=== PATIENT | male | born 1970 | race Caucasian/White ===

== ENCOUNTER 2016-02-12 16:29 | Emergency (ER) | payer OTHER ==
[~2016-02-12] VITALS: Ht 203.2 cm; Wt 116.1 kg
[~2016-02-12 16:29] MED LIST: ACET325T38 PO; ALBU17AE23 IH; ASP81TEC PO; ASPI-74 PO; ATOR40TA70 PO; ATOR80TA PO; ATOR80TA76 PO; BPR150TCR PO; CEFD300C3 PO; CLOP75TA PO; CLOP75TA28 PO; CYCL10TA9 PO; DOCU-143 PO; DOXY150T9 PO; FLUT1DIS26 IH; HYDR-2858 PO; HYDR-3812 PO; IBP600T1 PO; IBP800T PO; IBUP-30 PO; ISOS30TA3 PO; L.AC1CAP6 PO; METO-352 PO; METO50TA7 PO; MTP25TSR PO; NTR.4SL SL; OMEP20CA12 PO; OMEP20TA7 PO; OMG1KC PO; PANT40TA2 PO; PNT40TEC PO; PRD10T PO
--- OUTSIDE RECORDS SUMMARY | 2016-02-12 16:36 | XMS REPORT | Continuity of Care Document ---
Author Author [facility] Organization [facility] Address Unknown Phone Unavailable Care Team Providers Care Systems Accountant Name Role Phone [facility] PCP Insurance Providers Payer Name Policy Number Subscriber Name Relationship Self Pay Pending Radha Apprv [id number] Robert De La Torre 18 Self / Same As Patient Advance Directives Directive Response Recorded Date/Time Advance Directives No 09/25/15 8:30pm Health Care Power of Cafeteria Helper No 09/25/15 8:30pm Organ Donor Yes 09/25/15 8:30pm Problems Active Problems Medical Problem Onset Date Status Acute coronary syndrome Unknown Acute Acute inferolateral myocardial infarction Unknown Acute CAD (coronary artery disease) Unknown Acute Non-ST elevated myocardial infarction Unknown Acute Medications Current Home Medications Medication Dose Units Route Directions Days/Qty Instructions Start Date Aspirin 81 Mg 81 Mg Oral Daily 03/24/12 Metoprolol Succinate 50 Mg 50 Mg Oral Daily 07/24/15 Atorvastatin Calcium 80 Mg 80 Mg Oral Bedtime 07/24/15 [place] 3 Polyunsat Fatty Acids 1,000 Mg 1,000 Mg Oral Twice A Day Clopidogrel Bisulfate 75 Mg 75 Mg Oral Daily LAST FILLED 09/08/15 #30 07/24/15 Omeprazole 20 Mg 20 Mg Oral Daily LAST FILLED 08/30/15 #30 07/24/15 Isosorbide Mononitrate (Imdur) 30 Mg 30 Mg Oral Daily 09/26/15 Acetaminophen 325 Mg 650 Mg Oral Every 8HRS 60 09/26/15 Past Home Medications Medication Directions Ordered Status Aspirin 325 Mg Tablet, 325 Mg Oral As Needed 02/01/11 Discontinued Cefdinir (Omnicef) 300 Mg Capsule, 1 Each Oral Twice A Day 02/08/11 Discontinued Albuterol 17 Gm Aerosol, 2 Puff Inhalation Every 4HRS as needed 02/08/11 Discontinued Ibuprofen 600 Mg Tab, 600 Mg Oral Every 6 Hours as needed 02/08/11 Discontinued Ibuprofen 800 Mg Tab, 800 Mg Oral Three Times A Day 03/07/12 Discontinued Ibuprofen 800 Mg Tablet, 800 Mg Oral Qid Prn 03/21/12 Discontinued Atorvastatin Calcium 80 Mg Tablet, 80 Mg Oral Bedtime 03/24/12 Discontinued Metoprolol Succinate 25 Mg Tab.sr.24h, 50 Mg Oral Daily 03/24/12 Discontinued Clopidogrel Bisulfate 75 Mg Tablet, 75 Mg Oral Daily 03/24/12 Discontinued Pantoprazole Sodium 40 Mg Tablet.dr, 40 Mg Oral Daily as needed for Heartburn 03/24/12 Discontinued Atorvastatin Calcium 40 Mg Tablet, 80 Mg Oral Bedtime 06/29/12 Discontinued Metoprolol Succinate 50 Mg Tab.sr.24h, 50 Mg Oral Daily 06/29/12 Discontinued Salmeterol Xinafoate/Fluticasone 1 Disk Inhp, 1 Puff Inhalation Twice A Day 06/29/12 Discontinued Ibuprofen 200 Mg Tablet, 400 Mg Oral Daily 06/29/12 Discontinued Nitroglycerin 0.4 Mg Subl, 0.4 Mg Sublingual Every 5 Minutes 06/29/12 Discontinued Nitroglycerin 0.4 Mg Tab, 0 Sublingual As Needed 06/29/12 Discontinued Bupropion Hcl 150 Mg Tablet, 150 Tab Oral Daily 06/25/13 Discontinued Fish Oil 1,000 Mg Cap, 1000 Mg Oral Twice A Day 06/25/13 Discontinued L.acidoph & Paracasei,B.lactis 1 Each Capsule, 1 Each Oral Twice A Day Discontinued Omeprazole 20 Mg Tablet.dr, 20 Mg Oral Daily 01/18/15 Discontinued Hydrocodone/Acetaminophen 1 Each Tablet, 1 Tab Oral Every 4HRS as needed for 01/20/15 Discontinued Docusate Sodium 100 Mg Capsule, 100 Mg Oral Twice A Day 01/20/15 Discontinued Fluticasone/Salmeterol 1 Each Blst.w.dev, 1 Each Inhalation Twice A Day as needed for Wheezing 05/26/15 Discontinued Docusate Sodium 100 Mg Capsule, 100 Mg Oral Daily 06/13/16 Discontinued Isosorbide Mononitrate (Imdur) 30 Mg Tab.er.24h, 30 Mg Oral Daily 07/27/15 Discontinued Social History Social History Problem Response Recorded Date/Time Alcohol Use Denies Use 07/24/2015 1:08pm Recreational Drug Use N HX OF METH ABUSE, CLEAN SINCE 201007/24/2015 1:08pm Recent Foreign Travel No 06/24/2013 8:05pm Recent Infectious Disease Exposure No 06/24/2013 8:05pm Hospitalization with Isolation Denies 06/26/2013 12:40am Sexually Transmitted Disease No 09/25/2015 8:30pm HIV/AIDS No 09/25/2015 8:30pm Do you dip or chew tobacco? No 07/24/2015 10:19am Type Used Cigarettes 09/26/2015 1:14pm Recent Hopitalizations Yes 09/25/2015 8:30pm Sexually Transmitted Disease No 09/25/2015 8:30pm Hospitalization with Isolation Denies 06/26/2013 12:40am Hospital Discharge Instructions No hospital discharge instructions. Plan of Care Discharge Date 10/25/15 3:45pm Prescriptions See Medication Section Functional Status No functional status results. Allergies, Adverse Reactions, Alerts Allergen Type Severity Reaction Status Last Updated NKANo Known Allergies Allergy Mild Active 05/30/15 Immunizations No immunization records. Vital Signs Acute Vital Signs Vital Response Date/Time Temperature (Fahrenheit) 97.7 degrees F (97.6 - 99.5) 09/26/2015 1:00pm Temperature (Calculated Celsius) 35.47063 degrees C (36.4 - 37.5) 09/26/2015 8:01am Temperature Source Tympanic 09/26/2015 1:00pm Pulse Rate (adult) 56 bpm (60 - 90) 09/26/2015 1:00pm Respiratory Rate 13 bpm (12 - 24) 09/26/2015 1:00pm O2 Sat by Pulse Oximetry 100 % (88 - 100) 09/26/2015 1:00pm Blood Pressure 114/81 mm Hg 09/26/2015 1:00pm Blood Pressure Mean 101 mm Hg 09/26/2015 8:01am Pain Numeric Pain Scale 0-No Pain 09/26/2015 1:00pm Height (Feet) 6 feet 09/25/2015 8:30pm Height (Inches) 3.00 inches 09/25/2015 8:30pm Height (Calculated Centimeters) 190.592271 cm 09/25/2015 8:30pm Weight (Pounds) 246 pounds 09/26/2015 6:00am Weight (Ounces) 0.0 oz 09/26/2015 6:00am Weight (Calculated Grams) 647476.724 gm 09/26/2015 6:00am Weight (Calculated Kilograms) 111.431630 kilograms 09/26/2015 6:00am Calculated BMI 30.8 09/25/2015 8:30pm Capillary Refill Capillary Refill Less Than 3 Seconds 09/25/2015 11:00pm Results Laboratory Results Test Name Result Units Flags Reference Collection Date/Time Result Date/ Time Comments Sodium Level 139 MMOL/L 135-145 09/25/2015 9:41am 09/25/2015 10:13am Potassium Level 4.7 MMOL/L 3.6-5.0 09/25/2015 9:41am 09/25/2015 10: 13am Chloride Level 106 MMOL/L 98-107 09/25/2015 9:41am 09/25/2015 10:13am Carbon Dioxide Level 25 MMOL/L 21-32 09/25/2015 9:41am 09/25/2015 10: 13am Anion Gap 8 MMOL/L 5-14 09/25/2015 9:41am 09/25/2015 10:13am Blood Urea Nitrogen 15 MG/DL 7-18 09/25/2015 9:41am 09/25/2015 10:13am Creatinine 1.00 MG/DL 0.60-1.30 09/25/2015 9:41am 09/25/2015 10:13am BUN/Creatinine Ratio 15 09/25/2015 9:41am 09/25/2015 10:13am Estimat Glomerular Filtration Rate > 60 09/25/2015 9:41am 2015 10:13am GFR INTERPRETIVE DATA UNITS FOR ESTIMATED GFR (eGFR): mL/min/1.73 M2 REFERENCE RANGE FOR ESTIMATED GFR (eGFR) eGFR NORMAL eGFR >60 MODERATELY DECREASED eGFR 30-59 SEVERLY DECREASED eGFR 15-29 KIDNEY FAILURE <15 (OR DIALYSIS) Glucose Level 99 MG/DL 70-105 09/25/2015 9:41am 09/25/2015 10:13am Calcium Level 9.5 MG/DL 8.5-10.1 09/25/2015 9:41am 09/25/2015 10:13am Magnesium Level 2.3 MG/DL 1.8-2.4 09/25/2015 9:41am 09/25/2015 10:13am Total Bilirubin 0.8 MG/DL 0.1-1.0 09/25/2015 9:41am 09/25/2015 10:13am Alkaline Phosphatase 88 U/L 40-136 09/25/2015 9:41am 09/25/2015 10: 13am Aspartate Amino Transf (AST/SGOT) 22 U/L 5-34 09/25/2015 9:41am 2015 10:13am Alanine Aminotransferase (ALT/SGPT) 40 U/L 0-55 09/25/2015 9:41am 09/24 10:13am Total Protein 7.0 G/DL 6.4-8.2 09/25/2015 9:41am 09/25/2015 10:13am Albumin 4.5 G/DL 3.2-4.5 09/25/2015 9:41am 09/25/2015 10:13am Triglycerides Level 217 MG/DL H <150 09/25/2015 9:41am 09/25/2015 10: 13am Cholesterol Level 170 MG/DL < 200 09/25/2015 9:41am 09/25/2015 10:13am HDL Cholesterol 33 MG/DL L 40-60 09/25/2015 9:41am 09/25/2015 10:13am LDL Cholesterol Direct 93 MG/DL 1-129 09/25/2015 9:41am 09/25/2015 10: 13am VLDL Cholesterol 43 MG/DL H 5-40 09/25/2015 9:41am 09/25/2015 10:13am Pending Laboratory Results Test Name Collection Date/Time Procedures Procedure Status Date Provider(s) Tracing only of electrocardiogram Completed 09/25/15 DEWEY CANCHOLA MD Tracing only of electrocardiogram Completed 09/25/15 DARÍO JIMÉNEZ MD FACP FAC CCDS Encounters Encounter Location Arrival/Admit Date Discharge/Depart Date Attending Provider Departed Clinic [facility] 10/25/15 3:15pm 10/25/15 3: 45pm ИВАН RAYMUNDO DO Departed Surgical Day Care [facility] 09/25/15 5:26pm 1:00pm DARÍO JIMÉNEZ FACP, MD FACC Registered Clinic [facility] 09/25/15 9:38am DARÍO JIMÉNEZ FACP, MD FACC
[2016-02-12 16:43] VITALS: BP 149/87
[2016-02-12] MEDS ORDERED: ASPIRIN 81 MG CHEW (CHILDREN'S ASA) PO ONE (16:45)
[2016-02-12 16:48] LABS: BASOPHILS % (AUTO) 1 % (0-10); EOSINOPHILS # (AUTO) 0.2 10^3/uL (0.0-0.3); EOSINOPHILS % (AUTO) 3 % (0-10); LYMPHOCYTES # (AUTO) 1.7 X 10^3 (1.0-4.0); LYMPHOCYTES % (AUTO) 32 % (12-44); MEAN CORPUSCULAR HEMOGLOBIN 31 PG (25-34); MEAN CORPUSCULAR HGB CONC 34 G/DL (32-36); MEAN CORPUSCULAR VOLUME 91 FL (80-99); MEAN PLATELET VOLUME 9.3 FL (7.4-10.4); MONOCYTES # (AUTO) 0.5 X 10^3 (0.0-1.0); MONOCYTES % (AUTO) 10 % (0-12); NEUTROPHILS # (AUTO) 2.8 X 10^3 (1.8-7.8); NEUTROPHILS % (AUTO) 54 % (42-75); PLATELET COUNT 223 10^3/uL (130-400); RED CELL DISTRIBUTION WIDTH 13.2 % (10.0-14.5); WHITE BLOOD COUNT 5.2 10^3/uL (4.3-11.0)
[2016-02-12] MEDS ORDERED: FAMOTIDINE 20MG/2ML IV (PEPCID) IV STA (16:55)
[2016-02-12 16:59] LABS: PROTHROMBIN TIME PATIENT 12.4 SEC (12.2-14.7)
[2016-02-12] MEDS ORDERED: LIDOCAINE 2% VISCOUS 15 ML UDC PO ONE (17:00)
[2016-02-12] MEDS ORDERED: ANTACID SUSP 30 ML UDC (MYLANTA) PO ONE (17:00)
--- NOTE | 2016-02-12 17:00 | ED Chest Pain ---
General Chief Complaint: Chest Pain Stated Complaint: CP Nursing Triage Note: TO ED AMB FROM [facility] C/O CHEST PAIN Nursing Sepsis Screen: No Definite Risk Source: patient Exam Limitations: no limitations History of Present Illness Time seen by provider: 16:35 Initial Comments here with report of abdominal pain and chest discomfort. Abd pain for 5 days with diarrhea and occassional mildly bloody stool. Seen at clinic toay and told to come to hospital to check in. Came here and was complaining of chest pain. States pain radiates from upper abd to left side of chest and is intermittent and moderated in intensity. Timing/Duration: changing over time, 4-5 days Severity/Quality: mild, moderate, ingestion, pressure Location: central Radiation: epigastric Activities at Onset: none Prior CP/Workup: cardiac cath, heart attack Modifying Factors: improves with eating ASA po ENTERER: Yes NTG SL ENTERER: No Associated Symptoms: abdominal painNo back pain, No diaphoresis, No fever/ chills, No nausea/vomiting, No shortness of breath, No weakness Allergies and Home Medications Allergies Coded Allergies: NKANo Known Allergies (Verified Allergy, Mild, 05/30/15) Home Medications Acetaminophen 325 Mg Tablet #60 650 MG PO Q8H Prescribed by: LAMAR MARC on 09/26/15 1138 Aspirin 81 Mg Tabec 81 MG PO DAILY (Reported) Atorvastatin Calcium 80 Mg Tablet 80 MG PO HS (Reported) Clopidogrel Bisulfate 75 Mg Tablet 75 MG PO DAILY (Reported) LAST FILLED 09/08/15 #30 Isosorbide Mononitrate 30 Mg Tab.er.24h 30 MG PO DAILY (Reported) Metoprolol Succinate 50 Mg Tab.er.24h 50 MG PO DAILY (Reported) [place] 3 Polyunsat Fatty Acids 1,000 Mg Cap 1,000 MG PO BID (Reported) Omeprazole 20 Mg Capsule.dr 20 MG PO DAILY (Reported) LAST FILLED 08/30/15 #30 Pantoprazole Sodium 40 Mg Tablet.dr #30 40 MG PO DAILY Prescribed by: FILOMENA ACOSTA on 11/04/15 1314 Review of Systems Constitutional: see HPINo chills, No fever EENTM: No Symptoms Reported Respiratory: No Symptoms Reported Cardiovascular: See HPI Chest PainDenies Lightheadedness Gastrointestinal: DiarrheaDenies Nausea, Rectal BleedingDenies Vomiting Genitourinary: No Symptoms Reported Musculoskeletal: no symptoms reported Skin: no symptoms reported Psychiatric/Neurological: No Symptoms Reported Endocrine: No Symptoms Reported All Other Systems Reviewed Negative Unless Noted: Yes Past Iqwwytj-Pakylj-Egfkos Hx Patient Social History Alcohol Use: Denies Use Recreational Drug Use: No Smoking Status: Current Everyday Smoker Type Used: Cigarettes Recent Foreign Travel: No Contact w/Someone Who Travel: No Recent Infectious Disease Expo: No Recent Hopitalizations: Yes Immunizations Up To Date Tetanus Booster (TDap): Unknown Date of Pneumonia Vaccine: Nov 22, 2014 Date of Influenza Vaccine: Nov 22, 2014 Seasonal Allergies Seasonal Allergies: No Surgeries HX Surgeries: Yes (LEFT KNEE SX) Surgeries: Abdominal (upper endoscopy with gastritis noted), Coronary Stent, Gallbladder Respiratory Hx Respiratory Disorders: No Cardiovascular Hx Cardiac Disorders: Yes Cardiac Disorders: Coronary Artery Disease, High Cholesterol, Hypertension Neurological Hx Neurological Disorders: No Reproductive System Hx Reproductive Disorders: No Sexually Transmitted Disease: No HIV/AIDS: No Genitourinary Hx Genitourinary Disorders: No Gastrointestinal Hx Gastrointestinal Disorders: Yes Gastrointestinal Disorders: Gall Bladder Disease Musculoskeletal Hx Musculoskeletal Disorders: Yes Musculoskeletal Disorders: Degenerate Disk Disease, Arthritis, Back Injury Endocrine Hx Endocrine Disorders: No HEENT HX ENT Disorders: No Cancer Hx Cancer: No Psychosocial Hx Psychiatric Problems: No Integumentary HX Skin/Integumentary Disorder: No Blood Transfusions Hx Blood Disorders: No Reviewed Nursing Assessment Reviewed/Agree w Nursing PMH: Yes Family Medical History Significant Family History: Heart Disease, Hypertension Family Medial History: Congestive heart failure 19 FATHER Family history: Hypertension 19 FATHER 19 MOTHER No Family History of: Cancer Dementia Family history: Alzheimer's disease Family history: Diabetes mellitus Stroke Physical Exam Vital Signs Vital Sign - Last 12Hours 02/12/16 16:34 Temp 97.4 Pulse 79 Resp 18 B/P 142/92 Pulse Ox 98 O2 Delivery Room Air Capillary Refill : Less Than 3 Seconds General Appearance: No Apparent Distress WD/WN HEENT: PERRL/EOMI Pharynx Normal Neck: Non Tender Supple Respiratory: Lungs Clear Normal Breath Sounds Cardiovascular: Regular Rate, Rhythm No Murmur Gastrointestinal: Non Tender Soft Rectal: Deferred Extremity: Non Tender No Calf Tenderness Neurologic/Psychiatric: Alert Oriented x3 No Motor/Sensory Deficits Skin: Normal Color Warm/Dry Progress/Results/Core Measures Results/Orders Lab Results Laboratory Tests Test 02/12/16 16:39 Range/Units Activated Partial Thromboplast Time 26 24-35 SEC Alanine Aminotransferase (ALT/SGPT) 350 H 0-55 U/L Albumin 4.4 3.2-4.5 G/DL Alkaline Phosphatase 142 H 40-136 U/L Anion Gap 8 5-14 MMOL/L Aspartate Amino Transf (AST/SGOT) 297 H 5-34 U/L BUN/Creatinine Ratio 15 Basophils # (Auto) 0.0 0.0-0.1 10^3/uL Basophils (%) (Auto) 1 0-10 % Blood Urea Nitrogen 16 7-18 MG/DL Calcium Level 9.2 8.5-10.1 MG/DL Carbon Dioxide Level 27 21-32 MMOL/L Chloride Level 105 98-107 MMOL/L Creatinine 1.10 0.60-1.30 MG/DL Eosinophils # (Auto) 0.2 0.0-0.3 10^3/uL Eosinophils (%) (Auto) 3 0-10 % Estimat Glomerular Filtration Rate > 60 Glucose Level 103 70-105 MG/DL Hematocrit 47 40-54 % Hemoglobin 15.9 13.3-17.7 G/DL INR Comment 1.0 0.8-1.4 Lymphocytes # (Auto) 1.7 1.0-4.0 X 10^3 Lymphocytes (%) (Auto) 32 12-44 % Magnesium Level 2.2 1.8-2.4 MG/DL Mean Corpuscular Hemoglobin 31 25-34 PG Mean Corpuscular Hemoglobin Concent 34 32-36 G/DL Mean Corpuscular Volume 91 80-99 FL Mean Platelet Volume 9.3 7.4-10.4 FL Monocytes # (Auto) 0.5 0.0-1.0 X 10^3 Monocytes (%) (Auto) 10 0-12 % Myoglobin 89.7 10.0-92.0 NG/ML Neutrophils # (Auto) 2.8 1.8-7.8 X 10^3 Neutrophils (%) (Auto) 54 42-75 % Platelet Count 223 130-400 10^3/uL Potassium Level 4.2 3.6-5.0 MMOL/L Prothrombin Time 12.4 12.2-14.7 SEC Red Blood Count 5.20 4.35-5.85 10^6/uL Red Cell Distribution Width 13.2 10.0-14.5 % Sodium Level 140 135-145 MMOL/L Total Bilirubin 0.5 0.1-1.0 MG/DL Total Protein 7.2 6.4-8.2 G/DL Troponin I < 0.30 <0.30 NG/ML White Blood Count 5.2 4.3-11.0 10^3/uL My Orders Orders-MIHAI SANCHEZ MD Lidocaine 2% Viscous 15 Ml (Xylocaine Vi (02/12/16 17:00) Antacid Suspension (Mylanta Suspension (02/12/16 17:00) Famotidine Injection (Pepcid Injection) (02/12/16 16:55) Ns Iv 1000 Ml (Sodium Chloride 0.9%) (02/12/16 17:43) Medications Given in ED Current Medications Medications Dose Ordered Sig/Stan Route Start Time Stop Time Status Last Admin Dose Admin Al Hydrox/Mg Hydrox/ Simethicone 30 ml 30 ml ONCE ONCE PO 02/12/16 17:00 02/12/16 17:01 DC 02/12/16 17:18 30 ML Aspirin 324 mg ONCE ONCE PO 02/12/16 16:45 02/12/16 16:46 DC 02/12/16 16:47 324 MG Lidocaine HCl 15 ml ONCE ONCE PO 02/12/16 17:00 02/12/16 17:01 DC 02/12/16 17:18 15 ML Sodium Chloride 1,000 ml @ 0 mls/hr Q0M ONCE IV 02/12/16 17:43 02/12/16 17:44 DC 02/12/16 18:00 1,000 MLS/HR Vital Signs/I&O Vital Sign - Last 12Hours 02/12/16 16:34 Temp 97.4 Pulse 79 Resp 18 B/P 142/92 Pulse Ox 98 O2 Delivery Room Air Blood Pressure Mean: 109 Progress Note : Progress Note Seen and evaluated. IV, labs, EKG and CXR ordered. ASA 324 MG PO given. EKG normal. LABS reviewed and discussed with DR Lipscomb. Patient was appearantly supposed to come to hospital lab for stool sample for clinic. Patient was instructed on how to do this. He will have follow up appointment at clinic this week to recheck rectal bleeding and patient verbalized understanding of need for follow up. DC home with return precautions. Verbalized understanding of instructions and agreement with plan. ECG Initial ECG Impression Date: Feb 12, 2016 Initial ECG Impression Time: 16:34 Initial ECG Rate: 79 Initial ECG Rhythm: Normal Sinus Initial ECG Intervals: Normal Comment Sinus with normal axis. No evidence of STEMI. unchanged from previous. Interpreted by me. Diagnostic Imaging Diagonstic Imaging: Xray Plain Films/CT/US/NM/MRI: chest [facility] [place], [place] NAME: ANGIE SÁNCHEZ [facility] REC#: [id number] PT STATUS: REG ER : 1970 PHYSICIAN: HECTOR HUNTER ADMIT DATE: 02/12/16/ER Draft Date of Exam:02/12/16 CHEST 1 VIEW, AP/PA ONLY INDICATION: Chest pain, upper abdominal pain. TECHNIQUE: Single view chest 4:35 p.m. CORRELATION STUDY: 11/04/2015. FINDINGS: Heart size is mildly enlarged. Vasculature is slightly prominent without evidence of overt failure. Senescent-type changes about the lung parenchyma. No infiltrate. Increased density in the right lung apex likely owing to overgrowth of the anterior first ribs. Degenerative changes of bridging osteophytes in the thoracic spine. IMPRESSION: 1. Borderline heart size and vasculature but without evidence of overt failure at this time. Dictated on workstation # [id number] Dict: 02/12/16 1706 Trans: 02/12/16 1712 [id number] Interpreted by: SARAH MACHADO DO Electronically signed by: Departure Impression Impression: Primary Impression: Chest pain Qualified Code: R07.2 - Precordial pain Additional Impressions: Epigastric abdominal pain Blood per rectum Diarrhea Qualified Code: R19.7 - Diarrhea, unspecified Elevated liver enzymes Disposition: 01 HOME, SELF-CARE Condition: Improved Departure-Patient Inst. Decision time for Depature: 18:27 Referrals: [facility] (PCP/Family) Primary Care Physician Patient Instructions: Acute Abdomen (Belly Pain), Adult (DC), Chest Pain (DC), Diarrhea in Adolescents and Adults, Gastrointestinal Bleeding (DC) Add. Discharge Instructions: All discharge instructions reviewed with patient and/or family. Voiced understanding. Clear liquid diet for 24 hours then advance as tolerated. Follow up in the clinic this week for recheck of blood in stool. Take stool sample to lab after collection. You will have to register at out patient registration of the ED depending on the time of day. Return for worse pain, fever vomiting or other concerns as needed. Copy Copies To 1: MERARY COBOS MD, TIMOTHY D MD Feb 12, 2016 17:00
[2016-02-12 17:07] LABS: ALANINE AMINOTRANSFERASE 350 U/L (0-55); ALBUMIN 4.4 G/DL (3.2-4.5); ANION GAP 8 MMOL/L (5-14); ASPARTATE AMINO TRANSFERASE 297 U/L (5-34); BILIRUBIN,TOTAL 0.5 MG/DL (0.1-1.0); BLOOD UREA NITROGEN 16 MG/DL (7-18); BUN/CREATININE RATIO 15; CALCIUM 9.2 MG/DL (8.5-10.1); CARBON DIOXIDE 27 MMOL/L (21-32); CHLORIDE 105 MMOL/L (98-107); GFR ESTIMATED > 60; GLUCOSE 103 MG/DL (70-105); MAGNESIUM 2.2 MG/DL (1.8-2.4); POTASSIUM 4.2 MMOL/L (3.6-5.0); SODIUM 140 MMOL/L (135-145); TOTAL PROTEIN 7.2 G/DL (6.4-8.2)
--- NOTE | 2016-02-12 17:12 | Diagnostic Imaging Report ---
INDICATION: Chest pain, upper abdominal pain. TECHNIQUE: Single view chest 4:35 p.m. CORRELATION STUDY: 11/04/2015. FINDINGS: Heart size is mildly enlarged. Vasculature is slightly prominent without evidence of overt failure. Senescent-type changes about the lung parenchyma. No infiltrate. Increased density in the right lung apex likely owing to overgrowth of the anterior first ribs. Degenerative changes of bridging osteophytes in the thoracic spine. IMPRESSION: 1. Borderline heart size and vasculature but without evidence of overt failure at this time. Dictated by: Dictated on workstation # [id number]
[2016-02-12 17:15] LABS: MYOGLOBIN SERUM 89.7 NG/ML (10.0-92.0)
[2016-02-12] MEDS ORDERED: NS IV 1000 ML 1,000 ML IV ONE (17:43)
[2016-02-12 19:19] VITALS: BP 141/89
== END 2016-02-12 19:19 | disposition home or self-care (01) ==
LOC: EDUNIT# 16:29 → ER 16:30
DX: R07.9 Chest pain, unspecified (principal); R10.13 Epigastric pain; K62.5 Hemorrhage of anus and rectum; R19.7 Diarrhea, unspecified; R74.8 Abnormal levels of other serum enzymes; I10 Essential (primary) hypertension; I25.10 Atherosclerotic heart disease of native coronary artery without angina pectoris; Z79.82 Long term (current) use of aspirin; Z79.899 Other long term (current) drug therapy; Z95.5 Presence of coronary angioplasty implant and graft
CPT/HCPCS: 36415; 71010; 80053; 83735; 83874; 84484; 85025; 85610; 85730; 93005; 93041; 96361; 96374

== ENCOUNTER → 2016-03-11 | Outpatient (CLI) | payer OTHER ==
[~2016-03-11] MED LIST changes: +APIX5TAB PO; +DILT300C51 PO; +NAPR220T66 PO; +PANT40TA3 PO; +PRD20T PO
--- OUTSIDE RECORDS SUMMARY | 2016-03-11 13:38 | XMS REPORT | Continuity of Care Document ---
Author Author [facility] Organization [facility] Address Unknown Phone Unavailable Care Team Providers Care Teamcenter Solution Architect Name Role Phone [facility] PCP Insurance Providers Payer Name Policy Number Subscriber Name Relationship Self Pay Pending Radha Apprv [id number] Robert De La Torre 17 Self / Same As Patient Advance Directives Directive Response Recorded Date/Time Advance Directives No 09/25/15 8:30pm Health Care Power of Talent Acquisition Consultant No 09/25/15 8:30pm Organ Donor Yes 09/25/15 [...] 80 Mg 80 Mg Oral Bedtime 07/24/15 [place] 3 Polyunsat Fatty Acids 1,000 Mg 1,000 [...] - 99.5) 09/26/2015 1:00pm Temperature (Calculated Celsius) 35.43699 degrees C (36.4 - 37.5) 09/26/2015 8:01am [...] 3.00 inches 09/25/2015 8:30pm Height (Calculated Centimeters) 190.662366 cm 09/25/2015 8:30pm Weight (Pounds) 246 pounds 09/26/2015 6:00am Weight (Ounces) 0.0 oz 09/26/2015 6:00am Weight (Calculated Grams) 051147.724 gm 09/26/2015 6:00am Weight (Calculated Kilograms) 111.150941 kilograms 09/26/2015 6:00am Calculated BMI 30.8 09/25/2015 [...] Discharge/Depart Date Attending Provider Departed Clinic [facility] 10/25/15 3:15pm 10/25/15 3: 45pm ИВАН RAYMUNDO DO Departed Surgical Day Care [facility] 09/25/15 5:26pm 1:00pm DARÍO JIMNÉEZ FACP, MD FACC Registered Clinic [facility] 09/25/15 9:38am DARÍO JIMÉNEZ FACP, MD FACC
--- NOTE | 2016-03-11 14:02 | Diagnostic Imaging Report ---
PROCEDURE: CT chest without contrast. TECHNIQUE: Multiple contiguous axial images were obtained through the chest without the use of intravenous contrast. INDICATION: Asthma. COPD. FINDINGS: There is a left lower lobe pulmonary nodule measuring 6 mm, similar to 07/14/2012 exam, compatible with benign scar. There is no significant consolidation, mass, or suspicious nodule. Calcified granulomas are seen in the right hilum and right paratracheal area. No significantly enlarged mediastinal lymph nodes seen. The thoracic aorta is normal in caliber. There is no evidence of significant interstitial lung disease, emphysema, or bronchiectasis. The heart size is normal. No pericardial effusion. No pleural effusion. Sections in the upper abdomen demonstrate cholecystectomy clips with no significant abnormality. Bridging syndesmophytes in the mid thoracic spine noted. IMPRESSION: No acute process. No significant abnormality. Dictated by: Dictated on workstation # [id number]
== END ==
LOC: RAD 13:35
PROVIDERS: ATTEND Nurse Practitioner Family
DX: J45.909 Unspecified asthma, uncomplicated (principal); J44.9 Chronic obstructive pulmonary disease, unspecified; R06.00 Dyspnea, unspecified; J98.4 Other disorders of lung; Z72.0 Tobacco use
CPT/HCPCS: 71250

== ENCOUNTER 2016-04-08 08:57 | Observation (INO) | payer OTHER ==
[~2016-04-08] VITALS: Ht 188 cm; Wt 118.1 kg
[~2016-04-08 08:57] MED LIST changes: -APIX5TAB PO; -DILT300C51 PO; -NAPR220T66 PO; -PANT40TA3 PO; -PRD20T PO
--- OUTSIDE RECORDS SUMMARY | 2016-04-08 09:07 | XMS REPORT | Continuity of Care Document ---
Author Author [facility] Organization [facility] Address Unknown Phone Unavailable Care Team Providers Care Industrial Ecology Technician Name Role Phone [facility] PCP Insurance Providers Payer Name Policy Number Subscriber Name Relationship Self Pay Pending Radha Apprv [id number] Robert De La Torre 17 Self / Same As Patient Advance Directives Directive Response Recorded Date/Time Advance Directives No 09/25/15 8:30pm Health Care Power of Knitter Wire Mesh No 09/25/15 8:30pm Organ Donor Yes 09/25/15 [...] 80 Mg 80 Mg Oral Bedtime 07/24/15 [place] 3 Polyunsat Fatty Acids 1,000 Mg 1,000 [...] - 99.5) 09/26/2015 1:00pm Temperature (Calculated Celsius) 35.42490 degrees C (36.4 - 37.5) 09/26/2015 8:01am [...] 3.00 inches 09/25/2015 8:30pm Height (Calculated Centimeters) 190.667406 cm 09/25/2015 8:30pm Weight (Pounds) 246 pounds 09/26/2015 6:00am Weight (Ounces) 0.0 oz 09/26/2015 6:00am Weight (Calculated Grams) 722666.724 gm 09/26/2015 6:00am Weight (Calculated Kilograms) 111.656016 kilograms 09/26/2015 6:00am Calculated BMI 30.8 09/25/2015 [...] Discharge/Depart Date Attending Provider Departed Clinic [facility] 10/25/15 3:15pm 10/25/15 3: 45pm ИВАН RAYMUNDO DO Departed Surgical Day Care [facility] 09/25/15 5:26pm 1:00pm DARÍO JIMÉNEZ FACP, MD FACC Registered Clinic [facility] 09/25/15 9:38am DARÍO JIMÉNEZ FACP, MD FACC
--- NOTE | 2016-04-08 09:15 | ED Cardiac General ---
History of Present Illness General Stated Complaint: CHEST PAIN Source: patient Exam Limitations: no limitations History of Present Illness Time seen by provider: 09:00 Initial Comments Here by EMS from [facility] with report of tachycardia that was found on check and for his clinic appointment. He did not know that his heart rate was fast. Has been suffering from upper respiratory infection/illness recently and has been taking Mucinex but did not take it today. Reports taking his meds as directed. He does have cardiac history and is on Plavix and metoprolol. He does have history of 3 cardiac stents. He did report some dizziness today but otherwise does not feel chest pain or palpitations. Timing/Duration: 1 hour, constant Severity: mild Activities at Onset: none Prior CP/Workup: cardiac cath, echocardiography Modifying Factors: improves with rest Associated Systoms: No Chest Pain, CoughNo Fever/Chills, No Headaches, No Nausea/Vomiting, No Shortness of Air, No Weakness Allergies and Home Medications Allergies Coded Allergies: NKANo Known Allergies (Verified Allergy, Mild, 05/30/15) Home Medications Acetaminophen 325 Mg Tablet #60 650 MG PO Q8H Prescribed by: LAMAR MARC on 09/26/15 1138 Aspirin 81 Mg Tabec 81 MG PO DAILY (Reported) Atorvastatin Calcium 80 Mg Tablet 80 MG PO HS (Reported) Clopidogrel Bisulfate 75 Mg Tablet 75 MG PO DAILY (Reported) LAST FILLED 09/08/15 #30 Isosorbide Mononitrate 30 Mg Tab.er.24h 30 MG PO DAILY (Reported) Metoprolol Succinate 50 Mg Tab.er.24h 50 MG PO DAILY (Reported) [place] 3 Polyunsat Fatty Acids 1,000 Mg Cap 1,000 MG PO BID (Reported) Omeprazole 20 Mg Capsule.dr 20 MG PO DAILY (Reported) LAST FILLED 08/30/15 #30 Pantoprazole Sodium 40 Mg Tablet.dr #30 40 MG PO DAILY Prescribed by: FILOMENA ACOSTA on 11/04/15 1314 Review of Systems Constitutional: see HPINo chills, No fever EENTM: See HPI Nose CongestionNo Throat Pain Respiratory: No Symptoms Reported Cardiovascular: See HPIDenies Chest Pain, Denies Edema, Irregular Heart Rate Lightheadedness Gastrointestinal: No Symptoms ReportedDenies Nausea, Denies Vomiting Genitourinary: No Symptoms Reported Musculoskeletal: no symptoms reported Skin: no symptoms reported Psychiatric/Neurological: No Symptoms Reported Endocrine: No Symptoms Reported All Other Systems Reviewed Negative Unless Noted: Yes Past Hzchwwu-Xspmdi-Bumcfr Hx Patient Social History Alcohol Use: Denies Use Recreational Drug Use: No Smoking Status: Light Tobacco Smoker Type Used: Cigarettes Recent Hopitalizations: Yes Immunizations Up To Date Tetanus Booster (TDap): Unknown Date of Pneumonia Vaccine: Nov 22, 2014 Date of Influenza Vaccine: Nov 22, 2014 Seasonal Allergies Seasonal Allergies: No Surgeries HX Surgeries: Yes (LEFT KNEE SX) Surgeries: Abdominal, Coronary Stent, Gallbladder Respiratory Hx Respiratory Disorders: No Cardiovascular Hx Cardiac Disorders: Yes Cardiac Disorders: Coronary Artery Disease, High Cholesterol, Hypertension Neurological Hx Neurological Disorders: No Reproductive System Hx Reproductive Disorders: No Sexually Transmitted Disease: No HIV/AIDS: No Genitourinary Hx Genitourinary Disorders: No Gastrointestinal Hx Gastrointestinal Disorders: Yes Gastrointestinal Disorders: Gall Bladder Disease Musculoskeletal Hx Musculoskeletal Disorders: Yes Musculoskeletal Disorders: Degenerate Disk Disease, Arthritis, Back Injury Endocrine Hx Endocrine Disorders: No HEENT HX ENT Disorders: No Cancer Hx Cancer: No Psychosocial Hx Psychiatric Problems: No Integumentary HX Skin/Integumentary Disorder: No Blood Transfusions Hx Blood Disorders: No Reviewed Nursing Assessment Reviewed/Agree w Nursing PMH: Yes Family Medical History Significant Family History: Heart Disease, Hypertension Family Medial History: Congestive heart failure 19 FATHER Family history: Hypertension 19 FATHER 19 MOTHER No Family History of: Cancer Dementia Family history: Alzheimer's disease Family history: Diabetes mellitus Stroke Physical Exam Vital Signs Vital Sign - Last 12Hours 04/08/16 04/08/16 08:57 09:00 Temp 97.2 Pulse 150 Resp 20 B/P 127/85 Pulse Ox 97 O2 Delivery Room Air O2 Flow Rate 2 Capillary Refill : General Appearance: No Apparent Distress WD/WN HEENT: PERRL/EOMI Pharynx Normal Neck: Non Tender Supple Respiratory: Lungs Clear Normal Breath Sounds Cardiovascular: No Murmur Tachycardia Gastrointestinal: Non Tender Soft Extremity: Normal Range of Motion Non Tender No Calf Tenderness Neurologic/Psychiatric: Alert Oriented x3 No Motor/Sensory Deficits Skin: Normal Color Warm/Dry Progress/Results/Core Measures Results/Orders Lab Results Laboratory Tests Test 04/08/16 09:15 Range/Units Activated Partial Thromboplast Time 29 24-35 SEC Alanine Aminotransferase (ALT/SGPT) 27 0-55 U/L Albumin 4.0 3.2-4.5 G/DL Alkaline Phosphatase 77 40-136 U/L Anion Gap 9 5-14 MMOL/L Aspartate Amino Transf (AST/SGOT) 23 5-34 U/L BUN/Creatinine Ratio 16 Basophils # (Auto) 0.1 0.0-0.1 10^3/uL Basophils (%) (Auto) 1 0-10 % Blood Urea Nitrogen 16 7-18 MG/DL Calcium Level 8.8 8.5-10.1 MG/DL Carbon Dioxide Level 24 21-32 MMOL/L Chloride Level 106 98-107 MMOL/L Creatinine 0.98 0.60-1.30 MG/DL D-Dimer 0.50 H 0.00-0.49 UG/ML Eosinophils # (Auto) 0.2 0.0-0.3 10^3/uL Eosinophils (%) (Auto) 3 0-10 % Estimat Glomerular Filtration Rate > 60 Glucose Level 91 70-105 MG/DL Hematocrit 49 40-54 % Hemoglobin 16.4 13.3-17.7 G/DL INR Comment 1.0 0.8-1.4 Lymphocytes # (Auto) 1.9 1.0-4.0 X 10^3 Lymphocytes (%) (Auto) 29 12-44 % Magnesium Level 2.1 1.8-2.4 MG/DL Mean Corpuscular Hemoglobin 31 25-34 PG Mean Corpuscular Hemoglobin Concent 34 32-36 G/DL Mean Corpuscular Volume 91 80-99 FL Mean Platelet Volume 9.7 7.4-10.4 FL Monocytes # (Auto) 0.6 0.0-1.0 X 10^3 Monocytes (%) (Auto) 9 0-12 % Myoglobin 85.7 10.0-92.0 NG/ML Neutrophils # (Auto) 3.8 1.8-7.8 X 10^3 Neutrophils (%) (Auto) 58 42-75 % Platelet Count 203 130-400 10^3/uL Potassium Level 4.6 3.6-5.0 MMOL/L Prothrombin Time 12.6 12.2-14.7 SEC Red Blood Count 5.34 4.35-5.85 10^6/uL Red Cell Distribution Width 13.9 10.0-14.5 % Sodium Level 139 135-145 MMOL/L Total Bilirubin 0.4 0.1-1.0 MG/DL Total Protein 6.6 6.4-8.2 G/DL Troponin I < 0.30 <0.30 NG/ML White Blood Count 6.6 4.3-11.0 10^3/uL My Orders Orders-MIHAI SANCHEZ MD Sodium Chloride (Ad... W/Diltiazem Drip (04/08/16 09:30) Diltiazem Injection (Cardizem Injection) (04/08/16 09:30) Cbc With Automated Diff (04/08/16 09:21) Magnesium (04/08/16 09:21) Chest 1 View, Ap/Pa Only (04/08/16 09:21) Ekg Tracing (04/08/16 09:21) Cardiac Profile 1 (04/08/16 09:21) Comprehensive Metabolic Panel (04/08/16 09:21) Myoglobin Serum (04/08/16 09:21) Protime With Inr (04/08/16 09:21) Partial Thromboplastin Time (04/08/16 09:21) O2 (04/08/16 09:21) Monitor-Rhythm Ecg Trace Only (04/08/16 09:21) Lipid Panel (04/09/16 06:00) Saline Lock/Iv-Start (04/08/16 09:21) Fibrin Degradation Products (04/08/16 09:21) Thyroid Analyzer (04/08/16 10:32) Apixaban Tablet (Eliquis Tablet) (04/08/16 10:45) Medications Given in ED Current Medications Medications Dose Ordered Sig/Stan Route Start Time Stop Time Status Last Admin Dose Admin Diltiazem HCl 20 mg ONCE ONCE IVP 04/08/16 09:30 04/08/16 09:31 DC 04/08/16 09:26 20 MG Vital Signs/I&O Vital Sign - Last 12Hours 04/08/16 04/08/16 04/08/16 08:57 09:00 09:29 Temp 97.2 98.1 Pulse 150 160 Resp 20 18 B/P 127/85 116/86 Pulse Ox 97 99 O2 Delivery Room Air Nasal Cannula O2 Flow Rate 2 Progress Note : Progress Note Here by EMS from clinic. Reported tachycardia noted at clinic per EMS. Clinic reportedly give 325 mg of aspirin by mouth. Patient is without chest pain; nitroglycerin given. IV by EMS. Labs, EKG and chest x-ray ordered. Monitor patient. 1045: I have discussed the case with Dr. Lipscomb at [address] Morris at 1037. They accept patient for admission, observation status. We will give dose of Eliquis 5 mg by mouth now. We'll continue Cardizem drip. He did have resolution of atrial flutter with rapid ventricular response and did have brief resolution of slow atrial flutter to sinus rhythm. Currently he is back in atrial flutter rhythm at rate of 82. All findings and concerns were discussed with the patient who agree with plan. I did inform him of his CT results from . He still has further questions related to Lipitor and liver concerns which I will defer to primary care team. ECG Initial ECG Impression Date: Apr 08, 2016 Initial ECG Impression Time: 09:06 Initial ECG Rate: 151 Initial ECG Rhythm: A Fib/Flutter Initial ECG Comparisson: Changed Comment Tachycardia that is reported to be sinus on EKG but I believe this may be flutter. No evidence of ST elevation MN. Change from previous with respect to rate. No obvious P waves noted. Question of ST elevation versus wandering baseline in the inferior leads. Interpreted by me. EKG : EKG Time: 09:40 Rate: 79 Rhythm: A Fib/Flutter ECG Comparisson: Changed Comment Atrial flutter with normal rate. Normal axis. No evidence of ST elevation MN. Interpreted by me. Departure Communication Time/Spoke to Admitting Phy: 10:29 Time/Spoke to Consulting Physi: 10:37 Impression Impression: Primary Impression: Paroxysmal atrial fibrillation with rapid ventricular response Additional Impression: Paroxysmal atrial flutter Disposition: ADMITTED INPATIENT Condition: Stable Decision to Admit Reason: Admit from ER (General) Decision to Admit/Date: Apr 08, 2016 Time/Decision to Admit Time: 10:29 Departure-Patient Inst. Referrals: [facility] (PCP/Family) Primary Care Physician MIHAI SANCHEZ MD Apr 08, 2016 09:15
[2016-04-08 09:27] LABS: BASOPHILS # (AUTO) 0.1 10^3/uL (0.0-0.1); BASOPHILS % (AUTO) 1 % (0-10); EOSINOPHILS # (AUTO) 0.2 10^3/uL (0.0-0.3); EOSINOPHILS % (AUTO) 3 % (0-10); LYMPHOCYTES # (AUTO) 1.9 X 10^3 (1.0-4.0); LYMPHOCYTES % (AUTO) 29 % (12-44); MEAN CORPUSCULAR HEMOGLOBIN 31 PG (25-34); MEAN CORPUSCULAR HGB CONC 34 G/DL (32-36); MEAN CORPUSCULAR VOLUME 91 FL (80-99); MEAN PLATELET VOLUME 9.7 FL (7.4-10.4); MONOCYTES # (AUTO) 0.6 X 10^3 (0.0-1.0); MONOCYTES % (AUTO) 9 % (0-12); NEUTROPHILS # (AUTO) 3.8 X 10^3 (1.8-7.8); NEUTROPHILS % (AUTO) 58 % (42-75); PLATELET COUNT 203 10^3/uL (130-400); RED BLOOD COUNT 5.34 10^6/uL (4.35-5.85); RED CELL DISTRIBUTION WIDTH 13.9 % (10.0-14.5); WHITE BLOOD COUNT 6.6 10^3/uL (4.3-11.0)
[2016-04-08] MEDS ORDERED: DILTIAZEM 25 MG/5 ML INJ (CARDIZEM) VIAL IVP ONE (09:30)
[2016-04-08] MEDS ORDERED: DILTIAZEM DRIP 100 MG in SODIUM CHLORIDE (ADD-VANTAGE) 100 ML IV SCH (09:30)
[2016-04-08 09:35] LABS: PROTHROMBIN TIME PATIENT 12.6 SEC (12.2-14.7)
--- NOTE | 2016-04-08 09:37 | Diagnostic Imaging Report ---
Portable upright radiograph of the chest. INDICATION: History of cardiac stents and heart attack. FINDINGS: The lungs are clear. The heart size is normal. There is no effusion or pneumothorax. Mediastinum and gibson appear unremarkable. IMPRESSION: Unremarkable exam. Dictated by: Dictated on workstation # [id number]
[2016-04-08 09:42] LABS: ALANINE AMINOTRANSFERASE 27 U/L (0-55); ANION GAP 9 MMOL/L (5-14); ASPARTATE AMINO TRANSFERASE 23 U/L (5-34); BILIRUBIN,TOTAL 0.4 MG/DL (0.1-1.0); BLOOD UREA NITROGEN 16 MG/DL (7-18); BUN/CREATININE RATIO 16; CALCIUM 8.8 MG/DL (8.5-10.1); CARBON DIOXIDE 24 MMOL/L (21-32); CHLORIDE 106 MMOL/L (98-107); CREATININE SERUM 0.98 MG/DL (0.60-1.30); GFR ESTIMATED > 60; GLUCOSE 91 MG/DL (70-105); MAGNESIUM 2.1 MG/DL (1.8-2.4); POTASSIUM 4.6 MMOL/L (3.6-5.0); SODIUM 139 MMOL/L (135-145); TOTAL PROTEIN 6.6 G/DL (6.4-8.2)
[2016-04-08 09:48] LABS: MYOGLOBIN SERUM 85.7 NG/ML (10.0-92.0)
[2016-04-08] MEDS ORDERED: APIXABAN 5 MG (ELIQUIS) TABLET PO ONE (10:45)
[2016-04-08 12:35] VITALS: BP 100/94
--- NOTE | 2016-04-08 12:58 | Consultation-Cardiology ---
HPI-Cardiology Cardiology Consultation: Date of Consultation 04/08/16 Date of Admission 04/08/16 Attending Physician Sharona Lipscomb MD Admitting Physician Karthik,[facility][1] Of Consulting Physician DARÍO JIMÉNEZ MD, FACP, FACC, [facility] [place], CCDS HPI: Chief Complaint: Reason for consultation: A Flutter with RVR 45 yo man with multiple comorbidities (outlined) below who was found to have a rapid heart beat the time of routine visity to pcp. Was sent to ER. Found to have a flutter with RVR. Denies palp or syncope or cp or shortness of breath. Denies ankle swelling. Hs generally been feeling well Review of Systems-Cardiology Review of Systems Constitutional: No malaise, No tiredness, No weight loss, No weight gain Eyes: No vision change Ears/Nose/Throat: No ear discharge, No nasal drainage, No recent hearing loss Respiratory: As described under HPI Cardiovascular: As described under HPI Gastrointestinal: No constipation, No diarrhea, No nausea, No vomiting Genitourinary: No hematuria, No urine frequency changes Musculoskeletal: No back pain, No joint pain Skin: No rash on exposed areas, No ulcerations on exposed areas Psychiatric/Neurological: No focal weakness, No seizure, No syncope Hematologic: No bleeding abnormalities All Other Systems Reviewed Negative Unless Noted: Yes [id number]-[id number] Hx Patient Social History Alcohol Use: Denies Use Recreational Drug Use: No Smoking Status: Light Tobacco Smoker Type Used: Cigarettes Recent Foreign Travel: No Recent Infectious Disease Expo: No Immunizations Up To Date Tetanus Booster (TDap): Unknown Date of Pneumonia Vaccine: Nov 22, 2014 Date of Influenza Vaccine: Nov 22, 2014 Past Medical History PMH As described under Assessment. Family Medical History Family History: Congestive heart failure 19 FATHER Family history: Hypertension 19 FATHER 19 MOTHER No Family History of: Cancer Dementia Family history: Alzheimer's disease Family history: Diabetes mellitus Stroke Allergies and Home Medications Allergies Coded Allergies: NKANo Known Allergies (Verified Allergy, Mild, 05/30/15) Home Medications Acetaminophen 325 Mg Tablet #60 650 MG PO Q8H Prescribed by: LAMAR MARC on 09/26/15 1138 Aspirin 81 Mg Tabec 81 MG PO DAILY (Reported) Atorvastatin Calcium 80 Mg Tablet 80 MG PO HS (Reported) Clopidogrel Bisulfate 75 Mg Tablet 75 MG PO DAILY (Reported) LAST FILLED 09/08/15 #30 Isosorbide Mononitrate 30 Mg Tab.er.24h 30 MG PO DAILY (Reported) Metoprolol Succinate 50 Mg Tab.er.24h 50 MG PO DAILY (Reported) [place] 3 Polyunsat Fatty Acids 1,000 Mg Cap 1,000 MG PO BID (Reported) Omeprazole 20 Mg Capsule.dr 20 MG PO DAILY (Reported) LAST FILLED 08/30/15 #30 Pantoprazole Sodium 40 Mg Tablet.dr #30 40 MG PO DAILY Prescribed by: FILOMENA ACOSTA on 11/04/15 1314 Physical Exam-Cardiology Physical Exam Vital Signs/I&O Vital Sign - Last 12Hours 04/08/16 04/08/16 04/08/16 08:57 09:00 09:29 Temp 97.2 98.1 Pulse 150 160 Resp 20 18 B/P 127/85 116/86 Pulse Ox 97 99 O2 Delivery Room Air Nasal Cannula O2 Flow Rate 2 Capillary Refill : Less Than 3 Seconds Constitutional: AAO x 3 well-developed well-nourished HEENT: PERRL EOMI hearing is well preserved Neck: No carotid bruit, carotid pulses are 2 + bilaterally with good upstrokes Respiratory: accessory muscle use lungs clear to percussion lungs clear to auscultation Cardiovascular: irregularly irregular S1 and S2 systolic murmur (soft LOVE at cardiac base) Gastrointestinal: No tender, No guarding, No rebound, audible bowel sounds Extremities: No pedal edema, No clubbing, No cyanosis Neurologic/Psychiatric: oriented x 3 grossly intact power is 5/5 both on sides Skin: No rash on exposed areas, No ulcerations on exposed areas Data Review Labs Laboratory Tests 04/08/16 09:15: Activated Partial Thromboplast Time 29, Alanine Aminotransferase (ALT/SGPT) 27, Albumin 4.0, Alkaline Phosphatase 77, Anion Gap 9, Aspartate Amino Transf (AST/ SGOT) 23, BUN/Creatinine Ratio 16, Basophils # (Auto) 0.1, Basophils (%) (Auto) 1, Blood Urea Nitrogen 16, Calcium Level 8.8, Carbon Dioxide Level 24, Chloride Level 106, Creatinine 0.98, D-Dimer 0.50H, Eosinophils # (Auto) 0.2, Eosinophils (%) (Auto) 3, Estimat Glomerular Filtration Rate > 60, Glucose Level 91, Hematocrit 49, Hemoglobin 16.4, INR Comment 1.0, Lymphocytes # (Auto) 1.9, Lymphocytes (%) (Auto) 29, Magnesium Level 2.1, Mean Corpuscular Hemoglobin 31, Mean Corpuscular Hemoglobin Concent 34, Mean Corpuscular Volume 91, Mean Platelet Volume 9.7, Monocytes # (Auto) 0.6, Monocytes (%) (Auto) 9, Myoglobin 85.7, Neutrophils # (Auto) 3.8, Neutrophils (%) (Auto) 58, Platelet Count 203, Potassium Level 4.6, Prothrombin Time 12.6, Red Blood Count 5.34, Red Cell Distribution Width 13.9, Sodium Level 139, TSH [place] Testing 0.90, Total Bilirubin 0.4, Total Protein 6.6, Troponin I < 0.30, White Blood Count 6.6 Laboratory Tests 04/08/16 09:15 A/P-Cardiology Assessment/Admission Diagnosis Paroxysmal atrial flutter with RVR first diagnosed on 04/08/16. Also has previously documented history of PSVT Chronic angina pectoris, stable - no c/o at this time Intolerant to Imdur d/t severe headaches Dyspnea of undetermined etiology - following with Dr. Salcedo (including a 6 mm MARCUS nodule). He has been diagnosed with COPD and restrictive lung disease Ac NSTEMI in July 2015 due to occlusion of an Integrity 4x12 stent of the 2nd OM (originally placed on 03/22/12). Attempts at intervention to this occlusion were unsuccessful on 07/25/15; the 2nd OM has prominent R to L collaterals from the RCA; the 1st OM has sluggish flow and is of a very small caliber and not amenable to intervention; other cors have mild diffuse plaques; there is mild lateral hypokinesis with LVEF 50-55% - no c/o CP. Last cardiac cath 09/25/15 did not show any change in cor anatomy, LVEF 50-55%, mild elev of LVEDP Sleep studies of 10-25-15 was a portable study the reveal no evidence of obstructive sleep apnea Echocardiogram from -2013 showed LVEF 60%, no significant pericardial effusion , trivial MR & TR, no evidence of valvular stenosis, no evidence of any significant intracardiac shunt, PASP WNL Hyperlipidemia being treated with atorvastatin. Hypertension. Chronic tobacco use; we again advised to quit. Carotid u/s of August 2014 showed mild bilat carotid plaque Discussion and Recomendations * Add apixaban for stroke prophylaxis * Add oral dilt for rate control * Stop Plavix to reduce risk of bleeding. He's not had any recent cor stenting * Continue aspirin because of h/o CAD * Monitor labs * I spoke with him in detail and answered questions DARÍO JIMÉNEZ MD FACP FACC CCDS Apr 08, 2016 12:58
[2016-04-08 13:00] VITALS: BP 92/73
[2016-04-08] MEDS ORDERED: DILTIAZEM 240 MG (CARDIZEM CD) CAP PO NR (13:32)
[2016-04-08 14:00] VITALS: BP 125/103
[2016-04-08 15:00] VITALS: BP 109/73
[2016-04-08 17:00] VITALS: BP 110/80
[2016-04-08] MEDS ORDERED: FLU TRIvalent (5 YOA+) 2016-17 (AFLURIA) 0.5 ML IM ONE (19:30)
[2016-04-08 20:00] VITALS: BP 115/96
[2016-04-08] MEDS: APIXABAN 5 MG (ELIQUIS) TABLET PO SCH (21:14)
[2016-04-09] VITALS: BP 113/81
[2016-04-09 04:00] VITALS: BP 118/84
[2016-04-09 04:42] LABS: CHOLESTEROL 216 MG/DL (< 200); DIRECT LDL 152 MG/DL (1-129); TRIGLYCERIDES 236 MG/DL (<150); VLDL CHOLESTEROL 47 MG/DL (5-40)
[2016-04-09] MEDS ORDERED: PANTOPRAZOLE 40 MG (PROTONIX) TAB PO SCH (07:00)
[2016-04-09 08:00] VITALS: BP 121/87
--- NOTE | 2016-04-09 08:43 | Progress Note-Cardiology ---
Cardiology SOAP Progress Note Subjective: Sitting up in bed. States he does not feel well in general. No c/o CP, palpitations, syncope, near syncope or dyspnea. C/O freq, loose, productive cough. Objective: I&O/Vital Signs Vital Sign - Last 12Hours 04/09/16 04/09/16 04/09/16 04/09/16 03:50 04:00 07:00 08:00 Temp 97.3 97.4 Pulse 86 77 73 Resp 20 20 B/P 118/84 121/87 Pulse Ox 98 96 97 O2 Delivery Room Air Room Air Intake and Output 04/09/16 00:00 Intake Total 150 ml Balance 150 ml Weight (Pounds): 260 Weight (Ounces): 6.0 Weight (Calculated Kilograms): 118.491085 Constitutional: AAO x 3 well-developed well-nourished Respiratory: accessory muscle use lungs clear to percussion lungs clear to auscultation Cardiovascular: regular rate-rhythm S1 and S2 systolic murmur (soft LOVE at cardiac base) Gastrointestional: No tender, No guarding, No rebound, audible bowel sounds Extremities: No pedal edema, No clubbing, No cyanosis Neurologic/Psychiatric: oriented x 3 grossly intact power is 5/5 both on sides Skin: No rash on exposed areas, No ulcerations on exposed areas Results/Procedures: Labs Laboratory Tests 04/09/16 03:49: Cholesterol Level 216H, HDL Cholesterol 24L, LDL Cholesterol Direct 152H, Triglycerides Level 236H, VLDL Cholesterol 47H A/P: Assessment: Paroxysmal atrial flutter with RVR first diagnosed on 04/08/16. Also has previously documented history of PSVT - SR with a controlled rate this morning Chronic angina pectoris, stable - no c/o at this time Intolerant to Imdur d/t severe headaches Dyspnea of undetermined etiology - following with Dr. Salcedo (including a 6 mm MARCUS nodule). He has been diagnosed with COPD and restrictive lung disease Ac NSTEMI in July 2015 due to occlusion of an Integrity 4x12 stent of the 2nd OM (originally placed on 03/22/12). Attempts at intervention to this occlusion were unsuccessful on 07/25/15; the 2nd OM has prominent R to L collaterals from the RCA; the 1st OM has sluggish flow and is of a very small caliber and not amenable to intervention; other cors have mild diffuse plaques; there is mild lateral hypokinesis with LVEF 50-55% - no c/o CP. Last cardiac cath 09/25/15 did not show any change in cor anatomy, LVEF 50-55%, mild elev of LVEDP Sleep studies of 10-25-15 was a portable study the reveal no evidence of obstructive sleep apnea Echocardiogram from showed LVEF 60%, no significant pericardial effusion , trivial MR & TR, no evidence of valvular stenosis, no evidence of any significant intracardiac shunt, PASP WNL Hyperlipidemia - intolerant to statin d/t elevated liver enzymes on these agents Hypertension. Chronic tobacco use; we again advised to quit. Carotid u/s of August 2014 showed mild bilat carotid plaque Plan: * Continue apixaban for stroke prophylaxis * Continue oral dilt for rate control * Stop Plavix to reduce risk of bleeding. He's not had any recent cor stenting * Continue aspirin because of h/o CAD * Monitor labs * We spoke with him in detail and answered questions * He is currently in SR * Continue current medication regimen * OK to discharge home with outpt f/u Physician Assessment Physician Assessment Lungs: good bilat air entry Cor: reg A&R * As documented in our note above * I discussed with him in detail all of his CV issues, including newly diagnosed PAFlutter * I discussed the rationale and pros and cons of current meds, including the new meds * I have advised close outpatient f/u for now LAMAR MARC Apr 09, 2016 08:42 DARÍO JIMÉNEZ MD [facility] CCDS Apr 09, 2016 14:18 Hypertension. Chronic tobacco use; we again advised to quit. Carotid u/s of August 2014 showed mild bilat carotid plaque Plan: * Continue apixaban for stroke prophylaxis * Continue oral dilt for rate control * Stop Plavix to reduce risk of bleeding. He's not had any recent cor stenting * Continue aspirin because of h/o CAD * Monitor labs * We spoke with him in detail and answered questions * He is currently in SR * Continue current medication regimen * OK to discharge home with outpt f/u LAMAR MARC Apr 09, 2016 08:42 LAMAR MARC Apr 09, 2016 08:42
[2016-04-09] MEDS ORDERED: APIX5TAB PO (08:46)
[2016-04-09] MEDS ORDERED: DILT300C51 PO (08:46)
[2016-04-09] MEDS ORDERED: DILTIAZEM 300 MG (CARDIZEM CD) CAP PO SCH (09:00)
[2016-04-09] MEDS ORDERED: ASPIRIN 81 MG CHEW (CHILDREN'S ASA) PO SCH (09:00)
[2016-04-09] MEDS ORDERED: meTOproloL SUCCINATE 50 MG (TOPROL XL) TAB PO SCH (09:00)
[2016-04-09] MEDS ORDERED: PANT40TA3 PO (09:52)
[2016-04-09] MEDS ORDERED: NAPR220T66 PO (09:52)
[2016-04-09] MEDS ORDERED: PRD20T PO (10:22)
--- NOTE | 2016-04-09 10:29 | Discharge Instructions ---
Discharge Inst-[facility] Discharge Medications New, Converted or Re-Newed RX: Call to Patients Pharmacy New Medications: Apixaban (Eliquis) 5 Mg Tablet 5 MG PO BID #60 Ref 5 TAB Diltiazem HCl (Diltiazem 24Hr Cd) 300 Mg Cap.er.24h 300 MG PO DAILY #90 Ref 3 CAP Prednisone (Prednisone) 20 Mg Tab 40 MG PO DAILY@0700 Days 7 TAB Continued Medications: Aspirin (Aspirin Ec 81 Mg) 81 Mg Tabec 81 MG PO DAILY Metoprolol Succinate (Toprol Xl) 50 Mg Tab.er.24h 50 MG PO DAILY [place] 3 Polyunsat Fatty Acids (Fish Oil 1,000 mg Capsule) 1,000 Mg Cap 1000 MG PO BID Pantoprazole Sodium (Pantoprazole Sodium) 40 Mg Tablet.dr 40 MG PO DAILY Discontinued Medications: Clopidogrel Bisulfate (Clopidogrel) 75 Mg Tablet 75 MG PO DAILY Naproxen Sodium (Aleve) 220 Mg Tablet 440 MG PO DAILY TAB Patient Instructions Goal/Follow Up Appt: You have an appointment with Stephen Sevilla on April 18 @ 4 pm Patient Instructions: - Make sure you call your heart doctor and get a follow up appointment - If you feel like your heart is in a funny rhythm please call your doctor and be seen Return to The Hospital For: - Chest pain - Palpitations - Shortness of breath Activity & Diet Discharge Diet: Cardiac Diet Activity as Tolerated: Yes Copy Copies To 1: Roel KENDALL HOLLY R MD Apr 09, 2016 10:29
[2016-04-09] MEDS: APIXABAN 5 MG (ELIQUIS) TABLET PO SCH (10:39)
--- NOTE | 2016-04-09 10:46 | Short Stay Summary ---
HPI History of Present Illness: Patient was sent to ER after he presented to [facility] for CT results and was found to have heart rate in the 160s. He denies any symptoms other URI symptoms that he states Stephen was going to give him medications. Patient did not have any symptoms of fast heart rate, chest pain or skipped beats. In ER: He was started on IV Cardizem and converted on his own. Cardiology was notified and started him on Apixaban and PO Cardizem. Plavix was discontinued by cardiology Source: patient Exam Limitations: no limitations Date seen by provider: Apr 09, 2016 Attending Physician Sharona Lipscomb MD PCP lul,[facility] Consult Date of Admission Apr 08, 2016 at 11:41 Home Medications Home Medications Reviewed patient Home Medication Reconciliation Form Allergies Coded Allergies: NKANo Known Allergies (Verified Allergy, Mild, 05/30/15) [id number]-[id number] Hx Patient Social History Alcohol Use: Denies Use Recreational Drug Use: No Smoking Status: Light Tobacco Smoker Type Used: Cigarettes Recent Foreign Travel: No Contact w/other who traveled: No Recent Hopitalizations: Yes Recent Infectious Disease Expo: No Physical Abuse Screen: No Sexual Abuse: No Immunizations Up To Date Tetanus Booster (TDap): Unknown Date of Pneumonia Vaccine: Nov 22, 2014 Date of Influenza Vaccine: Nov 22, 2014 Past Medical History - CAD s/p Stents - COPD - Tobacco Use - h/o Atrial flutter w/ RVR (03/2016) converted with medication Family Medical History Significant Family History: Heart Disease, Hypertension Family History: Congestive heart failure 19 FATHER Family history: Hypertension 19 FATHER 19 MOTHER No Family History of: Cancer Dementia Family history: Alzheimer's disease Family history: Diabetes mellitus Stroke Review of Systems ([facility]) Constitutional: no symptoms reportedNo chills, No fever, malaise EENTM: nose congestion Respiratory: cough dyspnea on exertion phlegmNo short of breath, wheezing Cardiovascular: No chest pain, No edema, No palpitations Gastrointestinal: no symptoms reportedNo abdominal pain, No constipation, No diarrhea, No hematemesis, No nausea, No vomiting Genitourinary: no symptoms reportedNo dysuria, No frequency, No hematuria Musculoskeletal: no symptoms reported Skin: no symptoms reportedNo rash Psychiatric/Neurological: No Symptoms Reported Reviewed Test Results Reviewed Test Results Lab Laboratory Tests Test 04/08/16 09:15 04/09/16 03:49 Range/Units Activated Partial Thromboplast Time 29 24-35 SEC Alanine Aminotransferase (ALT/SGPT) 27 0-55 U/L Albumin 4.0 3.2-4.5 G/DL Alkaline Phosphatase 77 40-136 U/L Anion Gap 9 5-14 MMOL/L Aspartate Amino Transf (AST/SGOT) 23 5-34 U/L BUN/Creatinine Ratio 16 Basophils # (Auto) 0.1 0.0-0.1 10^3/uL Basophils (%) (Auto) 1 0-10 % Blood Urea Nitrogen 16 7-18 MG/DL Calcium Level 8.8 8.5-10.1 MG/DL Carbon Dioxide Level 24 21-32 MMOL/L Chloride Level 106 98-107 MMOL/L Creatinine 0.98 0.60-1.30 MG/DL D-Dimer 0.50 H 0.00-0.49 UG/ML Eosinophils # (Auto) 0.2 0.0-0.3 10^3/uL Eosinophils (%) (Auto) 3 0-10 % Estimat Glomerular Filtration Rate > 60 Glucose Level 91 70-105 MG/DL Hematocrit 49 40-54 % Hemoglobin 16.4 13.3-17.7 G/DL INR Comment 1.0 0.8-1.4 Lymphocytes # (Auto) 1.9 1.0-4.0 X 10^3 Lymphocytes (%) (Auto) 29 12-44 % Magnesium Level 2.1 1.8-2.4 MG/DL Mean Corpuscular Hemoglobin 31 25-34 PG Mean Corpuscular Hemoglobin Concent 34 32-36 G/DL Mean Corpuscular Volume 91 80-99 FL Mean Platelet Volume 9.7 7.4-10.4 FL Monocytes # (Auto) 0.6 0.0-1.0 X 10^3 Monocytes (%) (Auto) 9 0-12 % Myoglobin 85.7 10.0-92.0 NG/ML Neutrophils # (Auto) 3.8 1.8-7.8 X 10^3 Neutrophils (%) (Auto) 58 42-75 % Platelet Count 203 130-400 10^3/uL Potassium Level 4.6 3.6-5.0 MMOL/L Prothrombin Time 12.6 12.2-14.7 SEC Red Blood Count 5.34 4.35-5.85 10^6/uL Red Cell Distribution Width 13.9 10.0-14.5 % Sodium Level 139 135-145 MMOL/L TSH [place] Testing 0.90 0.35-4.94 UIU/ML Total Bilirubin 0.4 0.1-1.0 MG/DL Total Protein 6.6 6.4-8.2 G/DL Troponin I < 0.30 <0.30 NG/ML White Blood Count 6.6 4.3-11.0 10^3/uL Cholesterol Level 216 H < 200 MG/DL HDL Cholesterol 24 L 40-60 MG/DL LDL Cholesterol Direct 152 H 1-129 MG/DL Triglycerides Level 236 H <150 MG/DL VLDL Cholesterol 47 H 5-40 MG/DL Radiology Date of Exam: 04/08/16 CHEST 1 VIEW, AP/PA ONLY Portable upright radiograph of the chest. INDICATION: History of cardiac stents and heart attack. FINDINGS: The lungs are clear. The heart size is normal. There is no effusion or pneumothorax. Mediastinum and gibson appear unremarkable. IMPRESSION: Unremarkable exam. Physical Exam-([facility]) Physical Exam Vital Signs VS - Last 72 Hours, by Label 04/08/16 04/08/16 04/08/16 04/08/16 08:57 09:00 09:29 12:25 Temp 97.2 98.1 97.2 Pulse 150 160 70 Resp 20 18 16 B/P 127/85 116/86 Pulse Ox 97 99 97 O2 Delivery Room Air Nasal Cannula O2 Flow Rate 2 04/08/16 04/08/16 04/08/16 04/08/16 12:35 12:35 13:00 13:00 Temp 97.7 Pulse 77 107 106 Resp 18 37 B/P 100/94 92/73 Pulse Ox 99 99 100 O2 Delivery Room Air Room Air Room Air 04/08/16 04/08/16 04/08/16 04/08/16 14:00 15:00 16:00 16:05 Temp 97.7 Pulse 67 75 70 Resp 7 37 12 B/P 125/103 109/73 Pulse Ox 98 96 97 O2 Delivery Room Air Room Air Room Air 04/08/16 04/08/16 04/08/16 04/08/16 19:00 20:00 20:00 21:00 Temp 97.1 Pulse 76 73 Resp 18 B/P 115/96 Pulse Ox 96 96 96 O2 Delivery Room Air Room Air 04/09/16 04/09/16 04/09/16 04/09/16 00:00 00:00 01:00 03:50 Temp 97.4 Pulse 89 84 Resp 18 B/P 113/81 Pulse Ox 96 96 98 O2 Delivery Room Air 04/09/16 04/09/16 04:00 07:00 Temp 97.3 Pulse 86 77 Resp 20 B/P 118/84 Pulse Ox 96 O2 Delivery Room Air Capillary Refill : Less Than 3 Seconds General Appearance: WD/WN no apparent distress HEENT: PERRL/EOMI normal ENT inspection TMs normal pharynx normal Neck: non-tender full range of motion supple Respiratory: chest non-tender normal breath sounds no accessory muscle useNo crackles, wheezing Cardiovascular: normal peripheral pulses regular rate, rhythm no edema no gallop no JVD no murmur Gastrointestinal: normal bowel sounds non tender soft no organomegaly no pulsatile mass Extremities: normal range of motion non-tender normal inspection no pedal edema no calf tenderness normal capillary refill 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 no motor/sensory deficits alert normal mood/affect oriented x 3 Skin: normal color warm/dry Lymphatic: no adenopathy Short Stay Diagnosis Discharge Diagnosis-Short Stay Admission Diagnosis Atrial Flutter with RVR CAD h/o stents HLD URI Final Discharge Diagnosis Same as above Conclusion Plan 45 yo M with significant CAD that presented to ER with Atrial flutter w/ RVR Atrial Flutter with RVR - Converted with medication, Continue PO Cardizem - Started on PO anticoagulate, Plavix stopped at this hospitalization - F/u with Cardiology as outpatient CAD h/o stents - Stable, no chest pain during this visit HLD - Patient unable to tolerate statins due to elevated LFTs URI - Script given for PO steroids to help with wheezing To do: - Patient medication list has changed - Make sure that he has proper follow up with cardiology following this hospitalization Clinical Quality Measures DVT/VTE Risk/Contraindication: Risk Factor Score Per Nursin RFS Level Per Nursing on Admit: 3=High Copy Copies To 1: Roel KENDALL HOLLY R MD Apr 09, 2016 10:46
[2016-04-09 11:55] VITALS: BP 121/87
[2016-04-09 12:00] VITALS: BP 118/85
[2016-04-10] MEDS ORDERED: predniSONE 20 MG TAB PO SCH (07:00)
== END 2016-04-09 10:20 | disposition home or self-care (01) ==
LOC: EDUNIT# 08:57 → ER 08:59 → UNDOADMOB 11:41 → ICU 11:41 → UNDODISOB 04-09 12:00
PROVIDERS: ADMIT Family Medicine; ATTEND Family Medicine
DX: I48.0 Paroxysmal atrial fibrillation (principal); I48.92 Unspecified atrial flutter; I25.119 Atherosclerotic heart disease of native coronary artery with unspecified angina pectoris; I25.2 Old myocardial infarction; F17.210 Nicotine dependence, cigarettes, uncomplicated; Z79.02 Long term (current) use of antithrombotics/antiplatelets; Z79.82 Long term (current) use of aspirin; Z79.899 Other long term (current) drug therapy; Z95.5 Presence of coronary angioplasty implant and graft
CPT/HCPCS: 36415; 71010; 80053; 80061; 83735; 83874; 84443; 84484; 85025; 85379; 85610; 85730; 93005; 93041; 96374; G0378

== ENCOUNTER 2016-04-17 20:29 | Emergency (ER) | payer OTHER ==
[~2016-04-17] VITALS: Ht 190.5 cm; Wt 113.4 kg
[~2016-04-17 20:29] MED LIST changes: +APIX5TAB PO; +DILT300C51 PO; +NAPR220T66 PO; +PANT40TA3 PO; +PRD20T PO
--- OUTSIDE RECORDS SUMMARY | 2016-04-17 20:34 | XMS REPORT | Continuity of Care Document ---
Author Author [facility] Organization [facility] Address Unknown Phone Unavailable Care Team Providers Care Worsted Winder Name Role Phone [facility] PCP Insurance Providers Payer Name Policy Number Subscriber Name Relationship Self Pay Pending Radha Apprv [id number] Robert De La Torre 17 Self / Same As Patient Advance Directives Directive Response Recorded Date/Time Advance Directives No 09/25/15 8:30pm Health Care Power of Registrar Assistant No 09/25/15 8:30pm Organ Donor Yes 09/25/15 [...] 80 Mg 80 Mg Oral Bedtime 07/24/15 [place] 3 Polyunsat Fatty Acids 1,000 Mg 1,000 [...] - 99.5) 09/26/2015 1:00pm Temperature (Calculated Celsius) 35.03922 degrees C (36.4 - 37.5) 09/26/2015 8:01am [...] 3.00 inches 09/25/2015 8:30pm Height (Calculated Centimeters) 190.448322 cm 09/25/2015 8:30pm Weight (Pounds) 246 pounds 09/26/2015 6:00am Weight (Ounces) 0.0 oz 09/26/2015 6:00am Weight (Calculated Grams) 033134.724 gm 09/26/2015 6:00am Weight (Calculated Kilograms) 111.777993 kilograms 09/26/2015 6:00am Calculated BMI 30.8 09/25/2015 [...] Discharge/Depart Date Attending Provider Departed Clinic [facility] 10/25/15 3:15pm 10/25/15 3: 45pm ИВАН RAYMUNDO DO Departed [facility] Day [facility] 09/25/15 5:26pm 1:00pm DARÍO JIMÉNEZ FACP, MD FACC Registered Clinic [facility] 09/25/15 9:38am DARÍO JIMÉNEZ FACP, MD FACC
[2016-04-17 20:46] LABS: BASOPHILS # (AUTO) 0.1 10^3/uL (0.0-0.1); BASOPHILS % (AUTO) 1 % (0-10); EOSINOPHILS # (AUTO) 0.2 10^3/uL (0.0-0.3); EOSINOPHILS % (AUTO) 2 % (0-10); LYMPHOCYTES # (AUTO) 4.4 X 10^3 (1.0-4.0); LYMPHOCYTES % (AUTO) 40 % (12-44); MEAN CORPUSCULAR HEMOGLOBIN 31 PG (25-34); MEAN CORPUSCULAR HGB CONC 34 G/DL (32-36); MEAN CORPUSCULAR VOLUME 91 FL (80-99); MEAN PLATELET VOLUME 9.5 FL (7.4-10.4); MONOCYTES # (AUTO) 0.7 X 10^3 (0.0-1.0); MONOCYTES % (AUTO) 6 % (0-12); NEUTROPHILS # (AUTO) 5.7 X 10^3 (1.8-7.8); NEUTROPHILS % (AUTO) 52 % (42-75); PLATELET COUNT 292 10^3/uL (130-400); RED BLOOD COUNT 5.36 10^6/uL (4.35-5.85); RED CELL DISTRIBUTION WIDTH 13.8 % (10.0-14.5); WHITE BLOOD COUNT 11.1 10^3/uL (4.3-11.0)
[2016-04-17 20:57] LABS: PROTHROMBIN TIME PATIENT 12.7 SEC (12.2-14.7)
[2016-04-17] MEDS ORDERED: ASPIRIN 81 MG CHEW (CHILDREN'S ASA) PO ONE (21:00)
[2016-04-17] MEDS ORDERED: RX-NITROGLYCERIN 0.4 MG TAB BTL 25'S SL ONE (21:00)
[2016-04-17 21:08] LABS: ALANINE AMINOTRANSFERASE 33 U/L (0-55); ALBUMIN 4.2 G/DL (3.2-4.5); ANION GAP 13 MMOL/L (5-14); ASPARTATE AMINO TRANSFERASE 27 U/L (5-34); BILIRUBIN,TOTAL 0.4 MG/DL (0.1-1.0); BLOOD UREA NITROGEN 18 MG/DL (7-18); BUN/CREATININE RATIO 15; CALCIUM 9.3 MG/DL (8.5-10.1); CARBON DIOXIDE 20 MMOL/L (21-32); CHLORIDE 106 MMOL/L (98-107); CREATININE SERUM 1.22 MG/DL (0.60-1.30); GFR ESTIMATED > 60; GLUCOSE 117 MG/DL (70-105); MAGNESIUM 2.7 MG/DL (1.8-2.4); POTASSIUM 4.5 MMOL/L (3.6-5.0); SODIUM 139 MMOL/L (135-145); TOTAL PROTEIN 7.7 G/DL (6.4-8.2)
[2016-04-17 21:14] LABS: MYOGLOBIN SERUM 70.8 NG/ML (10.0-92.0)
--- NOTE | 2016-04-17 21:14 | Diagnostic Imaging Report ---
EXAM: CHEST 1 VIEW, AP/PA ONLY INDICATION: Chest pain. COMPARISON: Chest radiograph 04/08/2016. FINDINGS: Normal heart size and pulmonary vascularity. No focal pulmonary opacity, pleural effusion or pneumothorax. No acute osseous findings. IMPRESSION: No acute cardiopulmonary findings. Dictated by: Dictated on workstation # [id number]
--- NOTE | 2016-04-17 21:58 | ED Chest Pain ---
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 STATES WAS RECENTLY DX W/ AFIB. Nursing Sepsis Screen: No Definite Risk Source: patient Exam Limitations: no limitations History of Present Illness Time seen by provider: 20:37 Initial Comments This 45-year-old gentleman presents to the emergency room with complaints of left-sided chest pain as well as pain in the neck radiating up to the ear. He had a recent admission for atrial fibrillation. He has been taking metoprolol and diltiazem. He reports good compliance. He reports having tachycardia in the 110's from about 19:00 through 20:00. He was instructed on discharge from the hospital to return to the ER if he had sustained tachycardia at rest over 100 bpm. He is presently anticoagulated on Eliquis. His pain is in the left lower chest and rated as 4/10. It is a little worse with inspiration. He has also experienced some shortness of air and lightheadedness. He denies any nausea, vomiting, diarrhea, cough, or fever. His left posterior neck is tender to palpation. He also notes a lower blood pressure in the 100-105 systolic range at home. He is a smoker but denies any alcohol or drug use. Cardiac catheterization was performed in September 2015. Documentation was reviewed. Allergies and Home Medications Allergies Coded Allergies: BETHANo Known Allergies (Verified Allergy, Mild, 05/30/15) Home Medications Apixaban 5 Mg Tablet #60 5 MG PO BID Prescribed by: LAMAR MARC on 04/09/16 0846 Aspirin 81 Mg Tabec 81 MG PO DAILY (Reported) Diltiazem HCl 300 Mg Cap.er.24h #90 300 MG PO DAILY Prescribed by: LAMAR MARC on 04/09/16 0846 Metoprolol Succinate 50 Mg Tab.er.24h 50 MG PO DAILY (Reported) [place] 3 Polyunsat Fatty Acids 1,000 Mg Cap 1,000 MG PO BID (Reported) Pantoprazole Sodium 40 Mg Tablet.dr 40 MG PO DAILY (Reported) Review of Systems Constitutional: no symptoms reported EENTM: No Symptoms Reported Respiratory: See HPI Cardiovascular: See HPI Gastrointestinal: No Symptoms Reported Genitourinary: No Symptoms Reported Musculoskeletal: no symptoms reported Skin: no symptoms reported Psychiatric/Neurological: No Symptoms Reported Endocrine: No Symptoms Reported Hematologic/Lymphatic: No Symptoms Reported Past Yfjsyrb-Oxesxf-Lrruty Hx Patient Social History Alcohol Use: Denies Use Recreational Drug Use: No Smoking Status: Current Everyday Smoker Type Used: Cigarettes Recent Foreign Travel: No Contact w/Someone Who Travel: No Recent Infectious Disease Expo: No Recent Hopitalizations: Yes (RECENT DX OF AFIB) Immunizations Up To Date Tetanus Booster (TDap): Unknown Date of Pneumonia Vaccine: Nov 22, 2014 Date of Influenza Vaccine: Nov 22, 2014 Seasonal Allergies Seasonal Allergies: No Surgeries HX Surgeries: Yes (LEFT KNEE SX) Surgeries: Abdominal, Coronary Stent, Gallbladder Respiratory Hx Respiratory Disorders: No Respiratory Disorders: COPD, Emphysema Cardiovascular Hx Cardiac Disorders: Yes Cardiac Disorders: Atrial Fibrillation (paroxysmal), Coronary Artery Disease, High Cholesterol, Hypertension Neurological Hx Neurological Disorders: No Reproductive System Hx Reproductive Disorders: No Sexually Transmitted Disease: No HIV/AIDS: No Genitourinary Hx Genitourinary Disorders: No Gastrointestinal Hx Gastrointestinal Disorders: Yes Gastrointestinal Disorders: Gall Bladder Disease Musculoskeletal Hx Musculoskeletal Disorders: Yes Musculoskeletal Disorders: Degenerate Disk Disease, Arthritis, Back Injury Endocrine Hx Endocrine Disorders: No HEENT HX ENT Disorders: No Cancer Hx Cancer: No Psychosocial Hx Psychiatric Problems: No Integumentary HX Skin/Integumentary Disorder: No Blood Transfusions Hx Blood Disorders: No Family Medical History Significant Family History: Heart Disease, Hypertension Family Medial History: Congestive heart failure 19 FATHER Family history: Hypertension 19 FATHER 19 MOTHER No Family History of: Cancer Dementia Family history: Alzheimer's disease Family history: Diabetes mellitus Stroke Physical Exam Vital Signs Vital Sign - Last 12Hours 04/17/16 20:29 Temp 97.0 Pulse 86 Resp 20 B/P 131/92 Pulse Ox 94 O2 Delivery Room Air Capillary Refill : Less Than 3 Seconds General Appearance: No Apparent Distress WD/WN HEENT: PERRL/EOMI Normal ENT Inspection Neck: Normal Inspection Supple Tender Lateral (left posterior musculature) Respiratory: Chest Non Tender Lungs Clear Normal Breath Sounds No Accessory Muscle Use No Respiratory Distress Cardiovascular: Regular Rate, Rhythm No Edema No Murmur Normal Peripheral Pulses Gastrointestinal: Normal Bowel Sounds Non Tender Soft Extremity: Normal Inspection No Pedal Edema Neurologic/Psychiatric: Alert Oriented x3 No Motor/Sensory Deficits Normal 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/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 Norm as Tested Skin: Normal Color Warm/Dry Progress/Results/Core Measures Results/Orders Lab Results Laboratory Tests Test 04/17/16 20:34 04/17/16 22:57 Range/Units Activated Partial Thromboplast Time 28 24-35 SEC Alanine Aminotransferase (ALT/SGPT) 33 0-55 U/L Albumin 4.2 3.2-4.5 G/DL Alkaline Phosphatase 76 40-136 U/L Anion Gap 13 5-14 MMOL/L Aspartate Amino Transf (AST/SGOT) 27 5-34 U/L BUN/Creatinine Ratio 15 Basophils # (Auto) 0.1 0.0-0.1 10^3/uL Basophils (%) (Auto) 1 0-10 % Blood Urea Nitrogen 18 7-18 MG/DL Calcium Level 9.3 8.5-10.1 MG/DL Carbon Dioxide Level 20 L 21-32 MMOL/L Chloride Level 106 98-107 MMOL/L Creatinine 1.22 0.60-1.30 MG/DL Eosinophils # (Auto) 0.2 0.0-0.3 10^3/uL Eosinophils (%) (Auto) 2 0-10 % Estimat Glomerular Filtration Rate > 60 Glucose Level 117 H 70-105 MG/DL Hematocrit 49 40-54 % Hemoglobin 16.7 13.3-17.7 G/DL INR Comment 1.0 0.8-1.4 Lymphocytes # (Auto) 4.4 H 1.0-4.0 X 10^3 Lymphocytes (%) (Auto) 40 12-44 % Magnesium Level 2.7 H 1.8-2.4 MG/DL Mean Corpuscular Hemoglobin 31 25-34 PG Mean Corpuscular Hemoglobin Concent 34 32-36 G/DL Mean Corpuscular Volume 91 80-99 FL Mean Platelet Volume 9.5 7.4-10.4 FL Monocytes # (Auto) 0.7 0.0-1.0 X 10^3 Monocytes (%) (Auto) 6 0-12 % Myoglobin 70.8 10.0-92.0 NG/ML Neutrophils # (Auto) 5.7 1.8-7.8 X 10^3 Neutrophils (%) (Auto) 52 42-75 % Platelet Count 292 130-400 10^3/uL Potassium Level 4.5 3.6-5.0 MMOL/L Prothrombin Time 12.7 12.2-14.7 SEC Red Blood Count 5.36 4.35-5.85 10^6/uL Red Cell Distribution Width 13.8 10.0-14.5 % Sodium Level 139 135-145 MMOL/L Total Bilirubin 0.4 0.1-1.0 MG/DL Total Protein 7.7 6.4-8.2 G/DL Troponin I < 0.30 < 0.30 <0.30 NG/ML White Blood Count 11.1 H 4.3-11.0 10^3/uL My Orders Orders-ROBBIE MUHAMMAD MD Cbc With Automated Diff (04/17/16 20:37) Magnesium (04/17/16 20:37) Chest 1 View, Ap/Pa Only (04/17/16 20:37) Ekg Tracing (04/17/16 20:37) Cardiac Profile 1 (04/17/16 20:37) Comprehensive Metabolic Panel (04/17/16 20:37) Myoglobin Serum (04/17/16 20:37) Protime With Inr (04/17/16 20:37) Partial Thromboplastin Time (04/17/16 20:37) O2 (04/17/16 20:37) Monitor-Rhythm Ecg Trace Only (04/17/16 20:37) Lipid Panel (04/18/16 06:00) Saline Lock/Iv-Start (04/17/16 20:37) Aspirin Chewable Tablet (Baby Aspirin Ch (04/17/16 21:00) Rx-Nitroglycerin Sl Tabs (Rx-Nitrostat S (04/17/16 21:00) Troponin I (04/17/16 21:54) Ketorolac Injection (Toradol Injection) (04/17/16 23:15) Medications Given in ED Current Medications Medications Dose Ordered Sig/Stan Route Start Time Stop Time Status Last Admin Dose Admin Aspirin 324 mg ONCE ONCE PO 04/17/16 21:00 04/17/16 21:01 DC 04/17/16 21:14 324 MG Ketorolac Tromethamine 15 mg ONCE ONCE IVP 04/17/16 23:15 04/17/16 23:16 DC 04/17/16 23:21 15 MG Nitroglycerin 0.4 mg UD ONCE SL 04/17/16 21:00 04/17/16 21:01 DC 04/17/16 21:14 0.4 MG Vital Signs/I&O Vital Sign - Last 12Hours 04/17/16 04/17/16 20:29 20:29 Temp 97.0 Pulse 86 Resp 20 B/P 131/92 Pulse Ox 94 O2 Delivery Room Air Blood Pressure Mean: 105 Progress Note #1: Time: 21:55 Progress Note The patient reports improvement in pain after nitroglycerin. I discussed the case with Dr. Morris including review of his prior heart catheterization and recent admission. Dr. Morris would like a repeat troponin at the 5 hour char from onset which would be 23:00. Troponin is negative and patient is stable, he will see the patient in clinic tomorrow or Friday. Patient remains in normal sinus rhythm at this time. Progress Note #2: Time: 23:47 Progress Note patient was given Toradol 15 mg 1 dose for neck pain. He is feeling well at this time. Troponin was negative at the 5 hour char. He is being dismissed home to follow-up in the clinic within the next 48 hours. ECG Initial ECG Impression Date: Apr 17, 2016 Initial ECG Impression Time: 20:37 Initial ECG Rate: 81 Initial ECG Rhythm: Normal Sinus Initial ECG Intervals: Normal Comment normal sinus rhythm with no ST elevation or depression. One PVC noted. No abnormal intervals or axis deviation. Diagnostic Imaging Diagonstic Imaging: Xray Plain Films/CT/US/NM/MRI: chest Comments NAME: ANGIE SÁNCHEZ [facility] REC#: [id number] PT STATUS: REG ER : 1970 PHYSICIAN: ROBBIE MUHAMMAD MD ADMIT DATE: 04/17/16/ER Draft Date of Exam:04/17/16 CHEST 1 VIEW, AP/PA ONLY EXAM: CHEST 1 VIEW, AP/PA ONLY INDICATION: Chest pain. COMPARISON: Chest radiograph 04/08/2016. FINDINGS: Normal heart size and pulmonary vascularity. No focal pulmonary opacity, pleural effusion or pneumothorax. No acute osseous findings. IMPRESSION: No acute cardiopulmonary findings. Dictated on workstation # [id number] Dict: 04/17/162101 Trans: 04/17/[id number] NANCY [id number] Interpreted by: VICTORIANO PEREYRA MD Departure Impression Impression: Primary Impression: Chest pain Qualified Code: R07.9 - Chest pain, unspecified Additional Impressions: History of coronary artery disease Paroxysmal atrial fibrillation Disposition: 01 HOME, SELF-CARE Condition: Improved Departure-Patient Inst. Decision time for Depature: 23:47 Referrals: [facility] (PCP/Family) Primary Care Physician Patient Instructions: Atrial Fibrillation (DC), Chest Pain (DC) Add. Discharge Instructions: Return to care if symptoms worsen again. Continue with your usual home medications as prescribed. Contact Dr. Morris's office first thing tomorrow morning to schedule follow-up. He would like to see you on or Friday of this week. All discharge instructions reviewed with patient and/or family. Voiced understanding. ROBBIE MUHAMMAD MD Apr 17, 2016 21:58
[2016-04-17] MEDS ORDERED: KETOROLAC 30 MG/ML VIAL IVP ONE (23:15)
[2016-04-17 23:51] VITALS: BP 121/88
== END 2016-04-17 23:51 | disposition home or self-care (01) ==
LOC: EDUNIT# 20:30 → ER 20:31
DX: R07.9 Chest pain, unspecified (principal); I48.0 Paroxysmal atrial fibrillation; I10 Essential (primary) hypertension; I25.10 Atherosclerotic heart disease of native coronary artery without angina pectoris; F17.210 Nicotine dependence, cigarettes, uncomplicated; Z95.5 Presence of coronary angioplasty implant and graft; Z79.01 Long term (current) use of anticoagulants; Z79.899 Other long term (current) drug therapy
CPT/HCPCS: 36415; 71010; 80053; 83735; 83874; 84484; 85025; 85610; 85730; 93005; 96374

== ENCOUNTER 2016-04-24 20:48 | Emergency (ER) | payer OTHER ==
[~2016-04-24] VITALS: Ht 190.5 cm; Wt 117.9 kg
--- OUTSIDE RECORDS SUMMARY | 2016-04-24 20:53 | XMS REPORT | Continuity of Care Document ---
Author Author [facility] Organization [facility] Address Unknown Phone Unavailable Care Team Providers Care Charge Lpn Name Role Phone [facility] PCP Insurance Providers Payer Name Policy Number Subscriber Name Relationship Self Pay Pending Radha Apprv [id number] Robert De La Torre 18 Self / Same As Patient Advance Directives Directive Response Recorded Date/Time Advance Directives No 09/25/15 8:30pm Health Care Power of Orthodontic Lab Technician No 09/25/15 8:30pm Organ Donor Yes 09/25/15 [...] 80 Mg 80 Mg Oral Bedtime 07/24/15 [place] 3 Polyunsat Fatty Acids 1,000 Mg 1,000 [...] - 99.5) 09/26/2015 1:00pm Temperature (Calculated Celsius) 35.78090 degrees C (36.4 - 37.5) 09/26/2015 8:01am [...] 3.00 inches 09/25/2015 8:30pm Height (Calculated Centimeters) 190.291624 cm 09/25/2015 8:30pm Weight (Pounds) 246 pounds 09/26/2015 6:00am Weight (Ounces) 0.0 oz 09/26/2015 6:00am Weight (Calculated Grams) 299325.724 gm 09/26/2015 6:00am Weight (Calculated Kilograms) 111.134393 kilograms 09/26/2015 6:00am Calculated BMI 30.8 09/25/2015 [...] Discharge/Depart Date Attending Provider Departed Clinic [facility] 10/25/15 3:15pm 10/25/15 3: 45pm ИВАН RAYMUNDO DO Departed Surgical Day Care [facility] 09/25/15 5:26pm 1:00pm DARÍO JIMÉNEZ FACP, MD FACC Registered Clinic [facility] 09/25/15 9:38am DARÍO JIMÉNEZ FACP, MD FACC
[2016-04-24] MEDS ORDERED: NS IV 1000 ML 1,000 ML IV ONE (22:10)
[2016-04-24] MEDS ORDERED: fentaNYL INJECTION 100 MCG/2 ML AMP IVP STA (22:10)
[2016-04-24] MEDS ORDERED: ORPHENADRINE 60 MG/2 ML (NORFLEX) AMP IV STA (22:10)
[2016-04-24] MEDS ORDERED: diphenhydrAMINE 50 MG/ML INJ (BENADRYL) IV STA (22:10)
--- NOTE | 2016-04-24 22:12 | ED Headache ---
General Chief Complaint: Head/Cervical Problems Stated Complaint: HEAD PAIN Nursing Triage Note: Pt c/o BACK that started when he was in the hospital after being admitted for chest pain. Pt reports BACK has continued to get worse and is now radiating to neck and jaw. Nursing Sepsis Screen: No Definite Risk Source: patient, spouse Exam Limitations: no limitations History of Present Illness Time seen by provider: 21:54 Initial Comments 45-year-old male patient presents to the emergency department complains of a headache and left posterior neck pain since 04/17/16. Patient states he now has photophobia and sound sensitivities. Did have nausea earlier without vomiting. Reports left neck feels tight. Difficult to turn his head from right to left. Denies a history of migraines. Reports pain is now radiating to the base of the skull and into the left neck/jaw. Does complain of left ear pain. Denies known injury or fever. Timing/Duration: 1 week, waxing and waning Severity/Quality: throbbing Location: parietal Prior Headaches/Recent Trauma: no recent headache/trauma Modifying Factors: worse with exposure to light, worse with medication (no improvement with Motrin, Aspercreme, Biofreeze, blue emu, and icy hot.), worse with movement, worse with other (positive sound sensitivity.) Associated Symptoms: No confusion, No fatigue, No facial pain, No fever/chills , No loss of consciousness, No nasal congestion, No nasal drainage, No numbness in legs/feet, No rash, No seizures, No sinus infection, stiff neckNo vision changes, No weakness Allergies and Home Medications Allergies Coded Allergies: NKANo Known Allergies (Verified Allergy, Mild, 05/30/15) Home Medications Apixaban 5 Mg Tablet #60 5 MG PO BID Prescribed by: LAMAR MARC on 04/09/16 0846 Aspirin 81 Mg Tabec 81 MG PO DAILY (Reported) Cyclobenzaprine HCl 10 Mg Tablet #14 10 MG PO Q8H PRN PRN SPASMS Prescribed by: HECTOR HUNTER on 04/24/162325 Diltiazem HCl 300 Mg Cap.er.24h #90 300 MG PO DAILY Prescribed by: LAMAR MARC on 04/09/16 0846 Hydrocodone/Acetaminophen 1 Each Tablet #14 1 EACH PO Q4H PRN PRN PAIN Prescribed by: HECTOR HUNTER on 3/15/17 2326 Metoprolol Succinate 50 Mg Tab.er.24h 50 MG PO DAILY (Reported) [place] 3 Polyunsat Fatty Acids 1,000 Mg Cap 1,000 MG PO BID (Reported) Pantoprazole Sodium 40 Mg Tablet.dr 40 MG PO DAILY (Reported) Prednisone 20 Mg Tab #8 40 MG PO DAILY Prescribed by: HECTOR HUNTER on 04/24/16 2343 Constitutional: No chills, No diaphoresis, No dizziness, No fever, No malaise, No weakness Eyes: See HPIDenies Blurred Vision, Denies Decreased Acuity, PhotophobiaDenies Shadows, Denies Tunnel Vision, Denies Vision Changes Ears, Nose, Mouth, Throat: ear pain (left ear pain)denies ear discharge, denies nose pain, denies nose discharge, mouth pain (left jaw)denies mouth swelling, denies loose teeth, denies throat pain, denies throat swelling Respiratory: No cough, No short of breath, No stridor, No wheezing Cardiovascular: No chest pain, No palpitations, No syncope Gastrointestinal: No abdominal pain, No constipation, No diarrhea, nauseaNo vomiting Genitourinary: no symptoms reported Musculoskeletal: see HPINo back pain, muscle pain muscle stiffness neck pain Skin: no symptoms reported Psychiatric/Neurological: HeadacheDenies Numbness, Denies Paresthesia, Denies Seizure, Denies Tingling, Denies Tremors, Denies Weakness All Other Systems Reviewed Negative Unless Noted: Yes (Negative excepted noted.) Past Wclvkke-Feupad-Urnqba Hx Patient Social History Alcohol Use: Denies Use Recreational Drug Use: No Smoking Status: Current Everyday Smoker Type Used: Cigarettes Recent Foreign Travel: No Contact w/Someone Who Travel: No Recent Infectious Disease Expo: No Recent Hopitalizations: Yes (RECENT DX OF AFIB) Immunizations Up To Date Tetanus Booster (TDap): Unknown Date of Pneumonia Vaccine: Nov 22, 2014 Date of Influenza Vaccine: Nov 22, 2014 Seasonal Allergies Seasonal Allergies: No Surgeries HX Surgeries: Yes (LEFT KNEE SX) Surgeries: Abdominal, Coronary Stent, Gallbladder Respiratory Hx Respiratory Disorders: No Respiratory Disorders: COPD, Emphysema Cardiovascular Hx Cardiac Disorders: Yes Cardiac Disorders: Atrial Fibrillation, Coronary Artery Disease, High Cholesterol, Hypertension Neurological Hx Neurological Disorders: No Reproductive System Hx Reproductive Disorders: No Sexually Transmitted Disease: No HIV/AIDS: No Genitourinary Hx Genitourinary Disorders: No Gastrointestinal Hx Gastrointestinal Disorders: Yes Gastrointestinal Disorders: Gall Bladder Disease Musculoskeletal Hx Musculoskeletal Disorders: Yes Musculoskeletal Disorders: Degenerate Disk Disease, Arthritis, Back Injury Endocrine Hx Endocrine Disorders: No HEENT HX ENT Disorders: No Cancer Hx Cancer: No Psychosocial Hx Psychiatric Problems: No Integumentary HX Skin/Integumentary Disorder: No Blood Transfusions Hx Blood Disorders: No Reviewed Nursing Assessment Reviewed/Agree w Nursing PMH: Yes Family Medical History Significant Family History: Heart Disease, Hypertension Family Medial History: Congestive heart failure 19 FATHER Family history: Hypertension 19 FATHER 19 MOTHER No Family History of: Cancer Dementia Family history: Alzheimer's disease Family history: Diabetes mellitus Stroke Physical Exam Vital Signs Vital Sign - Last 12Hours 04/24/16 20:59 Temp 99.3 Pulse 70 Resp 18 B/P 130/93 Pulse Ox 95 O2 Delivery Room Air Capillary Refill : Less Than 3 Seconds General Appearance: WD/WN no apparent distress HEENT: PERRL/EOMI normal ENT inspection TMs normal pharynx normal other ( tenderness palpation bilaterally at the base of the skull.) Neck: supple limited range of motion tender lateral (left posterior lateral neck and left lateral neck tender palpation with muscle spasm noted.)No tender midline Cardiovascular: normal peripheral pulses regular rate, rhythm no edema no murmur Respiratory: lungs clear normal breath sounds no respiratory distress Gastrointestinal: normal bowel sounds non tender softNo distended Back: normal inspection no vertebral tendernessNo decreased range of motion, No muscle spasm Extremities: non-tender normal inspection no pedal edema normal capillary refill Psychiatric: alert oriented x 3 Crainal Nerves: normal hearing normal speech PERRL Coordination/Gait: normal finger to nose normal gait negative Romberg's sign Motor/Sensory: no motor deficit no sensory deficit no pronator drift Skin: normal color warm/dry Progress/Results/Core Measures Results/Orders My Orders Orders-HECTOR HUNTER Saline Lock/Iv-Start (04/24/16 22:10) Ct Head/Cervical Spine Wo (04/24/16 22:10) Ns Iv 1000 Ml (Sodium Chloride 0.9%) (04/24/16 22:10) Fentanyl Injection (Sublimaze Injection (04/24/16 22:10) Orphenadrine Injection (Norflex Injectio (04/24/16 22:10) Ondansetron Injection (Zofran Injectio (04/24/16 22:15) Diphenhydramine Injection (Benadryl Inje (04/24/16 22:10) Prednisone Tablet (Deltasone Tablet) (04/24/16 23:45) Morphine Injection (Morphine Injection (04/24/16 23:36) Medications Given in ED Current Medications Medications Dose Ordered Sig/Stan Route Start Time Stop Time Status Last Admin Dose Admin Ondansetron HCl 4 mg ONCE ONCE IVP 04/24/16 22:15 04/24/16 22:16 DC 04/24/16 22:35 4 MG Prednisone 40 mg ONCE ONCE PO 04/24/16 23:45 04/24/16 23:46 DC 04/24/16 23:48 40 MG Sodium Chloride 1,000 ml @ 0 mls/hr Q0M ONCE IV 04/24/16 22:10 04/24/16 22:12 DC 04/24/16 22:35 0 MLS/HR Vital Signs/I&O Vital Sign - Last 12Hours 04/24/16 04/25/16 20:59 00:09 Temp 99.3 Pulse 70 71 Resp 18 18 B/P 130/93 Pulse Ox 95 98 O2 Delivery Room Air Blood Pressure Mean: 105 Diagnostic Imaging Diagonstic Imaging: CT Plain Films/CT/US/NM/MRI: c-spine, head Comments No fracture or traumatic malalignment. 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 Uncovertebral ridging results in mild left neural foraminal stenosis at C5-6. Mild thyromegaly. Reviewed: Other ([employer] report reviewed by me. ) Departure Communication Progress Notes Diagnostic findings discussed with the patient. Patient states pain is now a 6/ 10 after medications given. Patient given 10 mg of morphine IV 1 dose with 1 dose of prednisone 40 mg by mouth. Following medication administration patient reports pain is greatly improved and now states pain is a 1-2/10. Discharge patient to home with prednisone, Flexeril, and hydrocodone. All return precautions were discussed with the patient as described in the discharge instructions of this report. Patient instructed to follow-up with his primary care physician for recheck, possible need of MRI of the neck, finalized CT scan results from this visit, and possible need for further evaluation of mild thyromegaly. Patient voices understanding and agrees with the treatment plan. Impression Impression: Primary Impression: Tension type headache Additional Impression: Torticollis, acute Disposition: 01 HOME, SELF-CARE Condition: Improved Departure-Patient Inst. Decision time for Depature: 23:24 Referrals: [facility] (PCP/Family) Primary Care Physician Patient Instructions: Tension Headache (DC), Torticollis (DC) Add. Discharge Instructions: All discharge instructions reviewed with patient and/or family. Voiced understanding. Medications as instructed. Tylenol 650 mg by mouth every 4-6 hours as needed for pain or headache. Ice packs or heating pads as needed for pain. No lifting, pushing, pulling, twisting, bending, climbing 7 days. Increase activity slowly. Follow-up with your primary care physician for recheck, possible need for MRI of the neck, finalized CT scan report from this visit, and possible need for further evaluation of the mildly enlarged thyroid. Call tomorrow morning for appointment time. Return to the emergency department for worsened pain, dizziness, changes in vision, changes in speech, changes in behavior, numbness, weakness, bowel incontinence, bladder incontinence, shortness of air, or any other concerns. Scripts Prednisone 20 Mg Tab40 Mg PO DAILY #8 TAB Ref 0 Prov:HECTOR HUNTRE 04/24/16 Hydrocodone/Acetaminophen (Hydrocodon -Acetaminophen 5-325)1 Each Tablet1 Each PO Q4H PRN PAIN #14 TAB Ref 0 Prov:HECTOR HUNTER 04/24/16 Cyclobenzaprine HCl 10 Mg Pheaxr35 Mg PO Q8H PRN SPASMS #14 TAB Ref 0 Prov:HECTOR HUNTER 04/24/16 HECTOR HUNTER Apr 24, 2016 22:12
[2016-04-24] MEDS ORDERED: ONDANSETRON 4 MG/2 ML (SDV) Z0FRAN IVP ONE (22:15)
[2016-04-24] MEDS ORDERED: HYDR-3812 PO (23:26)
[2016-04-24] MEDS ORDERED: CYCL10TA9 PO (23:26)
[2016-04-24] MEDS ORDERED: morphine INJ 10 MG/ML 1ML (SYR OR VIAL) IVP STA (23:36)
[2016-04-24] MEDS ORDERED: PRD20T PO ×2 (23:38→23:43)
[2016-04-24] MEDS ORDERED: predniSONE 20 MG TAB PO ONE (23:45)
[2016-04-25 00:09] VITALS: BP 124/84
--- NOTE | 2016-04-25 06:17 | Diagnostic Imaging Report ---
Clinical indication: Patient with complaints of headache. Patient states pain has increased with radiation to neck and jaw. Exam: Head CT without IV contrast. Axial CT scan of the cervical spine with sagittal and coronal reformations. Comparison: CT scan of the head without IV contrast dated 02/01/2011. Findings: Head CT: There is no evidence of acute cerebral infarct, intracranial hemorrhage, or gross mass effect. There is normal franco-white matter distinction. The brain parenchymal volume appears appropriate for patient's age. There is no significant midline shift or herniation. There is no evidence of hydrocephalus. The basal cisterns are unremarkable. The skull, extracranial soft tissue, and orbits are unremarkable. There is mild to moderate peripheral mucosal thickening involving right maxillary sinus. There is mild mucosal thickening involving the left maxillary sinus and frontal sinus. Cervical spine: There is no evidence of acute cervical spine fracture or dislocation. There is ossification of posterior longitudinal ligament seen at the C5 and C6 levels which cause at least mild central canal narrowing at these levels. There is mild to moderately hypertrophic spur seen throughout the cervical spine and mild facet arthropathy. There is no neck soft tissue swelling. Visualized lung apices are unremarkable. The remainder of the neck soft tissue structures are unremarkable. Impression: 1: There is no evidence of acute intracranial process. 2: There is cervical spine degenerative disease with no acute fracture or dislocation. 3: There is ossification of posterior longitudinal ligament at the C5 and C6 levels which cause at least mild central canal narrowing. 4: There is mild to moderate paranasal sinus disease. I agree with [employer] report. Dictated by: Dictated on workstation # [id number]
== END 2016-04-25 00:09 | disposition home or self-care (01) ==
LOC: EDUNIT# 20:48 → ER 20:49
DX: G44.209 Tension-type headache, unspecified, not intractable (principal); M43.6 Torticollis; I10 Essential (primary) hypertension; J44.9 Chronic obstructive pulmonary disease, unspecified; F17.210 Nicotine dependence, cigarettes, uncomplicated; Z79.899 Other long term (current) drug therapy; Z79.82 Long term (current) use of aspirin
CPT/HCPCS: 70450; 72125; 96361; 96374; 96375

== ENCOUNTER → 2016-11-09 | Outpatient (CLI) | payer SELFPAY ==
[2016-11-09 09:56] LABS: ALANINE AMINOTRANSFERASE 30 U/L (0-55); ALBUMIN 4.2 GM/DL (3.2-4.5); ANION GAP 10 MMOL/L (5-14); ASPARTATE AMINO TRANSFERASE 20 U/L (5-34); BILIRUBIN,TOTAL 0.7 MG/DL (0.1-1.0); BLOOD UREA NITROGEN 17 MG/DL (7-18); BUN/CREATININE RATIO 17; CALCIUM 9.2 MG/DL (8.5-10.1); CARBON DIOXIDE 25 MMOL/L (21-32); CHLORIDE 104 MMOL/L (98-107); CHOLESTEROL 257 MG/DL (< 200); CREATININE SERUM 0.98 MG/DL (0.60-1.30); DIRECT LDL 192 MG/DL (1-129); GFR ESTIMATED > 60; GLUCOSE 94 MG/DL (70-105); POTASSIUM 3.8 MMOL/L (3.6-5.0); SODIUM 139 MMOL/L (135-145); TOTAL PROTEIN 7.2 GM/DL (6.4-8.2); TRIGLYCERIDES 212 MG/DL (<150); VLDL CHOLESTEROL 42 MG/DL (5-40)
== END ==
LOC: LAB 09:28
PROVIDERS: ATTEND Nurse Practitioner Family
DX: I25.10 Atherosclerotic heart disease of native coronary artery without angina pectoris (principal); E78.4 Other hyperlipidemia
CPT/HCPCS: 36415; 80053; 80061

== ENCOUNTER 2016-12-30 15:34 | Emergency (ER) | payer SELFPAY ==
[~2016-12-30] VITALS: Ht 190.5 cm; Wt 117.9 kg
--- OUTSIDE RECORDS SUMMARY | 2016-12-30 15:39 | XMS REPORT ---
Author Author MERARY COBOS [facility] Address [address] [place] [address] Care Team Providers Care Nougat Cutter Machine Name Role Phone MERARY COBOS Unavailable PROBLEMS Type Condition ICD9-CM Code [id number] Code Onset Dates Condition Status SNOMED Code Problem Chronic atrial fibrillation I48.2 Active 805664215 Problem Coronary artery disease involving [place] coronary artery of [place] heart without angina pectoris I25.10 Active 6130093025290 Problem Abnormal LFTs R79.89 Active 454998756 Problem Chronic obstructive pulmonary disease, unspecified COPD type J44.9 Active 37114602 Problem Diarrhea of presumed infectious origin A09 Active 83099911 ALLERGIES No Known Allergies SOCIAL HISTORY Never Assessed PLAN OF CARE Activity Details Follow Up prn Reason: VITAL SIGNS Height 73 in 2016-06-27 Weight 255 lbs 2016-06-27 Temperature 98.0 degrees Fahrenheit 2016-06-27 Heart Rate 68 bpm 2016-06-27 Respiratory Rate 18 2016-06-27 BMI 33.64 kg/m2 2016-06-27 Blood pressure systolic 140 mmHg 2016-06-27 Blood pressure diastolic 72 mmHg 2016-06-27 MEDICATIONS Medication Instructions Dosage Frequency Start Date End Date Duration Status Protonix 40 MG Orally Once a day 1 tablet 24h Active Advair Diskus 250-50 MCG/DOSE Inhalation Twice a day 1 puff 12h Active Eliquis 5 mg Orally 2 times a day 1 tablet 12h Mar, Active Doxycycline Hyclate 100 mg Orally Twice a day 1 capsule 12h June, June, 07 days Active Acidophilus 100 MG Orally Once a day 1 capsule 24h Feb, Active Toprol XL 50 MG Orally Once a day 1 tablet 24h Active Aspirin 81 MG Orally Once a day 1 tablet 24h Active Spiriva Respimat 2.5 MCG/ACT Inhalation Once a day 2 puffs 24h Active Fish Oil Concentrate 1000 mg 1 capsule 2 times daily Oct, Active Cardizem CD 360 MG Orally Once a day 1 capsule 24h Active Pseudoephedrine HCl 60 mg Orally every 6 hrs 1 tablet as needed 6h June, 05 days Active RESULTS No Results PROCEDURES No Known procedures IMMUNIZATIONS No Known Immunizations MEDICAL (GENERAL) HISTORY Type Description Date Medical History Hearing loss Medical History amphetmine abuse Medical History hyperlipidemia Surgical History Heart stent 2012 Surgical History Galbladder removal January 20, 2015 Hospitalization History surgeries Hospitalization History Heart attack x 3 Hospitalization History A flutter with [facility] 04/08/16
--- OUTSIDE RECORDS SUMMARY | 2016-12-30 15:40 | XMS REPORT ---
Author Author YASHIRA MENENDEZ Organization [facility] Address [address] [place] [address] Care Team Providers Care Physician Scientist Name Role Phone YASHIRA MENENDEZ Unavailable PROBLEMS Type Condition ICD9-CM Code [id number] Code Onset Dates Condition Status SNOMED Code Problem Chronic atrial fibrillation I48.2 Active 458202139 Problem Coronary artery disease involving [place] coronary artery of [place] heart without angina pectoris I25.10 Active 5604177485041 Problem Abnormal LFTs R79.89 Active 653360449 Problem Chronic obstructive pulmonary disease, unspecified COPD type J44.9 Active 50766553 Problem Diarrhea of presumed infectious origin A09 Active 63344469 ALLERGIES No Information SOCIAL HISTORY Never Assessed PLAN OF CARE VITAL SIGNS MEDICATIONS Medication Instructions Dosage Frequency Start Date End Date Duration Status Eliquis 5 mg Orally 2 times a day 1 tablet 12h 28 Mar, 2016 Active RESULTS No Results PROCEDURES No Known [...]
--- OUTSIDE RECORDS SUMMARY | 2016-12-30 15:40 | XMS REPORT ---
Author Author YASHIRA MENENDEZ Organization [facility] Address [address] [place] [address] Care Team Providers Care Hotel Front Desk Agent Name Role Phone YASHIRA MENENDEZ Unavailable PROBLEMS Type Condition ICD9-CM Code VLS76-[id number] Code Onset Dates Condition Status SNOMED Code Problem Chronic atrial fibrillation I48.2 Active 400812276 Problem Coronary artery disease involving [place] coronary artery of [place] heart without angina pectoris I25.10 Active 8661288549823 Problem Abnormal LFTs R79.89 Active 562917486 Problem Chronic obstructive pulmonary disease, unspecified COPD type J44.9 Active 82759703 Problem Diarrhea of presumed infectious origin A09 Active 99147287 ALLERGIES No Known Allergies SOCIAL HISTORY Never Assessed PLAN OF CARE VITAL SIGNS Height 73 in 2016-04-19 Weight 253.7 lbs 2016-04-19 Temperature 98.4 degrees Fahrenheit 2016-04-19 Heart Rate 68 bpm 2016-04-19 Respiratory Rate 18 2016-04-19 BMI 33.47 kg/m2 2016-04-19 Blood pressure systolic 112 mmHg 2016-04-19 Blood pressure diastolic 71 mmHg 2016-04-19 MEDICATIONS Medication Instructions Dosage Frequency Start Date End Date Duration Status Diltiazem CD 300 MG Orally Once a day 1 capsule 24h Mar, Active Protonix 40 MG Orally Once a day 1 tablet 24h Active Aspirin 81 MG Orally Once a day 1 tablet 24h Active Diltiazem HCl ER 60 mg Orally Once a day, add to 300 mg cap. 1 capsule Apr, Active Acidophilus 100 MG Orally Once a day 1 capsule 24h Feb, Active Toprol XL 50 MG Orally Once a day 1 tablet 24h Active Eliquis 5 mg Orally 2 times a day 1 tablet 12h Mar, Active Advair Diskus 250-50 MCG/DOSE Inhalation Twice a day 1 puff 12h Active Fish Oil Concentrate 1000 mg 1 capsule 2 times daily Oct, Active Doxycycline Hyclate 100 mg Orally every 12 hrs 1 capsule 12h Apr, Apr, 10 days Active Spiriva Respimat 2.5 MCG/ACT Inhalation Once a day 2 puffs 24h Active RESULTS No Results PROCEDURES No Known [...]
--- OUTSIDE RECORDS SUMMARY | 2016-12-30 15:40 | XMS REPORT ---
Author Author YASHIRA MENENDEZ Organization [employer] Address Unknown Phone Unavailable Care Team Providers Care Dress Finisher Name Role Phone YASHIRA MENENDEZ CP Unavailable Allergies No Known Allergies Problems No Known Problems Medications No Known Medications Results No Known Results Summary Purpose [employer] Submission
--- OUTSIDE RECORDS SUMMARY | 2016-12-30 15:40 | XMS REPORT ---
Author Author YASHIRA MENENDEZ Organization [facility] Address [address] [place] [address] Care Team Providers Care Bumper Straightener Name Role Phone YASHIRA MENENDEZ Unavailable PROBLEMS Type Condition ICD9-CM Code [id number] Code Onset Dates Condition Status SNOMED Code Problem Chronic atrial fibrillation I48.2 Active 576637207 Problem Coronary artery disease involving [place] coronary artery of [place] heart without angina pectoris I25.10 Active 6674224125334 Problem Abnormal LFTs R79.89 Active 286045717 Problem Chronic obstructive pulmonary disease, unspecified COPD type J44.9 Active 44594125 Problem Diarrhea of presumed infectious origin A09 Active 60783822 ALLERGIES Substance Reaction Event Type Date Status N.K.D.A. Unknown Non Drug Allergy Feb, Unknown SOCIAL HISTORY No smoking Hx information available PLAN OF CARE Activity Details Follow Up 4 Weeks Reason:diarrhea VITAL SIGNS Height 73 in 2016-03-04 Weight 254.3 lbs 2016-03-04 Temperature 97.8 degrees Fahrenheit 2016-03-04 Heart Rate 76 bpm 2016-03-04 Respiratory Rate 18 2016-03-04 BMI 33.55 kg/m2 2016-03-04 Blood pressure systolic 128 mmHg 2016-03-04 Blood pressure diastolic 76 mmHg 2016-03-04 MEDICATIONS Medication Instructions Dosage Frequency Start Date End Date Duration Status Albuterol Sulfate 90 mcg/actuation 2 puffs by Inhalation route every 4-6 hours as needed PRN cough or wheezing Oct, Active Acidophilus 100 MG Orally Once a day 1 capsule 24h Feb, Active Lipitor 80 mg take 1 tablet by Oral route at bedtime 1 time per day May, Active Acidophilus/[place] Pectin TAKE ONE TABLET BY MOUTH TWICE DAILY 30 Active Plavix 75 mg take 1 tablet (75 mg) by oral route once daily May, Active Fish Oil Concentrate 1000 mg 1 capsule 2 times daily Oct, Active Aspirin 81 MG Orally Once a day 1 tablet 24h Active Toprol XL 50 MG Orally Once a day 1 tablet 24h Active Protonix 40 MG Orally Once a day 1 tablet 24h Active RESULTS No Results PROCEDURES Procedure Date Ordered Related Diagnosis Body Site Office Visit, Est Pt., Level 3 Mar 04, 2016 IMMUNIZATIONS No Known Immunizations
--- OUTSIDE RECORDS SUMMARY | 2016-12-30 15:40 | XMS REPORT ---
Author Author YASHIRA MENENDEZ [facility] Address [address] [place] [address] Care Team Providers Care Carrier Packer Name Role Phone YASHIRA MENENDEZ Unavailable PROBLEMS Type Condition ICD9-CM Code [id number] Code Onset Dates Condition Status SNOMED Code Problem Chronic atrial fibrillation I48.2 Active 113023216 Problem Coronary artery disease involving [place] coronary artery of enterprise heart without angina pectoris I25.10 Active 7296389370784 Problem Abnormal LFTs R79.89 Active 861618078 Problem Chronic obstructive pulmonary disease, unspecified COPD type J44.9 Active 28128294 Problem Diarrhea of presumed infectious origin A09 Active 02002234 ALLERGIES Unknown Allergies SOCIAL HISTORY No smoking Hx information available PLAN OF CARE VITAL SIGNS MEDICATIONS Unknown Medications RESULTS No Results PROCEDURES No Known procedures IMMUNIZATIONS No Known Immunizations
--- OUTSIDE RECORDS SUMMARY | 2016-12-30 15:40 | XMS REPORT ---
Author Author MARIA EUGENIA TOMPKINS Organization [facility] Address [address] [place] [address] Care Team Providers Care Ticket Taker Ferryboat Name Role Phone LEDAANISA LOVEHANY Unavailable PROBLEMS Type Condition ICD9-CM Code [id number] Code Onset Dates Condition Status SNOMED Code Problem Chronic atrial fibrillation I48.2 Active 785261528 Problem Coronary artery disease involving [place] coronary artery of [place] heart without angina pectoris I25.10 Active 4326377307322 Problem Abnormal LFTs R79.89 Active 063883139 Problem Chronic obstructive pulmonary disease, unspecified COPD type J44.9 Active 45289899 Problem Diarrhea of presumed infectious origin A09 Active 31809397 ALLERGIES Substance Reaction Event Type Date Status N.K.D.A. Unknown Non Drug Allergy Jan, Unknown SOCIAL HISTORY No smoking Hx information available PLAN OF CARE Activity Details Follow Up prn Reason: VITAL SIGNS Height 73 in 2016-01-26 Weight 257.2 lbs 2016-01-26 Temperature 97.9 degrees Fahrenheit 2016-01-26 Heart Rate 77 bpm 2016-01-26 Respiratory Rate 18 2016-01-26 BMI 33.93 kg/m2 2016-01-26 Blood pressure systolic 148 mmHg 2016-01-26 Blood pressure diastolic 77 mmHg 2016-01-26 MEDICATIONS Medication Instructions Dosage Frequency Start Date End Date Duration Status Albuterol Sulfate 90 mcg/actuation 2 puffs by Inhalation route every 4-6 hours as needed PRN cough or wheezing Oct, Active Plavix 75 mg take 1 tablet (75 mg) by oral route once daily May, Active Lipitor 80 mg take 1 tablet by Oral route at bedtime 1 time per day May, Active Protonix 40 MG Orally Once a day 1 tablet 24h Active Acidophilus/[place] Pectin TAKE ONE TABLET BY MOUTH TWICE DAILY 30 Active Toprol XL 50 MG Orally Once a day 1 tablet 24h Active Fish Oil Concentrate 1000 mg 1 capsule 2 times daily Oct, Active Centrum Adults Active GuaiFENesin ER 600 MG Orally every 12 hrs 1 tablet as needed 12h 16 Jan, 2016 Jan, 10 days Active DocQLace 100 MG TAKE ONE CAPSULE BY MOUTH TWICE DAILY 30 Active Aspirin 81 MG Orally Once a day 1 tablet 24h Active RESULTS No Results PROCEDURES Procedure Date Ordered Related Diagnosis Body Site Office Visit, Est Pt., Level 3 Jan 26, 2016 IMMUNIZATIONS No Known Immunizations
--- OUTSIDE RECORDS SUMMARY | 2016-12-30 15:41 | XMS REPORT ---
Author Author YASHIRA MENENDEZ Organization [facility] Address [address] [place] [address] Care Team Providers Care Helper Electrical Name Role Phone YASHIRA MENENDEZ Unavailable PROBLEMS Type Condition ICD9-CM Code [id number] Code Onset Dates Condition Status SNOMED Code Problem Chronic atrial fibrillation I48.2 Active 884907068 Problem Coronary artery disease involving [place] coronary artery of [place] heart without angina pectoris I25.10 Active 6562618042655 Problem Abnormal LFTs R79.89 Active 144608025 Problem Chronic obstructive pulmonary disease, unspecified COPD type J44.9 Active 23643889 Problem Diarrhea of presumed infectious origin A09 Active 44963405 ALLERGIES Unknown Allergies SOCIAL HISTORY No smoking Hx information available PLAN OF CARE VITAL SIGNS MEDICATIONS Unknown Medications RESULTS Name Result Date Reference Range LIPID PANEL 2016-03-18 Cholesterol, Total 273 100-199 Triglycerides 306 0-149 HDL Cholesterol 29 >39 VLDL Cholesterol José 61 5-40 LDL Cholesterol Calc 183 0-99 Comment: CMP 2016-03-18 Glucose, Serum 91 65-99 BUN 16 6-24 Creatinine, Serum 1.07 0.76-1.27 eGFR If NonAfricn Am 83 >59 eGFR If Africn Am 96 >59 BUN/Creatinine Ratio 15 9-20 Sodium, Serum 143 134-144 Potassium, Serum 4.8 3.5-5.2 Chloride, Serum 102 96-106 Carbon Dioxide, Total 24 18-29 Calcium, Serum 9.2 8.7-10.2 Protein, Total, Serum 6.7 6.0-8.5 Albumin, Serum 4.3 3.5-5.5 Globulin, Total 2.4 1.5-4.5 A/G Ratio 1.8 1.1-2.5 Bilirubin, Total 0.3 0.0-1.2 Alkaline Phosphatase, S 73 39-117 AST (SGOT) 19 0-40 ALT (SGPT) 27 0-44 PROCEDURES Procedure Date Ordered Related Diagnosis Body Site LIPID PANEL Mar 18, 2016 COMPREHEN METABOLIC PANEL Mar 18, 2016 VENIPUNCT, ROUTINE* Mar 18, 2016 IMMUNIZATIONS No Known Immunizations
--- OUTSIDE RECORDS SUMMARY | 2016-12-30 15:41 | XMS REPORT ---
Author Author YASHIRA MENENDEZ Organization [facility] Address [address] [place] [address] Care Team Providers Care Photoengraving Helper Name Role Phone YASHIRA MENENDEZ Unavailable PROBLEMS Type Condition ICD9-CM Code [id number] Code Onset Dates Condition Status SNOMED Code Problem Chronic atrial fibrillation I48.2 Active 364261044 Problem Coronary artery disease involving [place] coronary artery of [place] heart without angina pectoris I25.10 Active 2379250030563 Problem Abnormal LFTs R79.89 Active 981087184 Problem Chronic obstructive pulmonary disease, unspecified COPD type J44.9 Active 62090946 Problem Diarrhea of presumed infectious origin A09 Active 06700509 ALLERGIES No Information SOCIAL HISTORY Never Assessed PLAN OF CARE VITAL SIGNS MEDICATIONS Medication Instructions Dosage Frequency Start Date End Date Duration Status Eliquis 5 mg Orally 2 times a day 1 tablet 12h Mar, Active RESULTS No Results PROCEDURES No Known [...]
--- OUTSIDE RECORDS SUMMARY | 2016-12-30 15:41 | XMS REPORT ---
Author YASHIRA Bullock Organization [employer] Address Unknown Phone Unavailable Care Team Providers Care C[employer] Name Role Phone YASHIRA MENENDEZ CP Unavailable Allergies No Known Allergies Problems No Known Problems Medications No Known Medications Results No Known Results Summary Purpose [employer] Submission
--- OUTSIDE RECORDS SUMMARY | 2016-12-30 15:42 | XMS REPORT ---
Author Author MERARY COBOS [facility] Address [address] [place] [address] Care Team Providers Care Motor Tester Name Role Phone MERARY COBOS Unavailable PROBLEMS Type Condition ICD9-CM Code JKC72-SY Code Onset Dates Condition Status SNOMED Code Problem Chronic atrial fibrillation I48.2 Active 102130211 Problem Coronary artery disease involving [place] coronary artery of [place] heart without angina pectoris I25.10 Active 2715588801531 Problem Abnormal LFTs R79.89 Active 387910875 Problem Chronic obstructive pulmonary disease, unspecified COPD type J44.9 Active 79392345 Problem Diarrhea of presumed infectious origin A09 Active 36359614 ALLERGIES Unknown Allergies SOCIAL HISTORY No smoking Hx information available PLAN OF CARE VITAL SIGNS MEDICATIONS Unknown Medications RESULTS Name Result Date Reference Range HEPATITIS PROFILE 2016-02-19 Hep A Ab, IgM Negative Negative HBsAg Screen Negative Negative Hep B Core Ab, IgM Negative Negative Hep C Virus Ab <0.1 0.0-0.9 PROCEDURES Procedure Date Ordered Related Diagnosis Body Site ACUTE HEPATITIS PANEL Feb 19, 2016 VENIPUNCT, ROUTINE* Feb 19, 2016 IMMUNIZATIONS No Known Immunizations
--- OUTSIDE RECORDS SUMMARY | 2016-12-30 15:42 | XMS REPORT ---
Author YASHIRA Bullock Organization [employer] Address Unknown Phone Unavailable Care Team Providers Care Filter Washer Name Role Phone YASHIRA MENENDEZ CP Unavailable Allergies No Known Allergies Problems No Known Problems Medications No Known Medications Results No Known Results Summary Purpose [employer] Submission
--- OUTSIDE RECORDS SUMMARY | 2016-12-30 15:43 | XMS REPORT ---
Author Author MERARY COBOS [facility] Address [address] [place] [address] Care Team Providers Care Business Education Instructor Name Role Phone MERARY COBOS Unavailable PROBLEMS Type Condition ICD9-CM Code UNM09-MA Code Onset Dates Condition Status SNOMED Code Problem Chronic atrial fibrillation I48.2 Active 716387293 Problem Coronary artery disease involving [place] coronary artery of [place] heart without angina pectoris I25.10 Active 2854161380820 Problem Abnormal LFTs R79.89 Active 003636535 Problem Chronic obstructive pulmonary disease, unspecified COPD type J44.9 Active 17010160 Problem Diarrhea of presumed infectious origin A09 Active 17399289 ALLERGIES Substance Reaction Event Type Date Status N.K.D.A. Unknown Non Drug Allergy Feb, Unknown SOCIAL HISTORY No smoking Hx information available PLAN OF CARE Activity Details Follow Up prn Reason: Pending Test CULTURE, STOOL Pending Test STOOL (WBC) Pending Test STOOL (C-DIFF) VITAL SIGNS Height 73 in 2016-02-12 Weight 254.6 lbs 2016-02-12 Temperature 98.2 degrees Fahrenheit 2016-02-12 Heart Rate 86 bpm 2016-02-12 Respiratory Rate 16 2016-02-12 Oximetry 97 % 2016-02-12 BMI 33.59 kg/m2 2016-02-12 Blood pressure systolic 118 mmHg 2016-02-12 Blood pressure diastolic 78 mmHg 2016-02-12 MEDICATIONS Medication Instructions Dosage Frequency Start Date End Date Duration Status Toprol XL 50 MG Orally Once a day 1 tablet 24h Active Aspirin 81 MG Orally Once a day 1 tablet 24h Active Plavix 75 mg take 1 tablet (75 mg) by oral route once daily May, Active Acidophilus/[place] Pectin TAKE ONE TABLET BY MOUTH TWICE DAILY 30 Active Fish Oil Concentrate 1000 mg 1 capsule 2 times daily Oct, Active Albuterol Sulfate 90 mcg/actuation 2 puffs by Inhalation route every 4-6 hours as needed PRN cough or wheezing Oct, Active Protonix 40 MG Orally Once a day 1 tablet 24h Active Lipitor 80 mg take 1 tablet by Oral route at bedtime 1 time per day May, Active Questran 4 GM Orally tid 1 packet mixed with water or non-carbonated drink 8h Feb, 5 days Active RESULTS Name Result Date Reference Range CBC 2016-02-12 WBC 4.9 3.4-10.8 RBC 5.12 4.14-5.80 Hemoglobin 15.4 12.6-17.7 Hematocrit 46.5 37.5-51.0 MCV 91 79-97 MCH 30.1 26.6-33.0 MCHC 33.1 31.5-35.7 RDW 13.6 12.3-15.4 Platelets 225 150-379 Neutrophils 57 Lymphs 31 Monocytes 8 Eos 3 Basos 1 Neutrophils (Absolute) 2.8 1.4-7.0 Lymphs (Absolute) 1.5 0.7-3.1 Monocytes(Absolute) 0.4 0.1-0.9 Eos (Absolute) 0.2 0.0-0.4 Baso (Absolute) 0.0 0.0-0.2 Immature Granulocytes 0 Immature Grans (Abs) 0.0 0.0-0.1 CMP 2016-02-12 Glucose, Serum 77 65-99 BUN 15 6-24 Creatinine, Serum 1.00 0.76-1.27 eGFR If NonAfricn Am 90 >59 eGFR If Africn Am 104 >59 BUN/Creatinine Ratio 15 9-20 Sodium, Serum 140 134-144 Potassium, Serum 4.2 3.5-5.2 Chloride, Serum 101 96-106 Carbon Dioxide, Total 24 18-29 Calcium, Serum 9.0 8.7-10.2 Protein, Total, Serum 6.6 6.0-8.5 Albumin, Serum 4.3 3.5-5.5 Globulin, Total 2.3 1.5-4.5 A/G Ratio 1.9 1.1-2.5 Bilirubin, Total 0.3 0.0-1.2 Alkaline Phosphatase, S 135 39-117 AST (SGOT) 288 0-40 ALT (SGPT) 320 0-44 Written Authorization 2016-02-12 Written Authorization LIVER PANEL (LFT) 2016-02-12 Protein, Total, Serum TNP Albumin, Serum TNP Bilirubin, Total TNP Bilirubin, Direct TNP Alkaline Phosphatase, S TNP AST (SGOT) TNP ALT (SGPT) TNP Written Authorization 2016-02-12 Written Authorization Request Problem TNP PROCEDURES Procedure Date Ordered Related Diagnosis Body Site MEASURE BLOOD OXYGEN LEVEL Feb 12, 2016 COMPLETE CBC W/AUTO DIFF WBC Feb 12, 2016 Office Visit, Est Pt., Level 4 Feb 12, 2016 VENIPUNCT, ROUTINE* Feb 12, 2016 LEUKOCYTE COUNT, FECAL Feb 12, 2016 COMPREHEN METABOLIC PANEL Feb 12, 2016 FECES CULTURE, BACTERIA Feb 12, 2016 C DIFF AMPLIFIED PROBE Feb 12, 2016 IMMUNIZATIONS No Known Immunizations
--- OUTSIDE RECORDS SUMMARY | 2016-12-30 15:43 | XMS REPORT ---
Author Author YASHIRA MENENDEZ Organization [facility] Address [address] [place] [address] Care Team Providers Care Nurse Esthetician Name Role Phone YASHIRA MENENDEZ Unavailable PROBLEMS Type Condition ICD9-CM Code [id number] Code Onset Dates Condition Status SNOMED Code Problem Chronic atrial fibrillation I48.2 Active 604039080 Problem Coronary artery disease involving [place] coronary artery of [place] heart without angina pectoris I25.10 Active 0513346721376 Problem Abnormal LFTs R79.89 Active 498060471 Problem Chronic obstructive pulmonary disease, unspecified COPD type J44.9 Active 43739795 Problem Diarrhea of presumed infectious origin A09 Active 00901038 ALLERGIES No Information SOCIAL HISTORY Never Assessed PLAN OF CARE VITAL SIGNS MEDICATIONS No Known Medications RESULTS No Results PROCEDURES No Known [...]
--- OUTSIDE RECORDS SUMMARY | 2016-12-30 15:43 | XMS REPORT ---
Author Author YASHIRA MENENDEZ Organization [facility] Address [address] [place] [address] Care Team Providers Care Lining Folder Name Role Phone YASHIRA MENENDEZ Unavailable PROBLEMS Type Condition ICD9-CM Code XSK51-MP Code Onset Dates Condition Status SNOMED Code Problem Chronic atrial fibrillation I48.2 Active 080457413 Problem Coronary artery disease involving [place] coronary artery of [place] heart without angina pectoris I25.10 Active 8923994429514 Problem Abnormal LFTs R79.89 Active 089570252 Problem Chronic obstructive pulmonary disease, unspecified COPD type J44.9 Active 49264020 Problem Diarrhea of presumed infectious origin A09 Active 68744306 ALLERGIES No Known Allergies SOCIAL HISTORY Never Assessed PLAN OF CARE VITAL SIGNS Height 73 in 2016-04-08 Weight 253.4 lbs 2016-04-08 Heart Rate 154 bpm 2016-04-08 Respiratory Rate 24 2016-04-08 Oximetry 94 % 2016-04-08 BMI 33.43 kg/m2 2016-04-08 Blood pressure systolic 105 mmHg 2016-04-08 Blood pressure diastolic 85 mmHg 2016-04-08 MEDICATIONS Medication Instructions Dosage Frequency Start Date End Date Duration Status Albuterol Sulfate 90 mcg/actuation 2 puffs by Inhalation route every 4-6 hours as needed PRN cough or wheezing Oct, Active Acidophilus/[place] Pectin TAKE ONE TABLET BY MOUTH TWICE DAILY 30 Active Lipitor 80 mg take 1 tablet by Oral route at bedtime 1 time per day May, Active Acidophilus 100 MG Orally Once a day 1 capsule 24h Feb, Active Plavix 75 mg take 1 tablet (75 mg) by oral route once daily May, Active Toprol XL 50 MG Orally Once a day 1 tablet 24h Active Fish Oil Concentrate 1000 mg 1 capsule 2 times daily Oct, Active Protonix 40 MG Orally Once a day 1 tablet 24h Active Aspirin 81 MG Orally Once a day 1 tablet 24h Active RESULTS No Results PROCEDURES Procedure Date Ordered Result Body Site EKG, TRACING (IN-HOUSE) 2016-04-08 N/A MEASURE BLOOD OXYGEN LEVEL Apr 08, 2016 ELECTROCARDIOGRAM, TRACING Apr 08, 2016 IMMUNIZATIONS No Known Immunizations MEDICAL (GENERAL) HISTORY Type Description Date Medical History Hearing loss Medical History amphetmine abuse Medical History hyperlipidemia Surgical History Heart stent 2012 Surgical History Galbladder removal January 20, 2015 Hospitalization History surgeries Hospitalization History Heart attack x 3 Hospitalization History A flutter with [facility] 04/08/16
--- OUTSIDE RECORDS SUMMARY | 2016-12-30 15:43 | XMS REPORT ---
Author YASHIRA Bullock Organization [employer] Address Unknown Phone Unavailable Care Team Providers Care Paper Coating Machine Operator Name Role Phone YASHIRA MENENDEZ CP Unavailable Allergies, Adverse Reactions, Alerts Substance Reaction Event Type N.K.D.A. Info Not Available Non Drug Allergy Problems Problem Type Condition Code Onset Dates Condition Status Assessment Blood in stool K92.1 Active Medications Medication Code System Code Instructions Start Date End Date Status Dosage Plavix [facility] [address]-00 75 mg June 05, 2012 take 1 tablet (75 mg ) by oral route once daily Centrum Adults [facility] [address]-40 Orally not defined Aspirin [facility] [address]-89 81 MG Orally Once a day 1 tablet Lipitor [facility] [address]-91 80 mg May 14, 2013 take 1 tablet by Oral route at bedtime 1 time per day Acidophilus/[place] Pectin [facility] 13840330352 TAKE ONE TABLET BY MOUTH TWICE DAILY Albuterol Sulfate [facility] [address]-95 90 mcg/actuation Nov 09, 2013 2 puffs by Inhalation route every 4-6 hours as needed PRN cough or wheezing Toprol XL [facility] [address]-92 50 MG Orally Once a day 1 tablet Fish Oil Concentrate [facility] [address]5582-04596 1000 mg Oct 20, 2012 1 capsule 2 times daily Prilosec [facility] [address]-10 20 MG Orally Once a day Nov 16, 2014 1 capsule Procedures Procedure Coding System Code Date Office Visit, Est Pt., Level 3 CPT-4 34030 Mar 13, 2015 Vital Signs Date/Time: Mar 13, 2015 Temperature 97.2 F Weight 258 lbs Height 73 in BMI 34.04 Index Blood Pressure Diastolic 76 mmHg Blood Pressure Systolic 110 mmHg Cardiac Monitoring Heart Rate 78 bpm Results No Known Results Summary Purpose [employer] Submission
--- OUTSIDE RECORDS SUMMARY | 2016-12-30 15:43 | XMS REPORT ---
Author Author MERARY COBOS [facility] Address [address] [place] [address] Care Team Providers Care Sheet Metal Erector Name Role Phone MERARY COBOS Unavailable PROBLEMS Type Condition ICD9-CM Code DKX86-CL Code Onset Dates Condition Status SNOMED Code Problem Chronic atrial fibrillation I48.2 Active 657195435 Problem Coronary artery disease involving [place] coronary artery of [place] heart without angina pectoris I25.10 Active 2289754837038 Problem Abnormal LFTs R79.89 Active 765781376 Problem Chronic obstructive pulmonary disease, unspecified COPD type J44.9 Active 67914272 Problem Diarrhea of presumed infectious origin A09 Active 59475756 ALLERGIES Unknown Allergies SOCIAL HISTORY No smoking Hx information available PLAN OF CARE VITAL SIGNS MEDICATIONS Unknown Medications RESULTS No Results PROCEDURES No Known procedures IMMUNIZATIONS No Known Immunizations
--- OUTSIDE RECORDS SUMMARY | 2016-12-30 15:44 | XMS REPORT ---
Author YASHIRA Bullock [facility] [employer] Address Unknown Phone Unavailable Care Team Providers Care Hot Metal Mixer Operator Helper Name Role Phone YASHIRA MENENDEZ CP Unavailable Allergies, Adverse Reactions, Alerts Substance Reaction Event Type N.K.D.A. Info Not Available Non Drug Allergy Problems Problem Type Condition Code Onset Dates Condition Status Assessment H. pylori infection A04.8 Active Assessment Abdominal pain, right upper quadrant R10.11 Active Medications Medication Code System Code Instructions Start Date End Date Status Dosage Aspirin [facility] [address]-82 81 MG Orally Once a day 1 tablet Amoxicillin [facility] [address]-38 500 MG Orally every 12 hrs Nov 16, 2014 Nov 30, 2014 2 tablets Prilosec [facility] [address]-37 20 MG Orally Once a day Nov 16, 2014 1 capsule Acidophilus/[place] Pectin [facility] 13090992034 TAKE ONE TABLET BY MOUTH TWICE DAILY Plavix [facility] [address]-68 75 mg June 05, 2012 take 1 tablet (75 mg ) by oral route once daily Albuterol Sulfate [facility] [address]-43 90 mcg/actuation Nov 09, 2013 2 puffs by Inhalation route every 4-6 hours as needed PRN cough or wheezing Flagyl [facility] [address]-10 500 MG Orally 2 times a day Nov 16, 2014 Nov 30, 2014 1 tablet Toprol XL [facility] [address]-30 50 MG Orally Once a day 1 tablet Lipitor [facility] [address]-35 80 mg May 14, 2013 take 1 tablet by Oral route at bedtime 1 time per day Fish Oil Concentrate [facility] [address]64-[address]64 1000 mg Oct 20, 2012 1 capsule 2 times daily Procedures Procedure Coding System Code Date IMMUNOASSAY,INFECTIOUS AGENT CPT-4 54601 Nov 16, 2014 Office Visit, Est Pt., Level 3 CPT-4 50862 Nov 16, 2014 Vital Signs Date/Time: Nov 16, 2014 Temperature 96.7 F Weight 254.2 lbs Height 73 in BMI 33.53 Index Blood Pressure Diastolic 82 mmHg Blood Pressure Systolic 112 mmHg Cardiac Monitoring Heart Rate 84 bpm Results Name Result Date Reference Range Unit Abnormality Flag H PYLORI (IN HOUSE) Summary Purpose [employer]ClinicalWorks Submission
--- OUTSIDE RECORDS SUMMARY | 2016-12-30 15:44 | XMS REPORT ---
Author Author YASHIRA MENENDEZ Organization [facility] Address [address] [place] [address] Care Team Providers Care Manufacturing Advisor Name Role Phone YASHIRA MENENDEZ Unavailable PROBLEMS Type Condition ICD9-CM Code OPT81-TH Code Onset Dates Condition Status SNOMED Code Problem Chronic atrial fibrillation I48.2 Active 852843430 Problem Coronary artery disease involving [place] coronary artery of [place] heart without angina pectoris I25.10 Active 3634152399261 Problem Abnormal LFTs R79.89 Active 327272800 Problem Chronic obstructive pulmonary disease, unspecified COPD type J44.9 Active 10554196 Problem Diarrhea of presumed infectious origin A09 Active 44366105 ALLERGIES No Information SOCIAL HISTORY Never Assessed [...]
--- OUTSIDE RECORDS SUMMARY | 2016-12-30 15:44 | XMS REPORT ---
Author Author TRESSA OLIVER Organization [facility] Address [address] [place] [address] Care Team Providers Care Stevedore Dock Name Role Phone TRESSA OLIVER Unavailable PROBLEMS Type Condition ICD9-CM Code URW84-QN Code Onset Dates Condition Status SNOMED Code Problem Chronic atrial fibrillation I48.2 Active 854620948 Problem Coronary artery disease involving [place] coronary artery of [place] heart without angina pectoris I25.10 Active 9138782134354 Problem Abnormal LFTs R79.89 Active 274452436 Problem Chronic obstructive pulmonary disease, unspecified COPD type J44.9 Active 04860271 Problem Diarrhea of presumed infectious origin A09 Active 93711841 ALLERGIES No Information SOCIAL HISTORY Never Assessed PLAN OF CARE VITAL SIGNS MEDICATIONS Medication Instructions Dosage Frequency Start Date End Date Duration Status Aspirin 81 MG Orally Once a day 1 tablet 24h Active Fish Oil Concentrate 1000 mg 1 capsule 2 times daily Oct, Active Protonix 40 MG Orally Once a day 1 tablet 24h Active Toprol XL 50 MG Orally Once a day 1 tablet 24h Active PredniSONE 20 mg Orally Once a day 2 tablets 24h Mar, Apr, Active Diltiazem CD 300 MG Orally Once a day 1 capsule 24h Mar, Active Eliquis 5 mg Orally 2 times [...]
--- OUTSIDE RECORDS SUMMARY | 2016-12-30 15:45 | XMS REPORT ---
Author Author MERARY COBOS [facility] Address [address] [place] [address] Care Team Providers Care Patrol Officer Name Role Phone MERARY COBOS Unavailable PROBLEMS Type Condition ICD9-CM Code IWP98-QU Code Onset Dates Condition Status SNOMED Code Problem Chronic atrial fibrillation I48.2 Active 187740164 Problem Coronary artery disease involving [place] coronary artery of [place] heart without angina pectoris I25.10 Active 9978220404849 Problem Abnormal LFTs R79.89 Active 660898418 Problem Chronic obstructive pulmonary disease, unspecified COPD type J44.9 Active 64461605 Problem Diarrhea of presumed infectious origin A09 Active 35526923 ALLERGIES Substance Reaction Event Type Date Status N.K.D.A. Unknown Non Drug Allergy Feb, Unknown SOCIAL HISTORY No smoking Hx information available PLAN OF CARE Activity Details Follow Up prn Reason: VITAL SIGNS Height 73 in 2016-02-20 Weight 252.9 lbs 2016-02-20 Temperature 98.6 degrees Fahrenheit 2016-02-20 Heart Rate 78 bpm 2016-02-20 Respiratory Rate 20 2016-02-20 BMI 33.36 kg/m2 2016-02-20 Blood pressure systolic 118 mmHg 2016-02-20 Blood pressure diastolic 78 mmHg 2016-02-20 MEDICATIONS Medication Instructions Dosage Frequency Start Date End Date Duration Status Aspirin 81 MG Orally Once a day 1 tablet 24h Active Lipitor 80 mg take 1 tablet by Oral route at bedtime 1 time per day May, Active Acidophilus/[place] Pectin TAKE ONE TABLET BY MOUTH TWICE DAILY 30 Active Protonix 40 MG Orally Once a day 1 tablet 24h Active Fish Oil Concentrate 1000 mg 1 capsule 2 times daily Oct, Active Albuterol Sulfate 90 mcg/actuation 2 puffs by Inhalation route every 4-6 hours as needed PRN cough or wheezing Oct, Active Toprol XL 50 MG Orally Once a day 1 tablet 24h Active Plavix 75 mg take 1 tablet (75 mg) by oral route once daily May, Active Cipro 500 MG Orally Twice a day 1 tablet 12h Feb, Feb, 07 days Active Flagyl 500 MG Orally every 8 hrs 1 tablet 8h Feb, Feb, 07 days Active RESULTS Name Result Date Reference Range UA LONG DIP (IN HOUSE) 2016-02-20 Lot # [id number] Exp date 12/2016 Clarity turbid Color yellow Odor strong GLU negative MERVIN negative KET negative SG >=1.030 BLO trace-lysed* pH 5.5 Protein negative URO 0.2 E.U/dL NIT negative DANE negative Lot # Exp date CULTURE, STOOL 2016-02-20 Salmonella/Shigella Screen Final report Campylobacter Culture Final report E coli Shiga Toxin EIA Negative Negative Result 1 Result 1 PROCEDURES Procedure Date Ordered Related Diagnosis Body Site FECES CULTURE, BACTERIA Feb 20, 2016 HEPATIC FUNCTION PANEL Feb 20, 2016 Office Visit, Est Pt., Level 4 Feb 20, 2016 IMMUNIZATIONS No Known Immunizations
[2016-12-30 16:34] LABS: BILIRUBIN,URINE NEGATIVE (NEGATIVE); KETONES,URINE NEGATIVE (NEGATIVE); LEUKOCYTE ESTERASE ,URINE 1+ (NEGATIVE); NITRITE,URINE NEGATIVE (NEGATIVE); PH,URINE 7 (5-9); PROTEIN,URINE NEGATIVE (NEGATIVE); UROBILINOGEN,URINE NORMAL (NORMAL)
--- NOTE | 2016-12-30 16:43 | ED Back Pain ---
General Chief Complaint: Back Problems Stated Complaint: R SIDE ABD/LOWER BACK PAIN Nursing Triage Note: BACK PAIN FOR 1+ WEEKS. PAIN IN RIGHT LOWER BACK. TAKING ALEVE 7X/DAY. Nursing Sepsis Screen: No Definite Risk Source of Information: Patient, Spouse Exam Limitations: No Limitations History of Present Illness Time Seen by Provider: 16:43 Allergies and Home Medications Allergies Coded Allergies: NKANo Known Allergies (Verified Allergy, Mild, 05/30/15) Home Medications Apixaban 5 Mg Tablet, 5 MG PO BID, #60 Ref 5 Prescribed by: LAMAR MARC on 04/09/16 0846 Aspirin 81 Mg Tabec, 81 MG PO DAILY, (Reported) Cyclobenzaprine HCl 10 Mg Tablet, 10 MG PO Q8H PRN for SPASMS, #14 Ref 0 Prescribed by: HECTOR HUNTER on 04/24/16 2326 Diltiazem HCl 300 Mg Cap.er.24h, 300 MG PO DAILY, #90 Ref 3 Prescribed by: LAMAR MARC on 04/09/16 0846 Hydrocodone/Acetaminophen 1 Each Tablet, 1 EACH PO Q4H PRN for PAIN, #14 Ref 0 Prescribed by: HECTOR HUNTER on 04/24/16 2326 Metoprolol Succinate 50 Mg Tab.er.24h, 50 MG PO DAILY, (Reported) Bates 3 Polyunsat Fatty Acids 1,000 Mg Cap, 1,000 MG PO BID, (Reported) Pantoprazole Sodium 40 Mg Tablet.dr, 40 MG PO DAILY, (Reported) Prednisone 20 Mg Tab, 40 MG PO DAILY, #8 Ref 0 Prescribed by: HECTOR HUNTER on 04/24/16 2343 Past Cmdrsme-Hrjkbb-Sgpica Hx Patient Social History Alcohol Use: Denies Use Recreational Drug Use: Yes (SMOKES 1 PPD) Smoking Status: Current Everyday Smoker Type Used: Cigarettes Recent Foreign Travel: No Contact w/Someone Who Travel: No Recent Infectious Disease Expo: No Recent Hopitalizations: Yes (RECENT DX OF AFIB) Physical Abuse: No Sexual Abuse: No Immunizations Up To Date Tetanus Booster (TDap): Unknown Date of Pneumonia Vaccine: Nov 22, 2014 Date of Influenza Vaccine: Nov 24, 2015 Seasonal Allergies Seasonal Allergies: No Surgeries History of Surgeries: Yes (LEFT KNEE SX) Surgeries: Abdominal, Coronary Stent, Gallbladder Respiratory History of Respiratory Disorde: No Respiratory Disorders: COPD, Emphysema Currently Using CPAP: No Currently Using BIPAP: No Cardiovascular History of Cardiac Disorders: Yes Cardiac Disorders: Atrial Fibrillation, Coronary Artery Disease, High Cholesterol, Hypertension Neurological History of Neurological Disord: No Reproductive System Hx Reproductive Disorders: No Sexually Transmitted Disease: No HIV/AIDS: No Genitourinary History of Genitourinary Disor: No Gastrointestinal History of Gastrointestinal Di: Yes Gastrointestinal Disorders: Gall Bladder Disease Musculoskeletal History of Musculoskeletal Dis: Yes Musculoskeletal Disorders: Degenerate Disk Disease, Arthritis, Back Injury Endocrine History of Endocrine Disorders: No Cancer History of Cancer: No Psychosocial History of Psychiatric Problem: No Suicide Risk Score: 0 Integumentary History of Skin or Integumenta: No Blood Transfusions History of Blood Disorders: No Family Medical History Significant Family History: Heart Disease, Hypertension Family Medial History: Congestive heart failure 19 FATHER Family history: Hypertension 19 FATHER 19 MOTHER No Family History of: Cancer Dementia Family history: Alzheimer's disease Family history: Diabetes mellitus Stroke Physical Exam Vital Signs Vital Sign - Last 12Hours 12/30/16 15:45 Temp 98.1 Pulse 80 Resp 20 B/P (MAP) 129/90 Pulse Ox 98 Capillary Refill : Less Than 3 Seconds Progress/Results/Core Measures Results/Orders Lab Results Laboratory Tests Test 12/30/16 16:21 12/30/16 17:07 Range/Units Urine Color YELLOW Urine Clarity CLEAR Urine pH 7 5-9 Urine Specific [place] 1.015 L 1.016-1.022 Urine Protein NEGATIVE NEGATIVE Urine Glucose (UA) NEGATIVE NEGATIVE Urine Ketones NEGATIVE NEGATIVE Urine Nitrite NEGATIVE NEGATIVE Urine Bilirubin NEGATIVE NEGATIVE Urine Urobilinogen NORMAL NORMAL MG/DL Urine Leukocyte Esterase 1+ H NEGATIVE Urine RBC (Auto) NEGATIVE NEGATIVE Urine RBC NONE /HPF Urine WBC 0-2 /HPF Urine Squamous Epithelial Cells 2-5 /HPF Urine Crystals PRESENT H /LPF Urine Amorphous Sediment FEW ANDRÉS URATES H /LPF Urine Bacteria NONE /HPF Urine Casts NONE /LPF Urine Mucus NEGATIVE /LPF Urine Culture Indicated NO White Blood Count 8.2 4.3-11.0 10^3/uL Red Blood Count 4.93 4.35-5.85 10^6/uL Hemoglobin 15.4 13.3-17.7 G/DL Hematocrit 46 40-54 % Mean Corpuscular Volume 93 80-99 FL Mean Corpuscular Hemoglobin 31 25-34 PG Mean Corpuscular Hemoglobin Concent 34 32-36 G/DL Red Cell Distribution Width 13.6 10.0-14.5 % Platelet Count 230 130-400 10^3/uL Mean Platelet Volume 9.5 7.4-10.4 FL Neutrophils (%) (Auto) 52 42-75 % Lymphocytes (%) (Auto) 38 12-44 % Monocytes (%) (Auto) 6 0-12 % Eosinophils (%) (Auto) 3 0-10 % Basophils (%) (Auto) 1 0-10 % Neutrophils # (Auto) 4.3 1.8-7.8 X 10^3 Lymphocytes # (Auto) 3.1 1.0-4.0 X 10^3 Monocytes # (Auto) 0.5 0.0-1.0 X 10^3 Eosinophils # (Auto) 0.2 0.0-0.3 10^3/uL Basophils # (Auto) 0.1 0.0-0.1 10^3/uL Sodium Level 140 135-145 MMOL/L Potassium Level 4.6 3.6-5.0 MMOL/L Chloride Level 106 98-107 MMOL/L Carbon Dioxide Level 26 21-32 MMOL/L Anion Gap 8 5-14 MMOL/L Blood Urea Nitrogen 15 7-18 MG/DL Creatinine 1.18 0.60-1.30 MG/DL Estimat Glomerular Filtration Rate > 60 BUN/Creatinine Ratio 13 Glucose Level 88 70-105 MG/DL Calcium Level 9.3 8.5-10.1 MG/DL Total Bilirubin 0.3 0.1-1.0 MG/DL Aspartate Amino Transf (AST/SGOT) 22 5-34 U/L Alanine Aminotransferase (ALT/SGPT) 28 0-55 U/L Alkaline Phosphatase 61 40-136 U/L Total Protein 7.5 6.4-8.2 GM/DL Albumin 4.3 3.2-4.5 GM/DL My Orders Orders - HECTOR HUNTER Ua Culture If Indicated (12/30/16 16:10) Cbc With Automated Diff (12/30/16 16:54) Comprehensive Metabolic Panel (12/30/16 16:54) Saline Lock/Iv-Start (12/30/16 16:54) Ct Abd/Pelvis Wo(Kidney Stone) (12/30/16 16:54) Ns Iv 1000 Ml (Sodium Chloride 0.9%) (12/30/16 16:54) Ketorolac Injection (Toradol Injection) (12/30/16 16:54) Orphenadrine Injection (Norflex Injectio (12/30/16 16:54) Chest Pa/Lat (2 View) (12/30/16 16:58) Acyclovir Capsule/Tablet (Zovirax Caps (12/30/16 19:00) Oxycodone/Apap 5/325mg Tablet (Percocet (12/30/16 18:51) Medications Given in ED Current Medications Medications Dose Ordered Sig/Stan Route Start Time Stop Time Status Last Admin Dose Admin Sodium Chloride 1,000 ml @ 0 mls/hr Q0M ONCE IV 12/30/16 16:54 12/30/16 16:55 DC 12/30/16 17:10 0 MLS/HR Vital Signs/I&O Vital Sign - Last 12Hours 12/30/16 15:45 Temp 98.1 Pulse 80 Resp 20 B/P (MAP) 129/90 Pulse Ox 98 Blood Pressure Mean: 103 Departure Impression Impression: Primary Impression: Herpes zoster Additional Impression: Bronchitis Disposition: 01 HOME, SELF-CARE Condition: Improved Departure-Patient Inst. Decision time for Depature: 18:58 Referrals: [facility] (PCP/Family) Primary Care Physician Patient Instructions: Acute Bronchitis, Adult (DC), Shingles (DC) Add. Discharge Instructions: All discharge instructions reviewed with patient and/or family. Voiced understanding. Medications as instructed. Continue usual home medications. Ibuprofen 800 mg by mouth every 8 hours as needed for pain. Follow-up with your primary care provider for recheck as an outpatient if needed. Return to the emergency department for worsened symptoms or any other concerns. Scripts Minocycline HCl (Minocycline HCl) 100 Mg Capsule 100 MG PO BID, #14 CAP 0 Refills Prov: HECTOR HUNTER 12/30/16 Hydrocodone/Acetaminophen (Hydrocodon -Acetaminophen 5-325) 1 Each Tablet 1 EACH PO Q4H Y for PAIN, #14 TAB 0 Refills Prov: HECTOR HUNTER 12/30/16 Acyclovir (Acyclovir) 200 Mg Capsule 800 MG PO 5XD, #100 CAP 1 Refill Prov: HECTOR HUNTER 12/30/16 HECTOR HUNTER Dec 30, 2016 16:43
[2016-12-30 16:44] LABS: WBC,URINE 0-2 /HPF
[2016-12-30] MEDS ORDERED: NS IV 1000 ML 1,000 ML IV ONE (16:54)
[2016-12-30] MEDS ORDERED: KETOROLAC 30 MG/ML VIAL IVP STA (16:54)
[2016-12-30] MEDS ORDERED: ORPHENADRINE 60 MG/2 ML (NORFLEX) AMP IV STA (16:54)
[2016-12-30 17:11] LABS: BASOPHILS # (AUTO) 0.1 10^3/uL (0.0-0.1); BASOPHILS % (AUTO) 1 % (0-10); EOSINOPHILS # (AUTO) 0.2 10^3/uL (0.0-0.3); EOSINOPHILS % (AUTO) 3 % (0-10); LYMPHOCYTES # (AUTO) 3.1 X 10^3 (1.0-4.0); LYMPHOCYTES % (AUTO) 38 % (12-44); MEAN CORPUSCULAR HEMOGLOBIN 31 PG (25-34); MEAN CORPUSCULAR HGB CONC 34 G/DL (32-36); MEAN CORPUSCULAR VOLUME 93 FL (80-99); MEAN PLATELET VOLUME 9.5 FL (7.4-10.4); MONOCYTES # (AUTO) 0.5 X 10^3 (0.0-1.0); MONOCYTES % (AUTO) 6 % (0-12); NEUTROPHILS # (AUTO) 4.3 X 10^3 (1.8-7.8); NEUTROPHILS % (AUTO) 52 % (42-75); PLATELET COUNT 230 10^3/uL (130-400); RED BLOOD COUNT 4.93 10^6/uL (4.35-5.85); RED CELL DISTRIBUTION WIDTH 13.6 % (10.0-14.5); WHITE BLOOD COUNT 8.2 10^3/uL (4.3-11.0)
[2016-12-30 17:31] LABS: ALANINE AMINOTRANSFERASE 28 U/L (0-55); ALBUMIN 4.3 GM/DL (3.2-4.5); ANION GAP 8 MMOL/L (5-14); ASPARTATE AMINO TRANSFERASE 22 U/L (5-34); BILIRUBIN,TOTAL 0.3 MG/DL (0.1-1.0); BLOOD UREA NITROGEN 15 MG/DL (7-18); BUN/CREATININE RATIO 13; CALCIUM 9.3 MG/DL (8.5-10.1); CARBON DIOXIDE 26 MMOL/L (21-32); CHLORIDE 106 MMOL/L (98-107); CREATININE SERUM 1.18 MG/DL (0.60-1.30); GFR ESTIMATED > 60; GLUCOSE 88 MG/DL (70-105); POTASSIUM 4.6 MMOL/L (3.6-5.0); SODIUM 140 MMOL/L (135-145); TOTAL PROTEIN 7.5 GM/DL (6.4-8.2)
--- NOTE | 2016-12-30 17:46 | Diagnostic Imaging Report ---
INDICATION: Cough and congestion for 2 months. EXAMINATION: PA and lateral views of the chest. FINDINGS: The heart size and vascularity are normal. Lungs are clear. There is no effusion. There is no acute bony abnormality. IMPRESSION: 1. No acute abnormality is seen. 2. There is no change from 04/17/2016. Dictated by: Dictated on workstation # [id number]
--- NOTE | 2016-12-30 17:52 | Diagnostic Imaging Report ---
PROCEDURE: CT urinary tract, rule out kidney stone. TECHNIQUE: Multiple contiguous axial images were obtained through the abdomen and pelvis without the use of intravenous contrast. INDICATION: Right lower quadrant pain radiating to back. COMPARISON: None. FINDINGS: Mild linear scarring or atelectasis in the left lung base. Cholecystectomy. The liver, pancreas, spleen, adrenals, kidneys, collecting systems and appendix are negative on this noncontrast exam. Prostatic calcifications. No free intraperitoneal air or fluid. No lymphadenopathy. No evidence of bowel obstruction. Mild degenerative changes in the visualized spine and hips. No acute osseous findings. IMPRESSION: No acute CT findings in the abdomen or pelvis. Dictated by: Dictated on workstation # [id number]
[2016-12-30] MEDS ORDERED: oxyCODONE/APAP 5/325MG (PERCOCET 5) TABLET PO STA (18:51)
[2016-12-30] MEDS ORDERED: ACYCLOVIR 200 MG CAP (ZOVIRAX) PO ONE (19:00)
[2016-12-30] MEDS ORDERED: ACYC200C PO (19:01)
[2016-12-30] MEDS ORDERED: HYDR-3812 PO (19:02)
[2016-12-30] MEDS ORDERED: RX-ALBUTEROL INHALER (PROAIR) 8 GM IH STA (19:02)
[2016-12-30] MEDS ORDERED: MINO100C2 PO (19:02)
[2016-12-30 19:30] VITALS: BP 129/90
== END 2016-12-30 19:30 | disposition home or self-care (01) ==
LOC: EDUNIT# 15:34 → ER 15:35
DX: B02.9 Zoster without complications (principal); J40 Bronchitis, not specified as acute or chronic; I25.10 Atherosclerotic heart disease of native coronary artery without angina pectoris; E78.00 Pure hypercholesterolemia, unspecified; I10 Essential (primary) hypertension; I48.91 Unspecified atrial fibrillation; J43.9 Emphysema, unspecified; M47.9 Spondylosis, unspecified; F17.210 Nicotine dependence, cigarettes, uncomplicated; Z79.82 Long term (current) use of aspirin; Z87.828 Personal history of other (healed) physical injury and trauma; Z95.5 Presence of coronary angioplasty implant and graft; Z82.49 Family history of ischemic heart disease and other diseases of the circulatory system
CPT/HCPCS: 36415; 71020; 74176; 80053; 81000; 85025; 96361; 96374; 96375

== ENCOUNTER → 2017-05-20 | Outpatient (CLI) | payer SELFPAY ==
[~2017-05-20] VITALS: Ht 190.5 cm; Wt 116.1 kg
[~2017-05-20] MED LIST changes: +ACHD5005 PO; +ACYC200C PO; +CATHETER FLUSH 10 ML SYR IV PRN; -HYDR-3812 PO; +MINO100C2 PO
[2017-05-20 08:10] LABS: ALANINE AMINOTRANSFERASE 27 U/L (0-55); ALBUMIN 4.2 GM/DL (3.2-4.5); ALKALINE PHOSPHATASE 74 U/L (40-136); BILIRUBIN,TOTAL 0.5 MG/DL (0.1-1.0); BUN/CREATININE RATIO 18; CALCIUM 9.3 MG/DL (8.5-10.1); CARBON DIOXIDE 25 MMOL/L (21-32); CHLORIDE 106 MMOL/L (98-107); CHOLESTEROL 237 MG/DL (< 200); GFR ESTIMATED > 60; GLUCOSE 100 MG/DL (70-105); HDL CHOLESTEROL 31 MG/DL (40-60); POTASSIUM 4.2 MMOL/L (3.6-5.0); SODIUM 139 MMOL/L (135-145); TOTAL PROTEIN 6.9 GM/DL (6.4-8.2); TRIGLYCERIDES 397 MG/DL (<150); VLDL CHOLESTEROL 79 MG/DL (5-40)
[2017-05-20 08:59] VITALS: BP 140/70
[2017-05-20 09:11] VITALS: BP 175/57
[2017-05-20 09:18] VITALS: BP 129/73
--- NOTE | 2017-05-20 20:01 | STRESS TEST ---
DATE OF SERVICE: 05/20/2017 RESTING AND POST-EXERCISE TECHNETIUM-99M TETROFOSMIN SPECT CT IMAGING ORDERING PHYSICIAN: Herminia Lovelace APRN PRIMARY PHYSICIAN: [facility]. OTHER PHYSICIAN: Dr. Jiménez. CLINICAL DIAGNOSES: Coronary artery disease. DESCRIPTION: Baseline images were carried out after injection of 10.72 mCi technetium-99m Tetrofosmin. Subsequently, exercise was carried out on a treadmill. Bernard protocol was employed. Heart rate and blood pressure responses to exercise were normal. After the patient had attained more than 85% of the maximum predicted heart rate, 31.7 mCi of guitar technician technetium-99m Tetrofosmin were injected and the exercise was continued for another minute. The test was stopped on account of fatigue. He had some chest tightness. No significant arrhythmia was seen. He attained 89% of maximum predicted heart rate and 12.1 METS of workload. He exercised for a total of 11 minutes and 9 seconds in the Bernard protocol. No significant ST segment changes with exercise. Review of images at rest and following stress does not indicate distant perfusion defects consistent with significant myocardial ischemia or infarction. Gated images showed normal global left ventricular systolic function and normal regional wall motion. Left ventricular ejection fraction is calculated to be 69%. Left ventricular end diastolic volume is 68 mL. CONCLUSIONS: 1. No evidence of any significant myocardial ischemia or infarction. 2. Normal regional wall motion. 3. Normal global left ventricular systolic function with a calculated ejection fraction of 69%. Job ID: [id number] DocumentID: [id number] Dictated Date: 05/20/2017 15:18:03 Evp Sales Date: 05/20/2017 20:00:36 Dictated By: DARÍO JIMÉNEZ MD, MA, FACP, FACC, MTDD
== END ==
LOC: CARD 07:13
PROVIDERS: ATTEND Nurse Practitioner Family
DX: I25.10 Atherosclerotic heart disease of native coronary artery without angina pectoris (principal); E78.5 Hyperlipidemia, unspecified; R07.89 Other chest pain; I65.29 Occlusion and stenosis of unspecified carotid artery; I48.0 Paroxysmal atrial fibrillation
CPT/HCPCS: 36415; 78452; 80053; 80061; 93017

== ENCOUNTER → 2018-01-12 | Outpatient (CLI) | payer SELFPAY ==
[~2018-01-12] MED LIST changes: -CATHETER FLUSH 10 ML SYR IV PRN
[2018-01-12 10:54] LABS: ALANINE AMINOTRANSFERASE 27 U/L (0-55); ALBUMIN 4.4 GM/DL (3.2-4.5); ALKALINE PHOSPHATASE 78 U/L (40-136); BILIRUBIN,TOTAL 0.5 MG/DL (0.1-1.0); BUN/CREATININE RATIO 17; CALCIUM 9.5 MG/DL (8.5-10.1); CARBON DIOXIDE 25 MMOL/L (21-32); CHLORIDE 107 MMOL/L (98-107); CHOLESTEROL 283 MG/DL (< 200); CREATININE SERUM 0.99 MG/DL (0.60-1.30); GFR ESTIMATED > 60; GLUCOSE 93 MG/DL (70-105); HDL CHOLESTEROL 35 MG/DL (40-60); POTASSIUM 4.9 MMOL/L (3.6-5.0); SODIUM 139 MMOL/L (135-145); TOTAL PROTEIN 7.3 GM/DL (6.4-8.2); TRIGLYCERIDES 360 MG/DL (<150); VLDL CHOLESTEROL 72 MG/DL (5-40)
== END ==
LOC: CARD 10:19
PROVIDERS: ATTEND Nurse Practitioner Family
DX: I25.10 Atherosclerotic heart disease of native coronary artery without angina pectoris (principal); I77.9 Disorder of arteries and arterioles, unspecified; I10 Essential (primary) hypertension; E78.5 Hyperlipidemia, unspecified; I48.0 Paroxysmal atrial fibrillation; I34.0 Nonrheumatic mitral (valve) insufficiency; Z72.0 Tobacco use
CPT/HCPCS: 36415; 80053; 80061; 93306

== ENCOUNTER → 2018-04-20 | Outpatient (CLI) | payer OTHER ==
[~2018-04-20] MED LIST changes: +ASPI-983 PO; +CETI10TA20 PO; +DILT180C54 PO; +DILT180C67 PO; +FENO135C PO; +FLUT1BLS IH; +GBPN600T PO
[2018-04-20 09:26] LABS: BASOPHILS # (AUTO) 0.1 10^3/uL (0.0-0.1); BASOPHILS % (AUTO) 1 % (0-10); EOSINOPHILS # (AUTO) 0.2 10^3/uL (0.0-0.3); EOSINOPHILS % (AUTO) 4 % (0-10); HEMATOCRIT 46 % (40-54); HEMOGLOBIN 15.3 G/DL (13.3-17.7); LYMPHOCYTES # (AUTO) 2.1 X 10^3 (1.0-4.0); LYMPHOCYTES % (AUTO) 40 % (12-44); MEAN CORPUSCULAR HEMOGLOBIN 31 PG (25-34); MEAN CORPUSCULAR HGB CONC 34 G/DL (32-36); MEAN CORPUSCULAR VOLUME 92 FL (80-99); MEAN PLATELET VOLUME 8.9 FL (7.4-10.4); MONOCYTES # (AUTO) 0.3 X 10^3 (0.0-1.0); MONOCYTES % (AUTO) 7 % (0-12); NEUTROPHILS # (AUTO) 2.5 X 10^3 (1.8-7.8); NEUTROPHILS % (AUTO) 48 % (42-75); PLATELET COUNT 274 10^3/uL (130-400); RED CELL DISTRIBUTION WIDTH 13.6 % (10.0-14.5); WHITE BLOOD COUNT 5.3 10^3/uL (4.3-11.0)
[2018-04-20 09:54] LABS: ALANINE AMINOTRANSFERASE 33 U/L (0-55); ALBUMIN 4.4 GM/DL (3.2-4.5); ALKALINE PHOSPHATASE 66 U/L (40-136); BILIRUBIN,TOTAL 0.4 MG/DL (0.1-1.0); BUN/CREATININE RATIO 17; CALCIUM 9.4 MG/DL (8.5-10.1); CARBON DIOXIDE 26 MMOL/L (21-32); CHLORIDE 106 MMOL/L (98-107); CHOLESTEROL 273 MG/DL (< 200); CREATININE SERUM 0.96 MG/DL (0.60-1.30); GFR ESTIMATED > 60; GLUCOSE 96 MG/DL (70-105); HDL CHOLESTEROL 37 MG/DL (40-60); MAGNESIUM 2.2 MG/DL (1.8-2.4); POTASSIUM 4.6 MMOL/L (3.6-5.0); SODIUM 143 MMOL/L (135-145); TOTAL PROTEIN 7.2 GM/DL (6.4-8.2); TRIGLYCERIDES 318 MG/DL (<150); VLDL CHOLESTEROL 64 MG/DL (5-40)
== END ==
LOC: LAB 09:16
PROVIDERS: ATTEND Nurse Practitioner Family
DX: E78.5 Hyperlipidemia, unspecified (principal)
CPT/HCPCS: 36415; 80053; 80061; 83735; 84443; 85025; 93458

== ENCOUNTER 2018-04-21 12:05 | Day surgery (SDC) | payer OTHER ==
[2018-04-21] VITALS (8 sets, daily range): BP systolic 102–129; BP diastolic 68–96
[~2018-04-21] VITALS: Ht 190.5 cm; Wt 117.9 kg
[~2018-04-21 12:05] MED LIST changes: -ASPI-983 PO; -CETI10TA20 PO; -DILT180C54 PO; -DILT180C67 PO; -FENO135C PO; -FLUT1BLS IH; -GBPN600T PO
[2018-04-21] MEDS ORDERED: HEParin 1000 UNIT/ML (10ML VIAL) FOR BOLUS ONE (12:15)
[2018-04-21] MEDS ORDERED: LIDOCAINE 1% INJ 20 ML 20 ML VIAL ONE (12:15)
[2018-04-21] MEDS ORDERED: NS IV 1000 ML 3,000 ML ONE (12:15)
[2018-04-21] MEDS ORDERED: NS IV 1000 ML 1,000 ML IV SCH (12:15)
--- OUTSIDE RECORDS SUMMARY | 2018-04-21 12:50 | XMS REPORT ---
Author Author YASHIRA MENENDEZ Organization [facility] Address [address] [place] [address] Care Team Providers Care Paunch Trimmer Name Role Phone YASHIRA MENENDEZ Unavailable PROBLEMS Type Condition ICD9-CM Code [id number] Code Onset Dates Condition Status SNOMED Code Problem Abnormal LFTs R79.89 Active 968932691 Problem Seasonal allergic rhinitis due to other allergic trigger J30.89 Active 617696685 Problem Mononeuropathy G58.9 Active 922014935 Problem Chronic obstructive pulmonary disease, unspecified COPD type J44.9 Active 01380877 Problem Diarrhea of presumed infectious origin A09 Active 60776794 Problem Chronic atrial fibrillation I48.2 Active 047106420 Problem Coronary artery disease involving [place] coronary artery of [place] heart without angina pectoris I25.10 Active [id number] ALLERGIES No Information ENCOUNTERS Encounter Location Date Diagnosis [place] [id number] [place] [address] 74469- 4445 Jan, Acute non-recurrent maxillary sinusitis J01.00 [place] [id number] [place] [address] 25236- 4822 Jan, [facility] [id number] [place] [address] 25218- 4461 Jan, [facility] [id number] [place] [address] 73548- 1372 Nov, Acute non-recurrent maxillary sinusitis J01.00 and Mononeuropathy G58.9 [facility] [id number] [place] [address] 63121- 2940 Oct, [place] [id number] [place] [address] 54123- 3111 Oct, [facility] [id number] [place] [address] 56055- 6273 Sep, [facility] [id number] [place] [address] 64960- 5267 June, Seasonal allergic rhinitis due to other allergic trigger J30.89 [facility] [id number] [place] [address] 725802- 4186 May, [facility] [id number] [place] [address] 35757- 4871 Apr, Chronic atrial fibrillation I48.2 [facility] [id number] [place] [address] 79926- 2058 Mar, Mononeuropathy G58.9 [facility] [id number] [place] [address] 96105- 3348 Mar, Mononeuropathy G58.9 [facility] [id number] [place] [address] 13233- 0939 Feb, [facility] [id number] [place] [address] 19780- 2480 Feb, [facility] [id number] [place] [address] 62213- 4769 Feb, Herpes zoster without complication B02.9 and Family history of cancer Z80.9 [facility] [address] [address] 7675 Jan, [facility] [id number] [place] [address] 39781- 8761 Dec, [facility] [id number] [place] [address] 41381- 6449 Dec, [facility] [id number] [place] [address] 58216- 9118 Dec, [facility] [address] [address]- 6451 Oct, Bronchitis J40 [facility] [address] [address] 5036 Sep, [facility] [id number] [place] [address] 22915- 8099 Sep, [facility] [id number] [place] [address] 94402- 1753 Jul, [facility] [id number] [place] [address] 71621- 9060 June, Acute pansinusitis, recurrence not specified J01.40 [facility] [id number] [place] [address] 49652- 2201 May, Chronic atrial fibrillation I48.2 and Coronary artery disease involving [place] coronary artery of [place] heart without angina pectoris I25.10 [facility] [id number] [place] [address] 96449- 4322 Apr, [facility] [id number] [place] [address] 79998- 0596 Apr, Tachycardia R00.0 [facility] [id number] [place] [address] 97318- 9127 Apr, [facility] [id number] [place] [address] [id number] Mar, [facility] [id number] [place] [address] 70334- 7574 Mar, [facility] [id number] [place] [address] 74468- 9546 Mar, Chest pain at rest R07.9 and Rapid heart rate R00.0 [facility] [id number] [place] [address] 59048- 7572 Mar, Chronic obstructive pulmonary disease, unspecified COPD type J44.9 [facility] [id number] [place] [address] 97833- 3419 Mar, Chronic obstructive pulmonary disease, unspecified COPD type J44.9 [facility] [address] [address] 2004 Feb, Functional diarrhea K59.1 [facility] [id number] [place] [address] 96940- 0607 Feb, Dysuria R30.0 ; Diarrhea of presumed infectious origin A09 and Abnormal LFTs R79.89 [facility] [id number] [place] [address] 91182- 4727 Feb, Abnormal LFTs R79.89 [facility] [id number] [place] [address] 17305- 7396 Feb, Abnormal LFTs R79.89 [facility] [id number] [place] [address] 52894- 8304 Feb, Diarrhea of presumed infectious origin A09 [facility] [id number] [place] [address] 76347- 0539 Jan, Acute nasopharyngitis J00 [facility] [id number] [place] [address] 31757- 2768 Nov, [facility] [id number] [place] [address] 94813- 5475 Nov, [facility] [address] [address]- 7545 Mar, Blood in stool K92.1 [facility] [id number] [place] [address] 82190- 0028 Dec, [facility] [id number] [place] [address] 91378- 4521 Nov, Abdominal pain, right upper quadrant R10.11 and H. pylori infection A04.8 [facility] [address] [address]- 2591 Jul, [facility] [address] [address]- 3706 May, [facility] [address] [address]- 8650 13 May, 2014 [facility] [place] [facility] [address] [id number] [place] [address]- 4587 Jan, [facility] [place] [facility] [address] [id number] [place] [address]- 3820 Jan, [facility] [place] [facility] [address] [id number] [place] [address]- 5970 Dec, [facility] [place] [facility] [address] [id number] [place] [address]- 1836 Dec, [facility] [place] [facility] [address] [id number] [place] [address]- 3598 Dec, [facility] [place] [facility] [address] [id number] [place] [address]- 8610 Dec, [facility] [place] [facility] [address] [id number] [place] [address]- 7088 Dec, [facility] [place] [facility] [address] [id number] [place] [address]- 3140 14 Dec, 2013 [facility] [place] [facility] [address] [id number] [place] [address]- 8515 15 Nov, 2013 [facility] [place] [facility] [address] [id number] [place] [address]- 3402 15 Nov, 2013 [facility] [place] [facility] [address] [id number] [place] [address]- 9631 07 Nov, 2013 [facility] [place] [facility] [address] [id number] [place] [address]- 7962 07 Nov, 2013 [facility] [place] [facility] [address] [id number] [place] [address]- 2003 30 Oct, 2013 [facility] [place] [facility] [address] [id number] [place] [address]- 0463 30 Oct, 2013 [facility] [place] [facility] [address] [id number] [place] [address]- 0121 24 Oct, 2013 [facility] [place] [facility] [address] [id number] [place] [address]- 6468 24 Oct, 2013 [facility] [place] [facility] [address] [id number] [place] [address]- 5388 17 Oct, 2013 [facility] [place] [facility] [address] [id number] [place] [address]- 0654 17 Oct, 2013 [facility] [place] [facility] [address] [id number] [place] [address]- 4751 10 Oct, 2013 [facility] [place] [facility] [address] [id number] [place] [address]- 4764 10 Oct, 2013 [facility] [place] [facility] [address] [id number] [place] [address]- 0917 08 Oct, 2013 [facility] [place] [facility] [address] [id number] [place] [address]- 5023 08 Oct, 2013 [facility] [place] [facility] [address] [id number] [place] [address]- 0109 05 Oct, 2013 [facility] [place] [facility] [address] [id number] [place] [address]- 0606 05 Oct, 2013 [facility] [place] [facility] [address] [id number] [place] [address]- 8796 Oct, 2013 [facility] [place] [facility] [address] [id number] [place] [address]- 5174 Sep, [facility] [place] [facility] [address] [id number] [address]- 1876 Sep, [facility] [place] [facility] [address] [id number] [place] [address]- 1014 Jul, [facility] [place] [facility] [address] [id number] [place] [address]- 9332 Jul, [facility] [place] [facility] [address] [id number] [place] [address]- 9752 June, [facility] [place] [facility] [address] [id number] [address]- 4562 June, [facility] [address] [id number] [place] [address]- 8610 June, [facility] [address] [id number] [place] [address]- 0033 June, [facility] [address] [id number] [place] [address]- 7030 May, [facility] [address] [id number] [place] [address]- 4931 May, [facility] [address] [id number] [place] [address]- 9328 May, [facility] [address] [id number] [place] [address]- 1884 May, [facility] [address] [id number] [place] [address]- 5675 May, [facility] [address] [id number] [place] [address]- 1320 May, [facility] [address] [id number] [place] [address]- 2554 Oct, [facility] [address] [id number] [place] [address]- 8915 Oct, [facility] [address] [id number] [place] [address]- 0411 Jul, [facility] [place] [facility] [address] [id number] [place] [address]- 9328 June, [facility] [place] [facility] [address] [id number] [place] [address]- 9423 June, [facility] [place] [facility] [address] [id number] [place] [address]- 8848 June, [facility] [place] [facility] [address] [id number] [place] [address]- 6766 June, [facility] [place] [facility] [address] [id number] [place] [address]- 7174 May, [facility] [address] [id number] [place] [address]- 6560 May, [facility] [place] [facility] [address] [id number] [place] [address]- 0431 Mar, [facility] [place] [facility] [address] [id number] [place] [address]- 0684 Mar, [facility] [place] [facility] [address] [id number] [place] [address]- 6366 Feb, [facility] [place] [facility] [address] [id number] [place] [address]- 1532 Feb, [facility] [place] [facility] [address] [id number] [place] [address]- 0059 Feb, [facility] [address] [id number] [place] [address]- 3619 Jan, [facility] [place] [facility] [address] [id number] [place] [address]- 3648 Jan, [facility] [place] [facility] [address] [id number] [place] [address]- 9930 Dec, [facility] [place] [facility] [address] [id number] [place] [address]- 0257 16 Dec, 2011 [facility] [place] [facility] [address] [id number] [place] [address]- 4825 08 Nov, 2011 [facility] [place] [facility] [address] [id number] [place] [address]- 4303 Oct, [facility] [place] [facility] [address] [id number] [place] [address]- 0239 Aug, [facility] [place] [facility] [address] [id number] [place] [address]- 7119 Jul, [facility] [place] [facility] [address] [id number] [place] [address]- 6822 Jul, [facility] [id number] [address]- 8248 Mar, [facility] [address] [address]- 6796 Mar, [facility] [address] [address]- 7025 Mar, [facility] [address] [address]- 5017 Feb, [facility] [address] [address]- 2535 Feb, [facility] [address] [address]- 6868 Feb, [facility] [address] [address]- 1389 Feb, [facility] [address] [address]- 6392 Feb, [facility] [address] [address]- 5678 Feb, [facility] [address] 1249 June, IMMUNIZATIONS No Known Immunizations SOCIAL HISTORY Never Assessed REASON FOR VISIT Controlled Med Refill PLAN OF CARE VITAL SIGNS MEDICATIONS Medication Instructions Dosage Frequency Start Date End Date Duration Status [place] 5-325 MG Orally every 6 hrs 1 tablet as needed Jan, Active RESULTS No Results PROCEDURES No Known procedures INSTRUCTIONS MEDICATIONS ADMINISTERED No Known Medications MEDICAL (GENERAL) HISTORY Type Description Date Medical History Hearing loss Medical History amphetmine abuse Medical History hyperlipidemia Surgical History Heart stent 2012 Surgical History Galbladder removal January 20, 2015 Hospitalization History surgeries Hospitalization History Heart attack x 3 Hospitalization History A flutter with [facility] 04/08/16 Hospitalization History shingles 12/2016
--- OUTSIDE RECORDS SUMMARY | 2018-04-21 12:50 | XMS REPORT ---
Author Author YASHIRA MENENDEZ Organization [facility] Address [address] [place] [address] Care Team Providers Care Back Up Worker Name Role Phone YASHIRA MENENDEZ Unavailable PROBLEMS Type Condition ICD9-CM Code [id number] Code Onset Dates Condition Status SNOMED Code Problem Abnormal LFTs R79.89 Active 944154320 Problem Seasonal allergic rhinitis due to other allergic trigger J30.89 Active 209547500 Problem Mononeuropathy G58.9 Active 030317750 Problem Chronic obstructive pulmonary disease, unspecified COPD type J44.9 Active 36217536 Problem Diarrhea of presumed infectious origin A09 Active 96444912 Problem Chronic atrial fibrillation I48.2 Active 521282580 Problem Coronary artery disease involving [place] coronary artery of [place] heart without angina pectoris I25.10 Active [id number] ALLERGIES No Known Allergies ENCOUNTERS Encounter Location Date Diagnosis [place] [id number] [place] [address] 22877- 2710 Nov, Acute non-recurrent maxillary sinusitis J01.00 and Mononeuropathy G58.9 [facility] [id number] [place] [address] 18951- 2431 Oct, [facility] [id number] [place] [address] 94041- 4599 Oct, [facility] [id number] [place] [address] 24949- 8964 Sep, [place] [address] 7[address]79- 2163 June, Seasonal allergic rhinitis due to other allergic trigger J30.89 [facility] [id number] [place] [address] 98718- 2814 May, [facility] [address] 07542- 4041 Apr, Chronic atrial fibrillation I48.2 [facility] [id number] [place] [address] 20387- 6260 Mar, Mononeuropathy G58.9 [facility] [id number] [place] [address] 88322- 7419 Mar, Mononeuropathy G58.9 [facility] [id number] [place] [address] 45960- 0374 Feb, [facility] [id number] [place] [address] 49796- 7402 Feb, [facility] [id number] [place] [address] 72047- 7199 Feb, Herpes zoster without complication B02.9 and Family history of cancer Z80.9 [facility] [id number] [place] [address] 29700- 3440 Jan, [facility] [id number] [place] [address] 85065- 5465 Dec, [facility] [id number] [place] [address] 89527- 7877 Dec, [facility] [id number] [place] [address] 55273- 7609 Dec, [facility] [id number] [place] [address] 30369- 1365 Oct, Bronchitis J40 [facility] [id number] [place] [address] 24221- 0246 Sep, [facility] [id number] [place] [address] 06199- 0993 Sep, [facility] [id number] [place] [address] 63804- 0740 Jul, [facility] [id number] [place] [address] 24292- 9789 June, Acute pansinusitis, recurrence not specified J01.40 [facility] [id number] [place] [address] 33434- 3886 May, Chronic atrial fibrillation I48.2 and Coronary artery disease involving [place] coronary artery of [place] heart without angina pectoris I25.10 [facility] [id number] [place] [address] 46997- 4073 Apr, [facility] [address] 32585- 4867 Apr, Tachycardia R00.0 [place] [address] 07838- 7567 Apr, [facility] [address] [id number] Mar, [facility] [address] 44511- 8444 Mar, [facility] [address] 75724- 2101 Mar, Chest pain at rest R07.9 and Rapid heart rate R00.0 [place] [id number] [place] [address] 23362- 5686 Mar, Chronic obstructive pulmonary disease, unspecified COPD type J44.9 [facility] [id number] [place] [address] 55981- 3087 Mar, Chronic obstructive pulmonary disease, unspecified COPD type J44.9 [facility] [id number] [place] [address] 58623- 7899 Feb, Functional diarrhea K59.1 [place] [address] 24629- 7762 Feb, Dysuria R30.0 ; Diarrhea of presumed infectious origin A09 and Abnormal LFTs R79.89 [facility] [address] 27816- 0226 Feb, Abnormal LFTs R79.89 [facility] [id number] [place] [address] 24478- 3838 Feb, Abnormal LFTs R79.89 [facility] [id number] [place] [address] 12683- 8875 Feb, Diarrhea of presumed infectious origin A09 [facility] [id number] [place] [address] 20246- 0646 Jan, Acute nasopharyngitis J00 [facility] [id number] [place] [address] 17307- 5606 Nov, [facility] [id number] [place] [address] 42139- 4991 Nov, [facility] [id number] [place] [address] 73033- 7749 Mar, Blood in stool K92.1 [facility] [id number] [place] [address] 81311- 2359 Dec, [facility] [id number] [place] [address] 83360- 5952 Nov, Abdominal pain, right upper quadrant R10.11 and H. pylori infection A04.8 [facility] [id number] [place] [address] 49165- 8377 Jul, [facility] [id number] [place] [address] 92464- 4035 14 May, 2014 [facility] [id number] [place] [address] 32959- 4215 May, [facility] [id number] [place] [address] 25228- 6951 Jan, [facility] [id number] [place] [address] 75473- 9662 Jan, [facility] [id number] [place] [address] 20285- 8245 Dec, [facility] [place] [facility] [address] [id number] [place] [address]- 1791 Dec, [facility] [place] [facility] [address] [id number] [place] [address]- 6794 18 Dec, 2013 [facility] [place] [facility] [address] [id number] [place] [address]- 4646 18 Dec, 2013 [facility] [place] [facility] [address] [id number] [place] [address]- 9556 Dec, [facility] [place] [facility] [address] [id number] [place] [address]- 2646 14 Dec, 2013 [facility] [place] [facility] [address] [id number] [place] [address]- 5840 15 Nov, 2013 [facility] [place] [facility] [address] [id number] [place] [address]- 0613 15 Nov, 2013 [facility] [place] [facility] [address] [id number] [place] [address]- 8904 07 Nov, 2013 [facility] [place] [facility] [address] [id number] [place] [address]- 3588 07 Nov, 2013 [facility] [place] [facility] [address] [id number] [place] [address]- 0486 30 Oct, 2013 [facility] [place] [facility] [address] [id number] [address]- 9172 30 Sep, 2013 [facility] [place] [facility] [address] [id number] [address]- 6332 24 Sep, 2013 [facility] [place] [facility] [address] [id number] [place] [address]- 2549 24 Sep, 2013 [facility] [place] [facility] [address] [id number] [place] [address]- 4773 17 Sep, 2013 [facility] [place] [facility] [address] [id number] [place] [address]- 0696 17 Sep, 2013 [facility] [place] [facility] [address] [id number] [place] [address]- 5859 10 Oct, 2013 [facility] [place] [facility] [address] [id number] [place] [address]- 8858 10 Oct, 2013 [facility] [place] [facility] [address] [id number] [place] [address]- 4666 08 Oct, 2013 [facility] [place] [facility] [address] [id number] [place] [address]- 8052 08 Oct, 2013 [facility] [place] [facility] [address] [id number] [place] [address]- 6171 Oct, 2013 [facility] [place] [facility] [address] [id number] [place] [address]- 7678 Oct, [facility] [place] [facility] [address] [id number] [place] [address]- 2590 Oct, [facility] [place] [facility] [address] [id number] [place] [address]- 2313 Sep, [facility] [place] [facility] [address] [id number] [place] [address]- 6868 Sep, [facility] [place] [facility] [address] [id number] [place] [address]- 9500 Jul, [facility] [place] [facility] [address] [id number] [place] [address]- 8003 Jul, [facility] [place] [facility] [address] [id number] [place] [address]- 4348 June, [facility] [place] [facility] [address] [id number] [place] [address]- 6560 June, [facility] [place] [facility] [address] [id number] [place] [address]- 1241 June, [facility] [place] [facility] [address] [id number] [place] [address]- 0346 June, [facility] [place] [facility] [address] [id number] [place] [address]- 1197 May, [facility] [address] [id number] [place] [address]- 0873 May, [facility] [place] [facility] [address] [id number] [place] [address]- 7343 May, [facility] [place] [facility] [address] [id number] [place] [address]- 3316 May, [facility] [place] [facility] [address] [id number] [place] [address]- 8324 May, [facility] [place] [facility] [address] [id number] [place] [address]- 4450 May, [facility] [place] [facility] [address] [id number] [place] [address]- 8154 Oct, [facility] [place] [facility] [address] [id number] [place] [address]- 3670 Oct, [facility] [place] [facility] [address] [id number] [place] [address]- 0602 Jul, [facility] [place] [facility] [address] [id number] [place] [address]- 1252 June, [facility] [place] [facility] [address] [id number] [place] [address]- 3122 June, [facility] [place] [facility] [address] [id number] [place] [address]- 2430 June, [facility] [place] [facility] [address] [id number] [address]- 7384 June, [facility] [place] [facility] [address] [id number] [place] [address]- 3157 May, [facility] [place] [facility] [address] [id number] [place] [address]- 5002 May, [facility] [place] [facility] [address] [id number] [place] [address]- 8009 Mar, [facility] [place] [facility] [address] [id number] [place] [address]- 3497 07 Mar, 2012 [facility] [address] [id number] [place] [address]- 0685 Feb, [facility] [place] [facility] [address] [id number] [place] [address]- 7196 Feb, [facility] [place] [facility] [address] [id number] [place] [address]- 9274 Feb, [facility] [place] [facility] [address] [id number] [place] [address]- 7525 Jan, [facility] [place] [facility] [address] [id number] [place] [address]- 4340 Jan, [facility] [place] [facility] [address] [id number] [place] [address]- 2161 Dec, [facility] [place] [facility] [address] [facility] [id number] [place] [address]- 5095 Dec, [facility] [place] [facility] [address] [id number] [place] [address]- 6000 Nov, [facility] [place] [facility] [address] [id number] [place] [address]- 9169 Oct, [facility] [place] [facility] [address] [facility] [id number] [place] [address]- 7345 Aug, [facility] [place] [facility] [address] [id number] [place] [address]- 4074 Jul, [facility] [place] [facility] [address] [id number] [place] [address]- 5076 Jul, [facility] [place] [facility] [address] [id number] [place] [address]- 0346 Mar, [facility] [place] [facility] [address] [facility] [id number] [place] [address]- 2546 Mar, [facility] [place] [facility] [address] [facility] [id number] [place] [address]- 7476 Mar, [facility] [address] [facility] [id number] [place] [address]- 1818 Feb, [facility] [address] [id number] [address]- 1063 Feb, [facility] [address] [id number] [address]- 9315 Feb, [facility] [address] [address]- 5113 Feb, [facility] [address] [address]- 6280 Feb, [facility] [address] [address]- 7500 Feb, [facility] [address] [id number] [address]- 9158 June, IMMUNIZATIONS No Known Immunizations SOCIAL HISTORY Never Assessed REASON FOR VISIT Medication updates Jessica antony, Runny nose, coughing green stuff, eyes are matted shut in the AM Jessica Atnony PLAN OF CARE VITAL SIGNS Height 73 in 2017-12-08 Weight 255.3 lbs 2017-12-08 Temperature 97.6 degrees Fahrenheit 2017-12-08 Heart Rate 86 bpm 2017-12-08 Respiratory Rate 18 2017-12-08 BMI 33.68 kg/m2 2017-12-08 Blood pressure systolic 128 mmHg 2017-12-08 Blood pressure diastolic 80 mmHg 2017-12-08 MEDICATIONS Medication Instructions Dosage Frequency Start Date End Date Duration Status Zithromax Z-Hari 250 MG Orally Once a day as directed 24h Nov, Dec, 5 day(s) Active Toprol XL 50 mg 1 tablet 24h Active Ellerbe 5-325 MG Orally every 6 hrs 1 tablet as needed 6h Nov, Active Cardizem CD 360 MG Orally Once a day 1 capsule 24h Active Eliquis 5 MG Orally 2 times a day 1 tablet 12h Mar, 90 days Active Neurontin 600 mg Orally Three times a day 1 tablet 8h 30 Active Aspirin 81 MG Orally Once a day 1 tablet 24h Active Fish Oil Concentrate 1000 mg 1 capsule 2 times daily Oct, Active Protonix 40 mg Orally Once a day 1 tablet 24h 30 Active Spiriva Respimat 2.5 MCG/ACT Inhalation Once a day 2 puffs 24h Active Advair Diskus 250-50 MCG/DOSE Inhalation Twice a day 1 puff 12h Active RESULTS No Results PROCEDURES No Known [...]
--- OUTSIDE RECORDS SUMMARY | 2018-04-21 12:50 | XMS REPORT ---
Author Author YASHIRA MENENDEZ Organization [facility] Address [address] [place] [address] Care Team Providers Care Garment Form Assembler Name Role Phone YASHIRA MENENDEZ Unavailable PROBLEMS Type Condition ICD9-CM Code BRV76-HT Code Onset Dates Condition Status SNOMED Code Problem Abnormal LFTs R79.89 Active 618725059 Problem Seasonal allergic rhinitis due to other allergic trigger J30.89 Active 549643352 Problem Mononeuropathy G58.9 Active 661900101 Problem Chronic obstructive pulmonary disease, unspecified COPD type J44.9 Active 97585192 Problem Diarrhea of presumed infectious origin A09 Active 46508257 Problem Chronic atrial fibrillation I48.2 Active 148927338 Problem Coronary artery disease involving miccosukee coronary artery of miccosukee heart without angina pectoris I25.10 Active [id number] ALLERGIES No Information ENCOUNTERS Encounter Location Date Diagnosis [place] [id number] [place] [address] 84244- 1748 Jan, [place] [facility] [id number] [place] [address] 66526- 2374 Nov, Acute non-recurrent maxillary sinusitis J01.00 and Mononeuropathy G58.9 [facility] [id number] [place] [address] 83013- 2285 Oct, [facility] [id number] [place] [address] 00382- 4823 Oct, [place] [address] 14818- 4122 Sep, [place] [id number] [place] [address] 03110- 7712 June, Seasonal allergic rhinitis due to other allergic trigger J30.89 [facility] [id number] [place] [address] 07976- 6997 May, [facility] [id number] [place] [address] 63079- 4377 Apr, Chronic atrial fibrillation I48.2 [facility] [id number] [place] [address] 10420- 5278 Mar, Mononeuropathy G58.9 [facility] [id number] [place] [address] 21722- 5972 Mar, Mononeuropathy G58.9 [facility] [id number] [place] [address] 64351- 6177 Feb, [facility] [id number] [place] [address] 09404- 5274 Feb, [facility] [id number] [place] [address] 79647- 7504 Feb, Herpes zoster without complication B02.9 and Family history of cancer Z80.9 [facility] [address] [place] [address] 99551- 9262 Jan, [facility] [id number] [place] [address] 41305- 8973 Dec, [facility] [id number] [place] [address] 39552- 7357 Dec, [facility] [id number] [place] [address] 79923- 4097 Dec, [facility] [address] [place] [address] 54459- 8609 Oct, Bronchitis J40 [facility] [id number] [place] [address] 56119- 1725 Sep, [facility] [id number] [place] [address] 67549- 3608 Sep, [facility] [id number] [place] [address] 82612- 6826 Jul, [facility] [id number] [place] [address] 56913- 9858 June, Acute pansinusitis, recurrence not specified J01.40 [facility] [id number] [place] [address] 58685- 8457 10 May, 2016 Chronic atrial fibrillation I48.2 and Coronary artery disease involving miccosukee coronary artery of miccosukee heart without angina pectoris I25.10 [facility] [id number] [place] [address] 61358- 4516 13 Apr, 2016 [place] [address] 08023- 6449 Apr, Tachycardia R00.0 [facility] [id number] [place] [address] 82645- 8075 Apr, [facility] [address] [id number] Mar, [facility] [id number] [place] [address] 81886- 7736 Mar, [facility] [address] 61879- 3080 Mar, Chest pain at rest R07.9 and Rapid heart rate R00.0 [place] [id number] [place] [address] 11967- 1293 Mar, Chronic obstructive pulmonary disease, unspecified COPD type J44.9 [facility] [id number] [place] [address] 93170- 3495 Mar, Chronic obstructive pulmonary disease, unspecified COPD type J44.9 [facility] [id number] [place] [address] 14818- 0675 Feb, Functional diarrhea K59.1 [place] [id number] [place] [address] 95775- 5440 Feb, Dysuria R30.0 ; Diarrhea of presumed infectious origin A09 and Abnormal LFTs R79.89 [facility] [id number] [place] [address] 46037- 9531 Feb, Abnormal LFTs R79.89 [facility] [id number] [place] [address] 86454- 8336 Feb, Abnormal LFTs R79.89 [facility] [id number] [place] [address] 89971- 3347 Feb, Diarrhea of presumed infectious origin A09 [facility] [id number] [place] [address] 73329- 5841 Jan, Acute nasopharyngitis J00 [facility] [id number] [place] [address] 47547- 8046 Nov, [facility] [id number] [place] [address] 86090- 3046 Nov, [facility] [id number] [place] [address] 08240- 7335 Mar, Blood in stool K92.1 [facility] [id number] [place] [address] 32467- 9451 Dec, [facility] [id number] [place] [address] 96457- 2167 Nov, Abdominal pain, right upper quadrant R10.11 and H. pylori infection A04.8 [facility] [id number] [place] [address] 68951- 8551 Jul, [facility] [id number] [place] [address] 21968- 8990 May, [facility] [id number] [place] [address] 93677- 4607 May, [facility] [id number] [place] [address] 28184- 4832 Jan, [facility] [id number] [place] [address] 05003- 4243 Jan, [facility] [place] [facility] [address] [id number] [place] [address]- 1122 Dec, [facility] [place] [facility] [address] [id number] [place] [address]- 7108 Dec, [facility] [place] [facility] [address] [id number] [place] [address]- 7621 Dec, [facility] [place] [facility] [address] [id number] [place] [address]- 2332 Dec, [facility] [place] [facility] [address] [id number] [place] [address]- 6349 Dec, [facility] [place] [facility] [address] [id number] [place] [address]- 5341 Dec, [facility] [place] [facility] [address] [id number] [place] [address]- 2896 15 Nov, 2013 [facility] [place] [facility] [address] [id number] [place] [address]- 1987 15 Nov, 2013 [facility] [place] [facility] [address] [id number] [place] [address]- 8777 07 Nov, 2013 [facility] [place] [facility] [address] [id number] [place] [address]- 8469 07 Nov, 2013 [facility] [place] [facility] [address] [id number], [place] [address]- 9251 30 Oct, 2013 [facility] [place] [facility] [address] [id number], [place] [address]- 4674 30 Sep, 2013 [facility] [place] [facility] [address] [id number] [place] [address]- 2398 24 Sep, 2013 [facility] [place] [facility] [address] [id number] [place] [address]- 4560 24 Sep, 2013 [facility] [place] [facility] [address] [id number] [place] [address]- 5452 17 Sep, 2013 [facility] [place] [facility] [address] [id number] [place] [address]- 1495 17 Oct, 2013 [facility] [place] [facility] [address] [id number] [place] [address]- 7566 10 Oct, 2013 [facility] [place] [facility] [address] [id number] [place] [address]- 1376 10 Oct, 2013 [facility] [place] [facility] [address] [id number] [place] [address]- 3800 08 Oct, 2013 [facility] [place] [facility] [address] [id number] [place] [address]- 6240 08 Oct, 2013 [facility] [place] [facility] [address] [id number] [place] [address]- 8165 05 Oct, 2013 [facility] [place] [facility] [address] [id number] [place] [address]- 9399 05 Oct, 2013 [facility] [place] [facility] [address] [id number] [place] [address]- 9050 Oct, 2013 [facility] [place] [facility] [address] [id number] [place] [address]- 1245 Sep, [facility] [place] [facility] [address] [id number] [place] [address]- 8474 Sep, [facility] [place] [facility] [address] [id number] [place] [address]- 5296 Jul, [facility] [place] [facility] [address] [id number] [place] [address]- 6848 Jul, [facility] [place] [facility] [address] [id number] [place] [address]- 6007 June, [facility] [place] [facility] [address] [id number] [place] [address]- 4664 June, [facility] [place] [facility] [address] [id number] [place] [address]- 9034 June, [facility] [place] [facility] [address] [id number] [place] [address]- 5301 June, [facility] [address] [id number] [place] [address]- 3177 May, [facility] [place] [facility] [address] [id number] [place] [address]- 2076 May, [facility] [place] [facility] [address] [id number] [place] 4195 May, [facility] [place] [facility] [address] [id number] [place] [address]- 8644 May, [facility] [place] [facility] [address] [id number] [place] [address]- 8215 May, [facility] [place] [facility] [address] [id number] [place] [address]- 5665 May, [facility] [place] [facility] [address] [id number] [place] [address]- 4192 Oct, [facility] [place] [facility] [address] [id number] [place] [address]- 9160 Oct, [facility] [place] [facility] [address] [id number] [place] [address]- 1658 Jul, [facility] [place] [facility] [address] [id number] [place] [address]- 4687 June, [facility] [place] [facility] [address] [id number] [place] [address]- 8835 June, [facility] [place] [facility] [address] [id number] [place] [address]- 8816 June, [facility] [place] [facility] [address] [id number] [place] [address]- 7994 June, [facility] [place] [facility] [address] [id number] [place] [address]- 2679 May, [facility] [place] [facility] [address] [id number] [place] 8890 May, [facility] [place] [facility] [address] [id number] [place] [address]- 7542 09 Mar, 2012 [facility] [address] [id number] [place] [address]- 2951 Mar, [facility] [place] [facility] [address] [id number] [place] [address]- 3294 Feb, [facility] [address] [id number] [place] [address]- 8652 Feb, [facility] [place] [facility] [address] [id number] [place] [address]- 6747 Feb, [facility] [address] [id number] [place] [address]- 7772 Jan, [facility] [place] [facility] [address] [id number] [place] [address]- 9894 Jan, [facility] [address] [id number] [place] [address]- 3217 Dec, [facility] [address] [id number] [place] [address]- 5650 Dec, [facility] [address] [id number] [place] [address]- 5099 Nov, [facility] [address] [id number] [place] [address]- 2837 Oct, [facility] [address] [id number] [place] [address]- 8400 Aug, [facility] [place] [facility] [address] [id number] [place] [address] 2541 Jul, [facility] [place] [facility] [address] [id number] [place] [address]- 0302 Jul, [facility] [place] [facility] [address] [id number] [place] [address]- 8736 Mar, [facility] [place] [facility] [address] [id number], [place] [address]- 9386 Mar, [facility] [id number] [address]- 8826 Mar, [facility] [address] [id number] [address] 2546 Feb, [facility] [address] [id number] [address]- 5086 Feb, [facility] [address], [place] [address]- 2546 Feb, [facility] [address], [place] [address]- 8476 Feb, [facility] [address], [place] [address] 2546 Feb, [facility] [address] [address]- 0646 Feb, [facility] [id number] [address]- 3876 June, IMMUNIZATIONS No Known Immunizations SOCIAL HISTORY Never Assessed REASON FOR VISIT possible shingles PLAN OF CARE VITAL SIGNS MEDICATIONS Medication Instructions Dosage Frequency Start Date End Date Duration Status Acyclovir 400 mg Orally Five times a day 2 tablets Jan, 7 days Active RESULTS No Results PROCEDURES No Known procedures INSTRUCTIONS MEDICATIONS ADMINISTERED No Known Medications MEDICAL (GENERAL) HISTORY Type Description Date Medical History Hearing loss Medical History amphetmine abuse Medical History hyperlipidemia Surgical History Heart stent 2012 Surgical History Galbladder removal January 20, 2015 Hospitalization History surgeries Hospitalization History Heart attack x 3 Hospitalization History A flutter with [facility] 04/08/16 Hospitalization History shingles 12/2016
--- OUTSIDE RECORDS SUMMARY | 2018-04-21 12:50 | XMS REPORT ---
Author Author YASHIRA MENENDEZ Organization [facility] Address [address] [place] [address] Care Team Providers Care Operations Dispatcher Name Role Phone YASHIRA MENENDEZ Unavailable PROBLEMS Type Condition ICD9-CM Code ROM05-NP Code Onset Dates Condition Status SNOMED Code Problem Abnormal LFTs R79.89 Active 154167195 Problem Seasonal allergic rhinitis due to other allergic trigger J30.89 Active 560494272 Problem Mononeuropathy G58.9 Active 206805677 Problem Chronic obstructive pulmonary disease, unspecified COPD type J44.9 Active 43381865 Problem Diarrhea of presumed infectious origin A09 Active 08623988 Problem Chronic atrial fibrillation I48.2 Active 395671598 Problem Coronary artery disease involving [place] coronary artery of [place] heart without angina pectoris I25.10 Active [id number] ALLERGIES No Information ENCOUNTERS Encounter Location Date Diagnosis [place] [id number] [place] [address] 77991- 5742 Jan, [place] [id number] [place] [address] 73608- 1860 Jan, [facility] [id number] [place] [address] 02603- 9336 Nov, Acute non-recurrent maxillary sinusitis J01.00 and Mononeuropathy G58.9 [facility] [id number] [place] [address] 13784- 4660 Oct, [facility] [address] 89370- 3480 Oct, [facility] [id number] [place] [address] 92357- 8396 Sep, [facility] [address] 78443- 3211 June, Seasonal allergic rhinitis due to other allergic trigger J30.89 [facility] [id number] [place] [address] 76645- 5544 May, [facility] [id number] [place] [address] 609048- 3596 Apr, Chronic atrial fibrillation I48.2 [facility] [address] 24256- 5815 Mar, Mononeuropathy G58.9 [facility] [address] 31231- 2113 Mar, Mononeuropathy G58.9 [facility] [id number] [place] [address] 05396- 4541 Feb, [facility] [id number] [place] [address] 26761- 4517 Feb, [facility] [id number] [place] [address] 97831- 0250 Feb, Herpes zoster without complication B02.9 and Family history of cancer Z80.9 [facility] [id number] [place] [address] 40128- 3028 Jan, [facility] [id number] [place] [address] 63922- 9542 Dec, [facility] [id number] [place] [address] 48659- 7535 Dec, [facility] [id number] [place] [address] 22628- 7301 Dec, [facility] [id number] [place] [address] 08707- 4363 Oct, Bronchitis J40 [facility] [id number] [place] [address] 37580- 3501 Sep, [facility] [address] 96940- 5086 Sep, [facility] [id number] [place] [address] 99141- 6119 Jul, [facility] [id number] [place] [address] 93919- 5085 June, Acute pansinusitis, recurrence not specified J01.40 [facility] [id number] [place] [address] 32143- 0217 May, Chronic atrial fibrillation I48.2 and Coronary artery disease involving [place] coronary artery of [place] heart without angina pectoris I25.10 [facility] [id number] [place] [address] 66252- 4605 Apr, [facility] [id number] [place] [address] 17626- 1053 Apr, Tachycardia R00.0 [facility] [id number] [place] [address] 01205- 6464 Apr, [facility] [id number] [place] [address] [id number] Mar, [facility] [id number] [place] [address] 83948- 5039 Mar, [facility] [id number] [place] [address] 95224- 0538 Mar, Chest pain at rest R07.9 and Rapid heart rate R00.0 [facility] [id number] [place] [address] 86923- 8208 Mar, Chronic obstructive pulmonary disease, unspecified COPD type J44.9 [facility] [id number] [place] [address] 38861- 6503 Mar, Chronic obstructive pulmonary disease, unspecified COPD type J44.9 [facility] [id number] [place] [address] 53022- 8467 Feb, Functional diarrhea K59.1 [facility] [address] [place] [address]- 6952 Feb, Dysuria R30.0 ; Diarrhea of presumed infectious origin A09 and Abnormal LFTs R79.89 [facility] [id number] [place] [address] 06602- 1128 Feb, Abnormal LFTs R79.89 [facility] [id number] [place] [address] 73174- 3542 Feb, Abnormal LFTs R79.89 [facility] [id number] [place] [address] 68295- 9123 Feb, Diarrhea of presumed infectious origin A09 [facility] [id number] [place] [address] 90806- 1215 Jan, Acute nasopharyngitis J00 [facility] [id number] [place] [address] 83193- 2964 Nov, [facility] [id number] [place] [address] 71301- 7330 Nov, [facility] [id number] [place] [address] 01617- 2328 Mar, Blood in stool K92.1 [facility] [id number] [place] [address] 59832- 2726 Dec, [facility] [id number] [place] [address] 02641- 9269 Nov, Abdominal pain, right upper quadrant R10.11 and H. pylori infection A04.8 [facility] [id number] [place] [address] 23571- 7576 Jul, [facility] [id number] [place] [address] 16458- 0739 14 May, 2014 [facility] [id number] [place] [address] 78131- 6889 13 May, 2014 [facility] [id number] [place] [address] 80708- 4598 Jan, [facility] [place] [facility] [address] [id number] [place] [address]- 0125 Jan, [facility] [place] [facility] [address] [id number] [place] [address]- 4477 Dec, [facility] [place] [facility] [address] [id number] [place] [address]- 3377 Dec, [facility] [place] [facility] [address] [id number] [place] [address]- 4818 Dec, [facility] [place] [facility] [address] [id number] [place] [address]- 1122 Dec, [facility] [place] [facility] [address] [id number] [place] [address]- 7082 Dec, [facility] [place] [facility] [address] [id number] [place] [address]- 6282 Dec, [facility] [place] [facility] [address] [id number] [place] [address]- 6404 15 Nov, 2013 [facility] [place] [facility] [address] [id number] [place] [address]- 4003 15 Nov, 2013 [facility] [place] [facility] [address] [id number] [place] [address]- 5729 Nov, [facility] [place] [facility] [address] [id number] [place] [address]- 1480 07 Nov, 2013 [facility] [place] [facility] [address] [id number] [place] [address]- 9217 30 Oct, 2013 [facility] [place] [facility] [address] [id number] [place] [address]- 9394 30 Oct, 2013 [facility] [place] [facility] [address] [id number] [place] [address]- 1385 24 Oct, 2013 [facility] [place] [facility] [address] [id number] [place] [address]- 0148 24 Oct, 2013 [facility] [place] [facility] [address] [id number] [place] [address]- 8735 17 Oct, 2013 [facility] [place] [facility] [address] [id number] [place] [address]- 2671 17 Oct, 2013 [facility] [place] [facility] [address] [id number] [place] [address]- 9146 10 Oct, 2013 [facility] [place] [facility] [address] [id number] [place] [address]- 9368 10 Oct, 2013 [facility] [place] [facility] [address] [id number] [place] [address]- 3043 08 Oct, 2013 [facility] [place] [facility] [address] [id number] [place] [address]- 0010 08 Oct, 2013 [facility] [place] [facility] [address] [id number] [place] [address]- 8856 05 Oct, 2013 [facility] [place] [facility] [address] [id number] [place] [address]- 8483 05 Oct, 2013 [facility] [place] [facility] [address] [id number] [place] [address]- 3386 Oct, [facility] [place] [facility] [address] [id number] [place] [address]- 7133 Sep, [facility] [place] [facility] [address] [id number] [place] [address]- 9337 Sep, [facility] [place] [facility] [address] [id number] [place] [address]- 4446 Jul, [facility] [place] [facility] [address] [id number] [place] [address]- 7407 Jul, [facility] [place] [facility] [address] [id number] [place] [address]- 0886 June, [facility] [place] [facility] [address] [id number] [place] [address]- 0731 June, [facility] [place] [facility] [address] [id number] [place] [address]- 2194 June, [facility] [address] [id number] [place] [address]- 8272 June, [facility] [place] [facility] [address] [id number] [place] [address]- 3387 May, [facility] [place] [facility] [address] [id number] [place] 4011 May, [facility] [place] [facility] [address] [id number] [place] [address]- 4851 May, [facility] [place] [facility] [address] [id number] [place] [address]- 0519 May, [facility] [place] [facility] [address] [id number] [place] [address]- 0106 May, [facility] [place] [facility] [address] [id number] [place] [address]- 2146 May, [facility] [place] [facility] [address] [id number] [place] [address]- 5947 Oct, [facility] [place] [facility] [address] [id number] [place] [address]- 6715 Oct, [facility] [place] [facility] [address] [id number] [place] [address]- 5425 Jul, [facility] [place] [facility] [address] [id number] [place] [address]- 2448 June, [facility] [place] [facility] [address] [id number] [place] [address]- 2676 June, [facility] [place] [facility] [address] [id number] [place] [address]- 7330 June, [facility] [place] [facility] [address] [id number] [place] [address]- 5488 June, [facility] [place] [facility] [address] [id number] [place] 2192 May, [facility] [place] [facility] [address] [id number] [place] [address]- 6111 May, [facility] [address] [id number] [place] [address]- 3979 Mar, [facility] [place] [facility] [address] [id number] [place] [address]- 8316 Mar, [facility] [address] [id number] [place] [address]- 9851 Feb, [facility] [place] [facility] [address] [id number] [place] [address]- 3459 Feb, [facility] [address] [id number] [place] [address]- 5762 Feb, [facility] [place] [facility] [address] [id number] [place] [address]- 3585 Jan, [facility] [address] [id number] [place] [address]- 5566 Jan, [facility] [place] [facility] [address] [id number] [place] [address]- 1120 Dec, [facility] [place] [facility] [address] [id number] [place] [address]- 4238 Dec, [facility] [address] [id number] [place] [address]- 9215 Nov, [facility] [place] [facility] [address] [id number] [place] [address]- 7216 Oct, [facility] [place] [facility] [address] [id number] [place] [address]- 2546 Aug, [facility] [place] [facility] [address] [id number] [place] [address]- 8411 Jul, [facility] [place] [facility] [address] [id number] [place] [address]- 6206 Jul, [facility] [place] [facility] [address] [id number] [place] [address]- 6066 Mar, [facility] [address] [id number] [place] [address]- 1719 Mar, [facility] [address] [place] [address]- 6152 Mar, [facility] [address] [address]- 6727 Feb, [facility] [address] [place] [address]- 9033 Feb, [facility] [address] [place] [address]- 4024 Feb, [facility] [address] [place] [address]- 6931 Feb, [facility] [address] [place] [address]- 8368 Feb, [facility] [address] [place] [address]- 4533 Feb, [facility] [address] [id number] [address]- 5454 June, IMMUNIZATIONS No Known Immunizations SOCIAL HISTORY Never Assessed REASON FOR VISIT PALS IN-[place] PLAN OF CARE VITAL SIGNS MEDICATIONS Unknown [...]
--- OUTSIDE RECORDS SUMMARY | 2018-04-21 12:51 | XMS REPORT ---
Author Author YASHIRA MENENDEZ Organization [facility] Address [address] [place] [address] Care Team Providers Care Vice Principal Name Role Phone YASHIRA MENENDEZ Unavailable PROBLEMS Type Condition ICD9-CM Code EUA91-IQ Code Onset Dates Condition Status SNOMED Code Problem Abnormal LFTs R79.89 Active 272194223 Problem Seasonal allergic rhinitis due to other allergic trigger J30.89 Active 654573783 Problem Mononeuropathy G58.9 Active 088298685 Problem Chronic obstructive pulmonary disease, unspecified COPD type J44.9 Active 01699260 Problem Diarrhea of presumed infectious origin A09 Active 59674436 Problem Chronic atrial fibrillation I48.2 Active 325338807 Problem Coronary artery disease involving [place] coronary artery of [place] heart without angina pectoris I25.10 Active [id number] ALLERGIES No Information ENCOUNTERS Encounter Location Date Diagnosis [facility] [id number] [place] [address] 01780- 9302 Nov, [place] [place] [id number] [place] [address] 82007- 7798 Oct, [facility] [id number] [place] [address] 58357- 1043 Oct, [facility] [id number] [place] [address] 94995- 7996 Sep, [facility] [id number] [place] [address] 99594- 0674 June, Seasonal allergic rhinitis due to other allergic trigger J30.89 [facility] [id number] [place] [address] 06713- 9331 May, [facility] [id number] [place] [address] 41496- 0260 Apr, Chronic atrial fibrillation I48.2 [facility] [id number] [place] [address] 09359- 2118 Mar, Mononeuropathy G58.9 [facility] [id number] [place] [address] 81293- 1529 Mar, Mononeuropathy G58.9 [facility] [id number] [place] [address] 78953- 3903 Feb, [facility] [id number] [place] [address] 08393- 4419 Feb, [facility] [id number] [place] [address] 58420- 2457 Feb, Herpes zoster without complication B02.9 and Family history of cancer Z80.9 [facility] [id number] [place] [address] 01925- 2584 Jan, [facility] [id number] [place] [address] 58175- 6854 Dec, [facility] [id number] [place] [address] 29714- 9285 Dec, [facility] [id number] [place] [address] 63321- 4637 Dec, [facility] [id number] [place] [address] 02727- 6243 Oct, Bronchitis J40 [facility] [id number] [place] [address] 44652- 7435 Sep, [facility] [id number] [place] [address] 16585- 3883 Sep, [facility] [id number] [place] [address] 32250- 1174 Jul, [facility] [id number] [place] [address] 49334- 1024 June, Acute pansinusitis, recurrence not specified J01.40 [facility] [address] [place] [address] 56461- 1300 10 May, 2016 Chronic atrial fibrillation I48.2 and Coronary artery disease involving [place] coronary artery of [place] heart without angina pectoris I25.10 [facility] [address] [address]- 2822 13 Apr, 2016 [facility] [id number] [place] [address] 61399- 5248 Apr, Tachycardia R00.0 [facility] [id number] [place] [address] 20286- 7179 Apr, [facility] [address] [id number] Mar, [facility] [id number] [place] [address] 40539- 6504 Mar, [facility] [id number] [place] [address] 33329- 0651 Mar, Chest pain at rest R07.9 and Rapid heart rate R00.0 [facility] [id number] [place] [address] 10354- 8985 Mar, Chronic obstructive pulmonary disease, unspecified COPD type J44.9 [facility] [id number] [place] [address] 88555- 9886 Mar, Chronic obstructive pulmonary disease, unspecified COPD type J44.9 [facility] [id number] [place] [address] 79528- 1383 Feb, Functional diarrhea K59.1 [facility] [id number] [place] [address] 74823- 6778 Feb, Dysuria R30.0 ; Diarrhea of presumed infectious origin A09 and Abnormal LFTs R79.89 [facility] [id number] [place] [address] 06076- 1038 Feb, Abnormal LFTs R79.89 [facility] [address] [address]- 3681 Feb, Abnormal LFTs R79.89 [facility] [id number] [place] [address] 70567- 9998 Feb, Diarrhea of presumed infectious origin A09 [facility] [address] [address]- 9741 Jan, Acute nasopharyngitis J00 [facility] [id number] [address]- 3136 Nov, [facility] [id number] [place] [address] 97605- 4869 Nov, [facility] [id number] [place] [address] 42420- 7581 Mar, Blood in stool K92.1 [facility] [id number] [place] [address] 38991- 4798 Dec, [facility] [address] [address]- 5483 Nov, Abdominal pain, right upper quadrant R10.11 and H. pylori infection A04.8 [facility] [address] [address]- 3971 24 Jul, 2014 [facility] [address] [address]- 6413 14 May, 2014 [facility] [address] [address]- 1620 13 May, 2014 [facility] [address] [address]- 3400 Jan, [facility] [address] [address]- 9072 Jan, [facility] [address] [address]- 4706 Dec, [facility] [address] [place] [address]- 7035 19 Dec, 2013 [facility] [place] [facility] [address] [id number] [place] [address]- 2737 18 Dec, 2013 [facility] [place] [facility] [address] [id number] [place] [address]- 3803 18 Dec, 2013 [facility] [place] [facility] [address] [id number] [place] [address]- 3695 14 Dec, 2013 [facility] [place] [facility] [address] [id number] [place] [address]- 0119 14 Dec, 2013 [facility] [place] [facility] [address] [id number] [place] [address]- 6049 15 Nov, 2013 [facility] [place] [facility] [address] [id number] [place] [address]- 7504 15 Nov, 2013 [facility] [place] [facility] [address] [id number] [place] [address]- 5716 07 Nov, 2013 [facility] [place] [facility] [address] [id number] [place] [address]- 7564 07 Nov, 2013 [facility] [place] [facility] [address] [id number] [place] [address]- 8216 30 Oct, 2013 [facility] [place] [facility] [address] [id number] [place] [address]- 2577 30 Sep, 2013 [facility] [place] [facility] [address] [id number] [place] [address]- 2549 24 Sep, 2013 [facility] [place] [facility] [address] [id number] [place] [address]- 2540 24 Sep, 2013 [facility] [place] [facility] [address] [id number] [place] [address]- 7321 17 Sep, 2013 [facility] [place] [facility] [address] [id number] [place] [address]- 3562 17 Sep, 2013 [facility] [place] [facility] [address] [id number] [place] [address]- 2498 Oct, [facility] [place] [facility] [address] [id number] [place] [address]- 7934 Oct, [facility] [place] [facility] [address] [id number] [place] [address]- 3775 Oct, [facility] [place] [facility] [address] [id number] [place] [address]- 7133 Oct, [facility] [place] [facility] [address] [id number] [place] [address]- 5575 Oct, [facility] [place] [facility] [address] [id number] [place] [address]- 2883 Oct, [facility] [place] [facility] [address] [id number] [place] [address]- 5634 Oct, [facility] [place] [facility] [address] [id number] [place] [address]- 9243 Sep, [facility] [place] [facility] [address] [id number] [place] [address]- 3127 Sep, [facility] [place] [facility] [address] [id number] [place] [address]- 5672 Jul, [facility] [place] [facility] [address] [id number] [place] [address]- 7317 Jul, [facility] [place] [facility] [address] [id number], [place] [address]- 2887 June, [facility] [place] [facility] [address] [id number], [place] [address]- 5660 June, [facility] [place] [facility] [address] [id number] [place] [address]- 0082 June, [facility] [place] [facility] [address] [id number] [place] [address]- 2792 June, [facility] [place] [facility] [address] [id number] [place] [address]- 1540 May, [facility] [place] [facility] [address] [id number], [place] [address]- 9567 May, [facility] [address] [id number] [place] [address]- 2297 May, [facility] [address] [id number] [place] [address]- 7695 May, [facility] [address] [id number] [place] [address]- 6453 May, [facility] [address] [id number] [place] [address]- 5685 May, [facility] [address] [id number] [place] [address]- 4759 Oct, [facility] [address] [id number] [place] [address]- 3676 Oct, [facility] [id number] [place] [address]- 8497 Jul, [facility] [address] [id number] [place] [address]- 2453 June, [facility] [address] [id number] [place] [address]- 3669 June, [facility] [id number] [place] [address]- 6829 June, [facility] [address] [id number] [place] [address]- 8537 June, [facility] [address] [id number], [place] [address]- 8468 May, [facility] [address] [id number] [place] [address]- 7700 May, [facility] [address] [facility] [id number] [place] [address]- 9760 Mar, [facility] [address] [facility] [id number], [place] [address]- 9523 Mar, [facility] [address] [id number] [place] [address]- 4064 Feb, [facility] [place] [facility] [address] [id number] [place] [address]- 7402 Feb, [facility] [place] [facility] [address] [id number] [place] [address]- 9655 Feb, [facility] [place] [facility] [address] [id number] [place] [address]- 7961 Jan, [facility] [place] [facility] [address] [id number] [place] [address]- 3092 Jan, [facility] [place] [facility] [address] [id number] [place] [address]- 9899 Dec, [facility] [place] [facility] [address] [id number] [place] [address]- 5286 Dec, [facility] [place] [facility] [address] [id number] [place] [address]- 3484 Nov, [facility] [place] [facility] [address] [id number] [place] [address]- 4002 Oct, [facility] [place] [facility] [address] [id number] [place] [address]- 0585 Aug, [facility] [place] [facility] [address] [id number] [place] [address]- 1733 Jul, [facility] [place] [facility] [address] [id number] [place] [address]- 9255 Jul, [facility] [place] [facility] [address] [id number] [place] [address]- 2540 Mar, [facility] [place] [facility] [address] [id number] [place] [address]- 2852 Mar, [facility] [place] [facility] [address] [id number] [place] [address]- 9718 Mar, [facility] [place] [facility] [address] [id number] [place] [address]- 2476 Feb, [facility] [address] [facility] [id number], [place] [address]- 8283 Feb, [facility] [id number] [address]- 5096 Feb, [facility] [address] [facility] [id number] [address]- 0970 Feb, [facility] [id number] [address]- 4679 Feb, [facility] [address] [facility] [id number], [place] [address]- 1889 Feb, [facility] [id number] [address] 4703 June, IMMUNIZATIONS No Known Immunizations SOCIAL HISTORY Never Assessed REASON FOR VISIT Refill request PLAN OF CARE VITAL SIGNS MEDICATIONS Unknown [...]
--- OUTSIDE RECORDS SUMMARY | 2018-04-21 12:51 | XMS REPORT ---
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 [employer] Name Role Phone YASHIRA MENENDEZ Unavailable PROBLEMS Type Condition ICD9-CM Code SDK39-YO Code Onset Dates Condition Status SNOMED Code Problem Abnormal LFTs R79.89 Active 586296236 Problem Seasonal allergic rhinitis due to other allergic trigger J30.89 Active 563312816 Problem Mononeuropathy G58.9 Active 540693330 Problem Chronic obstructive pulmonary disease, unspecified COPD type J44.9 Active 47028694 Problem Diarrhea of presumed infectious origin A09 Active 10874616 Problem Chronic atrial fibrillation I48.2 Active 814013369 Problem Coronary artery disease involving [place] coronary artery of [place] heart without angina pectoris I25.10 Active [id number] ALLERGIES No Known Allergies ENCOUNTERS Encounter Location Date Diagnosis [place] [id number] [place] [address] 34948- 6610 June, Seasonal allergic rhinitis due to other allergic trigger J30.89 [place] [id number] [place] [address] 82122- 0020 May, [facility] [id number] [place] [address] 43516- 4813 Apr, Chronic atrial fibrillation I48.2 [facility] [id number] [place] [address] 57793- 4259 Mar, Mononeuropathy G58.9 [facility] [id number] [place] [address] 99457- 2615 Mar, Mononeuropathy G58.9 [facility] [id number] [place] [address] 63628- 6845 Feb, [facility] [id number] [address] 0159 Feb, [facility] [id number] [place] [address] 31727- 2344 Feb, Herpes zoster without complication B02.9 and Family history of cancer Z80.9 [facility] [id number] [place] [address] 03303- 3866 Jan, [facility] [id number] [place] [address] 58645- 8783 Dec, [facility] [id number] [place] [address] 51022- 0518 Dec, [facility] [id number] [place] [address] 10625- 6294 Dec, [facility] [id number] [place] [address] 06694- 5819 Oct, Bronchitis J40 [facility] [id number] [place] [address] 36068- 9150 Sep, [facility] [id number] [place] [address] 96862- 3064 Sep, [facility] [id number] [place] [address] 57257- 6455 Jul, [facility] [id number] [place] [address] 51172- 9878 June, Acute pansinusitis, recurrence not specified J01.40 [facility] [id number] [place] [address] 62694- 4677 May, Chronic atrial fibrillation I48.2 and Coronary artery disease involving [place] coronary artery of [place] heart without angina pectoris I25.10 [facility] [id number] [place] [address] 38132- 9023 Apr, [facility] [id number] [place] [address] 59104- 4290 Apr, Tachycardia R00.0 [facility] [id number] [place] [address] 57796- 6568 Apr, [facility] [address] [id number] Mar, [facility] [id number] [place] [address] 82517- 3625 Mar, [facility] [id number] [place] [address] 65424- 9996 Mar, Chest pain at rest R07.9 and Rapid heart rate R00.0 [facility] [id number] [place] [address] 42093- 0720 Mar, Chronic obstructive pulmonary disease, unspecified COPD type J44.9 [facility] [id number] [place] [address] 92365- 1154 Mar, Chronic obstructive pulmonary disease, unspecified COPD type J44.9 [facility] [id number] [place] [address] 37377- 8589 Feb, Functional diarrhea K59.1 [place] [id number] [place] [address] 47564- 1621 Feb, Dysuria R30.0 ; Diarrhea of presumed infectious origin A09 and Abnormal LFTs R79.89 [place] [id number] [place] [address] 16840- 6958 Feb, Abnormal LFTs R79.89 [facility] [id number] [place] [address] 93306- 5793 Feb, Abnormal LFTs R79.89 [facility] [id number] [place] [address] 56672- 4588 Feb, Diarrhea of presumed infectious origin A09 [facility] [id number] [place] [address] 07910- 0106 Jan, Acute nasopharyngitis J00 [facility] [id number] [address] Nov, [facility] [address] [address] 8230 Nov, [facility] [address] 9[address] Mar, Blood in stool K92.1 [facility] [id number] [place] [address] 51709- 1902 Dec, [facility] [id number] [address]- 4716 Nov, Abdominal pain, right upper quadrant R10.11 and H. pylori infection A04.8 [facility] [address] [address]- 9277 Jul, [facility] [id number] [place] [address] 85529- 1343 14 May, 2014 [facility] [id number] [address]- 8620 May, [facility] [id number] [place] [address] 77029- 1884 Jan, [facility] [address] [address]- 6738 Jan, [facility] [address] [address]- 9553 Dec, [facility] [address] [address]- 7389 Dec, [facility] [address] [address]- 9584 18 Dec, 2013 [facility] [address] [address]- 8190 Dec, [facility] [address] [address]- 0407 14 Dec, 2013 [facility] [place] [facility] [id number] [place] [address]- 2598 14 Dec, 2013 [facility] [place] [facility] [address] [id number] [place] [address]- 2186 15 Nov, 2013 [facility] [place] [facility] [address] [id number] [place] [address]- 1966 15 Nov, 2013 [facility] [place] [facility] [address] [id number] [place] [address]- 2217 07 Nov, 2013 [facility] [place] [facility] [address] [id number] [place] [address]- 6764 07 Nov, 2013 [facility] [place] [facility] [address] [id number] [place] [address]- 6149 30 Sep, 2013 [facility] [place] [facility] [address] [id number] [place] [address]- 7033 30 Sep, 2013 [facility] [place] [facility] [address] [id number] [place] [address]- 2540 24 Sep, 2013 [facility] [place] [facility] [address] [id number] [place] [address]- 2544 24 Sep, 2013 [facility] [place] [facility] [address] [id number] [place] [address]- 2545 17 Sep, 2013 [facility] [place] [facility] [address] [id number] [place] [address]- 2547 17 Sep, 2013 [facility] [place] [facility] [address] [id number] [place] [address]- 2543 10 Sep, 2013 [facility] [place] [facility] [address] [id number] [place] [address]- 2540 10 Sep, 2013 [facility] [place] [facility] [address] [id number] [place] [address]- 2547 08 Sep, 2013 [facility] [place] [facility] [address] [id number] [place] [address]- 2546 08 Sep, 2013 [facility] [place] [facility] [address] [id number] [place] [address]- 2548 Oct, [facility] [place] [facility] [address] [id number] [place] [address]- 3377 Oct, [facility] [place] [facility] [address] [id number] [place] [address]- 3691 Oct, [facility] [place] [facility] [address] [id number] [place] [address]- 7496 Sep, [facility] [place] [facility] [address] [id number] [place] [address]- 2580 Sep, [facility] [place] [facility] [address] [id number] [place] [address]- 3366 Jul, [facility] [place] [facility] [address] [id number] [place] [address]- 6864 Jul, [facility] [place] [facility] [address] [id number] [place] [address]- 0169 June, [facility] [place] [facility] [address] [id number] [place] [address]- 5245 June, [facility] [place] [facility] [address] [id number] [place] [address]- 6246 June, [facility] [place] [facility] [address] [id number] [place] [address]- 3332 June, [facility] [place] [facility] [address] [id number] [place] [address]- 9226 May, [facility] [place] [facility] [address] [id number] [place] [address]- 4320 May, [facility] [place] [facility] [address] [id number] [place] [address]- 9977 May, [facility] [place] [facility] [address] [id number] [place] [address]- 5713 May, [facility] [place] [facility] [address] [id number] [place] 1736 May, [facility] [place] [facility] [address] [id number] [place] [address]- 9793 04 May, 2013 [facility] [address] [id number] [place] [address]- 0928 10 Oct, 2012 [facility] [address] [id number] [place] [address]- 4468 05 Oct, 2012 [facility] [address] [id number] [place] [address]- 7517 Jul, [facility] [address] [id number] [place] [address]- 9690 June, [facility] [address] [id number] [place] [address]- 6962 June, [facility] [address] [id number] [place] [address]- 5988 June, [facility] [address] [id number] [place] [address]- 4613 June, [facility] [address] [id number] [place] [address]- 1937 May, [facility] [address] [id number] [place] [address]- 4236 May, [facility] [address] [id number] [place] [address]- 3457 Mar, [facility] [address] [id number] [place] [address]- 8578 Mar, [facility] [address] [id number] [place] [address]- 8536 Feb, [facility] [address] [id number] [place] [address]- 6103 Feb, [facility] [address] [id number] [place] [address]- 1727 Feb, [facility] [address] [id number] [address]- 1575 Jan, [facility] [address] [id number] [place] [address]- 2167 14 Jan, 2012 [facility] [place] [facility] [address] [id number] [place] [address]- 2190 Dec, [facility] [place] [facility] [address] [id number] [place] [address]- 6122 16 Dec, 2011 [facility] [place] [facility] [address] [id number] [place] [address]- 8368 Nov, [facility] [place] [facility] [address] [id number] [place] [address]- 1896 Oct, [facility] [place] [facility] [address] [id number] [place] [address]- 4748 Aug, [facility] [place] [facility] [address] [id number] [place] [address]- 7606 Jul, [facility] [place] [facility] [address] [id number] [place] [address]- 3317 Jul, [facility] [place] [facility] [address] [id number] [place] [address]- 6798 Mar, [facility] [place] [facility] [address] [id number] [place] [address]- 6598 Mar, [facility] [place] [facility] [address] [id number] [place] [address]- 8338 Mar, [facility] [place] [facility] [address] [id number] [place] [address]- 5147 Feb, [facility] [place] [facility] [address] [id number] [place] [address]- 2295 Feb, [facility] [place] [facility] [address] [id number] [place] [address]- 3846 Feb, [facility] [place] [facility] [address] [id number] [place] [address]- 1509 Feb, [facility] [place] [facility] [address] [id number] [place] [address]- 2546 Feb, [facility] [address] [facility] [id number] [place] [address]- 6066 Feb, [facility] [address] [facility] [id number] [address]- 4646 June, IMMUNIZATIONS No Known Immunizations SOCIAL HISTORY Never Assessed REASON FOR VISIT Cough/Congestion WB-MA, Occasional swollen throat and loss of voice PLAN OF CARE VITAL SIGNS Height 73 in 2017-06-16 Weight 253 lbs 2017-06-16 Temperature 96.8 degrees Fahrenheit 2017-06-16 Heart Rate 72 bpm 2017-06-16 Respiratory Rate 18 2017-06-16 BMI 33.38 kg/m2 2017-06-16 Blood pressure systolic 116 mmHg 2017-06-16 Blood pressure diastolic 82 mmHg 2017-06-16 MEDICATIONS Medication Instructions Dosage Frequency Start Date End Date Duration Status Fish Oil Concentrate 1000 mg 1 capsule 2 times daily Oct, Active Aspirin 81 MG Orally Once a day 1 tablet 24h Active Cardizem CD 360 MG Orally Once a day 1 capsule 24h Active Neurontin 600 MG Orally Three times a day 1 tablet 8h Feb, Active Spiriva Respimat 2.5 MCG/ACT Inhalation Once a day 2 puffs 24h Active [place] 5-325 MG Orally every 6 hrs 1 tablet as needed 6h Dec, Not-Taking Toprol XL 50 MG TAKE ONE TABLET BY MOUTH ONCE DAILY 90 Active Advair Diskus 250-50 MCG/DOSE Inhalation Twice a day 1 puff 12h Active Protonix 40 mg Orally Once a day 1 tablet 24h Active Eliquis 5 MG Orally 2 times a day 1 tablet 12h Mar, 90 days Active RESULTS No Results PROCEDURES No [...]
--- OUTSIDE RECORDS SUMMARY | 2018-04-21 12:51 | XMS REPORT ---
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 Name Role Phone YASHIRA MENENDEZ Unavailable PROBLEMS Type Condition ICD9-CM Code UJS02-SK Code Onset Dates Condition Status SNOMED Code Problem Abnormal LFTs R79.89 Active 360947062 Problem Seasonal allergic rhinitis due to other allergic trigger J30.89 Active 096306293 Problem Mononeuropathy G58.9 Active 994676327 Problem Chronic obstructive pulmonary disease, unspecified COPD type J44.9 Active 36164105 Problem Diarrhea of presumed infectious origin A09 Active 34271235 Problem Chronic atrial fibrillation I48.2 Active 297596318 Problem Coronary artery disease involving [place] coronary artery of [place] heart without angina pectoris I25.10 Active [id number] ALLERGIES No Information ENCOUNTERS Encounter Location Date Diagnosis [facility] [id number] [place] [address] 97258- 1141 Nov, [place] [id number] [place] [address] 11624- 4072 Oct, [facility] [id number] [place] [address] 27282- 5825 Oct, [facility] [id number] [place] [address] 74242- 3890 Sep, [facility] [id number] [place] [address] 03509- 4142 June, Seasonal allergic rhinitis due to other allergic trigger J30.89 [facility] [id number] [place] [address] 52996- 0397 May, [facility] [id number] [place] [address] 95727- 2057 Apr, Chronic atrial fibrillation I48.2 [facility] [id number] [place] [address] 37487- 8423 Mar, Mononeuropathy G58.9 [facility] [id number] [place] [address] 34229- 5630 Mar, Mononeuropathy G58.9 [facility] [id number] [place] [address] 31400- 6430 Feb, [facility] [id number] [place] [address] 29994- 7666 Feb, [facility] [id number] [place] [address] 45154- 6463 Feb, Herpes zoster without complication B02.9 and Family history of cancer Z80.9 [facility] [id number] [place] [address] 30521- 5987 Jan, [facility] [id number] [place] [address] 10119- 7042 Dec, [facility] [id number] [place] [address] 30743- 1161 Dec, [facility] [id number] [place] [address] 55999- 7107 Dec, [facility] [id number] [place] [address] 47546- 9034 Oct, Bronchitis J40 [facility] [id number] [place] [address] 45331- 4306 Sep, [facility] [id number] [place] [address] 37355- 1207 Sep, [facility] [id number] [place] [address] 62657- 8261 Jul, [facility] [id number] [place] [address] 79123- 1381 June, Acute pansinusitis, recurrence not specified J01.40 [facility] [address] [place] [address] 71423- 5592 10 May, 2016 Chronic atrial fibrillation I48.2 and Coronary artery disease involving [place] coronary artery of [place] heart without angina pectoris I25.10 [facility] [address] [address] 8555 13 Apr, 2016 [facility] [id number] [place] [address] 57337- 4819 Apr, Tachycardia R00.0 [facility] [id number] [place] [address] 56750- 0872 Apr, [facility] [address] [id number] Mar, [facility] [id number] [place] [address] 45084- 9229 Mar, [facility] [id number] [place] [address] 96076- 3947 Mar, Chest pain at rest R07.9 and Rapid heart rate R00.0 [facility] [id number] [place] [address] 64484- 1811 Mar, Chronic obstructive pulmonary disease, unspecified COPD type J44.9 [facility] [id number] [place] [address] 31728- 3307 Mar, Chronic obstructive pulmonary disease, unspecified COPD type J44.9 [facility] [id number] [place] [address] 10685- 2980 Feb, Functional diarrhea K59.1 [facility] [id number] [place] [address] 91864- 1214 Feb, Dysuria R30.0 ; Diarrhea of presumed infectious origin A09 and Abnormal LFTs R79.89 [facility] [id number] [place] [address] 45931- 4951 Feb, Abnormal LFTs R79.89 [facility] [address] [address]- 3295 Feb, Abnormal LFTs R79.89 [facility] [id number] [place] [address] 60804- 4175 Feb, Diarrhea of presumed infectious origin A09 [facility] [address] [address]- 2185 Jan, Acute nasopharyngitis J00 [facility] [id number] [address]- 4735 Nov, [facility] [id number] [place] [address] 91790- 2003 Nov, [facility] [id number] [place] [address] 68942- 5820 Mar, Blood in stool K92.1 [facility] [id number] [place] [address] 53655- 6638 Dec, [facility] [address] [address]- 2734 Nov, Abdominal pain, right upper quadrant R10.11 and H. pylori infection A04.8 [facility] [address] [address]- 7358 24 Jul, 2014 [facility] [address] [address]- 3352 14 May, 2014 [facility] [address] [address]- 7330 13 May, 2014 [facility] [address] [address]- 9493 Jan, [facility] [address] [address]- 9690 Jan, [facility] [address] [address]- 2879 Dec, [facility] [address] [place] [address]- 5796 19 Dec, 2013 [facility] [place] [facility] [address] [id number] [place] [address]- 3656 18 Dec, 2013 [facility] [place] [facility] [address] [id number] [place] [address]- 7991 18 Dec, 2013 [facility] [place] [facility] [address] [id number] [place] [address]- 1531 14 Dec, 2013 [facility] [place] [facility] [address] [id number] [place] [address]- 3353 14 Dec, 2013 [facility] [place] [facility] [address] [id number] [place] [address]- 9664 15 Nov, 2013 [facility] [place] [facility] [address] [id number] [place] [address]- 9642 15 Nov, 2013 [facility] [place] [facility] [address] [id number] [place] [address]- 2128 07 Nov, 2013 [facility] [place] [facility] [address] [id number] [place] [address]- 1235 07 Nov, 2013 [facility] [place] [facility] [address] [id number] [place] [address]- 3510 30 Oct, 2013 [facility] [place] [facility] [address] [id number] [place] [address]- 2417 30 Sep, 2013 [facility] [place] [facility] [address] [id number] [place] [address]- 254 24 Sep, 2013 [facility] [place] [facility] [address] [id number] [place] [address]- 2547 24 Sep, 2013 [facility] [place] [facility] [address] [id number] [place] [address]- 9235 17 Sep, 2013 [facility] [place] [facility] [address] [id number] [place] [address]- 2302 17 Sep, 2013 [facility] [place] [facility] [address] [id number] [place] [address]- 7875 Oct, [facility] [place] [facility] [address] [id number] [place] [address]- 6716 Oct, [facility] [place] [facility] [address] [id number] [place] [address]- 5560 Oct, [facility] [place] [facility] [address] [id number] [place] [address]- 6047 Oct, [facility] [place] [facility] [address] [id number] [place] [address]- 3722 Oct, [facility] [place] [facility] [address] [id number] [place] [address]- 4584 Oct, [facility] [place] [facility] [address] [id number] [place] [address]- 4082 Oct, [facility] [place] [facility] [address] [id number] [place] [address]- 4775 Sep, [facility] [place] [facility] [address] [id number] [place] [address]- 8481 Sep, [facility] [place] [facility] [address] [id number] [place] [address]- 2009 Jul, [facility] [place] [facility] [address] [id number] [place] [address]- 3231 Jul, [facility] [place] [facility] [address] [id number] [address]- 3664 June, [facility] [place] [facility] [address] [id number] [place] [address]- 0257 June, [facility] [place] [facility] [address] [id number] [place] [address]- 4472 June, [facility] [place] [facility] [address] [id number] [place] [address]- 7297 June, [facility] [place] [facility] [address] [id number] [place] [address]- 0984 May, [facility] [place] [facility] [address] [id number] [address]- 9405 May, [facility] [address] [id number] [place] [address]- 7177 May, [facility] [address] [id number] [place] [address]- 9424 May, [facility] [address] [id number] [place] [address]- 7841 May, [facility] [address] [id number] [place] [address]- 1914 May, [facility] [address] [id number] [place] [address]- 6883 Oct, [facility] [address] [id number] [place] [address]- 9735 Oct, [facility] [id number] [place] [address]- 3774 Jul, [facility] [address] [id number] [place] [address]- 8951 June, [facility] [address] [id number] [place] [address]- 4995 June, [facility] [id number] [place] [address]- 9839 June, [facility] [address] [id number] [place] [address]- 6147 June, [facility] [address] [id number] [place] [address]- 3909 May, [facility] [address] [id number] [place] [address]- 7126 May, [facility] [address] [facility] [id number] [place] [address]- 7482 Mar, [facility] [address] [facility] [id number] [place] [address]- 0079 Mar, [facility] [address] [id number] [place] [address]- 3451 Feb, [facility] [place] [facility] [address] [id number] [place] [address]- 9518 Feb, [facility] [place] [facility] [address] [id number] [place] [address]- 2047 Feb, [facility] [place] [facility] [address] [id number] [place] [address]- 8494 Jan, [facility] [place] [facility] [address] [id number] [place] [address]- 7034 Jan, [facility] [place] [facility] [address] [id number] [place] [address]- 3833 Dec, [facility] [place] [facility] [address] [id number] [place] [address]- 2985 Dec, [facility] [place] [facility] [address] [id number] [place] [address]- 4774 Nov, [facility] [place] [facility] [address] [id number] [place] [address]- 4468 Oct, [facility] [place] [facility] [address] [id number] [place] [address]- 9712 Aug, [facility] [place] [facility] [address] [id number] [place] [address]- 5507 Jul, [facility] [place] [facility] [address] [id number] [place] [address]- 6437 Jul, [facility] [place] [facility] [address] [id number] [place] [address]- 1184 Mar, [facility] [place] [facility] [address] [id number] [place] [address]- 9457 Mar, [facility] [place] [facility] [address] [id number] [place] [address]- 8432 Mar, [facility] [place] [facility] [address] [id number] [place] [address]- 2476 Feb, [facility] [address] [facility] [id number] [address]- 4654 Feb, [facility] [id number] [address]- 8896 Feb, [facility] [id number] [address]- 6218 Feb, [facility] [id number] [address]- 7506 Feb, [facility] [address] [facility] [id number] [place] [address]- 5149 Feb, [facility] [id number] [address] 2921 June, IMMUNIZATIONS No Known Immunizations SOCIAL HISTORY Never Assessed REASON FOR VISIT PALS IN [place] PLAN OF CARE VITAL SIGNS MEDICATIONS Unknown [...]
--- OUTSIDE RECORDS SUMMARY | 2018-04-21 12:51 | XMS REPORT ---
Author Author YASHIRA MENENDEZ Organization [facility] Address [address] [place] [address] Care Team Providers Care Digital Forensics Examiner Name Role Phone YASHIRA MENEDNEZ Unavailable PROBLEMS Type Condition ICD9-CM Code HQA26-BH Code Onset Dates Condition Status SNOMED Code Problem Abnormal LFTs R79.89 Active 875994426 Problem Seasonal allergic rhinitis due to other allergic trigger J30.89 Active 223216141 Problem Mononeuropathy G58.9 Active 865003648 Problem Chronic obstructive pulmonary disease, unspecified COPD type J44.9 Active 40343198 Problem Diarrhea of presumed infectious origin A09 Active 06897809 Problem Chronic atrial fibrillation I48.2 Active 495852285 Problem Coronary artery disease involving [place] coronary artery of [place] heart without angina pectoris I25.10 Active [id number] ALLERGIES No Information ENCOUNTERS Encounter Location Date Diagnosis [facility] [id number] [place] [address] 87882- 7270 Oct, [place] [id number] [place] [address] 83387- 4028 Oct, [facility] [id number] [place] [address] 63933- 5118 Oct, [facility] [id number] [place] [address] 56113- 6314 Sep, [facility] [id number] [place] [address] 05066- 5010 June, Seasonal allergic rhinitis due to other allergic trigger J30.89 [facility] [id number] [place] [address] 10621- 1438 May, [facility] [id number] [place] [address] 58860- 0146 Apr, Chronic atrial fibrillation I48.2 [facility] [id number] [place] [address] 70528- 0422 Mar, Mononeuropathy G58.9 [facility] [id number] [place] [address] 17689- 4218 Mar, Mononeuropathy G58.9 [facility] [id number] [place] [address] 19937- 5653 Feb, [facility] [id number] [place] [address] 26325- 8948 Feb, [facility] [id number] [place] [address] 81514- 4907 Feb, Herpes zoster without complication B02.9 and Family history of cancer Z80.9 [facility] [id number] [place] [address] 35283- 0482 Jan, [facility] [id number] [place] [address] 01470- 4631 Dec, [facility] [id number] [place] [address] 44760- 3835 Dec, [facility] [id number] [place] [address] 79881- 1209 Dec, [facility] [id number] [place] [address] 78215- 8851 Oct, Bronchitis J40 [facility] [id number] [place] [address] 21138- 9352 Sep, [facility] [id number] [place] [address] 67361- 3595 Sep, [facility] [id number] [place] [address] 51198- 8085 Jul, [facility] [id number] [place] [address] 50321- 5391 June, Acute pansinusitis, recurrence not specified J01.40 [facility] [address] [place] [address] 17221- 9501 10 May, 2016 Chronic atrial fibrillation I48.2 and Coronary artery disease involving [place] coronary artery of [place] heart without angina pectoris I25.10 [facility] [address], [place] [address]- 5984 13 Apr, 2016 [facility] [id number] [place] [address] 28532- 1762 Apr, Tachycardia R00.0 [facility] [id number] [place] [address] 55132- 6575 Apr, [facility] [place] [address] [id number] Mar, [facility] [id number] [place] [address] 09111- 9363 Mar, [facility] [id number] [place] [address] 20121- 6951 Mar, Chest pain at rest R07.9 and Rapid heart rate R00.0 [facility] [id number] [place] [address] 50624- 3095 Mar, Chronic obstructive pulmonary disease, unspecified COPD type J44.9 [facility] [id number] [place] [address] 48501- 1686 Mar, Chronic obstructive pulmonary disease, unspecified COPD type J44.9 [facility] [id number] [place] [address] 75685- 9090 Feb, Functional diarrhea K59.1 [facility] [id number] [place] [address] 15168- 0638 Feb, Dysuria R30.0 ; Diarrhea of presumed infectious origin A09 and Abnormal LFTs R79.89 [facility] [id number] [place] [address] 31372- 7920 Feb, Abnormal LFTs R79.89 [facility] [address], [place] [address]- 9597 Feb, Abnormal LFTs R79.89 [facility] [id number] [place] [address] 02818- 9615 Feb, Diarrhea of presumed infectious origin A09 [facility] [address], [place] [address]- 2215 Jan, Acute nasopharyngitis J00 [facility] [id number] [address]- 8245 Nov, [facility] [id number] [place] [address] 70667- 2573 Nov, [facility] [id number] [place] [address] 74925- 4110 Mar, Blood in stool K92.1 [facility] [id number] [place] [address] 92742- 5051 Dec, [facility] [address], [place] [address]- 4255 Nov, Abdominal pain, right upper quadrant R10.11 and H. pylori infection A04.8 [facility] [address], [place] [address]- 7940 24 Jul, 2014 [facility] [address], [place] [address]- 8217 14 May, 2014 [facility] [address], [place] [address]- 2934 13 May, 2014 [facility] [address], [place] [address]- 7963 Jan, [facility] [address], [place] [address]- 9595 Jan, [facility] [address], [place] [address]- 7679 Dec, [facility] [address] [place] [address]- 0130 19 Dec, 2013 [facility] [place] [facility] [address] [id number] [place] [address]- 6820 18 Dec, 2013 [facility] [place] [facility] [address] [id number] [place] [address]- 2892 18 Dec, 2013 [facility] [place] [facility] [address] [id number] [place] [address]- 7755 14 Dec, 2013 [facility] [place] [facility] [address] [id number] [place] [address]- 7698 14 Dec, 2013 [facility] [place] [facility] [address] [id number] [place] [address]- 4137 15 Nov, 2013 [facility] [place] [facility] [address] [id number] [place] [address]- 2908 15 Nov, 2013 [facility] [place] [facility] [address] [id number] [place] [address]- 6181 07 Nov, 2013 [facility] [place] [facility] [address] [id number] [place] [address]- 7708 07 Nov, 2013 [facility] [place] [facility] [address] [id number] [place] [address]- 8023 30 Oct, 2013 [facility] [place] [facility] [address] [id number] [place] [address]- 5885 30 Sep, 2013 [facility] [place] [facility] [address] [id number] [place] [address]- 2543 24 Sep, 2013 [facility] [place] [facility] [address] [id number] [place] [address]- 2543 24 Sep, 2013 [facility] [place] [facility] [address] [id number] [place] [address]- 6116 17 Sep, 2013 [facility] [place] [facility] [address] [id number] [place] [address]- 2656 17 Sep, 2013 [facility] [place] [facility] [address] [id number] [place] [address]- 4026 Oct, [facility] [place] [facility] [address] [id number] [place] [address]- 2240 Oct, [facility] [place] [facility] [address] [id number] [place] [address]- 9602 Oct, [facility] [place] [facility] [address] [id number] [place] [address]- 7831 Oct, [facility] [place] [facility] [address] [id number] [place] [address]- 0884 Oct, [facility] [place] [facility] [address] [id number] [place] [address]- 8055 Oct, [facility] [place] [facility] [address] [id number] [place] [address]- 6730 Oct, [facility] [place] [facility] [address] [id number] [place] [address]- 0238 Sep, [facility] [place] [facility] [address] [id number] [place] [address]- 5348 Sep, [facility] [place] [facility] [address] [id number] [place] [address]- 4847 Jul, [facility] [place] [facility] [address] [id number] [place] [address]- 9802 Jul, [facility] [place] [facility] [address] [id number], [place] [address]- 9204 June, [facility] [place] [facility] [address] [id number], [place] [address]- 0521 June, [facility] [place] [facility] [address] [id number] [place] [address]- 5039 June, [facility] [place] [facility] [address] [id number] [place] [address]- 6124 June, [facility] [place] [facility] [address] [id number] [place] [address]- 4765 May, [facility] [place] [facility] [address] [id number], [place] [address]- 7055 May, [facility] [address] [id number] [place] [address]- 6067 May, [facility] [address] [id number] [place] [address]- 8785 May, [facility] [address] [id number] [place] [address]- 1728 May, [facility] [address] [id number] [place] [address]- 8655 May, [facility] [address] [id number] [place] [address]- 9254 Oct, [facility] [address] [id number] [place] [address]- 8782 Oct, [facility] [id number] [place] [address]- 1281 Jul, [facility] [address] [id number] [place] [address]- 8609 June, [facility] [address] [id number] [place] [address]- 5462 June, [facility] [id number] [place] [address]- 6023 June, [facility] [address] [id number] [place] [address]- 8260 June, [facility] [address] [id number], [place] [address]- 1230 May, [facility] [address] [id number] [place] [address]- 8224 May, [facility] [address] [facility] [id number] [place] [address]- 4411 Mar, [facility] [address] [facility] [id number], [place] [address]- 6938 Mar, [facility] [address] [id number] [place] [address]- 9458 Feb, [facility] [place] [facility] [address] [id number] [place] [address]- 4227 Feb, [facility] [place] [facility] [address] [id number] [place] [address]- 1098 Feb, [facility] [place] [facility] [address] [id number] [place] [address]- 3955 Jan, [facility] [place] [facility] [address] [id number] [place] [address]- 3672 Jan, [facility] [place] [facility] [address] [id number] [place] [address]- 6158 Dec, [facility] [place] [facility] [address] [id number] [place] [address]- 4878 Dec, [facility] [place] [facility] [address] [id number] [place] [address]- 1372 Nov, [facility] [place] [facility] [address] [id number] [place] [address]- 4142 Oct, [facility] [place] [facility] [address] [id number] [place] [address]- 2501 Aug, [facility] [place] [facility] [address] [id number] [place] [address]- 8190 Jul, [facility] [place] [facility] [address] [id number] [place] [address]- 7737 Jul, [facility] [place] [facility] [address] [id number] [place] [address]- 7011 Mar, [facility] [place] [facility] [address] [id number] [place] [address]- 7398 Mar, [facility] [place] [facility] [address] [id number] [place] [address]- 8308 Mar, [facility] [place] [facility] [address] [id number], [place] [address]- 2166 Feb, [facility] [address] [facility] [id number], [place] [address]- 0776 Feb, [facility] [id number], [place] [address]- 2686 Feb, [facility] [address] [facility] [id number], [place] [address] 2546 Feb, [facility] [address] [facility] [id number], [place] [address] 2546 Feb, [facility] [address] [facility] [id number], [place] [address]- 1456 Feb, [facility] [address] [facility] [id number], [place] [address]- 2523 June, IMMUNIZATIONS No Known Immunizations SOCIAL HISTORY Never Assessed REASON FOR VISIT conjunctivitis PLAN OF CARE VITAL SIGNS MEDICATIONS Medication Instructions Dosage Frequency Start Date End Date Duration Status Tobramycin 0.3 % Ophthalmic every 2 hrs 1 drop into affected eye Sep, 07 days Active RESULTS No Results PROCEDURES No [...]
[2018-04-21 12:52] LABS: PROTHROMBIN TIME PATIENT 13.3 SEC (12.2-14.7)
--- OUTSIDE RECORDS SUMMARY | 2018-04-21 12:52 | XMS REPORT ---
Author Author YASHIRA MENENDEZ Organization [facility] Address [address] [place] [address] Care Team Providers Care Manager Procurement Name Role Phone YASHIRA MENENDEZ Unavailable PROBLEMS Type Condition ICD9-CM Code HQQ33-HF Code Onset Dates Condition Status SNOMED Code Problem Abnormal LFTs R79.89 Active 285458441 Problem Seasonal allergic rhinitis due to other allergic trigger J30.89 Active 925157205 Problem Mononeuropathy G58.9 Active 462447285 Problem Chronic obstructive pulmonary disease, unspecified COPD type J44.9 Active 51699411 Problem Diarrhea of presumed infectious origin A09 Active 78128477 Problem Chronic atrial fibrillation I48.2 Active 871992474 Problem 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 Active [id number] ALLERGIES No Information ENCOUNTERS Encounter Location Date Diagnosis [place] [id number] [place] [address] 20044- 1482 June, Seasonal allergic rhinitis due to other allergic trigger J30.89 [place] [id number] [place] [address] 64802- 7675 May, [place] [id number] [place] [address] 33646- 0087 Apr, Chronic atrial fibrillation I48.2 [facility] [id number] [place] [address] 09826- 2237 Mar, Mononeuropathy G58.9 [facility] [address] [address]261- 2591 Mar, Mononeuropathy G58.9 [facility] [id number] [place] [address] 93463- 6426 Feb, [place] [id number] [place] [address] 4698 Feb, [facility] [id number] [place] [address] 41614- 1542 Feb, Herpes zoster without complication B02.9 and Family history of cancer Z80.9 [facility] [id number] [place] [address] 70962- 6087 Jan, [facility] [address] 81734- 8498 Dec, [facility] [id number] [place] [address] 82799- 4806 Dec, [facility] [address] 9[address]49- 8706 Dec, [facility] [id number] [place] [address] 68250- 8017 Oct, Bronchitis J40 [facility] [id number] [place] [address] 00847- 5925 Sep, [facility] [id number] [place] [address] 47825- 1050 Sep, [facility] [id number] [place] [address] 20314- 3222 Jul, [facility] [id number] [place] [address] 94405- 0093 June, Acute pansinusitis, recurrence not specified J01.40 [facility] [id number] [place] [address] 95763- 1844 May, Chronic atrial fibrillation I48.2 and 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 [facility] [id number] [place] [address] 12144- 0209 Apr, [facility] [id number] [place] [address] 77852- 1124 Apr, Tachycardia R00.0 [facility] [id number] [place] [address] 19010- 9851 Apr, [facility] [address] [id number] Mar, [facility] [id number] [place] [address] 87545- 0457 Mar, [facility] [id number] [place] [address] 78982- 4420 Mar, Chest pain at rest R07.9 and Rapid heart rate R00.0 [facility] [id number] [place] [address] 31145- 8812 Mar, Chronic obstructive pulmonary disease, unspecified COPD type J44.9 [facility] [id number] [place] [address] 10820- 1494 Mar, Chronic obstructive pulmonary disease, unspecified COPD type J44.9 [facility] [id number] [place] [address] 87148- 2788 Feb, Functional diarrhea K59.1 [place] [id number] [place] [address] 44530- 5893 Feb, Dysuria R30.0 ; Diarrhea of presumed infectious origin A09 and Abnormal LFTs R79.89 [place] [id number] [place] [address] 37747- 0402 Feb, Abnormal LFTs R79.89 [facility] [id number] [place] [address] 70758- 5045 Feb, Abnormal LFTs R79.89 [facility] [id number] [place] [address] 70869- 4124 Feb, Diarrhea of presumed infectious origin A09 [facility] [id number] [place] [address] 37219- 3559 Jan, Acute nasopharyngitis J00 [facility] [id number] [place] [address] [place] [address]- 3710 Nov, [facility] [address] [place] [address] Nov, [facility] [address] [address] Mar, Blood in stool K92.1 [facility] [id number] [place] [address] 84977- 8130 Dec, [facility] [id number] [place] [address] 65084- 0632 Nov, Abdominal pain, right upper quadrant R10.11 and H. pylori infection A04.8 [facility] [address], [place] [address]- 2150 Jul, [facility] [address] [place] [address] 41350- 0472 14 May, 2014 [facility] [address], [place] [address]- 8647 May, [facility] [address], [place] [address]- 4411 Jan, [facility] [address], [place] [address]- 1530 Jan, [facility] [address], [place] [address]- 9247 Dec, [facility] [address], [place] [address]- 6735 Dec, [facility] [address], [place] [address]- 3132 Dec, [facility] [address], [place] [address]- 7369 Dec, [facility] [address], [place] [address]- 7013 14 Dec, 2013 [facility] [id number] [address]- 4080 14 Dec, 2013 [facility] [place] [facility] [address] [id number] [place] [address]- 8701 15 Nov, 2013 [facility] [place] [facility] [address] [id number] [place] [address]- 9606 15 Nov, 2013 [facility] [place] [facility] [address] [id number] [place] [address]- 1064 07 Nov, 2013 [facility] [place] [facility] [address] [id number] [place] [address]- 0807 07 Nov, 2013 [facility] [place] [facility] [address] [id number] [place] [address]- 0552 30 Sep, 2013 [facility] [place] [facility] [address] [id number] [place] [address]- 4256 30 Sep, 2013 [facility] [place] [facility] [address] [id number] [place] [address]- 2547 24 Sep, 2013 [facility] [place] [facility] [address] [id number] [place] [address]- 5816 24 Sep, 2013 [facility] [place] [facility] [address] [id number] [place] [address]- 2540 17 Sep, 2013 [facility] [place] [facility] [address] [id number] [place] [address]- 0382 17 Sep, 2013 [facility] [place] [facility] [address] [id number] [place] [address]- 254 10 Sep, 2013 [facility] [place] [facility] [address] [id number] [place] [address]- 2547 10 Sep, 2013 [facility] [place] [facility] [address] [id number] [place] [address]- 2540 08 Sep, 2013 [facility] [place] [facility] [address] [id number] [place] [address]- 254 08 Sep, 2013 [facility] [place] [facility] [address] [id number] [place] [address]- 7285 Oct, [facility] [place] [facility] [address] [id number] [place] [address]- 8082 Oct, [facility] [place] [facility] [address] [id number] [place] [address]- 2451 Oct, [facility] [place] [facility] [address] [id number] [place] [address]- 7273 Sep, [facility] [place] [facility] [address] [id number] [place] [address]- 6967 Sep, [facility] [place] [facility] [address] [id number] [place] [address]- 5858 Jul, [facility] [place] [facility] [address] [id number] [place] [address]- 1307 Jul, [facility] [place] [facility] [address] [id number] [place] [address]- 1073 June, [facility] [place] [facility] [address] [id number] [place] [address]- 1841 June, [facility] [place] [facility] [address] [id number] [place] [address]- 5503 June, [facility] [place] [facility] [address] [id number] [place] [address]- 2691 June, [facility] [place] [facility] [address] [id number] [place] [address]- 7729 May, [facility] [place] [facility] [address] [id number], [place] [address]- 1105 May, [facility] [place] [facility] [address] [id number] [place] [address]- 8117 May, [facility] [place] [facility] [address] [id number] [place] [address]- 7200 May, [facility] [place] [facility] [address] [id number] [place] [address]- 7939 May, [facility] [place] [facility] [address] [id number], [place] [address]- 0361 04 May, 2013 [facility] [address] [id number] [place] [address]- 3726 10 Oct, 2012 [facility] [facility] [address] [id number] [place] [address]- 4429 05 Oct, 2012 [facility] [address] [id number] [place] [address]- 1889 Jul, [facility] [facility] [address] [id number] [place] [address]- 4230 June, [facility] [address] [id number] [place] [address]- 2946 June, [facility] [address] [id number] [place] [address]- 0310 June, [facility] [address] [place] [address]- 9384 June, [facility] [address] [id number] [place] [address]- 9412 May, [facility] [address] [id number] [place] [address]- 3942 May, [facility] [id number] [address]- 4402 Mar, [facility] [address] [id number] [place] [address]- 2357 Mar, [facility] [address] [id number], [place] [address]- 6438 Feb, [facility] [address] [id number] [place] [address]- 8460 Feb, [facility] [address] [id number] [place] [address]- 4361 Feb, [facility] [address] [facility] [id number] [address]- 6447 Jan, [facility] [address] [id number] [place] [address]- 9850 Jan, [facility] [place] [facility] [address] [id number] [place] [address]- 9022 Dec, [facility] [place] [facility] [address] [id number] [place] [address]- 2696 Dec, [facility] [place] [facility] [id number] [place] [address], [place] [address]- 1550 Nov, [facility] [place] [facility] [address] [id number] [place] [address]- 5553 Oct, [facility] [place] [facility] [address] [id number] [place] [address], [place] [address]- 3409 Aug, [facility] [place] [facility] [address] [id number] [place] [address]- 3055 Jul, [facility] [place] [facility] [address] [id number] [place] [address]- 7873 Jul, [facility] [place] [facility] [address] [id number] [place] [address]- 5445 Mar, [facility] [place] [facility] [address] [id number] [place] [address]- 4084 Mar, [facility] [place] [facility] [address] [id number] [place] [address]- 3777 Mar, [facility] [place] [facility] [address] [id number] [place] [address]- 0199 Feb, [facility] [place] [facility] [address] [id number] [place] [address]- 5595 Feb, [facility] [place] [facility] [address] [id number] [place] [address]- 6354 Feb, [facility] [place] [facility] [address] [id number] [place] [address]- 3935 Feb, [facility] [place] [facility] [address] [id number] [place] [address]- 3126 Feb, [facility] [address] [facility] [id number] [place] [address]- 5716 Feb, [facility] [address] [facility] [id number] [place] [address]- 4546 June, IMMUNIZATIONS No Known Immunizations SOCIAL HISTORY Never Assessed REASON FOR VISIT PALS IN- Eliquis PLAN OF CARE VITAL SIGNS MEDICATIONS No [...]
--- OUTSIDE RECORDS SUMMARY | 2018-04-21 12:52 | XMS REPORT ---
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 Name Role Phone YASHIRA MENENDEZ Unavailable PROBLEMS Type Condition ICD9-CM Code TCY77-YS Code Onset Dates Condition Status SNOMED Code Problem Abnormal LFTs R79.89 Active 062707225 Problem Seasonal allergic rhinitis due to other allergic trigger J30.89 Active 634906445 Problem Mononeuropathy G58.9 Active 070960198 Problem Chronic obstructive pulmonary disease, unspecified COPD type J44.9 Active 82097507 Problem Diarrhea of presumed infectious origin A09 Active 17063758 Problem Chronic atrial fibrillation I48.2 Active 422538438 Problem Coronary artery disease involving [place] coronary artery of [place] heart without angina pectoris I25.10 Active [id number] ALLERGIES No Information ENCOUNTERS Encounter Location Date Diagnosis [place] [id number] [place] [address] 46957- 7388 June, Seasonal allergic rhinitis due to other allergic trigger J30.89 [place] [id number] [place] [address] 74788- 6020 May, [place] [id number] [place] [address] 32874- 0702 Apr, Chronic atrial fibrillation I48.2 [facility] [id number] [place] [address] 85505- 1481 Mar, Mononeuropathy G58.9 [facility] [address] [address]- [address] Mar, Mononeuropathy G58.9 [facility] [id number] [place] [address] 31829- 8475 Feb, [place] [id number] [place] [address] Feb, [facility] [id number] [place] [address] 80208- 1834 Feb, Herpes zoster without complication B02.9 and Family history of cancer Z80.9 [facility] [id number] [place] [address] 29899- 5283 Jan, [facility] [address] 80324- 2244 Dec, [facility] [id number] [place] [address] 00299- 2886 Dec, [facility] [address] [address]30- 5433 Dec, [facility] [id number] [place] [address] 89459- 8440 Oct, Bronchitis J40 [facility] [id number] [place] [address] 55315- 2256 Sep, [facility] [id number] [place] [address] 30494- 2483 Sep, [facility] [id number] [place] [address] 24408- 7231 Jul, [facility] [id number] [place] [address] 05581- 2664 June, Acute pansinusitis, recurrence not specified J01.40 [facility] [id number] [place] [address] 32781- 6707 May, Chronic atrial fibrillation I48.2 and Coronary artery disease involving [place] coronary artery of [place] heart without angina pectoris I25.10 [facility] [id number] [place] [address] 84598- 5590 Apr, [facility] [id number] [place] [address] 96026- 3061 Apr, Tachycardia R00.0 [facility] [id number] [place] [address] 45984- 5669 Apr, [facility] [address] [id number] Mar, [facility] [id number] [place] [address] 40575- 3887 Mar, [facility] [id number] [place] [address] 46591- 9463 Mar, Chest pain at rest R07.9 and Rapid heart rate R00.0 [facility] [id number] [place] [address] 83413- 2132 Mar, Chronic obstructive pulmonary disease, unspecified COPD type J44.9 [facility] [id number] [place] [address] 86324- 1869 Mar, Chronic obstructive pulmonary disease, unspecified COPD type J44.9 [facility] [id number] [place] [address] 42828- 0041 Feb, Functional diarrhea K59.1 [place] [id number] [place] [address] 34011- 3175 Feb, Dysuria R30.0 ; Diarrhea of presumed infectious origin A09 and Abnormal LFTs R79.89 [place] [id number] [place] [address] 77285- 3713 Feb, Abnormal LFTs R79.89 [facility] [id number] [place] [address] 86682- 1940 Feb, Abnormal LFTs R79.89 [facility] [id number] [place] [address] 66808- 2119 Feb, Diarrhea of presumed infectious origin A09 [facility] [id number] [place] [address] 12094- 3304 Jan, Acute nasopharyngitis J00 [facility] [id number] [place] [address] [place] [address]- 1675 Nov, [facility] [address] [address]- 6[address] Nov, [facility] [address] [address] 3797 Mar, Blood in stool K92.1 [facility] [id number] [place] [address] 48751- 3064 Dec, [facility] [id number] [place] [address] 54988- 9392 Nov, Abdominal pain, right upper quadrant R10.11 and H. pylori infection A04.8 [facility] [address] [address]- 6558 Jul, [facility] [id number] [place] [address] 55309- 2754 14 May, 2014 [facility] [address] [address]- 5769 May, [facility] [address] [address]- 2541 Jan, [facility] [address] [address]- 5635 Jan, [facility] [address] [address]- 6619 Dec, [facility] [address] [address]- 6269 Dec, [facility] [address] [address]- 4725 Dec, [facility] [address] [address]- 7484 Dec, [facility] [address] [address]- 6313 14 Dec, 2013 [facility] [id number] [place] [address]- 2641 14 Dec, 2013 [facility] [place] [facility] [address] [id number] [place] [address]- 4122 15 Nov, 2013 [facility] [place] [facility] [address] [id number] [place] [address]- 6076 15 Nov, 2013 [facility] [place] [facility] [address] [id number] [place] [address]- 3272 07 Nov, 2013 [facility] [place] [facility] [address] [id number] [place] [address]- 2505 07 Nov, 2013 [facility] [place] [facility] [address] [id number] [place] [address]- 3118 30 Sep, 2013 [facility] [place] [facility] [address] [id number] [place] [address]- 4356 30 Sep, 2013 [facility] [place] [facility] [address] [id number] [place] [address]- 254 24 Sep, 2013 [facility] [place] [facility] [address] [id number] [place] [address]- 4010 24 Sep, 2013 [facility] [place] [facility] [address] [id number] [place] [address]- 2548 17 Sep, 2013 [facility] [place] [facility] [address] [id number] [place] [address]- 4197 17 Sep, 2013 [facility] [place] [facility] [address] [id number] [place] [address]- 2543 10 Sep, 2013 [facility] [place] [facility] [address] [id number] [place] [address]- 254 10 Sep, 2013 [facility] [place] [facility] [address] [id number] [place] [address]- 2541 08 Sep, 2013 [facility] [place] [facility] [address] [id number] [place] [address]- 2547 08 Sep, 2013 [facility] [place] [facility] [address] [id number] [place] [address]- 3301 Oct, [facility] [place] [facility] [address] [id number] [place] [address]- 3469 Oct, [facility] [place] [facility] [address] [id number] [place] [address]- 3376 Oct, [facility] [place] [facility] [address] [id number] [place] [address]- 1413 Sep, [facility] [place] [facility] [address] [id number] [place] [address]- 3283 Sep, [facility] [place] [facility] [address] [id number] [place] [address]- 5248 Jul, [facility] [place] [facility] [address] [id number] [place] [address]- 8789 Jul, [facility] [place] [facility] [address] [id number] [place] [address]- 7492 June, [facility] [place] [facility] [address] [id number] [place] [address]- 5571 June, [facility] [place] [facility] [address] [id number] [place] [address]- 8529 June, [facility] [place] [facility] [address] [id number] [place] [address]- 0289 June, [facility] [place] [facility] [address] [id number] [place] [address]- 5489 May, [facility] [place] [facility] [address] [id number], [place] [address]- 4892 May, [facility] [place] [facility] [address] [id number] [place] [address]- 0342 May, [facility] [place] [facility] [address] [id number] [place] [address]- 0002 May, [facility] [place] [facility] [address] [id number] [place] [address]- 8863 May, [facility] [place] [facility] [address] [id number], [place] [address]- 3396 04 May, 2013 [facility] [address] [id number] [place] [address]- 5691 10 Oct, 2012 [facility] [address] [id number] [place] [address]- 0393 05 Oct, 2012 [facility] [address] [id number] [place] [address]- 5121 Jul, [facility] [address] [id number] [place] [address]- 3785 June, [facility] [address] [id number] [place] [address]- 2851 June, [facility] [address] [id number] [place] [address]- 6445 June, [facility] [address] [place] [address]- 1978 June, [facility] [address] [id number] [place] [address]- 2104 May, [facility] [address] [id number] [place] [address]- 3388 May, [facility] [id number] [place] [address]- 3827 Mar, [facility] [address] [id number] [place] [address]- 1921 Mar, [facility] [address] [id number], [place] [address]- 3538 Feb, [facility] [address] [id number] [place] [address]- 9556 Feb, [facility] [address] [id number] [place] [address]- 3971 Feb, [facility] [address] [facility] [id number] [address]- 2078 Jan, [facility] [address] [id number] [place] [address]- 1617 Jan, [facility] [place] [facility] [address] [id number] [place] [address]- 0741 Dec, [facility] [place] [facility] [address] [id number] [place] [address]- 2366 Dec, [facility] [place] [facility] [id number] [place] [address], [place] [address]- 7118 Nov, [facility] [place] [facility] [address] [id number] [place] [address]- 5650 Oct, [facility] [place] [facility] [address] [id number] [place] [address], [place] [address]- 5443 Aug, [facility] [place] [facility] [address] [id number] [place] [address]- 2081 Jul, [facility] [place] [facility] [address] [id number] [place] [address]- 3967 Jul, [facility] [place] [facility] [address] [id number] [place] [address]- 0496 Mar, [facility] [place] [facility] [address] [id number] [place] [address]- 0318 Mar, [facility] [place] [facility] [address] [id number] [place] [address]- 1963 Mar, [facility] [place] [facility] [address] [id number] [place] [address]- 4161 Feb, [facility] [place] [facility] [address] [id number] [place] [address]- 8018 Feb, [facility] [place] [facility] [address] [id number] [place] [address]- 3214 Feb, [facility] [place] [facility] [address] [id number] [place] [address]- 4551 Feb, [facility] [place] [facility] [address] [id number] [place] [address]- 2546 Feb, [facility] [address] [facility] [id number] [place] [address]- 2546 Feb, [facility] [address] [facility] [id number] [address]- 2546 June, IMMUNIZATIONS No Known Immunizations SOCIAL HISTORY Never Assessed REASON FOR VISIT PALS PLAN OF CARE VITAL SIGNS MEDICATIONS Medication Instructions Dosage Frequency Start Date End Date Duration Status Eliquis 5 MG Orally 2 times a [...]
--- OUTSIDE RECORDS SUMMARY | 2018-04-21 12:52 | XMS REPORT ---
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 Sawyer Name Role Phone YASHIRA MENENDEZ Unavailable PROBLEMS Type Condition ICD9-CM Code [id number] Code Onset Dates Condition Status SNOMED Code Problem Abnormal LFTs R79.89 Active 778945521 Problem Seasonal allergic rhinitis due to other allergic trigger J30.89 Active 256959571 Problem Mononeuropathy G58.9 Active 423858971 Problem Chronic obstructive pulmonary disease, unspecified COPD type J44.9 Active 31662745 Problem Diarrhea of presumed infectious origin A09 Active 07660596 Problem Chronic atrial fibrillation I48.2 Active 838081668 Problem Coronary artery disease involving [place] coronary artery of [place] heart without angina pectoris I25.10 Active [id number] ALLERGIES No Information ENCOUNTERS Encounter Location Date Diagnosis [place] [id number] [place] [address] 03037- 9600 June, Seasonal allergic rhinitis due to other allergic trigger J30.89 [place] [id number] [place] [address] 01340- 5930 May, [place] [id number] [place] [address] 24870- 2332 Apr, Chronic atrial fibrillation I48.2 [facility] [id number] [place] [address] 99863- 0817 Mar, Mononeuropathy G58.9 [facility] [address] 164[address]- 2237 Mar, Mononeuropathy G58.9 [facility] [id number] [place] [address] 04150- 0125 Feb, [place] [address] [id number] [place] [address] 8671 Feb, [facility] [id number] [place] [address] 14491- 6706 Feb, Herpes zoster without complication B02.9 and Family history of cancer Z80.9 [facility] [id number] [place] [address] 89755- 9926 Jan, [facility] [address] 16133- 0163 Dec, [facility] [id number] [place] [address] 20313- 3556 Dec, [facility] [address] 46219- 5018 Dec, [facility] [id number] [place] [address] 21752- 9304 Oct, Bronchitis J40 [facility] [id number] [place] [address] 25906- 8547 Sep, [facility] [id number] [place] [address] 42269- 2709 Sep, [facility] [id number] [place] [address] 50114- 1845 Jul, [facility] [id number] [place] [address] 73546- 6577 June, Acute pansinusitis, recurrence not specified J01.40 [facility] [id number] [place] [address] 75887- 6662 May, Chronic atrial fibrillation I48.2 and Coronary artery disease involving [place] coronary artery of [place] heart without angina pectoris I25.10 [facility] [id number] [address] 12487- 0499 Apr, [facility] [id number] [place] [address] 95165- 4517 Apr, Tachycardia R00.0 [facility] [id number] [place] [address] 21929- 2135 Apr, [facility] [address] [id number] Mar, [facility] [id number] [address] 39239- 2914 Mar, [facility] [id number] [place] [address] 45214- 9569 Mar, Chest pain at rest R07.9 and Rapid heart rate R00.0 [facility] [id number] [address] 31443- 6912 Mar, Chronic obstructive pulmonary disease, unspecified COPD type J44.9 [facility] [id number] [place] [address] 62356- 1307 Mar, Chronic obstructive pulmonary disease, unspecified COPD type J44.9 [facility] [id number] [place] [address] 64288- 1323 Feb, Functional diarrhea K59.1 [place] [id number] [address] 02621- 5377 Feb, Dysuria R30.0 ; Diarrhea of presumed infectious origin A09 and Abnormal LFTs R79.89 [place] [id number] [address] 98035- 3423 Feb, Abnormal LFTs R79.89 [facility] [id number] [place] [address] 85395- 2419 Feb, Abnormal LFTs R79.89 [facility] [id number] [address] 60838- 8839 Feb, Diarrhea of presumed infectious origin A09 [facility] [id number] [place] [address] 85507- 5465 Jan, Acute nasopharyngitis J00 [facility] [id number] [place] [address] [place] [address]- 3824 Nov, [facility] [id number] [address]- 6492 Nov, [facility] [id number] [address]16 Mar, Blood in stool K92.1 [facility] [id number] [address] 47599- 2809 Dec, [facility] [id number] [address] 65735- 7850 Nov, Abdominal pain, right upper quadrant R10.11 and H. pylori infection A04.8 [facility] [address] [address]- 3396 Jul, [facility] [id number] [place] [address] 86024- 8692 14 May, 2014 [facility] [address] [address]- 3700 May, [facility] [id number] [address]- 5947 Jan, [facility] [id number] [address]- 9360 Jan, [facility] [id number] [address]- 0126 Dec, [facility] [id number] [address]- 1298 Dec, [facility] [id number] [address]- 0096 Dec, [facility] [id number] [address]- 3257 Dec, [facility] [id number] [address]- 2784 14 Dec, 2013 [facility] [id number] [address]- 6995 14 Dec, 2013 [facility] [place] [facility] [address] [id number] [place] [address]- 1038 15 Nov, 2013 [facility] [place] [facility] [address] [id number] [place] [address]- 3086 15 Nov, 2013 [facility] [place] [facility] [address] [id number] [place] [address]- 9614 07 Nov, 2013 [facility] [place] [facility] [address] [id number] [place] [address]- 0756 07 Nov, 2013 [facility] [place] [facility] [address] [id number] [place] [address]- 1133 30 Sep, 2013 [facility] [place] [facility] [address] [id number] [place] [address]- 1764 30 Sep, 2013 [facility] [place] [facility] [address] [id number] [place] [address]- 2540 24 Sep, 2013 [facility] [place] [facility] [address] [id number] [place] [address]- 4850 24 Sep, 2013 [facility] [place] [facility] [address] [id number] [place] [address]- 2549 17 Sep, 2013 [facility] [place] [facility] [address] [id number] [place] [address]- 9407 17 Sep, 2013 [facility] [place] [facility] [address] [id number] [place] [address]- 2547 10 Sep, 2013 [facility] [place] [facility] [address] [id number] [place] [address]- 2540 10 Sep, 2013 [facility] [place] [facility] [address] [id number] [place] [address]- 2542 08 Sep, 2013 [facility] [place] [facility] [address] [id number] [place] [address]- 2549 08 Sep, 2013 [facility] [place] [facility] [address] [id number] [place] [address]- 8392 Oct, [facility] [place] [facility] [address] [id number] [place] [address]- 0390 Oct, [facility] [place] [facility] [address] [id number] [place] [address]- 9689 Oct, [facility] [place] [facility] [address] [id number] [place] [address]- 7612 Sep, [facility] [place] [facility] [address] [id number] [place] [address]- 8809 Sep, [facility] [place] [facility] [address] [id number] [place] [address]- 6974 Jul, [facility] [place] [facility] [address] [id number] [place] [address]- 5119 Jul, [facility] [place] [facility] [address] [id number] [place] [address]- 8389 June, [facility] [place] [facility] [address] [id number] [place] [address]- 5089 June, [facility] [place] [facility] [address] [id number] [place] [address]- 4531 June, [facility] [place] [facility] [address] [id number] [place] [address]- 3969 June, [facility] [place] [facility] [address] [id number] [place] [address]- 0886 May, [facility] [place] [facility] [address] [id number] [address]- 0500 May, [facility] [place] [facility] [address] [id number] [place] [address]- 0737 May, [facility] [place] [facility] [address] [id number] [place] [address]- 9926 May, [facility] [place] [facility] [address] [id number] [place] [address]- 0308 May, [facility] [place] [facility] [address] [id number] [address]- 0350 04 May, 2013 [facility] [address] [id number] [place] [address]- 4646 10 Oct, 2012 [facility] [address] [id number] [place] [address]- 5358 05 Oct, 2012 [facility] [address] [id number] [place] [address]- 6719 Jul, [facility] [address] [id number] [place] [address]- 6522 June, [facility] [address] [id number] [place] [address]- 7210 June, [facility] [address] [id number] [place] [address]- 2164 June, [facility] [address] [place] [address]- 2635 June, [facility] [address] [id number] [place] [address]- 7549 May, [facility] [address] [id number] [place] [address]- 8317 May, [facility] [id number] [address]- 4451 Mar, [facility] [address] [id number] [place] [address]- 6523 Mar, [facility] [address] [id number] [address]- 9893 Feb, [facility] [address] [id number] [place] [address]- 1676 Feb, [facility] [address] [id number] [place] [address]- 9930 Feb, [facility] [address] [facility] [id number] [address]- 1344 Jan, [facility] [address] [id number] [place] [address]- 8257 Jan, [facility] [place] [facility] [address] [id number] [place] [address]- 9305 Dec, [facility] [place] [facility] [address] [id number] [place] [address]- 6836 Dec, [facility] [place] [facility] [address] [id number] [place] [address], [place] [address]- 2177 Nov, [facility] [place] [facility] [address] [id number] [place] [address]- 5704 Oct, [facility] [place] [facility] [address] [id number] [place] [address], [place] [address]- 3173 Aug, [facility] [place] [facility] [address] [id number] [place] [address]- 5269 Jul, [facility] [place] [facility] [address] [id number] [place] [address]- 1989 Jul, [facility] [place] [facility] [address] [id number] [place] [address]- 1844 Mar, [facility] [place] [facility] [address] [id number] [place] [address]- 7124 Mar, [facility] [place] [facility] [address] [id number] [place] [address]- 7427 Mar, [facility] [place] [facility] [address] [id number] [place] [address]- 7615 Feb, [facility] [place] [facility] [address] [id number] [place] [address]- 4838 Feb, [facility] [place] [facility] [address] [id number] [place] [address]- 0160 Feb, [facility] [place] [facility] [address] [id number] [place] [address]- 9902 Feb, [facility] [place] [facility] [address] [id number] [place] [address]- 2546 Feb, [facility] [address] [facility] [id number] [place] [address]- 2546 Feb, [facility] [address] [facility] [id number] [address]- 6686 June, IMMUNIZATIONS No Known Immunizations SOCIAL HISTORY Never Assessed REASON FOR VISIT Refill request PLAN OF CARE VITAL SIGNS MEDICATIONS Medication Instructions Dosage Frequency Start Date End Date Duration Status Protonix 40 mg Orally Once a day 1 tablet 24h Active RESULTS No Results PROCEDURES No [...]
--- OUTSIDE RECORDS SUMMARY | 2018-04-21 12:53 | XMS REPORT ---
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.10 Active [id number] Problem Chronic obstructive pulmonary disease, unspecified COPD type J44.9 Active 89166037 ALLERGIES No Information ENCOUNTERS Encounter Location Date Diagnosis [facility] [id number] [place] [address] 44129- 6310 June, [facility] [id number] [place] [address] 34126- 7836 May, [facility] [id number] [place] [address] 83913- 4720 Apr, Chronic atrial fibrillation I48.2 [facility] [id number] [place] [address] 99523- 3378 Mar, Mononeuropathy G58.9 [facility] [id number] [place] [address] 08209- 6329 Mar, Mononeuropathy G58.9 [facility] [id number] [place] [address] 14030- 6594 Feb, [facility] [id number] [place] [address] 38877- 8320 Feb, [facility] [id number] [place] [address] 09734- 1327 Feb, Herpes zoster without complication B02.9 and Family history of cancer Z80.9 [facility] [id number] [place] [address] 35365- 8983 Jan, [facility] [id number] [place] [address] 75226- 2119 Dec, [facility] [id number] [place] [address] 16586- 4446 Dec, [facility] [id number] [place] [address] 45312- 7986 Dec, [facility] [id number] [place] [address] 42664- 1685 Oct, Bronchitis J40 [facility] [id number] [place] [address] 75517- 1299 Sep, [facility] [id number] [place] [address] 70291- 6734 Sep, [facility] [id number] [place] [address] 62026- 9255 Jul, [facility] [id number] [place] [address] 46375- 5284 June, Acute pansinusitis, recurrence not specified J01.40 [facility] [id number] [place] [address] 76241- 1569 May, Chronic atrial fibrillation I48.2 and Coronary artery disease 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.10 [facility] [id number] [place] [address] 03459- 9175 Apr, [facility] [id number] [place] [address] 16574- 4826 10 Apr, 2016 Tachycardia R00.0 [facility] [id number] [place] [address] 06753- 3808 Apr, [facility] [id number] [place] [address] [id number] Mar, [facility] [id number] [place] [address] 31259- 8806 Mar, [facility] [id number] [place] [address] 90123- 2276 Mar, Chest pain at rest R07.9 and Rapid heart rate R00.0 [facility] [id number] [place] [address] 90506- 5081 Mar, Chronic obstructive pulmonary disease, unspecified COPD type J44.9 [facility] [id number] [place] [address] 71940- 1932 Mar, Chronic obstructive pulmonary disease, unspecified COPD type J44.9 [facility] [id number] [place] [address] 34639- 6056 Feb, Functional diarrhea K59.1 [facility] [id number] [place] [address] 10763- 5704 Feb, Dysuria R30.0 ; Diarrhea of presumed infectious origin A09 and Abnormal LFTs R79.89 [facility] [id number] [place] [address] 59941- 4156 Feb, Abnormal LFTs R79.89 [facility] [id number] [place] [address] 10547- 7276 Feb, Abnormal LFTs R79.89 [facility] [id number] [place] [address] 30327- 9010 Feb, Diarrhea of presumed infectious origin A09 [facility] [id number] [place] [address] 42441- 0673 Jan, Acute nasopharyngitis J00 [facility] [id number] [place] [address] 45553- 7182 Nov, [facility] [id number] [address] 8754 Nov, [facility] [address] [place] [address]- 8145 Mar, Blood in stool K92.1 [facility] [address] [address] Dec, [facility] [id number] [address] 8773 Nov, Abdominal pain, right upper quadrant R10.11 and H. pylori infection A04.8 [facility] [id number] [place] [address]- 0536 Jul, [facility] [address] [address]- 0871 14 May, 2014 [facility] [id number] [place] [address] 61121- 5523 May, [facility] [address] [address]- 6898 Jan, [facility] [address] [place] [address]- 7769 Jan, [facility] [address] [place] [address]- 4771 Dec, [facility] [address] [place] [address]- 6055 Dec, [facility] [address] [place] [address]- 1566 Dec, [facility] [address], [place] [address]- 3409 Dec, [facility] [address] [place] [address]- 0583 14 Dec, 2013 [facility] [address] [place] [address]- 0677 Dec, [facility] [place] [facility] [address] [id number] [place] [address]- 8076 15 Nov, 2013 [facility] [place] [facility] [address] [id number] [place] [address]- 1864 15 Nov, 2013 [facility] [place] [facility] [address] [id number] [place] [address]- 0566 07 Nov, 2013 [facility] [place] [facility] [address] [id number] [place] [address]- 8624 07 Nov, 2013 [facility] [place] [facility] [address] [id number] [place] [address]- 0400 30 Sep, 2013 [facility] [place] [facility] [address] [id number] [place] [address]- 1045 30 Sep, 2013 [facility] [place] [facility] [address] [id number] [place] [address]- 7441 24 Sep, 2013 [facility] [place] [facility] [address] [id number] [place] [address]- 2540 24 Sep, 2013 [facility] [place] [facility] [address] [id number] [place] [address]- 2542 17 Sep, 2013 [facility] [place] [facility] [address] [id number] [place] [address]- 2545 17 Sep, 2013 [facility] [place] [facility] [address] [id number] [place] [address]- 2543 10 Sep, 2013 [facility] [place] [facility] [address] [id number] [place] [address]- 2541 10 Sep, 2013 [facility] [place] [facility] [address] [id number] [place] [address] 2547 08 Sep, 2013 [facility] [place] [facility] [address] [id number] [place] [address] 2546 08 Sep, 2013 [facility] [place] [facility] [address] [id number] [place] [address]- 2546 05 Sep, 2013 [facility] [place] [facility] [address] [id number] [place] [address]- 2549 Oct, [facility] [place] [facility] [address] [id number] [place] [address]- 7309 Oct, [facility] [place] [facility] [address] [id number] [place] [address]- 6853 Sep, [facility] [place] [facility] [address] [id number] [place] [address]- 4330 Sep, [facility] [place] [facility] [address] [id number] [place] [address]- 1535 Jul, [facility] [place] [facility] [address] [id number] [place] [address]- 4808 Jul, [facility] [place] [facility] [address] [id number] [place] [address]- 0585 June, [facility] [place] [facility] [address] [id number] [place] [address]- 8065 June, [facility] [place] [facility] [address] [id number] [place] [address]- 6225 June, [facility] [place] [facility] [address] [id number] [place] [address]- 6323 June, [facility] [place] [facility] [address] [id number] [place] [address]- 4566 May, [facility] [place] [facility] [address] [id number] [place] [address]- 0223 May, [facility] [place] [facility] [address] [id number] [address]- 2540 May, [facility] [place] [facility] [address] [id number] [place] [address]- 7665 May, [facility] [place] [facility] [address] [id number] [place] [address]- 1289 May, [facility] [place] [facility] [address] [id number] [place] [address]- 5070 May, [facility] [place] [facility] [address] [id number] [place] [address]- 8715 10 Oct, 2012 [facility] [address] [id number] [place] [address]- 1227 05 Oct, 2012 [facility] [address] [id number] [place] [address]- 2446 18 Jul, 2012 [facility] [address] [id number] [place] [address]- 0526 June, [facility] [address] [id number] [place] [address]- 0969 June, [facility] [address] [id number] [place] [address]- 8717 June, [facility] [address] [id number] [place] [address]- 2546 June, [facility] [address] [id number] [place] [address]- 1704 May, [facility] [address] [id number] [place] [address]- 8135 May, [facility] [address] [id number] [place] [address]- 7714 Mar, [facility] [address] [id number] [place] [address]- 5546 Mar, [facility] [address] [id number] [place] [address]- 0073 Feb, [facility] [address] [id number] [place] [address]- 7475 Feb, [facility] [place] [facility] [address] [id number] [place] [address]- 1317 Feb, [facility] [place] [facility] [address] [id number] [place] [address]- 3546 Jan, [facility] [address] [id number] [place] [address]- 0906 14 Jan, 2012 [facility] [address] [id number] [place] [address]- 0379 Dec, [facility] [place] [facility] [address] [id number] [place] [address]- 7780 Dec, [facility] [place] [facility] [address] [id number] [place] [address]- 7686 Nov, [facility] [place] [facility] [address] [id number] [place] [address]- 7726 Oct, [facility] [place] [facility] [address] [id number] [place] [address]- 3787 Aug, [facility] [place] [facility] [address] [id number] [place] [address]- 5352 Jul, [facility] [place] [facility] [address] [facility] [id number] [place] [address]- 0761 Jul, [facility] [place] [facility] [address] [id number] [place] [address]- 3876 Mar, [facility] [place] [facility] [address] [id number] [place] [address]- 6963 Mar, [facility] [place] [facility] [address] [facility] [id number] [place] [address]- 0621 Mar, [facility] [place] [facility] [address] [id number] [place] [address]- 2656 Feb, [facility] [place] [facility] [address] [id number], [place] [address]- 2905 Feb, [facility] [place] [facility] [address] [id number] [place] [address]- 5644 Feb, [facility] [place] [facility] [address] [id number] [place] [address]- 8316 Feb, [facility] [place] [facility] [address] [facility] [id number] [place] [address]- 4316 Feb, [facility] [place] [facility] [address] [id number] [place] [address]- 4226 Feb, [facility] [address] [facility] [id number] [place] [address]- 0621 June, IMMUNIZATIONS No Known Immunizations SOCIAL HISTORY Never Assessed REASON FOR VISIT Referral PLAN OF CARE VITAL SIGNS MEDICATIONS Unknown [...]
--- OUTSIDE RECORDS SUMMARY | 2018-04-21 12:53 | XMS REPORT ---
Author Author YASHIRA MENENDEZ Organization [facility] Address [address] [place] [address] Care Team Providers Care Process Development Technician Name Role Phone YASHIRA MENENDEZ Unavailable PROBLEMS Type Condition ICD9-CM Code ZWA32-FE Code Onset Dates Condition Status SNOMED Code Problem Abnormal LFTs R79.89 Active 326393816 Problem Seasonal allergic rhinitis due to other allergic trigger J30.89 Active 750538783 Problem Mononeuropathy G58.9 Active 377969437 Problem Chronic obstructive pulmonary disease, unspecified COPD type J44.9 Active 38970968 Problem Diarrhea of presumed infectious origin A09 Active 44440763 Problem Chronic atrial fibrillation I48.2 Active 805125856 Problem Coronary artery disease involving s[place]qualmie coronary artery of snoqualmie heart without angina pectoris I25.10 Active [id number] ALLERGIES No Information ENCOUNTERS Encounter Location Date Diagnosis [place] [id number] [place] [address] 04295- 5762 June, Seasonal allergic rhinitis due to other allergic trigger J30.89 [place] [id number] [place] [address] 83942- 4898 May, [place] [id number] [place] [address] 21593- 9002 Apr, Chronic atrial fibrillation I48.2 [facility] [id number] [place] [address] 98959- 5300 Mar, Mononeuropathy G58.9 [facility] [address] [address]- 4901 Mar, Mononeuropathy G58.9 [facility] [id number] [place] [address] 32985- 9957 Feb, [place] [id number] [place] [address] 4049 Feb, [facility] [id number] [place] [address] 82637- 9373 Feb, Herpes zoster without complication B02.9 and Family history of cancer Z80.9 [facility] [id number] [place] [address] 65053- 9784 Jan, [facility] [address] 6[address]18- 2166 Dec, [facility] [id number] [place] [address] 58075- 1724 Dec, [facility] [address] 02166- 3107 Dec, [facility] [id number] [place] [address] 35426- 6257 Oct, Bronchitis J40 [facility] [id number] [place] [address] 15477- 1780 Sep, [facility] [id number] [place] [address] 64971- 8445 Sep, [facility] [id number] [place] [address] 21953- 8689 Jul, [facility] [id number] [place] [address] 52167- 3427 June, Acute pansinusitis, recurrence not specified J01.40 [facility] [id number] [place] [address] 45153- 0990 May, Chronic atrial fibrillation I48.2 and Coronary artery disease involving s[place]qual[place] coronary artery of s[place]mie heart without angina pectoris I25.10 [facility] [id number] [place] [address] 74899- 0431 Apr, [facility] [id number] [place] [address] 99477- 2759 Apr, Tachycardia R00.0 [facility] [id number] [place] [address] 62876- 4835 Apr, [facility] [address] [id number] Mar, [facility] [id number] [place] [address] 65797- 8139 Mar, [facility] [id number] [place] [address] 98399- 8439 Mar, Chest pain at rest R07.9 and Rapid heart rate R00.0 [facility] [id number] [place] [address] 88567- 7051 Mar, Chronic obstructive pulmonary disease, unspecified COPD type J44.9 [facility] [id number] [place] [address] 27750- 6593 Mar, Chronic obstructive pulmonary disease, unspecified COPD type J44.9 [facility] [id number] [place] [address] 11665- 0032 Feb, Functional diarrhea K59.1 [place] [id number] [place] [address] 04301- 0756 Feb, Dysuria R30.0 ; Diarrhea of presumed infectious origin A09 and Abnormal LFTs R79.89 [place] [id number] [place] [address] 42443- 9572 Feb, Abnormal LFTs R79.89 [facility] [id number] [place] [address] 42763- 8373 Feb, Abnormal LFTs R79.89 [facility] [id number] [place] [address] 28511- 7217 Feb, Diarrhea of presumed infectious origin A09 [facility] [id number] [place] [address] 82294- 5254 Jan, Acute nasopharyngitis J00 [facility] [id number] [place] [address] [place] [address]- 2351 Nov, [facility] [address] [address] 7784 Nov, [facility] [address] 6925 Mar, Blood in stool K92.1 [facility] [id number] [place] [address] 37586- 8237 Dec, [facility] [id number] [place] [address] 37804- 3137 Nov, Abdominal pain, right upper quadrant R10.11 and H. pylori infection A04.8 [facility] [address] [address]- 5839 Jul, [facility] [id number] [place] [address] 07620- 9747 14 May, 2014 [facility] [id number] [address]- 1504 May, [facility] [address], [place] [address]- 8816 Jan, [facility] [address] [address]- 5971 Jan, [facility] [address] [address]- 3788 Dec, [facility] [address], [place] [address]- 1220 Dec, [facility] [id number] [address]- 9394 Dec, [facility] [address] [address]- 7328 Dec, [facility] [address], [place] [address]- 2233 14 Dec, 2013 [facility] [id number] [address]- 3624 14 Dec, 2013 [facility] [place] [facility] [address] [id number] [place] [address]- 3867 15 Nov, 2013 [facility] [place] [facility] [address] [id number] [place] [address]- 7356 15 Nov, 2013 [facility] [place] [facility] [address] [id number] [place] [address]- 0220 07 Nov, 2013 [facility] [place] [facility] [address] [id number] [place] [address]- 2509 07 Nov, 2013 [facility] [place] [facility] [address] [id number] [place] [address]- 1792 30 Sep, 2013 [facility] [place] [facility] [address] [id number] [place] [address]- 6244 30 Sep, 2013 [facility] [place] [facility] [address] [id number] [place] [address]- 2545 24 Sep, 2013 [facility] [place] [facility] [address] [id number] [place] [address]- 0819 24 Sep, 2013 [facility] [place] [facility] [address] [id number] [place] [address]- 2542 17 Sep, 2013 [facility] [place] [facility] [address] [id number] [place] [address]- 1606 17 Sep, 2013 [facility] [place] [facility] [address] [id number] [place] [address]- 2540 10 Sep, 2013 [facility] [place] [facility] [address] [id number] [place] [address]- 2541 10 Sep, 2013 [facility] [place] [facility] [address] [id number] [place] [address]- 2543 08 Sep, 2013 [facility] [place] [facility] [address] [id number] [place] [address]- 2540 08 Sep, 2013 [facility] [place] [facility] [address] [id number] [place] [address]- 6342 Oct, [facility] [place] [facility] [address] [id number] [place] [address]- 0297 Oct, [facility] [place] [facility] [address] [id number] [place] [address]- 2457 Oct, [facility] [place] [facility] [address] [id number] [place] [address]- 4594 Sep, [facility] [place] [facility] [address] [id number] [place] [address]- 8118 Sep, [facility] [place] [facility] [address] [id number] [place] [address]- 6177 Jul, [facility] [place] [facility] [address] [id number] [place] [address]- 5439 Jul, [facility] [place] [facility] [address] [id number] [place] [address]- 8847 June, [facility] [place] [facility] [address] [id number] [place] [address]- 6004 June, [facility] [place] [facility] [address] [id number] [place] [address]- 9263 June, [facility] [place] [facility] [address] [id number] [place] [address]- 7986 June, [facility] [place] [facility] [address] [id number] [place] [address]- 8888 May, [facility] [place] [facility] [address] [id number], [place] [address]- 6355 May, [facility] [place] [facility] [address] [id number] [place] [address]- 7658 May, [facility] [place] [facility] [address] [id number] [place] [address]- 2205 May, [facility] [place] [facility] [address] [id number] [place] [address]- 6128 May, [facility] [place] [facility] [address] [id number], [place] [address]- 2639 04 May, 2013 [facility] [address] [id number] [place] [address]- 4590 10 Oct, 2012 [facility] [address] [id number] [place] [address]- 4803 05 Oct, 2012 [facility] [address] [id number] [place] [address]- 5204 Jul, [facility] [address] [id number] [place] [address]- 5930 June, [facility] [address] [id number] [place] [address]- 0473 June, [facility] [address] [id number] [place] [address]- 0029 June, [facility] [address] [place] [address]- 1951 June, [facility] [address] [id number] [place] [address]- 4418 May, [facility] [address] [id number] [place] [address]- 9236 May, [facility] [id number] [address]- 9255 Mar, [facility] [address] [id number] [place] [address]- 6454 Mar, [facility] [address] [id number], [place] [address]- 0046 Feb, [facility] [address] [id number] [place] [address]- 5820 Feb, [facility] [address] [id number] [place] [address]- 1405 Feb, [facility] [address] [facility] [id number], [place] [address]- 5568 Jan, [facility] [address] [id number] [place] [address]- 0798 Jan, [facility] [place] [facility] [address] [id number] [place] [address]- 7560 Dec, [facility] [place] [facility] [address] [id number] [place] [address]- 4366 Dec, [facility] [place] [facility] [id number] [place] [address], [place] [address]- 8342 Nov, [facility] [place] [facility] [address] [id number] [place] [address]- 4476 Oct, [facility] [place] [facility] [address] [id number] [place] [address], [place] [address]- 3758 Aug, [facility] [place] [facility] [address] [id number] [place] [address]- 5129 Jul, [facility] [place] [facility] [address] [id number] [place] [address]- 6986 Jul, [facility] [place] [facility] [address] [id number] [place] [address]- 3243 Mar, [facility] [place] [facility] [address] [id number] [place] [address]- 1534 Mar, [facility] [place] [facility] [address] [id number] [place] [address]- 6731 Mar, [facility] [place] [facility] [address] [id number] [place] [address]- 9291 Feb, [facility] [place] [facility] [address] [id number] [place] [address]- 1157 Feb, [facility] [place] [facility] [address] [id number] [place] [address]- 6982 Feb, [facility] [place] [facility] [address] [id number] [place] [address]- 1945 Feb, [facility] [place] [facility] [address] [id number] [place] [address]- 2546 Feb, [facility] [address] [facility] [id number] [place] [address]- 2546 Feb, [facility] [address] [facility] [id number] [address]- 0976 June, IMMUNIZATIONS No Known Immunizations SOCIAL HISTORY Never Assessed REASON FOR VISIT med refill PLAN OF CARE VITAL SIGNS MEDICATIONS Medication Instructions Dosage Frequency Start Date End Date Duration Status Neurontin 600 MG Orally Three times a day 1 tablet 8h Feb, Active RESULTS No Results PROCEDURES No Known [...]
--- OUTSIDE RECORDS SUMMARY | 2018-04-21 12:54 | XMS REPORT ---
Author Author MERARY COBOS Organization [facility] Address [address] [place] [address] Care Team Providers Care Mimeographer Name Role Phone MERARY COBOS Unavailable PROBLEMS Type Condition ICD9-CM Code LQQ13-ZA Code Onset Dates Condition Status SNOMED Code Problem Mononeuropathy G58.9 Active 326310272 Problem Chronic atrial fibrillation I48.2 Active 472782042 Problem Diarrhea of presumed infectious origin A09 Active 69899319 Problem Abnormal LFTs R79.89 Active 639213294 Problem Coronary artery disease involving [place] coronary artery of [place] heart without angina pectoris I25.10 Active 0147094039641 Problem Chronic obstructive pulmonary disease, unspecified COPD type J44.9 Active [id number] ALLERGIES No Known Allergies ENCOUNTERS Encounter Location Date Diagnosis [place] [id number] [place] [id number] [place] [address]17- 7958 June, [place] [address] [address] May, [place] [id number] [place] [address] 87028- 9002 Apr, Chronic atrial fibrillation I48.2 [facility] [id number] [place] [address] 65371- 9356 Mar, Mononeuropathy G58.9 [facility] [id number] [place] [address] 00569- 7092 Mar, Mononeuropathy G58.9 [facility] [id number] [place] [address] 93683- 0157 Feb, [facility] [id number] [place] [address] 90245- 6001 Feb, [place] [address] [address] Feb, Herpes zoster without complication B02.9 and Family history of cancer Z80.9 [facility] [id number] [place] [address] 44699- 6408 Jan, [facility] [id number] [place] [address] 40670- 3884 Dec, [facility] [id number] [place] [address] 62998- 7866 Dec, [facility] [id number] [place] [address] 72033- 3864 Dec, [facility] [id number] [place] [address] 26024- 8509 Oct, Bronchitis J40 [facility] [id number] [place] [address] 87535- 8896 Sep, [facility] [id number] [place] [address] 02647- 5292 Sep, [facility] [id number] [place] [address] 89746- 1578 Jul, [facility] [id number] [place] [address] 05990- 2646 June, Acute pansinusitis, recurrence not specified J01.40 [facility] [id number] [place] [address] 42704- 7697 May, Chronic atrial fibrillation I48.2 and Coronary artery disease involving [place] coronary artery of [place] heart without angina pectoris I25.10 [facility] [id number] [place] [address] 72362- 7665 13 Apr, 2016 [facility] [id number] [place] [address] 15241- 3446 10 Apr, 2016 Tachycardia R00.0 [facility] [id number] [place] [address] 69187- 4486 Apr, [facility] [id number] [id number] Mar, [facility] [id number] [place] [address] 06092- 6258 Mar, [facility] [id number] [place] [address] 45977- 3129 Mar, Chest pain at rest R07.9 and Rapid heart rate R00.0 [facility] [id number] [place] [address] 81330- 1968 Mar, Chronic obstructive pulmonary disease, unspecified COPD type J44.9 [facility] [id number] [place] [address] 83916- 1443 Mar, Chronic obstructive pulmonary disease, unspecified COPD type J44.9 [facility] [id number] [place] [address] 76903- 6640 Feb, Functional diarrhea K59.1 [facility] [id number] [place] [address] 47555- 1287 Feb, Dysuria R30.0 ; Diarrhea of presumed infectious origin A09 and Abnormal LFTs R79.89 [facility] [id number] [place] [address] 31036- 0077 Feb, Abnormal LFTs R79.89 [facility] [id number] [place] [address] 91859- 8059 Feb, Abnormal LFTs R79.89 [facility] [id number] [place] [address] 12266- 8852 Feb, Diarrhea of presumed infectious origin A09 [facility] [id number] [place] [address] 45564- 9177 Jan, Acute nasopharyngitis J00 [facility] [id number] [place] [address] 20614- 5211 Nov, [facility] [id number] [place] [address]- 7222 Nov, [facility] [id number] [address] 5955 Mar, Blood in stool K92.1 [facility] [address] [place] [address]- 9401 Dec, [facility] [id number] [place] [address] 36998- 2977 Nov, Abdominal pain, right upper quadrant R10.11 and H. pylori infection A04.8 [facility] [id number] [place] [address], [place] [address]- 2022 Jul, [facility] [address] [address]- 8702 May, [facility] [id number] [place] [address] 65473- 8141 May, [facility] [address] [address]- 2452 Jan, [facility] [address] [place] [address]- 1372 Jan, [facility] [id number] [address]- 0848 Dec, [facility] [id number] [place] [address]- 5082 Dec, [facility] [id number] [address]- 6656 Dec, [facility] [address] [address]- 4553 Dec, [facility] [address] [address]- 1701 14 Dec, 2013 [facility] [address] [address]- 1096 Dec, [facility] [place] [facility] [address] [id number] [place] [address]- 4407 15 Nov, 2013 [facility] [place] [facility] [address] [id number] [place] [address]- 3654 15 Nov, 2013 [facility] [place] [facility] [address] [id number] [place] [address]- 6399 07 Nov, 2013 [facility] [place] [facility] [address] [id number] [place] [address]- 3565 07 Nov, 2013 [facility] [place] [facility] [address] [id number] [place] [address]- 6211 30 Oct, 2013 [facility] [place] [facility] [address] [id number] [place] [address]- 6743 30 Oct, 2013 [facility] [place] [facility] [address] [id number] [place] [address]- 4463 24 Oct, 2013 [facility] [place] [facility] [address] [id number] [place] [address]- 5618 24 Oct, 2013 [facility] [place] [facility] [address] [id number] [place] [address]- 3580 17 Oct, 2013 [facility] [place] [facility] [address] [id number] [place] [address]- 4269 17 Sep, 2013 [facility] [place] [facility] [address] [id number] [place] [address]- 6864 10 Sep, 2013 [facility] [place] [facility] [address] [id number] [place] [address]- 254 10 Sep, 2013 [facility] [place] [facility] [address] [id number] [place] [address]- 2540 08 Sep, 2013 [facility] [place] [facility] [address] [id number] [place] [address]- 2544 08 Sep, 2013 [facility] [place] [facility] [address] [id number] [place] [address]- 1887 05 Sep, 2013 [facility] [place] [facility] [address] [id number] [place] [address]- 0806 Oct, [facility] [place] [facility] [address] [id number] [place] [address]- 0730 Oct, [facility] [place] [facility] [address] [id number] [place] [address]- 5395 Sep, [facility] [place] [facility] [address] [id number] [place] [address]- 7697 Sep, [facility] [place] [facility] [address] [id number] [place] [address]- 9590 Jul, [facility] [place] [facility] [address] [id number] [place] [address]- 4517 Jul, [facility] [place] [facility] [address] [id number] [place] [address]- 1140 June, [facility] [place] [facility] [address] [id number] [place] [address]- 2687 June, [facility] [place] [facility] [address] [id number] [place] [address]- 1350 June, [facility] [place] [facility] [address] [id number] [place] [address]- 8042 June, [facility] [place] [facility] [address] [id number] [place] [address]- 4588 May, [facility] [place] [facility] [address] [id number] [place] [address]- 9017 May, [facility] [place] [facility] [address] [id number] [place] [address]- 2217 May, [facility] [place] [facility] [address] [id number] [place] [address]- 8705 May, [facility] [place] [facility] [address] [id number] [place] [address]- 5104 May, [facility] [place] [facility] [address] [id number] [place] [address]- 8310 May, [facility] [place] [facility] [address] [id number] [place] [address]- 2676 10 Oct, 2012 [facility] [address] [id number] [place] [address]- 3366 05 Oct, 2012 [facility] [address] [id number] [place] [address]- 9556 18 Jul, 2012 [facility] [address] [id number] [place] [address]- 0316 June, [facility] [address] [id number] [place] [address]- 6286 June, [facility] [address] [id number] [place] [address]- 8869 June, [facility] [address] [id number] [place] [address]- 6706 June, [facility] [address] [id number] [place] [address]- 5510 May, [facility] [address] [id number] [place] [address]- 1177 May, [facility] [address] [id number] [place] [address]- 7543 Mar, [facility] [address] [id number] [place] [address]- 3288 Mar, [facility] [address] [id number] [place] [address]- 9425 Feb, [facility] [address] [id number] [place] [address]- 4932 Feb, [facility] [address] [id number] [place] [address]- 0319 Feb, [facility] [address] [id number] [place] [address]- 3106 Jan, [facility] [address] [id number] [place] [address]- 8643 Jan, [facility] [place] [facility] [address] [id number] [place] [address]- 1754 Dec, [facility] [place] [facility] [address] [id number] [place] [address]- 4586 Dec, [facility] [place] [facility] [address] [id number] [place] [address]- 0120 Nov, [facility] [place] [facility] [address] [id number] [place] [address]- 5826 Oct, [facility] [place] [facility] [address] [id number] [place] [address]- 7894 Aug, [facility] [place] [facility] [address] [id number] [place] [address]- 1698 Jul, [facility] [place] [facility] [address] [id number] [place] [address]- 0393 Jul, [facility] [place] [facility] [address] [id number] [place] [address]- 3070 Mar, [facility] [place] [facility] [address] [id number] [place] [address]- 3592 Mar, [facility] [place] [facility] [address] [id number] [place] [address]- 5147 Mar, [facility] [place] [facility] [address] [id number] [place] [address]- 6369 Feb, [facility] [place] [facility] [address] [id number] [place] [address]- 4634 Feb, [facility] [place] [facility] [address] [id number] [place] [address]- 9236 Feb, [facility] [place] [facility] [address] [id number] [place] [address]- 3541 Feb, [facility] [place] [facility] [address] [id number] [place] [address]- 7036 Feb, [facility] [place] [facility] [address] [facility] [id number] [place] [address]- 3888 Feb, [facility] [address] [facility] [id number] [address]- 6607 June, IMMUNIZATIONS No Known Immunizations SOCIAL HISTORY Never Assessed REASON FOR VISIT Congestion,cough with green mucus running nose, symptoms for one week- Tayo TORRES PLAN OF CARE Activity Details Follow Up prn Reason: VITAL SIGNS Height 73 in 2016-10-29 Weight 246.7 lbs 2016-10-29 Temperature 98.3 degrees Fahrenheit 2016-10-29 Heart Rate 76 bpm 2016-10-29 Respiratory Rate 20 2016-10-29 BMI 32.54 kg/m2 2016-10-29 Blood pressure systolic 108 mmHg 2016-10-29 Blood pressure diastolic 72 mmHg 2016-10-29 MEDICATIONS Medication Instructions Dosage Frequency Start Date End Date Duration Status Eliquis 5 mg Orally 2 times a day 1 tablet 12h Mar, Active Protonix 40 MG Orally Once a day 1 tablet 24h Active Advair Diskus 250-50 MCG/DOSE Inhalation Twice a day 1 puff 12h Active Keflex 750 MG Orally 3 times a day 1 capsule 8h Oct, Oct, 07 days Active Fish Oil Concentrate 1000 mg 1 capsule 2 times daily Oct, Active Toprol XL 50 MG Orally Once a day 1 tablet 24h Active Aspirin 81 MG Orally Once a day 1 tablet 24h Active Acidophilus 100 MG Orally Once a day 1 capsule 24h Feb, Active Cardizem CD 360 MG Orally Once a day 1 capsule 24h Active Spiriva Respimat 2.5 MCG/ACT Inhalation [...]
--- OUTSIDE RECORDS SUMMARY | 2018-04-21 12:54 | XMS REPORT ---
Author Author YASHIRA MENENDEZ Organization [facility] Address [address] [place] [address] Care Team Providers Care Rodent Control Worker Name Role Phone YASHIRA MENENDEZ Unavailable PROBLEMS Type Condition ICD9-CM Code EIP47-CK Code Onset Dates Condition Status SNOMED Code Problem Abnormal LFTs R79.89 Active 995312601 Problem Seasonal allergic rhinitis due to other allergic trigger J30.89 Active 932367507 Problem Mononeuropathy G58.9 Active 261436461 Problem Chronic obstructive pulmonary disease, unspecified COPD type J44.9 Active 26505734 Problem Diarrhea of presumed infectious origin A09 Active 60491057 Problem Chronic atrial fibrillation I48.2 Active 362553357 Problem Coronary artery disease involving [place] coronary artery of [place] heart without angina pectoris I25.10 Active [id number] ALLERGIES No Known Allergies ENCOUNTERS Encounter Location Date Diagnosis [place] [id number] [place] [address] 16534- 3000 June, Seasonal allergic rhinitis due to other allergic trigger J30.89 [place] [id number] [place] [address] 96071- 4675 May, [facility] [id number] [place] [address] 35536- 0570 Apr, Chronic atrial fibrillation I48.2 [facility] [id number] [place] [address] 10646- 6279 Mar, Mononeuropathy G58.9 [facility] [id number] [place] [address] 96493- 4297 Mar, Mononeuropathy G58.9 [facility] [id number] [place] [address] 68244- 2604 Feb, [facility] [id number] [address] Feb, [facility] [id number] [place] [address] 65993- 0138 Feb, Herpes zoster without complication B02.9 and Family history of cancer Z80.9 [facility] [id number] [place] [address] 16287- 2945 Jan, [facility] [id number] [place] [address] 47892- 1661 Dec, [facility] [id number] [place] [address] 35534- 0452 Dec, [facility] [id number] [place] [address] 61167- 9215 Dec, [facility] [id number] [place] [address] 92506- 7715 Oct, Bronchitis J40 [facility] [id number] [place] [address] 46262- 2425 Sep, [facility] [id number] [place] [address] 24284- 8984 Sep, [facility] [id number] [place] [address] 41506- 8659 Jul, [facility] [id number] [place] [address] 02369- 7138 June, Acute pansinusitis, recurrence not specified J01.40 [facility] [id number] [place] [address] 83725- 0617 May, Chronic atrial fibrillation I48.2 and Coronary artery disease involving [place] coronary artery of [place] heart without angina pectoris I25.10 [facility] [id number] [place] [address] 47434- 5211 Apr, [facility] [id number] [place] [address] 48203- 3892 Apr, Tachycardia R00.0 [facility] [id number] [place] [address] 20576- 0023 Apr, [facility] [address] [id number] Mar, [facility] [id number] [place] [address] 89096- 2548 Mar, [facility] [id number] [place] [address] 45489- 2759 Mar, Chest pain at rest R07.9 and Rapid heart rate R00.0 [facility] [id number] [place] [address] 99816- 9234 Mar, Chronic obstructive pulmonary disease, unspecified COPD type J44.9 [facility] [id number] [place] [address] 59488- 3320 Mar, Chronic obstructive pulmonary disease, unspecified COPD type J44.9 [facility] [id number] [place] [address] 93184- 7125 Feb, Functional diarrhea K59.1 [place] [id number] [place] [address] 15190- 5639 Feb, Dysuria R30.0 ; Diarrhea of presumed infectious origin A09 and Abnormal LFTs R79.89 [place] [id number] [place] [address] 12800- 9786 Feb, Abnormal LFTs R79.89 [facility] [id number] [place] [address] 59332- 7808 Feb, Abnormal LFTs R79.89 [facility] [id number] [place] [address] 13771- 3244 Feb, Diarrhea of presumed infectious origin A09 [facility] [id number] [place] [address] 99853- 4611 Jan, Acute nasopharyngitis J00 [facility] [id number] [address]594 Nov, [facility] [address] [address] 3574 Nov, [facility] [address] 4970 Mar, Blood in stool K92.1 [facility] [id number] [place] [address] 38928- 6765 Dec, [facility] [id number] [address]- 6969 Nov, Abdominal pain, right upper quadrant R10.11 and H. pylori infection A04.8 [facility] [address] [place] [address]- 1411 Jul, [facility] [id number] [place] [address] 16599- 1276 14 May, 2014 [facility] [id number] [address]- 5566 May, [facility] [id number] [place] [address] 35256- 8937 Jan, [facility] [address] [address]- 5345 Jan, [facility] [address] [place] [address]- 9655 Dec, [facility] [address] [address]- 4490 Dec, [facility] [address] [address]- 7479 18 Dec, 2013 [facility] [address] [address]- 7906 Dec, [facility] [address] [address]- 4644 14 Dec, 2013 [facility] [place] [facility] [id number] [place] [address]- 5045 14 Dec, 2013 [facility] [place] [facility] [address] [id number] [place] [address]- 4437 15 Nov, 2013 [facility] [place] [facility] [address] [id number] [place] [address]- 9446 15 Nov, 2013 [facility] [place] [facility] [address] [id number] [place] [address]- 3013 07 Nov, 2013 [facility] [place] [facility] [address] [id number] [place] [address]- 2187 07 Nov, 2013 [facility] [place] [facility] [address] [id number] [place] [address]- 2372 30 Sep, 2013 [facility] [place] [facility] [address] [id number] [place] [address]- 2560 30 Sep, 2013 [facility] [place] [facility] [address] [id number] [place] [address]- 2542 24 Sep, 2013 [facility] [place] [facility] [address] [id number] [place] [address]- 2545 24 Sep, 2013 [facility] [place] [facility] [address] [id number] [place] [address]- 254 17 Sep, 2013 [facility] [place] [facility] [address] [id number] [place] [address]- 254 17 Sep, 2013 [facility] [place] [facility] [address] [id number] [place] [address]- 254 10 Sep, 2013 [facility] [place] [facility] [address] [id number] [place] [address]- 2544 10 Sep, 2013 [facility] [place] [facility] [address] [id number] [place] [address]- 2541 08 Sep, 2013 [facility] [place] [facility] [address] [id number] [place] [address]- 2546 08 Sep, 2013 [facility] [place] [facility] [address] [id number] [place] [address]- 2545 Oct, [facility] [place] [facility] [address] [id number] [place] [address]- 1846 Oct, [facility] [place] [facility] [address] [id number] [place] [address]- 7594 Oct, [facility] [place] [facility] [address] [id number] [place] [address]- 5269 Sep, [facility] [place] [facility] [address] [id number] [place] [address]- 4394 Sep, [facility] [place] [facility] [address] [id number] [place] [address]- 8988 Jul, [facility] [place] [facility] [address] [id number] [place] [address]- 0314 Jul, [facility] [place] [facility] [address] [id number] [place] [address]- 8621 June, [facility] [place] [facility] [address] [id number] [place] [address]- 0660 June, [facility] [place] [facility] [address] [id number] [place] [address]- 0835 June, [facility] [place] [facility] [address] [id number] [place] [address]- 9344 June, [facility] [place] [facility] [address] [id number] [place] [address]- 1190 May, [facility] [place] [facility] [address] [id number] [place] [address]- 4092 May, [facility] [place] [facility] [address] [id number] [place] [address]- 0832 May, [facility] [place] [facility] [address] [id number] [place] [address]- 5818 May, [facility] [place] [facility] [address] [id number] [place] 5722 May, [facility] [place] [facility] [address] [id number] [place] [address]- 7357 04 May, 2013 [facility] [address] [id number] [place] [address]- 0959 10 Oct, 2012 [facility] [address] [id number] [place] [address]- 1750 05 Oct, 2012 [facility] [address] [id number] [place] [address]- 9858 Jul, [facility] [address] [id number] [place] [address]- 0069 June, [facility] [address] [id number] [place] [address]- 8683 June, [facility] [address] [id number] [place] [address]- 1567 June, [facility] [address] [id number] [place] [address]- 2128 June, [facility] [address] [id number] [place] [address]- 8099 May, [facility] [address] [id number] [place] [address]- 0712 May, [facility] [address] [id number] [place] [address]- 3609 Mar, [facility] [address] [id number] [place] [address]- 9577 Mar, [facility] [address] [id number] [place] [address]- 8723 Feb, [facility] [address] [id number] [place] [address]- 8420 Feb, [facility] [address] [id number] [place] [address]- 4763 Feb, [facility] [address] [id number] [address]- 1690 Jan, [facility] [address] [id number] [place] [address]- 3251 14 Jan, 2012 [facility] [place] [facility] [address] [id number] [place] [address]- 4965 Dec, [facility] [place] [facility] [address] [id number] [place] [address]- 6985 16 Dec, 2011 [facility] [place] [facility] [address] [id number] [place] [address]- 1407 Nov, [facility] [place] [facility] [address] [id number] [place] [address]- 9569 Oct, [facility] [place] [facility] [address] [id number] [place] [address]- 7713 Aug, [facility] [place] [facility] [address] [id number] [place] [address]- 8910 Jul, [facility] [place] [facility] [address] [id number] [place] [address]- 6136 Jul, [facility] [place] [facility] [address] [id number] [place] [address]- 9246 Mar, [facility] [place] [facility] [address] [id number] [place] [address]- 2194 Mar, [facility] [place] [facility] [address] [id number] [place] [address]- 5455 Mar, [facility] [place] [facility] [address] [id number] [place] [address]- 8571 Feb, [facility] [place] [facility] [address] [id number] [place] [address]- 0851 Feb, [facility] [place] [facility] [address] [id number] [place] [address]- 4906 Feb, [facility] [place] [facility] [address] [id number] [place] [address]- 5721 Feb, [facility] [place] [facility] [address] [id number] [place] [address]- 05[address] Feb, [facility] [address] [facility] [id number] [place] [address]- 6566 Feb, [facility] [address] [facility] [id number] [address]- 5016 June, IMMUNIZATIONS No Known Immunizations SOCIAL HISTORY Never Assessed REASON FOR VISIT Via [facility] for the Kristyn TORRES PLAN OF CARE VITAL SIGNS Height 73 in 2017-02-14 Weight 243.8 lbs 2017-02-14 Temperature 98.1 degrees Fahrenheit 2017-02-14 Heart Rate 78 bpm 2017-02-14 Respiratory Rate 20 2017-02-14 BMI 32.16 kg/m2 2017-02-14 Blood pressure systolic 128 mmHg 2017-02-14 Blood pressure diastolic 82 mmHg 2017-02-14 MEDICATIONS Medication Instructions Dosage Frequency Start Date End Date Duration Status Toprol XL 50 MG Orally Once a day 1 tablet 24h Active Protonix 40 MG Orally Once a day 1 tablet 24h Not-Taking Fish Oil Concentrate 1000 mg 1 capsule 2 times daily Oct, Active Ketorolac Tromethamine 10 mg Orally every 6 hrs 1 tablet with food or milk as needed 6h Feb, Feb, 5 day(s) Active Cardizem CD 360 MG Orally Once a day 1 capsule 24h Active Neurontin 300 MG Orally Three times a day 1 capsule 8h Feb, 30 day(s) Active Acidophilus 100 MG Orally Once a day 1 capsule 24h Feb, Not- Taking Aspirin 81 MG Orally Once a day 1 tablet 24h Active Eliquis 5 mg Orally 2 times a day 1 tablet 12h Mar, Active Rome 5-325 MG Orally every 6 hrs 1 tablet as needed 6h Dec, Not-Taking Advair Diskus 250-50 MCG/DOSE Inhalation Twice a day 1 puff 12h Active Spiriva Respimat 2.5 MCG/ACT Inhalation Once a day 2 puffs 24h Active RESULTS Name Result Date Reference Range CBC 2017-02-14 WHITE BLOOD CELL COUNT 6.8 3.8-10.8 RED BLOOD CELL COUNT 5.02 4.20-5.80 HEMOGLOBIN 15.2 13.2-17.1 HEMATOCRIT 46.4 38.5-50.0 MCV 92.4 80.0-100.0 MCH 30.3 27.0-33.0 MCHC 32.8 32.0-36.0 RDW 13.2 11.0-15.0 PLATELET COUNT 231 140-400 MPV 10.1 7.5-12.5 ABSOLUTE NEUTROPHILS 3556 9108-2274 ABSOLUTE LYMPHOCYTES 2530 850-3900 ABSOLUTE MONOCYTES 449 200-950 ABSOLUTE EOSINOPHILS 218 15-500 ABSOLUTE BASOPHILS 48 0-200 NEUTROPHILS 52.3 LYMPHOCYTES 37.2 MONOCYTES 6.6 EOSINOPHILS 3.2 BASOPHILS 0.7 CBC 2017-02-14 WHITE BLOOD CELL COUNT 6.8 3.8-10.8 RED BLOOD CELL COUNT 5.02 4.20-5.80 HEMOGLOBIN 15.2 13.2-17.1 HEMATOCRIT 46.4 38.5-50.0 MCV 92.4 80.0-100.0 MCH 30.3 27.0-33.0 MCHC 32.8 32.0-36.0 RDW 13.2 11.0-15.0 PLATELET COUNT 231 140-400 MPV 10.1 7.5-12.5 ABSOLUTE NEUTROPHILS 3556 6018-5158 ABSOLUTE LYMPHOCYTES 2530 850-3900 ABSOLUTE MONOCYTES 449 200-950 ABSOLUTE EOSINOPHILS 218 15-500 ABSOLUTE BASOPHILS 48 0-200 NEUTROPHILS 52.3 LYMPHOCYTES 37.2 MONOCYTES 6.6 EOSINOPHILS 3.2 BASOPHILS 0.7 PROCEDURES Procedure Date Ordered Result Body Site COMPLETE CBC W/AUTO DIFF WBC Feb 14, 2017 VENIPUNCT, ROUTINE* Feb 14, 2017 INSTRUCTIONS MEDICATIONS ADMINISTERED No Known Medications MEDICAL (GENERAL) HISTORY Type Description Date Medical History Hearing loss Medical History amphetmine abuse Medical History hyperlipidemia Surgical History Heart stent 2012 Surgical History Galbladder removal January 20, 2015 Hospitalization History surgeries Hospitalization History Heart attack x 3 Hospitalization History A flutter with [facility] 04/08/16 Hospitalization History shingles 12/2016
--- OUTSIDE RECORDS SUMMARY | 2018-04-21 12:54 | XMS REPORT ---
Author Author YASHIRA MENENDEZ Organization [facility] Address [address] [place] [address] Care Team Providers Care Manager Of Business Operations Name Role Phone YASHIRA MENENDEZ Unavailable PROBLEMS Type Condition ICD9-CM Code XXC92-PA Code Onset Dates Condition Status SNOMED Code Problem Abnormal LFTs R79.89 Active 675346281 Problem Seasonal allergic rhinitis due to other allergic trigger J30.89 Active 654853622 Problem Mononeuropathy G58.9 Active 365455490 Problem Chronic obstructive pulmonary disease, unspecified COPD type J44.9 Active 04262495 Problem Diarrhea of presumed infectious origin A09 Active 51886550 Problem Chronic atrial fibrillation I48.2 Active 057740157 Problem Coronary artery disease involving [place] coronary artery of [place] heart without angina pectoris I25.10 Active [id number] ALLERGIES No Information ENCOUNTERS Encounter Location Date Diagnosis [place] [id number] [place] [address] 54395- 4634 June, Seasonal allergic rhinitis due to other allergic trigger J30.89 [place] [id number] [place] [address] 99345- 7188 May, [place] [id number] [place] [address] 38181- 4398 Apr, Chronic atrial fibrillation I48.2 [facility] [id number] [place] [address] 33409- 3475 Mar, Mononeuropathy G58.9 [facility] [address] 82259- 6747 Mar, Mononeuropathy G58.9 [facility] [id number] [place] [address] 23139- 9175 Feb, [place] [id number] [place] [address] 3063 Feb, [facility] [id number] [place] [address] 13028- 6085 Feb, Herpes zoster without complication B02.9 and Family history of cancer Z80.9 [facility] [id number] [place] [address] 74108- 1074 Jan, [facility] [address] 45015- 0196 Dec, [facility] [id number] [place] [address] 68850- 6978 Dec, [facility] [address] 96904- 7696 Dec, [facility] [id number] [place] [address] 41224- 6834 Oct, Bronchitis J40 [facility] [id number] [place] [address] 12521- 2427 Sep, [facility] [id number] [place] [address] 67516- 8882 Sep, [facility] [id number] [place] [address] 09108- 1445 Jul, [facility] [id number] [place] [address] 46954- 6871 June, Acute pansinusitis, recurrence not specified J01.40 [facility] [id number] [place] [address] 80383- 6032 May, Chronic atrial fibrillation I48.2 and Coronary artery disease involving [place] coronary artery of [place] heart without angina pectoris I25.10 [facility] [id number] [place] [address] 70119- 6256 Apr, [facility] [id number] [place] [address] 42869- 9385 Apr, Tachycardia R00.0 [facility] [address] [place] [address] 92539- 9257 Apr, [facility] [place] [address] [id number] Mar, [facility] [id number] [place] [address] 35057- 0058 Mar, [facility] [id number] [place] [address] 63968- 0587 Mar, Chest pain at rest R07.9 and Rapid heart rate R00.0 [facility] [id number] [place] [address] 56359- 0340 Mar, Chronic obstructive pulmonary disease, unspecified COPD type J44.9 [facility] [id number] [place] [address] 17749- 0887 Mar, Chronic obstructive pulmonary disease, unspecified COPD type J44.9 [facility] [id number] [place] [address] 48991- 8229 Feb, Functional diarrhea K59.1 [place] [id number] [place] [address] 80742- 9199 Feb, Dysuria R30.0 ; Diarrhea of presumed infectious origin A09 and Abnormal LFTs R79.89 [place] [id number] [place] [address] 17935- 2331 Feb, Abnormal LFTs R79.89 [facility] [id number] [place] [address] 20359- 1222 Feb, Abnormal LFTs R79.89 [facility] [id number] [place] [address] 96255- 6346 Feb, Diarrhea of presumed infectious origin A09 [facility] [id number] [place] [address] 11986- 3523 Jan, Acute nasopharyngitis J00 [facility] [id number] [place] [address] [place] [address]- 8318 Nov, [facility] [address] [place] [address] 6845 Nov, [facility] [address] 2560 Mar, Blood in stool K92.1 [facility] [id number] [place] [address] 40128- 9086 Dec, [facility] [id number] [place] [address] 97550- 0243 Nov, Abdominal pain, right upper quadrant R10.11 and H. pylori infection A04.8 [facility] [address], [place] [address]- 8220 Jul, [facility] [id number] [place] [address] 21148- 4598 14 May, 2014 [facility] [address], [place] [address]- 2976 May, [facility] [address], [place] [address]- 9733 Jan, [facility] [address], [place] [address]- 0550 Jan, [facility] [address], [place] [address]- 0468 Dec, [facility] [address], [place] [address]- 5349 Dec, [facility] [address], [place] [address]- 7386 Dec, [facility] [address], [place] [address]- 5512 Dec, [facility] [address], [place] [address]- 8433 14 Dec, 2013 [facility] [id number] [place] [address]- 7913 14 Dec, 2013 [facility] [place] [facility] [address] [id number] [place] [address]- 6243 15 Nov, 2013 [facility] [place] [facility] [address] [id number] [place] [address]- 0216 15 Nov, 2013 [facility] [place] [facility] [address] [id number] [place] [address]- 4453 07 Nov, 2013 [facility] [place] [facility] [address] [id number] [place] [address]- 8743 07 Nov, 2013 [facility] [place] [facility] [address] [id number] [place] [address]- 6750 30 Sep, 2013 [facility] [place] [facility] [address] [id number] [place] [address]- 2578 30 Sep, 2013 [facility] [place] [facility] [address] [id number] [place] [address]- 2543 24 Sep, 2013 [facility] [place] [facility] [address] [id number] [place] [address]- 0587 24 Sep, 2013 [facility] [place] [facility] [address] [id number] [place] [address]- 2544 17 Sep, 2013 [facility] [place] [facility] [address] [id number] [place] [address]- 5685 17 Sep, 2013 [facility] [place] [facility] [address] [id number] [place] [address]- 2545 10 Sep, 2013 [facility] [place] [facility] [address] [id number] [place] [address]- 2544 10 Sep, 2013 [facility] [place] [facility] [address] [id number] [place] [address]- 2542 08 Sep, 2013 [facility] [place] [facility] [address] [id number] [place] [address]- 2548 08 Sep, 2013 [facility] [place] [facility] [address] [id number] [place] [address]- 6927 Oct, [facility] [place] [facility] [address] [id number] [place] [address]- 4129 Oct, [facility] [place] [facility] [address] [id number] [place] [address]- 2801 Oct, [facility] [place] [facility] [address] [id number] [place] [address]- 0169 Sep, [facility] [place] [facility] [address] [id number] [place] [address]- 0119 Sep, [facility] [place] [facility] [address] [id number] [place] [address]- 3753 Jul, [facility] [place] [facility] [address] [id number] [place] [address]- 1595 Jul, [facility] [place] [facility] [address] [id number] [place] [address]- 5926 June, [facility] [place] [facility] [address] [id number] [place] [address]- 4457 June, [facility] [place] [facility] [address] [id number] [place] [address]- 9445 June, [facility] [place] [facility] [address] [id number] [place] [address]- 0177 June, [facility] [place] [facility] [address] [id number] [place] [address]- 8442 May, [facility] [place] [facility] [address] [id number], [place] [address]- 6218 May, [facility] [place] [facility] [address] [id number] [place] [address]- 8501 May, [facility] [place] [facility] [address] [id number] [place] [address]- 5235 May, [facility] [place] [facility] [address] [id number] [place] [address]- 1274 May, [facility] [place] [facility] [address] [id number], [place] [address]- 2671 04 May, 2013 [facility] [address] [id number] [place] [address]- 6846 10 Oct, 2012 [facility] [address] [id number] [place] [address]- 6836 05 Oct, 2012 [facility] [address] [id number] [place] [address]- 8462 Jul, [facility] [address] [id number] [place] [address]- 1777 June, [facility] [address] [id number] [place] [address]- 8484 June, [facility] [address] [id number] [place] [address]- 1618 June, [facility] [address] [place] [address]- 8338 June, [facility] [address] [id number] [place] [address]- 0054 May, [facility] [address] [id number] [place] [address]- 4631 May, [facility] [id number] [place] [address]- 6787 Mar, [facility] [address] [id number] [place] [address]- 0004 Mar, [facility] [address] [id number], [place] [address]- 6640 Feb, [facility] [address] [id number] [place] [address]- 3548 Feb, [facility] [address] [id number] [place] [address]- 4985 Feb, [facility] [address] [facility] [id number], [place] [address]- 1554 Jan, [facility] [address] [id number] [place] [address]- 1548 Jan, [facility] [place] [facility] [address] [id number] [place] [address]- 3830 Dec, [facility] [place] [facility] [address] [id number] [place] [address]- 1886 Dec, [facility] [place] [facility] [address] [id number] [place] [address], [place] [address]- 5147 Nov, [facility] [place] [facility] [address] [id number] [place] [address]- 4473 Oct, [facility] [place] [facility] [address] [id number] [place] [address], [place] [address]- 5907 Aug, [facility] [place] [facility] [address] [id number] [place] [address]- 1816 Jul, [facility] [place] [facility] [address] [id number] [place] [address]- 0203 Jul, [facility] [place] [facility] [address] [id number] [place] [address]- 0176 Mar, [facility] [place] [facility] [address] [id number] [place] [address]- 7446 Mar, [facility] [place] [facility] [address] [id number] [place] [address]- 5879 Mar, [facility] [place] [facility] [address] [id number] [place] [address]- 0386 Feb, [facility] [place] [facility] [address] [id number] [place] [address]- 6005 Feb, [facility] [place] [facility] [address] [id number] [place] [address]- 9139 Feb, [facility] [place] [facility] [address] [id number] [place] [address]- 4104 Feb, [facility] [place] [facility] [address] [id number] [place] [address]- 9976 Feb, [facility] [address] [facility] [id number] [place] [address]- 2276 Feb, [facility] [address] [facility] [id number] [place] [address]- 8876 June, IMMUNIZATIONS No Known Immunizations SOCIAL HISTORY Never Assessed REASON FOR VISIT Pain PLAN OF CARE VITAL SIGNS MEDICATIONS No [...]
--- OUTSIDE RECORDS SUMMARY | 2018-04-21 12:55 | XMS REPORT ---
Author Author YASHIRA MENENDEZ Organization [facility] Address [address] [place] [address] Care Team Providers Care Energy Conservation Technician Name Role Phone YASHIRA MENENDEZ Unavailable PROBLEMS Type Condition ICD9-CM Code ZAC06-OI Code Onset Dates Condition Status SNOMED Code Problem Mononeuropathy G58.9 Active 067908720 Problem Chronic atrial fibrillation I48.2 Active 337939089 Problem Diarrhea of presumed infectious origin A09 Active 53277069 Problem Abnormal LFTs R79.89 Active 895891786 Problem Coronary artery disease involving rampart coronary artery of rampart heart without angina pectoris I25.10 Active [id number] Problem Chronic obstructive pulmonary disease, unspecified COPD type J44.9 Active [id number] ALLERGIES No Information ENCOUNTERS Encounter Location Date Diagnosis [facility] [id number] [place] [address] 01091- 6222 June, [facility] [id number] [place] [address] 97377- 4004 May, [facility] [id number] [place] [address] 68229- 4909 Apr, Chronic atrial fibrillation I48.2 [facility] [id number] [place] [address] 58134- 2991 Mar, Mononeuropathy G58.9 [facility] [id number] [place] [address] 59507- 3113 Mar, Mononeuropathy G58.9 [facility] [id number] [place] [address] 35716- 9503 Feb, [facility] [id number] [place] [address] 12989- 7890 Feb, [facility] [id number] [place] [address] 63235- 7436 Feb, Herpes zoster without complication B02.9 and Family history of cancer Z80.9 [facility] [id number] [place] [address] 29784- 1592 Jan, [facility] [id number] [place] [address] 63651- 9374 Dec, [facility] [id number] [place] [address] 36612- 7186 Dec, [facility] [id number] [place] [address] 24964- 7588 Dec, [facility] [id number] [place] [address] 23412- 5920 Oct, Bronchitis J40 [facility] [id number] [place] [address] 88195- 2306 Sep, [facility] [id number] [place] [address] 56847- 4362 Sep, [facility] [id number] [place] [address] 36646- 1544 Jul, [facility] [id number] [place] [address] 85894- 3398 June, Acute pansinusitis, recurrence not specified J01.40 [facility] [id number] [place] [address] 62157- 4518 May, Chronic atrial fibrillation I48.2 and Coronary artery disease involving rampart coronary artery of rampart heart without angina pectoris I25.10 [facility] [id number] [place] [address] 80682- 6039 Apr, [facility] [id number] [place] [address] 93616- 6425 10 Apr, 2016 Tachycardia R00.0 [facility] [id number] [place] [address] 59963- 2918 Apr, [facility] [id number] [place] [address] [id number] Mar, [facility] [id number] [place] [address] 48585- 3754 Mar, [facility] [id number] [place] [address] 50229- 8975 Mar, Chest pain at rest R07.9 and Rapid heart rate R00.0 [facility] [id number] [place] [address] 47333- 8243 Mar, Chronic obstructive pulmonary disease, unspecified COPD type J44.9 [facility] [id number] [place] [address] 74705- 4731 Mar, Chronic obstructive pulmonary disease, unspecified COPD type J44.9 [facility] [id number] [place] [address] 70860- 0962 Feb, Functional diarrhea K59.1 [facility] [id number] [place] [address] 16699- 6826 Feb, Dysuria R30.0 ; Diarrhea of presumed infectious origin A09 and Abnormal LFTs R79.89 [facility] [id number] [place] [address] 61730- 1174 Feb, Abnormal LFTs R79.89 [facility] [id number] [place] [address] 31763- 3610 Feb, Abnormal LFTs R79.89 [facility] [id number] [place] [address] 40030- 3625 Feb, Diarrhea of presumed infectious origin A09 [facility] [id number] [place] [address] 34809- 4410 Jan, Acute nasopharyngitis J00 [facility] [id number] [place] [address] 19676- 7379 Nov, [facility] [id number] [address] 6094 Nov, [facility] [id number] [address]- 9927 Mar, Blood in stool K92.1 [facility] [id number] [address]- 6443 Dec, [facility] [id number] [address]- 4733 Nov, Abdominal pain, right upper quadrant R10.11 and H. pylori infection A04.8 [facility] [id number] [place] [address]- 8306 Jul, [facility] [id number] [address]- 9245 14 May, 2014 [facility] [id number] [place] [address] 96040- 3181 May, [facility] [id number] [address]- 9700 Jan, [facility] [id number] [address]- 9763 Jan, [facility] [id number] [address]- 0210 Dec, [facility] [id number] [address]- 5267 Dec, [facility] [id number] [address]- 8387 Dec, [facility] [id number] [address]- 9077 Dec, [facility] [id number] [address]- 2882 14 Dec, 2013 [facility] [id number] [address]- 1460 Dec, [facility] [place] [facility] [address] [id number] [place] [address]- 4979 15 Nov, 2013 [facility] [place] [facility] [address] [id number] [place] [address]- 0864 15 Nov, 2013 [facility] [place] [facility] [address] [id number] [place] [address]- 2146 07 Nov, 2013 [facility] [place] [facility] [address] [id number] [place] [address]- 6557 07 Nov, 2013 [facility] [place] [facility] [address] [id number] [place] [address]- 2610 30 Sep, 2013 [facility] [place] [facility] [address] [id number] [place] [address]- 3738 30 Sep, 2013 [facility] [place] [facility] [address] [id number] [place] [address]- 1742 24 Sep, 2013 [facility] [place] [facility] [address] [id number] [place] [address]- 2543 24 Sep, 2013 [facility] [place] [facility] [address] [id number] [place] [address]- 2545 17 Sep, 2013 [facility] [place] [facility] [address] [id number] [place] [address]- 2544 17 Sep, 2013 [facility] [place] [facility] [address] [id number] [place] [address]- 2544 10 Sep, 2013 [facility] [place] [facility] [address] [id number] [place] [address]- 2548 10 Sep, 2013 [facility] [place] [facility] [address] [id number] [place] [address] 2543 08 Sep, 2013 [facility] [place] [facility] [address] [id number] [place] [address] 2546 08 Sep, 2013 [facility] [place] [facility] [address] [id number] [place] [address]- 2546 05 Sep, 2013 [facility] [place] [facility] [address] [id number] [place] [address]- 2541 Oct, [facility] [place] [facility] [address] [id number] [place] [address]- 0534 Oct, [facility] [place] [facility] [address] [id number] [place] [address]- 8374 Sep, [facility] [place] [facility] [address] [id number] [place] [address]- 3752 Sep, [facility] [place] [facility] [address] [id number] [place] [address]- 1970 Jul, [facility] [place] [facility] [address] [id number] [place] [address]- 6848 Jul, [facility] [place] [facility] [address] [id number] [place] [address]- 3597 June, [facility] [place] [facility] [address] [id number] [place] [address]- 1499 June, [facility] [place] [facility] [address] [id number] [place] [address]- 9498 June, [facility] [place] [facility] [address] [id number] [place] [address]- 4204 June, [facility] [place] [facility] [address] [id number] [place] [address]- 2834 May, [facility] [place] [facility] [address] [id number] [place] [address]- 2331 May, [facility] [place] [facility] [address] [id number] [address]- 9226 May, [facility] [place] [facility] [address] [id number] [place] [address]- 3215 May, [facility] [place] [facility] [address] [id number] [place] [address]- 7683 May, [facility] [place] [facility] [address] [id number] [place] [address]- 0579 May, [facility] [place] [facility] [address] [id number] [place] [address]- 0632 10 Oct, 2012 [facility] [address] [id number] [place] [address]- 7789 05 Oct, 2012 [facility] [address] [id number] [place] [address]- 2626 18 Jul, 2012 [facility] [address] [id number] [place] [address]- 5806 June, [facility] [address] [id number] [place] [address]- 0139 June, [facility] [address] [id number] [place] [address]- 5010 June, [facility] [address] [id number] [place] [address]- 2546 June, [facility] [address] [id number] [place] [address]- 8844 May, [facility] [address] [id number] [place] [address]- 6751 May, [facility] [address] [id number] [place] [address]- 5744 Mar, [facility] [address] [id number] [place] [address]- 2106 Mar, [facility] [address] [id number] [place] [address]- 1834 Feb, [facility] [address] [id number] [place] [address]- 6686 Feb, [facility] [place] [facility] [address] [id number] [place] [address]- 2133 Feb, [facility] [place] [facility] [address] [id number] [place] [address]- 3236 Jan, [facility] [address] [id number] [place] [address]- 7789 14 Jan, 2012 [facility] [address] [id number] [place] [address]- 6124 Dec, [facility] [place] [facility] [address] [id number] [place] [address]- 9637 Dec, [facility] [place] [facility] [address] [id number] [place] [address]- 6936 Nov, [facility] [place] [facility] [address] [id number] [place] [address]- 3661 Oct, [facility] [place] [facility] [address] [id number] [place] [address]- 9800 Aug, [facility] [place] [facility] [address] [id number] [place] [address]- 4337 Jul, [facility] [place] [facility] [address] [facility] [id number] [place] [address]- 1680 Jul, [facility] [place] [facility] [address] [id number] [place] [address]- 9047 Mar, [facility] [place] [facility] [address] [id number] [place] [address]- 8695 Mar, [facility] [place] [facility] [address] [facility] [id number] [place] [address]- 1788 Mar, [facility] [place] [facility] [address] [id number] [place] [address]- 8336 Feb, [facility] [place] [facility] [address] [id number] [address]- 6050 Feb, [facility] [place] [facility] [address] [id number] [place] [address]- 2927 Feb, [facility] [place] [facility] [address] [id number] [place] [address]- 0466 Feb, [facility] [place] [facility] [address] [facility] [id number] [place] [address]- 2026 Feb, [facility] [place] [facility] [address] [id number] [place] [address]- 4127 Feb, [facility] [address] [facility] [id number] [place] [address]- 3873 June, IMMUNIZATIONS No Known Immunizations SOCIAL HISTORY [...]
--- OUTSIDE RECORDS SUMMARY | 2018-04-21 12:55 | XMS REPORT ---
Author Author YASHIRA MENENDEZ Organization [facility] Address [address] [place] [address] Care Team Providers Care [employer] Name Role Phone YASHIRA MENENDEZ Unavailable PROBLEMS Type Condition ICD9-CM Code FAM22-DI Code Onset Dates Condition Status SNOMED Code Problem Abnormal LFTs R79.89 Active 864004225 Problem Seasonal allergic rhinitis due to other allergic trigger J30.89 Active 281303973 Problem Mononeuropathy G58.9 Active 778685211 Problem Chronic obstructive pulmonary disease, unspecified COPD type J44.9 Active 65918930 Problem Diarrhea of presumed infectious origin A09 Active 03094241 Problem Chronic atrial fibrillation I48.2 Active 231381366 Problem 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 Active [id number] ALLERGIES No Information ENCOUNTERS Encounter Location Date Diagnosis [place] [id number] [place] [address] 05120- 2061 June, Seasonal allergic rhinitis due to other allergic trigger J30.89 [place] [id number] [place] [address] 00104- 6391 May, [place] [id number] [place] [address] 82891- 2401 Apr, Chronic atrial fibrillation I48.2 [facility] [id number] [place] [address] 71439- 5772 Mar, Mononeuropathy G58.9 [facility] [address] 0[address]01- 1354 Mar, Mononeuropathy G58.9 [facility] [id number] [place] [address] 27501- 1683 Feb, [place] [id number] [place] [address] 4092 Feb, [facility] [id number] [place] [address] 49296- 6436 Feb, Herpes zoster without complication B02.9 and Family history of cancer Z80.9 [facility] [id number] [place] [address] 57113- 3428 Jan, [facility] [address] 11172- 6112 Dec, [facility] [id number] [place] [address] 85073- 5677 Dec, [facility] [address] 09176- 1815 Dec, [facility] [id number] [place] [address] 77935- 7407 Oct, Bronchitis J40 [facility] [id number] [place] [address] 99531- 1500 Sep, [facility] [id number] [place] [address] 61009- 0185 Sep, [facility] [id number] [place] [address] 91547- 0033 Jul, [facility] [id number] [place] [address] 70148- 7125 June, Acute pansinusitis, recurrence not specified J01.40 [facility] [id number] [place] [address] 54177- 4466 May, Chronic atrial fibrillation I48.2 and 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 [facility] [id number] [place] [address] 36595- 5619 Apr, [facility] [id number] [place] [address] 73993- 4475 Apr, Tachycardia R00.0 [facility] [id number] [place] [address] 80606- 8774 Apr, [facility] [address] [id number] Mar, [facility] [id number] [place] [address] 50983- 9556 Mar, [facility] [id number] [place] [address] 83144- 1451 Mar, Chest pain at rest R07.9 and Rapid heart rate R00.0 [facility] [id number] [place] [address] 76266- 0382 Mar, Chronic obstructive pulmonary disease, unspecified COPD type J44.9 [facility] [id number] [place] [address] 78448- 6303 Mar, Chronic obstructive pulmonary disease, unspecified COPD type J44.9 [facility] [id number] [place] [address] 58105- 5851 Feb, Functional diarrhea K59.1 [place] [id number] [place] [address] 94464- 1954 Feb, Dysuria R30.0 ; Diarrhea of presumed infectious origin A09 and Abnormal LFTs R79.89 [place] [id number] [place] [address] 93138- 9107 Feb, Abnormal LFTs R79.89 [facility] [id number] [place] [address] 01254- 9807 Feb, Abnormal LFTs R79.89 [facility] [id number] [place] [address] 92760- 8632 Feb, Diarrhea of presumed infectious origin A09 [facility] [id number] [place] [address] 45926- 3980 Jan, Acute nasopharyngitis J00 [facility] [id number] [place] [address] [place] [address]- 4209 Nov, [facility] [address] [address] 1456 Nov, [facility] [address] 3543 Mar, Blood in stool K92.1 [facility] [id number] [place] [address] 23208- 0023 Dec, [facility] [id number] [place] [address] 86865- 3914 Nov, Abdominal pain, right upper quadrant R10.11 and H. pylori infection A04.8 [facility] [address] [address]- 9970 Jul, [facility] [id number] [place] [address] 49389- 1405 14 May, 2014 [facility] [address] [address]- 0742 May, [facility] [address] [address]- 8284 Jan, [facility] [address] [address]- 5978 Jan, [facility] [address], [place] [address]- 2432 Dec, [facility] [address], [place] [address]- 2149 Dec, [facility] [address] [address]- 3539 Dec, [facility] [address] [address]- 7843 Dec, [facility] [address], [place] [address]- 2286 14 Dec, 2013 [facility] [id number] [place] [address]- 8053 14 Dec, 2013 [facility] [place] [facility] [address] [id number] [place] [address]- 1619 15 Nov, 2013 [facility] [place] [facility] [address] [id number] [place] [address]- 0126 15 Nov, 2013 [facility] [place] [facility] [address] [id number] [place] [address]- 2330 07 Nov, 2013 [facility] [place] [facility] [address] [id number] [place] [address]- 2376 07 Nov, 2013 [facility] [place] [facility] [address] [id number] [place] [address]- 3746 30 Sep, 2013 [facility] [place] [facility] [address] [id number] [place] [address]- 6463 30 Sep, 2013 [facility] [place] [facility] [address] [id number] [place] [address]- 2547 24 Sep, 2013 [facility] [place] [facility] [address] [id number] [place] [address]- 2147 24 Sep, 2013 [facility] [place] [facility] [address] [id number] [place] [address]- 2549 17 Sep, 2013 [facility] [place] [facility] [address] [id number] [place] [address]- 6745 17 Sep, 2013 [facility] [place] [facility] [address] [id number] [place] [address]- 2541 10 Sep, 2013 [facility] [place] [facility] [address] [id number] [place] [address]- 2543 10 Sep, 2013 [facility] [place] [facility] [address] [id number] [place] [address]- 2544 08 Sep, 2013 [facility] [place] [facility] [address] [id number] [place] [address]- 2544 08 Sep, 2013 [facility] [place] [facility] [address] [id number] [place] [address]- 1639 Oct, [facility] [place] [facility] [address] [id number] [place] [address]- 8658 Oct, [facility] [place] [facility] [address] [id number] [place] [address]- 5354 Oct, [facility] [place] [facility] [address] [id number] [place] [address]- 0216 Sep, [facility] [place] [facility] [address] [id number] [place] [address]- 6078 Sep, [facility] [place] [facility] [address] [id number] [place] [address]- 7014 Jul, [facility] [place] [facility] [address] [id number] [place] [address]- 5678 Jul, [facility] [place] [facility] [address] [id number] [place] [address]- 8052 June, [facility] [place] [facility] [address] [id number] [place] [address]- 7125 June, [facility] [place] [facility] [address] [id number] [place] [address]- 3579 June, [facility] [place] [facility] [address] [id number] [place] [address]- 3059 June, [facility] [place] [facility] [address] [id number] [place] [address]- 5769 May, [facility] [place] [facility] [address] [id number], [place] [address]- 1699 May, [facility] [place] [facility] [address] [id number] [place] [address]- 0737 May, [facility] [place] [facility] [address] [id number] [place] [address]- 6653 May, [facility] [place] [facility] [address] [id number] [place] [address]- 4001 May, [facility] [place] [facility] [address] [id number], [place] [address]- 4672 04 May, 2013 [facility] [address] [id number] [place] [address]- 5156 10 Oct, 2012 [facility] [address] [id number] [place] [address]- 2656 05 Oct, 2012 [facility] [address] [id number] [place] [address]- 3168 Jul, [facility] [address] [id number] [place] [address]- 7224 June, [facility] [address] [id number] [place] [address]- 6638 June, [facility] [address] [id number] [place] [address]- 8810 June, [facility] [id number] [place] [address]- 8428 June, [facility] [address] [id number] [place] [address]- 3882 May, [facility] [address] [id number] [place] [address]- 5478 May, [facility] [id number] [place] [address]- 2804 Mar, [facility] [address] [id number] [place] [address]- 1473 Mar, [facility] [address] [id number], [place] [address]- 0491 Feb, [facility] [address] [id number] [place] [address]- 0459 Feb, [facility] [address] [id number] [place] [address]- 3251 Feb, [facility] [address] [facility] [id number], [place] [address]- 6542 Jan, [facility] [address] [id number] [place] [address]- 3157 Jan, [facility] [place] [facility] [address] [id number] [place] [address]- 6909 Dec, [facility] [place] [facility] [address] [id number] [place] [address]- 8506 Dec, [facility] [place] [facility] [address] [id number] [place] [address], [place] [address]- 2502 Nov, [facility] [place] [facility] [address] [id number] [place] [address]- 2962 Oct, [facility] [place] [facility] [address] [id number] [place] [address], [place] [address]- 1929 Aug, [facility] [place] [facility] [address] [id number] [place] [address]- 0219 Jul, [facility] [place] [facility] [address] [id number] [place] [address]- 7783 Jul, [facility] [place] [facility] [address] [id number] [place] [address]- 3975 Mar, [facility] [place] [facility] [address] [id number] [place] [address]- 8606 Mar, [facility] [place] [facility] [address] [id number] [place] [address]- 1656 Mar, [facility] [place] [facility] [address] [id number] [place] [address]- 2684 Feb, [facility] [place] [facility] [address] [id number] [place] [address]- 5713 Feb, [facility] [place] [facility] [address] [id number] [place] [address]- 8777 Feb, [facility] [place] [facility] [address] [id number] [place] [address]- 1715 Feb, [facility] [place] [facility] [address] [id number] [place] [address]- 3086 Feb, [facility] [address] [facility] [id number] [place] [address]- 4706 Feb, [facility] [address] [facility] [id number] [place] [address]- 6826 June, IMMUNIZATIONS No Known Immunizations SOCIAL HISTORY Never Assessed REASON FOR VISIT Medication question PLAN OF CARE VITAL SIGNS MEDICATIONS No [...]
[2018-04-21] MEDS ORDERED: APIX5TAB PO ×2 (12:58)
[2018-04-21] MEDS ORDERED: GBPN600T PO ×2 (12:58)
[2018-04-21] MEDS ORDERED: ASPI-983 PO ×2 (12:58)
[2018-04-21] MEDS ORDERED: DILT180C67 PO (12:58)
[2018-04-21] MEDS ORDERED: FENO135C PO ×2 (12:58)
[2018-04-21] MEDS ORDERED: CETI10TA20 PO ×2 (12:58)
--- OUTSIDE RECORDS SUMMARY | 2018-04-21 13:00 | XMS REPORT | Continuity of Care Document ---
Author Author [facility] Address Unknown Phone Unavailable Allergies Active Description Code Type Severity Reaction Onset Reported/Identified Relationship to Patient Clinical Status Yes Mobic 7.5 mg Tablet Drug Allergy 11/18/2011 Yes Mobic 7.5 mg Tablet Drug Allergy N/A N/A 11/18/2011 Yes NKANo Known Allergies NKA Miscellaneous Allergy Mild N/A 05/30/2015 Medications There is no data. Problems Date Dx Coded Attending Type Code Diagnosis Diagnosed By 10/03/2007 V70.3 Sports/school Exam 10/03/2007 YASHIRA MENENDEZ APRN V70.3 Sports/school Exam 10/03/2007 V70.3 Sports/school Exam 10/03/2007 JUANJO PETERS DO V70.3 Sports/school Exam 10/03/2007 V70.3 Sports/school Exam 10/03/2007 V70.3 Sports/school Exam 10/03/2007 V70.3 Sports/school Exam 10/03/2007 V70.3 Sports/school Exam 10/03/2007 ROSITA BOYD APRN R V70.3 Sports/school Exam 10/03/2007 YASHIRA MENENDEZ APRN V70.3 Sports/school Exam 10/03/2007 YASHIRA MENENDEZ APRN V70.3 Sports/school Exam 10/03/2007 ASHLEY BANERJEE APRN S V70.3 Sports/school Exam 10/03/2007 JUANJO PETERS DO V70.3 Sports/school Exam 10/03/2007 YASHIRA MENENDEZ APRN V70.3 Sports/school Exam 10/03/2007 ASHLEY BANERJEE APRN S V70.3 Sports/school Exam 10/03/2007 ROSITA BOYD APRN R V70.3 Sports/school Exam 06/22/2008 796.2 ELEVATED BLOOD PRESSURE READING WITHOUT DIAGNOSIS OF HYPERTENSION 06/22/2008 YASHIRA MENENDEZ APRN 796.2 ELEVATED BLOOD PRESSURE READING WITHOUT DIAGNOSIS OF HYPERTENSION 06/22/2008 796.2 ELEVATED BLOOD PRESSURE READING WITHOUT DIAGNOSIS OF HYPERTENSION 06/22/2008 FRENCH PETERS DOA K 796.2 ELEVATED BLOOD PRESSURE READING WITHOUT DIAGNOSIS OF HYPERTENSION 06/22/2008 796.2 ELEVATED BLOOD PRESSURE READING WITHOUT DIAGNOSIS OF HYPERTENSION 06/22/2008 796.2 ELEVATED BLOOD PRESSURE READING WITHOUT DIAGNOSIS OF HYPERTENSION 06/22/2008 796.2 ELEVATED BLOOD PRESSURE READING WITHOUT DIAGNOSIS OF HYPERTENSION 06/22/2008 796.2 ELEVATED BLOOD PRESSURE READING WITHOUT DIAGNOSIS OF HYPERTENSION 06/22/2008 ROSITA BOYD APRN R 796.2 ELEVATED BLOOD PRESSURE READING WITHOUT DIAGNOSIS OF HYPERTENSION 06/22/2008 YASHIRA MENENDEZ APRN T 796.2 ELEVATED BLOOD PRESSURE READING WITHOUT DIAGNOSIS OF HYPERTENSION 06/22/2008 YASHIRA MENENDEZ APRN T 796.2 ELEVATED BLOOD PRESSURE READING WITHOUT DIAGNOSIS OF HYPERTENSION 06/22/2008 ASHLEY BANERJEE APRN S 796.2 ELEVATED BLOOD PRESSURE READING WITHOUT DIAGNOSIS OF HYPERTENSION 06/22/2008 PETERS FRENCHA K 796.2 ELEVATED BLOOD PRESSURE READING WITHOUT DIAGNOSIS OF HYPERTENSION 06/22/2008 YASHIRA MENENDEZ APRN T 796.2 ELEVATED BLOOD PRESSURE READING WITHOUT DIAGNOSIS OF HYPERTENSION 06/22/2008 ASHLEY BANERJEE APRN S 796.2 ELEVATED BLOOD PRESSURE READING WITHOUT DIAGNOSIS OF HYPERTENSION 06/22/2008 ROSITA BOYD APRN R 796.2 ELEVATED BLOOD PRESSURE READING WITHOUT DIAGNOSIS OF HYPERTENSION 02/08/2011 Ot 038.9 SEPTICEMIA NOS 02/08/2011 Ot 112.4 CANDIDIASIS OF LUNG 02/08/2011 Ot 276.52 HYPOVOLEMIA 02/08/2011 Ot 300.00 ANXIETY STATE NOS 02/08/2011 Ot 305.1 TOBACCO USE DISORDER 02/08/2011 Ot 305.70 AMPHETAMINE ABUSE-UNSPEC 02/08/2011 Ot 473.9 CHRONIC SINUSITIS NOS 02/08/2011 Ot 482.9 BACTERIAL PNEUMONIA NOS 02/08/2011 Ot 490 BRONCHITIS NOS 02/08/2011 Ot 733.6 TIETZE'S DISEASE 02/08/2011 Ot 780.52 INSOMNIA, UNSPECIFIED 02/08/2011 Ot 995.91 SEPSIS 02/28/2011 300.00 ANXIETY STATE UNSPECIFIED 02/28/2011 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 02/28/2011 482.9 Bacterial Pneumonia Unspecified 02/28/2011 486 Pneumonia Unspecified 02/28/2011 491.9 UNSPECIFIED CHRONIC BRONCHITIS 02/28/2011 780.52 INSOMNIA UNSPECIFIED 02/28/2011 YASHIRA MENENDEZ APRN 300.00 ANXIETY STATE UNSPECIFIED 02/28/2011 YASHIRA MENENDEZ APRN 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 02/28/2011 YASHIRA MENENDEZ APRN 482.9 Bacterial Pneumonia Unspecified 02/28/2011 YASHIRA MENENDEZ APRN 486 Pneumonia Unspecified 02/28/2011 YASHIRA MENENDEZ APRN 491.9 UNSPECIFIED CHRONIC BRONCHITIS 02/28/2011 YASHIRA MENENDEZ APRN 780.52 INSOMNIA UNSPECIFIED 02/28/2011 300.00 ANXIETY STATE UNSPECIFIED 02/28/2011 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 02/28/2011 482.9 Bacterial Pneumonia Unspecified 02/28/2011 486 Pneumonia Unspecified 02/28/2011 491.9 UNSPECIFIED CHRONIC BRONCHITIS 02/28/2011 780.52 INSOMNIA UNSPECIFIED 02/28/2011 JUANJO PETERS DO K 300.00 ANXIETY STATE UNSPECIFIED 02/28/2011 LORRAINE AGUILERA JUANJO K 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 02/28/2011 FRENCH PETERS DOA K 482.9 Bacterial Pneumonia Unspecified 02/28/2011 LORRAINE AGUILERA JUANJO K 486 Pneumonia Unspecified 02/28/2011 LORRAINE AGUILERA JUANJO K 491.9 UNSPECIFIED CHRONIC BRONCHITIS 02/28/2011 LORRAINE AGUILERA JUANJO K 780.52 INSOMNIA UNSPECIFIED 02/28/2011 300.00 ANXIETY STATE UNSPECIFIED 02/28/2011 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 02/28/2011 482.9 Bacterial Pneumonia Unspecified 02/28/2011 486 Pneumonia Unspecified 02/28/2011 491.9 UNSPECIFIED CHRONIC BRONCHITIS 02/28/2011 780.52 INSOMNIA UNSPECIFIED 02/28/2011 300.00 ANXIETY STATE UNSPECIFIED 02/28/2011 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 02/28/2011 482.9 Bacterial Pneumonia Unspecified 02/28/2011 486 Pneumonia Unspecified 02/28/2011 491.9 UNSPECIFIED CHRONIC BRONCHITIS 02/28/2011 780.52 INSOMNIA UNSPECIFIED 02/28/2011 300.00 ANXIETY STATE UNSPECIFIED 02/28/2011 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 02/28/2011 DEB FITZGERALDN ROSITA R 482.9 Bacterial Pneumonia Unspecified 02/28/2011 DEB FITZGERALDN ROSITA R 486 Pneumonia Unspecified 02/28/2011 DEB CUTTING INSPECTOR ROSITA R 491.9 UNSPECIFIED CHRONIC BRONCHITIS 02/28/2011 DEB FITZGERALDN ROSITA R 780.52 INSOMNIA UNSPECIFIED 02/28/2011 YASHIRA MENENDEZ APRN 300.00 ANXIETY STATE UNSPECIFIED 02/28/2011 YASHIRA MENENDEZ APRN 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 02/28/2011 YASHIRA MENENDEZ APRN 482.9 Bacterial Pneumonia Unspecified 02/28/2011 YASHIRA MENENDEZ APRN 486 Pneumonia Unspecified 02/28/2011 YASHIRA MENENDEZ APRN 491.9 UNSPECIFIED CHRONIC BRONCHITIS 02/28/2011 YASHIRA MENENDEZ APRN 780.52 INSOMNIA UNSPECIFIED 02/28/2011 YASHIRA MENENDEZ APRN 300.00 ANXIETY STATE UNSPECIFIED 02/28/2011 YASHIRA MENENDEZ APRN 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 02/28/2011 YASHIRA MENENDEZ APRN 482.9 Bacterial Pneumonia Unspecified 02/28/2011 YASHIRA MENENDEZ APRN 486 Pneumonia Unspecified 02/28/2011 YASHIRA MENENDEZ APRN 491.9 UNSPECIFIED CHRONIC BRONCHITIS 02/28/2011 YASHIRA MENENDEZ APRN 780.52 INSOMNIA UNSPECIFIED 02/28/2011 LAVONNE CUTTING INSPECTOR, ASHLEY S 300.00 ANXIETY STATE UNSPECIFIED 02/28/2011 LAVONNE CUTTING INSPECTOR, ASHLEY S 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 02/28/2011 LAVONNE CUTTING INSPECTOR ASHLEY S 482.9 Bacterial Pneumonia Unspecified 02/28/2011 LAVONNE CUTTING INSPECTOR ASHLEY S 486 Pneumonia Unspecified 02/28/2011 LAVONNE CUTTING INSPECTOR, ASHLEY S 491.9 UNSPECIFIED CHRONIC BRONCHITIS 02/28/2011 LAVONNE CUTTING INSPECTOR, ASHLEY S 780.52 INSOMNIA UNSPECIFIED 02/28/2011 PETERS DO, JUANJO K 300.00 ANXIETY STATE UNSPECIFIED 02/28/2011 PETERS DO, JUANJO K 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 02/28/2011 PETERS DO, JUANJO K 482.9 Bacterial Pneumonia Unspecified 02/28/2011 PETERS DO, JUANJO K 486 Pneumonia Unspecified 02/28/2011 PETERS DO, JUANJO K 491.9 UNSPECIFIED CHRONIC BRONCHITIS 02/28/2011 PETERS DO, JUANJO K 780.52 INSOMNIA UNSPECIFIED 02/28/2011 YASHIRA MENENDEZ APRN 300.00 ANXIETY STATE UNSPECIFIED 02/28/2011 YASHIRA MENENDEZ APRN 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 02/28/2011 YASHIRA MENENDEZ APRN 482.9 Bacterial Pneumonia Unspecified 02/28/2011 YASHIRA MENENDEZ APRN 486 Pneumonia Unspecified 02/28/2011 YASHIRA MENENDEZ APRN 491.9 UNSPECIFIED CHRONIC BRONCHITIS 02/28/2011 YASHIRA MENENDEZ APRN 780.52 INSOMNIA UNSPECIFIED 02/28/2011 NYA BANERJEE APRNNDA S 300.00 ANXIETY STATE UNSPECIFIED 02/28/2011 NYA BANERJEE APRNNDA S 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 02/28/2011 LAVONNE CUTTING INSPECTOR ASHLEY S 482.9 Bacterial Pneumonia Unspecified 02/28/2011 LAVONNE CUTTING INSPECTOR ASHLEY S 486 Pneumonia Unspecified 02/28/2011 LAVONNE FITZGERALDNNYAASHLEY S 491.9 UNSPECIFIED CHRONIC BRONCHITIS 02/28/2011 ASHLEY BANERJEE APRN 780.52 INSOMNIA UNSPECIFIED 02/28/2011 ROSITA BOYD APRN R 300.00 ANXIETY STATE UNSPECIFIED 02/28/2011 ROSITA BOYD APRN R 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 02/28/2011 ROSITA BOYD APRN R 482.9 Bacterial Pneumonia Unspecified 02/28/2011 ROSITA BOYD APRN R 486 Pneumonia Unspecified 02/28/2011 ROSITA BOYD APRN R 491.9 UNSPECIFIED CHRONIC BRONCHITIS 02/28/2011 ROSITA BOYD APRN R 780.52 INSOMNIA UNSPECIFIED 03/07/2011 451.82 Phlebitis And Thrombophlebitis Of Superficial Veins Of Upper Extremities 03/07/2011 YASHIRA MENENDEZ APRN 451.82 Phlebitis And Thrombophlebitis Of Superficial Veins Of Upper Extremities 03/07/2011 451.82 Phlebitis And Thrombophlebitis Of Superficial Veins Of Upper Extremities 03/07/2011 JUANJO PETERS DO 451.82 Phlebitis And Thrombophlebitis Of Superficial Veins Of Upper Extremities 03/07/2011 451.82 Phlebitis And Thrombophlebitis Of Superficial Veins Of Upper Extremities 03/07/2011 451.82 Phlebitis And Thrombophlebitis Of Superficial Veins Of Upper Extremities 03/07/2011 451.82 Phlebitis And Thrombophlebitis Of Superficial Veins Of Upper Extremities 03/07/2011 451.82 Phlebitis And Thrombophlebitis Of Superficial Veins Of Upper Extremities 03/07/2011 ROSITA BOYD APRN 451.82 Phlebitis And Thrombophlebitis Of Superficial Veins Of Upper Extremities 03/07/2011 YASHIRA MENENDEZ APRN 451.82 Phlebitis And Thrombophlebitis Of Superficial Veins Of Upper Extremities 03/07/2011 YASHIRA MENENDEZ APRN 451.82 Phlebitis And Thrombophlebitis Of Superficial Veins Of Upper Extremities 03/07/2011 ASHLEY BANERJEE APRN 451.82 Phlebitis And Thrombophlebitis Of Superficial Veins Of Upper Extremities 03/07/2011 JUANJO PETERS DO 451.82 Phlebitis And Thrombophlebitis Of Superficial Veins Of Upper Extremities 03/07/2011 YASHIRA MENENDEZ APRN 451.82 Phlebitis And Thrombophlebitis Of Superficial Veins Of Upper Extremities 03/07/2011 ASHLEY BANERJEE APRN 451.82 Phlebitis And Thrombophlebitis Of Superficial Veins Of Upper Extremities 03/07/2011 ROSITA BOYD APRN 451.82 Phlebitis And Thrombophlebitis Of Superficial Veins Of Upper Extremities 07/31/2011 305.1 NONDEPENDENT TOBACCO USE DISORDER 07/31/2011 V65.42 COUNSELING ON SUBSTANCE USE AND ABUSE 07/31/2011 YASHIRA MENENDEZ APRN 305.1 NONDEPENDENT TOBACCO USE DISORDER 07/31/2011 YASHIRA MENENDEZ APRN V65.42 COUNSELING ON SUBSTANCE USE AND ABUSE 07/31/2011 305.1 NONDEPENDENT TOBACCO USE DISORDER 07/31/2011 V65.42 COUNSELING ON SUBSTANCE USE AND ABUSE 07/31/2011 JUANJO PETERS DO 305.1 NONDEPENDENT TOBACCO USE DISORDER 07/31/2011 JUANJO PETERS DO V65.42 COUNSELING ON SUBSTANCE USE AND ABUSE 07/31/2011 305.1 NONDEPENDENT TOBACCO USE DISORDER 07/31/2011 V65.42 COUNSELING ON SUBSTANCE USE AND ABUSE 07/31/2011 305.1 NONDEPENDENT TOBACCO USE DISORDER 07/31/2011 V65.42 COUNSELING ON SUBSTANCE USE AND ABUSE 07/31/2011 305.1 NONDEPENDENT TOBACCO USE DISORDER 07/31/2011 V65.42 COUNSELING ON SUBSTANCE USE AND ABUSE 07/31/2011 305.1 NONDEPENDENT TOBACCO USE DISORDER 07/31/2011 V65.42 COUNSELING ON SUBSTANCE USE AND ABUSE 07/31/2011 ROSITA BOYD APRN 305.1 NONDEPENDENT TOBACCO USE DISORDER 07/31/2011 ROSITA BOYD APRN V65.42 COUNSELING ON SUBSTANCE USE AND ABUSE 07/31/2011 YASHIRA MENENDEZ APRN 305.1 NONDEPENDENT TOBACCO USE DISORDER 07/31/2011 YASHIRA MENENDEZ APRN V65.42 COUNSELING ON SUBSTANCE USE AND ABUSE 07/31/2011 YASHIRA MENENDEZ APRN 305.1 NONDEPENDENT TOBACCO USE DISORDER 07/31/2011 YASHIRA MENENDEZ APRN V65.42 COUNSELING ON SUBSTANCE USE AND ABUSE 07/31/2011 ASHLEY BANERJEE APRN S 305.1 NONDEPENDENT TOBACCO USE DISORDER 07/31/2011 ASHLEY BANERJEE APRN V65.42 COUNSELING ON SUBSTANCE USE AND ABUSE 07/31/2011 FRENCH PETERS DOA K 305.1 NONDEPENDENT TOBACCO USE DISORDER 07/31/2011 PETERS DO JUANJO K V65.42 COUNSELING ON SUBSTANCE USE AND ABUSE 07/31/2011 YASHIRA MENENDEZ APRN 305.1 NONDEPENDENT TOBACCO USE DISORDER 07/31/2011 YASHIRA MENENDEZ APRN V65.42 COUNSELING ON SUBSTANCE USE AND ABUSE 07/31/2011 ASHLEY BANERJEE APRN S 305.1 NONDEPENDENT TOBACCO USE DISORDER 07/31/2011 ASHLEY BANERJEE APRN S V65.42 COUNSELING ON SUBSTANCE USE AND ABUSE 07/31/2011 ROSITA BOYD APRN R 305.1 NONDEPENDENT TOBACCO USE DISORDER 07/31/2011 ROSITA BOYD APRN R V65.42 COUNSELING ON SUBSTANCE USE AND ABUSE 2011 461.1 ACUTE FRONTAL SINUSITIS 2011 466.0 ACUTE BRONCHITIS 2011 YASHIRA MENENDEZ APRN 461.1 ACUTE FRONTAL SINUSITIS 2011 YASHIRA MENENDEZ APRN 466.0 ACUTE BRONCHITIS 2011 461.1 ACUTE FRONTAL SINUSITIS 2011 466.0 ACUTE BRONCHITIS 2011 PETERS FRENCH AGUILERAA K 461.1 ACUTE FRONTAL SINUSITIS 2011 PETERS DO JUANJO K 466.0 ACUTE BRONCHITIS 2011 461.1 ACUTE FRONTAL SINUSITIS 2011 466.0 ACUTE BRONCHITIS 2011 461.1 ACUTE FRONTAL SINUSITIS 2011 466.0 ACUTE BRONCHITIS 2011 461.1 ACUTE FRONTAL SINUSITIS 2011 466.0 ACUTE BRONCHITIS 2011 461.1 ACUTE FRONTAL SINUSITIS 2011 466.0 ACUTE BRONCHITIS 2011 DEB MARSH ROSITA R 461.1 ACUTE FRONTAL SINUSITIS 2011 JAZZY BOYD APRNINA R 466.0 ACUTE BRONCHITIS 2011 YASHIRA MENENDEZ APRN 461.1 ACUTE FRONTAL SINUSITIS 2011 YASHIRA MENENDEZ APRN 466.0 ACUTE BRONCHITIS 2011 YASHIRA MENENDEZ APRN 461.1 ACUTE FRONTAL SINUSITIS 2011 YASHIRA MENENDEZ APRN 466.0 ACUTE BRONCHITIS 2011 LAVONNE CUTTING INSPECTOR, ASHLEY S 461.1 ACUTE FRONTAL SINUSITIS 2011 LAVONNE CUTTING INSPECTOR, ASHLEY S 466.0 ACUTE BRONCHITIS 2011 PETERS DO, JUANJO K 461.1 ACUTE FRONTAL SINUSITIS 2011 PETERS DO, JUANJO K 466.0 ACUTE BRONCHITIS 2011 SHON CUTTING INSPECTOR, YASHIRA T 461.1 ACUTE FRONTAL SINUSITIS 2011 YASHIRA MENENDEZ APRN T 466.0 ACUTE BRONCHITIS 2011 LAVONNE CUTTING INSPECTOR, ASHLEY S 461.1 ACUTE FRONTAL SINUSITIS 2011 LAVONNE CUTTING INSPECTOR, ASHLEY S 466.0 ACUTE BRONCHITIS 2011 DEB CUTTING INSPECTOR, ROSITA R 461.1 ACUTE FRONTAL SINUSITIS 2011 DEB CUTTING INSPECTOR, ROSITA R 466.0 ACUTE BRONCHITIS 11/18/2011 486 PNEUMONIA UNSPECIFIED 11/18/2011 YASHIRA MENEDNEZ APRN 486 PNEUMONIA UNSPECIFIED 11/18/2011 486 PNEUMONIA UNSPECIFIED 11/18/2011 LORRAINE DO, JUANJO K 486 PNEUMONIA UNSPECIFIED 11/18/2011 486 PNEUMONIA UNSPECIFIED 11/18/2011 486 PNEUMONIA UNSPECIFIED 11/18/2011 486 PNEUMONIA UNSPECIFIED 11/18/2011 486 PNEUMONIA UNSPECIFIED 11/18/2011 DEB CUTTING INSPECTOR, ROSITA R 486 PNEUMONIA UNSPECIFIED 11/18/2011 YASHIRA MENENDEZ APRN 486 PNEUMONIA UNSPECIFIED 11/18/2011 YASHIRA MENENDEZ APRN 486 PNEUMONIA UNSPECIFIED 11/18/2011 LAVONNE MARSH, ASHLEY S 486 PNEUMONIA UNSPECIFIED 11/18/2011 LORRAINE DO JUANJO K 486 PNEUMONIA UNSPECIFIED 11/18/2011 YASHIRA MENENDEZ APRN T 486 PNEUMONIA UNSPECIFIED 11/18/2011 LAVONNE MARSH, ASHLEY S 486 PNEUMONIA UNSPECIFIED 11/18/2011 DEB CUTTING INSPECTOR, ROSITA R 486 PNEUMONIA UNSPECIFIED 03/04/2012 786.2 COUGH 03/04/2012 PETERS DO, JUANJO K 786.2 COUGH 03/04/2012 786.2 COUGH 03/04/2012 786.2 COUGH 03/04/2012 786.2 COUGH 03/04/2012 786.2 COUGH 03/04/2012 DEB FITZGERALDN, ROSITA R 786.2 COUGH 03/04/2012 YASHIRA MENENDEZ APRN 786.2 COUGH 03/04/2012 YASHIRA MENENDEZ APRN 786.2 COUGH 03/04/2012 SUE BANERJEE APRNA S 786.2 COUGH 03/04/2012 PETERS DOFRENCHA K 786.2 COUGH 03/04/2012 YASHIRA MENENDEZ APRN 786.2 COUGH 03/04/2012 SUE BANERJEE APRNA S 786.2 COUGH 03/04/2012 ROSITA BOYD APRN R 786.2 COUGH 03/07/2012 Ot 721.3 LUMBOSACRAL SPONDYLOSIS 03/07/2012 Ot 724.2 LUMBAGO 06/05/2012 414.00 CAD 06/05/2012 414.00 CAD 06/05/2012 414.00 CAD 06/05/2012 414.00 CAD 06/05/2012 ROSITA BOYD APRN R 414.00 CAD 06/05/2012 YASHIRA MENENDEZ APRN 414.00 CAD 06/05/2012 YASHIRA MENENDEZ APRN 414.00 CAD 06/05/2012 ASHLEY BANERJEE APRN S 414.00 CAD 06/05/2012 PETERS JUAJNO AGUILERA K 414.00 CAD 06/05/2012 YASHIRA MENENDEZ APRN 414.00 CAD 06/05/2012 ASHLEY BANERJEE APRN S 414.00 CAD 06/05/2012 ROSITA BOYD APRN R 414.00 CAD 07/01/2012 SUSAN FUNES MD Ot 272.1 PURE HYPERGLYCERIDEMIA 07/01/2012 SUSAN FUNES MD Ot 272.4 HYPERLIPIDEMIA NEC/NOS 07/01/2012 SUSAN FUNES MD Ot 305.1 TOBACCO USE DISORDER 07/01/2012 SUSAN FUNES MD Ot 401.9 HYPERTENSION NOS 07/01/2012 SUSAN FUNES MD Ot 411.1 INTERMED CORONARY SYND 07/01/2012 SUSAN FUNES MD Ot 414.01 CORONARY ATHEROSCLEROSIS OF [place] CORON 07/01/2012 SUSAN FUNES MD Ot 496 CHR AIRWAY OBSTRUCT NEC 07/01/2012 SUSAN FUNES MD Ot V45.82 PERCUTANEOUS TRANSLUM CORON ANGIOPLASTY 07/02/2012 496 COPD 07/02/2012 496 COPD 07/02/2012 496 COPD 07/02/2012 ROSITA BOYD APRN R 496 COPD 07/02/2012 YASHIRA MENENDEZ APRN 496 COPD 07/02/2012 YASHIRA MENENDEZ APRN 496 COPD 07/02/2012 ASHLEY BANERJEE APRN S 496 COPD 07/02/2012 PETERS DO, JUANJO K 496 COPD 07/02/2012 YASHIRA MENENDEZ APRN 496 COPD 07/02/2012 ASHLEY BANERJEE APRN S 496 COPD 07/02/2012 DEB MARSH ROSITA R 496 COPD 07/28/2012 389.9 HEARING LOSS UNSPEC 07/28/2012 477.9 ALLERGIC RHINITIS CAUSE UNSPECIFIED 07/28/2012 389.9 HEARING LOSS UNSPEC 07/28/2012 477.9 ALLERGIC RHINITIS CAUSE UNSPECIFIED 07/28/2012 JAZZY BOYD APRNINA R 389.9 HEARING LOSS UNSPEC 07/28/2012 JAZZY BOYD APRNINA R 477.9 ALLERGIC RHINITIS CAUSE UNSPECIFIED 07/28/2012 YASHIRA MENENDEZ APRN 389.9 HEARING LOSS UNSPEC 07/28/2012 YASHIRA MENENDEZ APRN 477.9 ALLERGIC RHINITIS CAUSE UNSPECIFIED 07/28/2012 YASHIRA MENENDEZ APRN 389.9 HEARING LOSS UNSPEC 07/28/2012 YASHIRA MENENDEZ APRN 477.9 ALLERGIC RHINITIS CAUSE UNSPECIFIED 07/28/2012 SUE BANERJEE APRNA S 389.9 HEARING LOSS UNSPEC 07/28/2012 SUE BANERJEE APRNA S 477.9 ALLERGIC RHINITIS CAUSE UNSPECIFIED 07/28/2012 PETERS DO, JUANJO K 389.9 HEARING LOSS UNSPEC 07/28/2012 PETERS DO, JUANJO K 477.9 ALLERGIC RHINITIS CAUSE UNSPECIFIED 07/28/2012 YASHIRA MENENDEZ APRN 389.9 HEARING LOSS UNSPEC 07/28/2012 YASHIRA MENENDEZ APRN 477.9 ALLERGIC RHINITIS CAUSE UNSPECIFIED 07/28/2012 SUE BANERJEE APRNA S 389.9 HEARING LOSS UNSPEC 07/28/2012 NYA BANERJEE APRNNDA S 477.9 ALLERGIC RHINITIS CAUSE UNSPECIFIED 07/28/2012 JAZZY BOYD APRNINA R 389.9 HEARING LOSS UNSPEC 07/28/2012 DEB MARSH ROSITA R 477.9 ALLERGIC RHINITIS CAUSE UNSPECIFIED 10/12/[address] Ot 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 10/12/[address] Ot 272.4 HYPERLIPIDEMIA NEC/NOS 10/12/2012 BAIMA, LAMAR L LABOR[address] RO[address] Ot 571.8 CHRONIC LIVER DIS NEC 10/12/[address] Ot 780.2 SYNCOPE AND COLLAPSE 10/12/[address] Ot 786.50 CHEST PAIN NOS 10/12/[address] Ot V58.69 OTH MED,LT,CURRENT USE 10/20/2012 491.21 BRONCHITIS AECB 10/20/2012 ROSITA BOYD APRN R 491.21 BRONCHITIS AECB 10/20/2012 YASHIRA MENENDEZ APRN 491.21 BRONCHITIS AECB 10/20/2012 YASHIRA MENENDEZ APRN 491.21 BRONCHITIS AECB 10/20/2012 ASHLEY BANERJEE APRN S 491.21 BRONCHITIS AECB 10/20/2012 JUANJO PETERS DO 491.21 BRONCHITIS AECB 10/20/2012 YASHIRA MENENDEZ APRN 491.21 BRONCHITIS AECB 10/20/2012 ASHLEY BANERJEE APRN S 491.21 BRONCHITIS AECB 10/20/2012 ROSITA BOYD APRN R 491.21 BRONCHITIS AECB 06/25/2013 JESSY PEPPER FACC, JOSEPH FACP CCDS Ot 272.4 HYPERLIPIDEMIA NEC/NOS 06/25/2013 JESSY PEPPER FACC, ALI FACP CCDS Ot 300.00 ANXIETY STATE NOS 06/25/2013 JESSY PEPPER FACC, ALI FACP CCDS Ot 305.1 TOBACCO USE DISORDER 06/25/2013 JESSY PEPPER FACC ALI FACP CCDS Ot 338.29 OTHER CHRONIC PAIN 06/25/2013 JESSY PEPPER FACC, ALI FACP CCDS Ot 401.9 HYPERTENSION NOS 06/25/2013 JESSY PEPPER FACC, ALI FACP CCDS Ot 414.01 CORONARY ATHEROSCLEROSIS OF [place] CORON 06/25/2013 JOSEPH MORRIS MD, FACC FACP CCDS Ot 427.0 PAROX ATRIAL TACHYCARDIA 06/25/2013 JESSY PEPPER FACC, ALI FACP CCDS Ot 719.41 JOINT PAIN-SHLDER 06/25/2013 JESSY PEPPER FACC ALI FACP CCDS Ot 724.5 BACKACHE NOS 06/25/2013 JOSEPH MORRIS MD, FACC FACP CCDS Ot 786.50 CHEST PAIN NOS 06/25/2013 JOSEPH MORRIS MD, FACC FACP CCDS Ot V45.82 PERCUTANEOUS TRANSLUM CORON ANGIOPLASTY 06/25/2013 JESSY PEPPER FAC, [facility]PH [facility] CCDS Ot V58.63 LONG-TERM(CURRENT)USE OF ANTIPLATELET/AN 06/28/2013 YASHIRA MENENDEZ APRN 786.50 CHEST PAIN 06/28/2013 YASHIRA MENENDEZ APRN 786.50 CHEST PAIN 06/28/2013 SUE BANERJEE APRNA S 786.50 CHEST PAIN 06/28/2013 LORRAINE DO, JUANJO K 786.50 CHEST PAIN 06/28/2013 YASHIRA MENENDEZ APRN 786.50 CHEST PAIN 06/28/2013 SUE BANERJEE APRNA S 786.50 CHEST PAIN 06/28/2013 JAZZY BOYD APRNINA R 786.50 CHEST PAIN 11/09/2013 NYA BANERJEE APRNNDA S 461.9 SINUSITIS ACUTE 11/09/2013 SUE BANERJEE APRNA S 787.01 NAUSEA WITH VOMITING 11/09/2013 NYA BANERJEE APRNNDA S 787.91 DIARRHEA 11/09/2013 PETERS DO, JUANJO K 461.9 SINUSITIS ACUTE 11/09/2013 PETERS DO, JUNAJO K 787.01 NAUSEA WITH VOMITING 11/09/2013 PETERS DO, JUANJO K 787.91 DIARRHEA 11/09/2013 YASHIRA MENENDEZ APRN T 461.9 SINUSITIS ACUTE 11/09/2013 YASHIRA MENENDEZ APRN T 787.01 NAUSEA WITH VOMITING 11/09/2013 YASHIRA MENENDEZ APRN T 787.91 DIARRHEA 11/09/2013 SUE BANERJEE APRNA S 461.9 SINUSITIS ACUTE 11/09/2013 NYA BANERJEE APRNNDA S 787.01 NAUSEA WITH VOMITING 11/09/2013 LAVONNE MARSH ASHLEY S 787.91 DIARRHEA 11/09/2013 DEB MARSH ROSITA R 461.9 SINUSITIS ACUTE 11/09/2013 DEB MARSH ROSITA R 787.01 NAUSEA WITH VOMITING 11/09/2013 DEB MARSH ROSITA R 787.91 DIARRHEA 11/24/2013 PETERS DO, JUANJO K 465.9 UPPER RESPIRATORY INFECTION 11/24/2013 YASHIRA MENENDEZ APRN T 465.9 UPPER RESPIRATORY INFECTION 11/24/2013 LAVONNE CUTTING INSPECTOR, ASHLEY S 465.9 UPPER RESPIRATORY INFECTION 11/24/2013 DEB CUTTING INSPECTOR, ROSITA R 465.9 UPPER RESPIRATORY INFECTION 12/24/2013 YASHIRA MENENDEZ APRN 789.01 ABDOMINAL PAIN RIGHT UPPER QUADRANT 12/24/2013 LAVONNE CUTTING INSPECTOR, ASHLEY S 789.01 ABDOMINAL PAIN RIGHT UPPER QUADRANT 12/24/2013 DEB CUTTING INSPECTOR, ROSITA R 789.01 ABDOMINAL PAIN RIGHT UPPER QUADRANT 01/31/2014 LAVONNE CUTTING INSPECTOR, ASHLEY S 008.8 GASTROENTERITIS, VIRAL 01/31/2014 LAVONNE CUTTING INSPECTOR, ASHLEY S 276.51 DEHYDRATION 01/31/2014 DEB CUTTING INSPECTOR, ROSITA R 008.8 GASTROENTERITIS, VIRAL 01/31/2014 DEB CUTTING INSPECTOR, ROSITA R 276.51 DEHYDRATION 05/19/2014 DEB CUTTING INSPECTOR, ROSITA R 462 ACUTE PHARYNGITIS 05/19/2014 DEB CUTTING INSPECTOR, ROSITA R 789.00 ABDOMINAL PAIN UNSPECIFIED SITE 08/15/2014 Ot 482.9 08/15/2014 Ot 491.9 08/15/2014 Ot 272.4 08/15/2014 Ot 414.00 08/15/2014 Ot 784.7 08/15/2014 Ot V58.69 08/15/2014 BAIMA, LAMAR L LABORER ROAD Ot 272.4 08/15/2014 BAIMA, LAMAR L LABORER ROAD Ot V58.69 08/15/2014 BAIMA, LAMAR L LABORER ROAD Ot 272.4 08/15/2014 BAIMA, LAMAR L LABORER ROAD Ot V58.69 08/15/2014 BAIMA, LAMAR L LABORER ROAD Ot 272.4 08/15/2014 BAIMA, LAMAR L LABORER ROAD Ot 305.1 08/15/2014 BAIMA, LAMAR L LABORER ROAD Ot 401.9 08/15/2014 BAIMA, LAMAR L LABORER ROAD Ot 414.00 08/15/2014 BAIMA, LAMAR L LABORER ROAD Ot 427.89 08/15/2014 BAIMA, LAMAR L LABORER ROAD Ot 272.4 08/15/2014 BAIMA, LAMAR L LABORER ROAD Ot 414.00 08/15/2014 BAIMA, LAMAR L LABORER ROAD Ot 272.4 08/15/2014 BAIMA, LAMAR L LABORER ROAD Ot 414.00 08/15/2014 YASHIRA MENENDEZ LABORER [address] Ot 789.01 08/15/2014 Ot 272.4 08/15/2014 Ot 414.00 08/16/2014 Ot 482.9 08/16/2014 Ot 491.9 08/16/2014 Ot 272.4 08/16/2014 Ot 414.00 08/16/2014 Ot 784.7 08/16/2014 Ot V58.69 08/16/2014 BAIMA, LAMAR L LABORER ROAD Ot 272.4 08/16/2014 BAIMA, LAMAR L LABORER ROAD Ot V58.69 08/16/2014 BAIMA, LAMAR L LABORER RO[address] Ot 272.4 08/16/2014 BAIMA, LAMAR L LABORER RO[address] Ot V58.69 08/16/2014 BAIMA, LAMAR L LABORER RO[address] Ot 272.4 08/16/2014 BAIMA, LAMAR L LABORER RO[address] Ot 305.1 08/16/2014 BAIMA, LAMAR L LABORER RO[address] Ot 401.9 08/16/2014 BAIMA, LAMAR L LABORER RO[address] Ot 414.00 08/16/2014 BAIMA, LAMAR L LABORER RO[address] Ot 427.89 08/16/2014 BAIMA, LAMAR L LABORER RO[address] Ot 272.4 08/16/2014 BAIMA, LAMAR L LABORER RO[address] Ot 414.00 08/16/2014 BAIMA, LAMAR L LABORER RO[address] Ot 272.4 08/16/2014 BAIMA, LAMAR L LABORER RO[address] Ot 414.00 08/16/[address] Ot 789.01 08/16/2014 Ot 272.4 08/16/2014 Ot 414.00 08/16/2014 Ot 272.4 08/16/2014 Ot 414.00 08/22/2014 JESSY PEPPER FACC, JOSEPH FACP CCDS Ot 272.4 08/22/2014 JESSY PEPPER FACC, JOSEPH FACP CCDS Ot 305.1 08/22/2014 JESSY PEPPER FACC, ALI FACP CCDS Ot 401.9 08/22/2014 JESSY RAINEYC, ALI FACP CCDS Ot 414.00 08/22/2014 JESSY PEPPER FACC, ALI FACP CCDS Ot 719.40 08/22/2014 JESSY PEPPER FACC, ALI FACP CCDS Ot 724.5 08/22/2014 JESSY PEPPER FACC, ALI FACP CCDS Ot 786.59 08/22/2014 JESSY PEPPER FACC, ALI FACP CCDS Ot V58.63 08/22/2014 JESSY PEPPER FACC, ALI FACP CCDS Ot V58.69 09/19/2014 JESSY PEPPER FACC, ALI FACP CCDS Ot 272.4 09/19/2014 JESSY PEPPER FACC, ALI FACP CCDS Ot 305.1 09/19/2014 JESSY PEPPER FACC, ALI FACP CCDS Ot 401.9 09/19/2014 JESSY PEPPER FACC, ALI FACP CCDS Ot 414.00 09/19/2014 JESSY PEPPER FACC, ALI FACP CCDS Ot 719.40 09/19/2014 JESSY PEPPER FACC, ALI FACP CCDS Ot 724.5 09/19/2014 JESSY PEPPER FACC, ALI FACP CCDS Ot 786.59 09/19/2014 JESSY PEPPER FACC, ALI FACP CCDS Ot V58.63 09/19/2014 JESSY PEPPER FACC, ALI FACP CCDS Ot V58.69 09/19/2014 Ot 272.4 09/19/2014 Ot 414.00 09/19/[address] Ot 789.01 09/19/[address] Ot 272.4 09/19/[address] TORRES L LABORER ROAD Ot 414.00 10/03/2014 AMMONLAMAR TORRES L LABORER ROAD Ot 272.4 10/03/[address] Ot 414.00 10/03/[address] Ot 789.01 10/03/2014 Ot 272.4 10/03/2014 Ot 414.00 10/03/2014 JESSY PEPPER FACC, ALI FACP CCDS Ot 272.4 10/03/2014 JESSY PEPPER FACC, ALI FACP CCDS Ot 305.1 10/03/2014 JESSY PEPPER FACC, ALI FACP CCDS Ot 401.9 10/03/2014 JESSY PEPPER FACC, ALI FACP CCDS Ot 414.00 10/03/2014 JESSY PEPPER FACC, ALI FACP CCDS Ot 719.40 10/03/2014 JESSY PEPPER FACC, ALI FACP CCDS Ot 724.5 10/03/2014 JESSY PEPPER FACC, ALI FACP CCDS Ot 786.59 10/03/2014 JESSY PEPPER [facility] CCD[facility] Ot V58.63 10/03/2014 JESSY PEPPER [facility] CCDS Ot V58.69 01/20/2015 SVETLANA WALLACE DO Ot K81.1 CHRONIC CHOLECYSTITIS 05/02/2015 SVETLANA WALLACE DO Ot K82.8 05/02/2015 SVETLANA WALLACE DO Ot Z01.812 05/02/2015 SVETLANA WALLACE DO Ot Z11.2 05/02/[address] Ot E78.5 05/02/[address] Ot I10 05/02/[address] Ot I25.10 05/02/[address] TORRES L LABORER RO[address] Ot I65.29 05/02/[address] Ot Z72.0 05/02/[address] Ot R10.11 05/02/[address] Ot R11.0 05/03/[address] Ot E78.5 05/03/2015 AMMONLAMAR TORRES L LABORER ROAD Ot I10 05/03/[address] Ot I25.10 05/03/2015 AMMONLAMAR TORRES L LABORER RO[address] Ot I65.29 05/03/[address] Ot Z72.0 05/26/2015 SVETLANA WALLACE DO Ot K60.2 ANAL FISSURE, UNSPECIFIED 05/26/2015 SVETLANA WALLACE DO Ot Z01.818 ENCOUNTER FOR OTHER PREPROCEDURAL EXAMIN 05/29/2015 SVETLANA WALLACE DO Ot K60.2 ANAL FISSURE, UNSPECIFIED 05/29/2015 SVETLANA WALLACE DO Ot Z01.818 ENCOUNTER FOR OTHER PREPROCEDURAL EXAMIN 05/30/2015 SVETLANA WALLACE DO Ot K52.9 NONINFECTIVE GASTROENTERITIS AND COLITIS 05/30/2015 SVETLANA WALLACE DO Ot K63.5 POLYP OF COLON 05/31/2015 SVETLANA WALLACE DO Ot K52.9 NONINFECTIVE GASTROENTERITIS AND COLITIS 05/31/2015 SVETLANA WALLACE DO Ot K63.5 POLYP OF COLON 06/09/2015 SVETLANA WALLACE DO Ot K52.9 NONINFECTIVE GASTROENTERITIS AND COLITIS 06/09/2015 SVETLANA WALLACE DO Ot K63.5 POLYP OF COLON 07/25/2015 Ot 482.9 BACTERIAL PNEUMONIA NOS 07/25/2015 Ot 491.9 CHRONIC BRONCHITIS NOS 07/25/2015 Ot 272.4 HYPERLIPIDEMIA NEC/NOS 07/25/2015 Ot 414.00 CORON ATHEROSCLER NOS TYPE VESSEL, NATIV 07/25/2015 Ot 784.7 EPISTAXIS 07/25/2015 Ot V58.69 OTH MED,LT, CURRENT USE 07/25/2015 BAIMA, LAMAR L LABORER ROAD Ot 272.4 HYPERLIPIDEMIA NEC/NOS 07/25/2015 BAIMA, LAMAR L LABORER ROAD Ot V58.69 OTH MED,LT,CURRENT USE 07/25/2015 BAIMA, LAMAR L LABORER ROAD Ot 272.4 HYPERLIPIDEMIA NEC/NOS 07/25/2015 BAIMA, LAMAR L LABORER ROAD Ot V58.69 OTH MED,LT,CURRENT USE 07/25/2015 BAIMA, LAMAR L LABORER ROAD Ot 272.4 HYPERLIPIDEMIA NEC/NOS 07/25/2015 BAIMA, LAMAR L LABORER ROAD Ot 305.1 TOBACCO USE DISORDER 07/25/2015 BAIMA, LAMAR L LABORER ROAD Ot 401.9 HYPERTENSION NOS 07/25/2015 BAIMA, LAMAR L LABORER ROAD Ot 414.00 CORON ATHEROSCLER NOS TYPE VESSEL, NATIV 07/25/2015 BAIMA, LAMAR L LABORER ROAD Ot 427.89 CARDIAC DYSRHYTHMIAS NEC 07/25/2015 BAIMA, LAMAR L LABORER ROAD Ot 272.4 HYPERLIPIDEMIA NEC/NOS 07/25/2015 BAIMA, LAMAR L LABORER ROAD Ot 414.00 CORON ATHEROSCLER NOS TYPE VESSEL, NATIV 07/25/2015 BAIMA, LAMAR L LABORER ROAD Ot 272.4 HYPERLIPIDEMIA NEC/NOS 07/25/2015 BAIMA, LAMAR L LABORER ROAD Ot 414.00 CORON ATHEROSCLER NOS TYPE VESSEL, NATIV 07/25/[address] Ot 789.01 ABDOMINAL PAIN, RIGHT UPPER QUADRANT 07/25/2015 Ot 272.4 HYPERLIPIDEMIA NEC/NOS 07/25/2015 Ot 414.00 CORON ATHEROSCLER NOS TYPE VESSEL, NATIV 07/25/2015 JESSY PEPPER FACC, JOSEPH PERSAUD CCDS Ot 272.4 HYPERLIPIDEMIA NEC/NOS 07/25/2015 JESSY PEPPER FACC, ALI FACP CCDS Ot 305.1 TOBACCO USE DISORDER 07/25/2015 JESSY PEPPER FACC, ALI FACP CCDS Ot 401.9 HYPERTENSION NOS 07/25/2015 JESSY PEPPER FACC, ALI FACP CCDS Ot 414.00 CORON ATHEROSCLER NOS TYPE VESSEL, NATIV 07/25/2015 JESSY PEPPER FACC, ALI FACP CCDS Ot 719.40 JOINT PAIN-UNSPEC 07/25/2015 JESSY PEPPER FACC, ALI FACP CCDS Ot 724.5 BACKACHE NOS 07/25/2015 JESSY PEPPER FACC, ALI FACP CCDS Ot 786.59 CHEST PAIN NEC 07/25/2015 JESSY PEPPER FACC, JOSEPH FACP CCDS Ot V58.63 LONG-TERM(CURRENT)USE OF ANTIPLATELET/AN 07/25/2015 JESSY PEPPER FACC, JOSEPH FACP CCDS Ot V58.69 OTH MED,LT,CURRENT USE 07/25/[address] Ot R10.11 RIGHT UPPER QUADRANT PAIN 07/25/[address] Ot R11.0 NAUSEA 07/25/[address] Ot E78.5 HYPERLIPIDEMIA, UNSPECIFIED 07/25/[address] Ot I10 ESSENTIAL (PRIMARY) HYPERTENSION 07/25/[address] Ot I25.10 ATHSCL HEART DISEASE OF [place] CORONARY 07/25/[address] Ot I65.29 OCCLUSION AND STENOSIS OF UNSPECIFIED CA 07/25/[address] Ot Z72.0 TOBACCO USE 07/25/2015 SVETLANA WALLACE DO Ot K82.8 OTHER SPECIFIED DISEASES OF [place] 07/25/2015 SVETLANA WALLACE DO Ot Z01.812 ENCOUNTER FOR PREPROCEDURAL LABORATORY E 07/25/2015 SVETLANA WALLACE DO Ot Z11.2 ENCOUNTER FOR SCREENING FOR OTHER BACTER 07/26/[address] Ot E78.5 HYPERLIPIDEMIA, UNSPECIFIED 07/26/[address] Ot I25.10 ATHSCL HEART DISEASE OF [place] CORONARY 07/27/2015 JESSY PEPPER FACC, JOSEPH FACP CCDS Ot E78.5 HYPERLIPIDEMIA, UNSPECIFIED 07/27/2015 JESSY PEPPER FACC, ALI FACP CCDS Ot F17.210 NICOTINE DEPENDENCE, CIGARETTES, UNCOMPL 07/27/2015 JESSY PEPPER FACC, ALI FACP CCDS Ot I10 ESSENTIAL (PRIMARY) HYPERTENSION 07/27/2015 JESSY PEPPER FACC, ALI FACP CCDS Ot I21.4 NON-ST ELEVATION (NSTEMI) MYOCARDIAL INF 07/27/2015 JESSY PEPPER FACC, ALI FACP CCDS Ot I25.10 ATHSCL HEART DISEASE OF [place] CORONARY 07/27/2015 JESSY PEPPER FACC, ALI FACP CCDS Ot I25.2 OLD MYOCARDIAL INFARCTION 07/27/2015 JESSY PEPPER FACC, ALI FACP CCDS Ot I47.1 SUPRAVENTRICULAR TACHYCARDIA 07/27/2015 JESSY PEPPER FACC, ALI FACP CCDS Ot I65.23 OCCLUSION AND STENOSIS OF BILATERAL [place] 07/27/2015 JESYS PEPPER FACC, ALI FACP CCDS Ot T82.827A FIBROSIS OF CARDIAC PROSTH DEV/GRFT, INI 09/25/2015 Ot 482.9 BACTERIAL PNEUMONIA NOS 09/25/2015 Ot 491.9 CHRONIC BRONCHITIS NOS 09/25/2015 Ot 272.4 HYPERLIPIDEMIA NEC/NOS 09/25/2015 Ot 414.00 CORON ATHEROSCLER NOS TYPE VESSEL, NATIV 09/25/2015 Ot 784.7 EPISTAXIS 09/25/2015 Ot V58.69 OTH MED,LT, CURRENT USE 09/25/2015 BAIMA, LAMAR L LABORER ROAD Ot 272.4 HYPERLIPIDEMIA NEC/NOS 09/25/2015 BAIMA, LAMAR L LABORER ROAD Ot V58.69 OTH MED,LT,CURRENT USE 09/25/2015 BAIMA, LAMAR L LABORER ROAD Ot 272.4 HYPERLIPIDEMIA NEC/NOS 09/25/2015 BAIMA, LAMAR L LABORER ROAD Ot V58.69 OTH MED,LT,CURRENT USE 09/25/2015 BAIMA, LAMAR L LABORER ROAD Ot 272.4 HYPERLIPIDEMIA NEC/NOS 09/25/2015 BAIMA, LAMAR L LABORER ROAD Ot 305.1 TOBACCO USE DISORDER 09/25/2015 BAIMA, LAMAR L LABORER ROAD Ot 401.9 HYPERTENSION NOS 09/25/2015 BAIMA, LAMAR L LABORER ROAD Ot 414.00 CORON ATHEROSCLER NOS TYPE VESSEL, NATIV 09/25/2015 BAIMA, LAMAR L LABORER ROAD Ot 427.89 CARDIAC DYSRHYTHMIAS NEC 09/25/2015 BAIMELISSA, LAMAR L LABORER ROAD Ot 272.4 HYPERLIPIDEMIA NEC/NOS 09/25/2015 BAIMELISSA, LAMAR L LABORER ROAD Ot 414.00 CORON ATHEROSCLER NOS TYPE VESSEL, NATIV 09/25/2015 MONICO LAM[address] L LAB[address]ER RO[address] Ot 272.4 HYPERLIPIDEMIA NEC/NOS 09/25/2015 BAIMELISSA, LAMAR L LABORER ROAD Ot 414.00 CORON ATHEROSCLER NOS TYPE VESSEL, NATIV 09/25/[address] Ot 789.01 ABDOMINAL PAIN, RIGHT UPPER QUADRANT 09/25/2015 Ot 272.4 HYPERLIPIDEMIA NEC/NOS 09/25/2015 Ot 414.00 CORON ATHEROSCLER NOS TYPE VESSEL, NATIV 09/25/2015 JESSY PEPPER FACC, ALI FACP CCDS Ot 272.4 HYPERLIPIDEMIA NEC/NOS 09/25/2015 JESSY PEPPER FACC, ALI FACP CCDS Ot 305.1 TOBACCO USE DISORDER 09/25/2015 JESSY PEPPER FACC, ALI FACP CCDS Ot 401.9 HYPERTENSION NOS 09/25/2015 JESSY PEPPER FACC, ALI FACP CCDS Ot 414.00 CORON ATHEROSCLER NOS TYPE VESSEL, NATIV 09/25/2015 JESSY PEPPER FACC, ALI FACP CCDS Ot 719.40 JOINT PAIN-UNSPEC 09/25/2015 JESSY PEPPER FACC, ALI FACP CCDS Ot 724.5 BACKACHE NOS 09/25/2015 JESSY PEPPER FACC, ALI FACP CCDS Ot 786.59 CHEST PAIN NEC 09/25/2015 JESSY PEPPER FACC, ALI FACP CCDS Ot V58.63 LONG-TERM(CURRENT)USE OF ANTIPLATELET/AN 09/25/2015 JESSY PEPPER FACC, ALI FACP CCDS Ot V58.69 OTH MED,LT,CURRENT USE 09/25/[address] Ot R10.11 RIGHT UPPER QUADRANT PAIN 09/25/[address] Ot R11.0 NAUSEA 09/25/[address] Ot E78.5 HYPERLIPIDEMIA, UNSPECIFIED 09/25/2015 MONICO LAMAR L LABORER RO[address] Ot I10 ESSENTIAL (PRIMARY) HYPERTENSION 09/25/2015 MONICO LAM[address] L LABOR[address] RO[address] Ot I25.10 ATHSCL HEART DISEASE OF [place] CORONARY 09/25/[address] Ot I65.29 OCCLUSION AND STENOSIS OF UNSPECIFIED CA 09/25/[address] Ot Z72.0 TOBACCO USE 09/25/2015 SVETLANA WALLACE DO Ot K82.8 OTHER SPECIFIED DISEASES OF [place] 09/25/2015 SVETLANA WALLACE DO Ot Z01.812 ENCOUNTER FOR PREPROCEDURAL LABORATORY E 09/25/2015 SVETLANA WALLACE DO Ot Z11.2 ENCOUNTER FOR SCREENING FOR OTHER BACTER 09/25/[address] Ot E78.5 HYPERLIPIDEMIA, UNSPECIFIED 09/25/2015 LAMAR MARC L LABORER RO[address] Ot I25.10 ATHSCL HEART DISEASE OF [place] CORONARY 09/26/[address] Ot E78.5 HYPERLIPIDEMIA, UNSPECIFIED 09/26/[address] LAMAR MARC L LABORER RO[address] Ot I25.10 ATHSCL HEART DISEASE OF [place] CORONARY 09/26/[address] Ot E78.5 HYPERLIPIDEMIA, UNSPECIFIED 09/26/[address] Ot I25.10 ATHSCL HEART DISEASE OF [place] CORONARY 09/26/2015 JESSY PEPPER FACC, JOSEPH FACP CCDS Ot E78.5 HYPERLIPIDEMIA, UNSPECIFIED 09/26/2015 JESSY PEPPER FACC, ALI FACP CCDS Ot I10 ESSENTIAL (PRIMARY) HYPERTENSION 09/26/2015 JESSY PEPPER FACC, ALI FACP CCDS Ot I25.10 ATHSCL HEART DISEASE OF [place] CORONARY 09/26/2015 JESSY PEPPER FACC, ALI FACP CCDS Ot I25.2 OLD MYOCARDIAL INFARCTION 09/26/2015 JESSY PEPPER FACC, ALI FACP CCDS Ot 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[place] 09/26/2015 JESSY PEPPER FACC, ALI FACP CCDS Ot I47.1 SUPRAVENTRICULAR TACHYCARDIA 09/26/2015 JESSY PEPPER FACC, ALI FACP CCDS Ot T82.857A STENOSIS OF CARDIAC PROSTH DEV/GRFT, INI 09/26/2015 JESSY PEPPER FACC, ALI FACP CCDS Ot Z72.0 TOBACCO USE 09/26/2015 JESSY PEPPER FACC, ALI FACP CCDS Ot Z79.899 OTHER PAEDIATRICIAN (CURRENT) DRUG THERAPY 09/26/2015 JESSY PEPPER FACC, [facility] CCDS Ot E78.4 OTHER HYPERLIPIDEMIA 09/26/2015 JESSY PEPPER FACC, ALI FACP CCDS Ot I10 ESSENTIAL (PRIMARY) HYPERTENSION 09/26/2015 JESSY PEPPER FACC, ALI FACP CCDS Ot I25.10 ATHSCL HEART DISEASE OF [place] CORONARY 09/26/2015 JESSY PEPPER FACC, ALI FACP CCDS Ot I65.23 OCCLUSION AND STENOSIS OF [place]ILATERAL [place] 09/26/2015 JESSY PEPPER FACC, ALI FACP CCDS Ot R07.89 OTHER CHEST PAIN 09/26/2015 JESSY PEPPER FACC, [facility] CCD[facility] Ot Z72.0 TOBACCO USE 09/27/2015 SVETLANA WALLACE DO Ot K52.9 NONINFECTIVE GASTROENTERITIS AND COLITIS 09/27/2015 SVETLANA WALLACE DO Ot K63.5 POLYP OF COLON 10/05/2015 Ot 482.9 BACTERIAL PNEUMONIA NOS 10/05/2015 Ot 491.9 CHRONIC BRONCHITIS NOS 10/05/2015 Ot 272.4 HYPERLIPIDEMIA NEC/NOS 10/05/2015 Ot 414.00 CORON ATHEROSCLER NOS TYPE VESSEL, NATIV 10/05/2015 Ot 784.7 EPISTAXIS 10/05/2015 Ot V58.69 OTH MED,LT, CURRENT USE 10/05/2015 BAIMA, LAMAR L LABORER ROAD Ot 272.4 HYPERLIPIDEMIA NEC/NOS 10/05/2015 BAIMA, LAMAR L LABOR[address] ROAD Ot V58.69 OTH MED,LT,CURRENT USE 10/05/2015 BAIMA, LAMAR L LABOR[address] RO[address] Ot 272.4 HYPERLIPIDEMIA NEC/NOS 10/05/2015 BAIMA, LAMAR L LABOR[address] RO[address] Ot V58.69 OTH MED,LT,CURRENT USE 10/05/2015 BAIMA, LAMAR L LAB[address] RO[address] Ot 272.4 HYPERLIPIDEMIA NEC/NOS 10/05/2015 BAIMA, LAMAR L LABORER ROAD Ot 305.1 TOBACCO USE DISORDER 10/05/2015 BAIMA, LAMAR L LABORER ROAD Ot 401.9 HYPERTENSION NOS 10/05/2015 BAIMA, LAMAR L LABORER ROAD Ot 414.00 CORON ATHEROSCLER NOS TYPE VESSEL, NATIV 10/05/2015 BAIMA, LAMAR L LABOR[address] ROAD Ot 427.89 CARDIAC DYSRHYTHMIAS NEC 10/05/2015 BAIMA, LAMAR L LABOR[address] ROAD Ot 272.4 HYPERLIPIDEMIA NEC/NOS 10/05/2015 BAIMA, LAMAR Hans LABORER ROAD Ot 414.00 CORON ATHEROSCLER NOS TYPE VESSEL, NATIV 10/05/2015 AMMONLE[address]A TORRESHER Maxwell LABORER ROAD Ot 272.4 HYPERLIPIDEMIA NEC/NOS 10/05/[address] Hans [address] Ot 414.00 CORON ATHEROSCLER NOS TYPE VESSEL, NATIV 10/05/[address] Ot 789.01 ABDOMINAL PAIN, RIGHT UPPER QUADRANT 10/05/2015 Ot 272.4 HYPERLIPIDEMIA NEC/NOS 10/05/2015 Ot 414.00 CORON ATHEROSCLER NOS TYPE VESSEL, NATIV 10/05/2015 JESSY PEPPER FACC, ALI FACP CCDS Ot 272.4 HYPERLIPIDEMIA NEC/NOS 10/05/2015 JESSY PEPPER FACC, ALI FACP CCDS Ot 305.1 TOBACCO USE DISORDER 10/05/2015 JESSY PEPPER FACC, ALI FACP CCDS Ot 401.9 HYPERTENSION NOS 10/05/2015 JESSY PEPPER FACC, ALI FACP CCDS Ot 414.00 CORON ATHEROSCLER NOS TYPE VESSEL, NATIV 10/05/2015 JESSY PEPPER FACC, ALI FACP CCDS Ot 719.40 JOINT PAIN-UNSPEC 10/05/2015 JESSY PEPPER FACC, ALI FACP CCDS Ot 724.5 BACKACHE NOS 10/05/2015 JESSY PEPPER FACC, ALI FACP CCDS Ot 786.59 CHEST PAIN NEC 10/05/2015 JESSY PEPPER FACC, ALI FACP CCDS Ot V58.63 LONG-TERM(CURRENT)USE OF ANTIPLATELET/AN 10/05/2015 JESSY PEPPER FACC, ALI FACP CCDS Ot V58.69 OT MED,LT,CURRENT USE 10/05/[address] Ot R10.11 RIGHT UPPER QUADRANT PAIN 10/05/[address] Ot R11.0 NAUSEA 10/05/[address]SA LAMAR L LABOR[address] Ot E78.5 HYPERLIPIDEMIA, UNSPECIFIED 10/05/[address] Ot I10 ESSENTIAL (PRIMARY) HYPERTENSION 10/05/[address] Ot I25.10 ATHSCL HEART DISEASE OF [place] CORONARY 10/05/[address] Ot I65.29 OCCLUSION AND STENOSIS OF UNSPECIFIED CA 10/05/[address] Ot Z72.0 TOBACCO USE 10/05/2015 SVETLANA WALLACE DO Ot K82.8 OTHER SPECIFIED DISEASES OF [place] 10/05/2015 SVETLANA WALLACE DO Ot Z01.812 ENCOUNTER FOR PREPROCEDURAL LABORATORY E 10/05/2015 SVETLANA WALLACE DO Ot Z11.2 ENCOUNTER FOR SCREENING FOR OTHER BACTER 10/05/[address] Ot E78.5 HYPERLIPIDEMIA, UNSPECIFIED 10/05/[address] Ot I25.10 ATHSCL HEART DISEASE OF [place] CORONARY 10/05/2015 JESSY RAINEYC, ALI FACP CCDS Ot E78.4 OTHER HYPERLIPIDEMIA 10/05/2015 JESSY PEPPER FACC, ALI FACP CCDS Ot I10 ESSENTIAL (PRIMARY) HYPERTENSION 10/05/2015 JESSY PEPPER FACC, ALI FACP CCDS Ot I25.10 ATHSCL HEART DISEASE OF [place] CORONARY 10/05/2015 JESSY PEPPER FACC, ALI FACP CCDS Ot I65.23 OCCLUSION AND STENOSIS OF [place] 10/05/2015 JESSY PEPPER FACC, ALI FACP CCDS Ot R07.89 OTHER CHEST PAIN 10/05/2015 JESSY PEPPER FACC, ALI FACP CCDS Ot Z72.0 TOBACCO USE 10/05/2015 JESSY PEPPER FACC, ALI FACP CCDS Ot E78.4 OTHER HYPERLIPIDEMIA 10/05/2015 JESSY PEPPER FACC, ALI FACP CCDS Ot I10 ESSENTIAL (PRIMARY) HYPERTENSION 10/05/2015 JESSY RAINEYC, ALI FACP CCDS Ot I25.10 ATHSCL HEART DISEASE OF [place] CORONARY 10/05/2015 JESSY PEPPER FACC, ALI FACP CCDS Ot I65.23 OCCLUSION AND STENOSIS OF [place] 10/05/2015 JESSY PEPPER FACC, ALI FACP CCDS Ot R07.89 OTHER CHEST PAIN 10/05/2015 JESSY PEPPER FACC, ALI FACP CCDS Ot Z72.0 TOBACCO USE 10/25/2015 ИВАН RAYMUNDO DO Ot R06.83 SNORING 10/26/2015 ИВАН RAYMUNDO DO Ot R06.83 SNORING 10/31/2015 JESSY PEPPER FACC, ALI FACP CCDS Ot E78.4 OTHER HYPERLIPIDEMIA 10/31/2015 JESSY PEPPER FACC, ALI FACP CCDS Ot I10 ESSENTIAL (PRIMARY) HYPERTENSION 10/31/2015 JESSY PEPPER FACC, [facility] CCDS Ot I25.10 ATHSCL HEART DISEASE OF [place] CORONARY 10/31/2015 JESSY PEPPER FACC, ALI FACP CCDS Ot I65.23 OCCLUSION AND STENOSIS OF [place]IL[place] 10/31/2015 JESSY PEPPER FACC, ALI [facility] CCDS Ot R07.89 OTHER CHEST PAIN 10/31/2015 JESSY PEPPER FACC, [facility] CCDS Ot Z72.0 TOBACCO USE 10/31/2015 ИВАН RAYMUNDO DO Ot E66.9 OBESITY, UNSPECIFIED 10/31/2015 ИВАН RAYMUNDO DO Ot I25.10 ATHSCL HEART DISEASE OF [place] CORONARY 10/31/2015 ИВАН RAYMUNDO DO Ot R06.83 SNORING 10/31/2015 ИВАН RAYMUNDO DO Ot Z72.0 TOBACCO USE 11/05/2015 Ot 482.9 BACTERIAL PNEUMONIA NOS 11/05/2015 Ot 491.9 CHRONIC BRONCHITIS NOS 11/05/2015 Ot 272.4 HYPERLIPIDEMIA NEC/NOS 11/05/2015 Ot 414.00 CORON ATHEROSCLER NOS TYPE VESSEL, NATIV 11/05/2015 Ot 784.7 EPISTAXIS 11/05/2015 Ot V58.69 OTH MED,LT, CURRENT USE 11/05/2015 BAIMA, LAMAR L LAB[address] Ot 272.4 HYPERLIPIDEMIA NEC/NOS 11/05/2015 BAIMA, LAMAR L LAB[address] RO[address] Ot V58.69 OTH MED,LT,CURRENT USE 11/05/2015 BAIMA, LAMAR L LAB[address] Ot 272.4 HYPERLIPIDEMIA NEC/NOS 11/05/2015 BAIMA, LAMAR L LAB[address] Ot V58.69 OTH MED,LT,CURRENT USE 11/05/2015 BAIMA, LAMAR L LAB[address] Ot 272.4 HYPERLIPIDEMIA NEC/NOS 11/05/2015 BAIMA, LAMAR L LAB[address] Ot 305.1 TOBACCO USE DISORDER 11/05/2015 BAIMA, LAMAR L LAB[address] RO[address] Ot 401.9 HYPERTENSION NOS 11/05/2015 BAIMA, LAMAR L LAB[address] Ot 414.00 CORON ATHEROSCLER NOS TYPE VESSEL, NATIV 11/05/2015 BAIMA, LAMAR L LAB[address] Ot 427.89 CARDIAC DYSRHYTHMIAS NEC 11/05/2015 BAIMA, LAMAR L LAB[address] Ot 272.4 HYPERLIPIDEMIA NEC/NOS 11/05/2015 AMMON[address] TORRES Hans LAB[address] RO[address] Ot 414.00 CORON ATHEROSCLER NOS TYPE VESSEL, NATIV 11/05/[address] Ot 272.4 HYPERLIPIDEMIA NEC/NOS 11/05/[address] Ot 414.00 CORON ATHEROSCLER NOS TYPE VESSEL, NATIV 11/05/[address] Ot 789.01 ABDOMINAL PAIN, RIGHT UPPER QUADRANT 11/05/2015 Ot 272.4 HYPERLIPIDEMIA NEC/NOS 11/05/2015 Ot 414.00 CORON ATHEROSCLER NOS TYPE VESSEL, NATIV 11/05/2015 JESSY PEPPER FACC, ALI FACP CCDS Ot 272.4 HYPERLIPIDEMIA NEC/NOS 11/05/2015 JESSY PEPPER FACC, ALI FACP CCDS Ot 305.1 TOBACCO USE DISORDER 11/05/2015 JESSY PEPPER FACC, ALI FACP CCDS Ot 401.9 HYPERTENSION NOS 11/05/2015 JESSY PEPPER FACC, ALI FACP CCDS Ot 414.00 CORON ATHEROSCLER NOS TYPE VESSEL, NATIV 11/05/2015 JESSY PEPPER FACC, ALI FACP CCDS Ot 719.40 JOINT PAIN-UNSPEC 11/05/2015 JESSY PEPPER FACC, ALI FACP CCDS Ot 724.5 BACKACHE NOS 11/05/2015 JESSY PEPPER FACC, ALI FACP CCDS Ot 786.59 CHEST PAIN NEC 11/05/2015 JESSY PEPPER FACC, ALI FACP CCDS Ot V58.63 LONG-TERM(CURRENT)USE OF ANTIPLATELET/AN 11/05/2015 JESSY RAINEYC, ALI FACP CCDS Ot V58.69 OT MED,LT,CURRENT USE 11/05/[address] Ot R10.11 RIGHT UPPER QUADRANT PAIN 11/05/[address] Ot R11.0 NAUSEA 11/05/[address] Ot E78.5 HYPERLIPIDEMIA, UNSPECIFIED 11/05/[address] Ot I10 ESSENTIAL (PRIMARY) HYPERTENSION 11/05/[address] Ot I25.10 ATHSCL HEART DISEASE OF [place] CORONARY 11/05/[address] Ot I65.29 OCCLUSION AND STENOSIS OF UNSPECIFIED CA 11/05/[address] Ot Z72.0 TOBACCO USE 11/05/2015 WALLACESVETLANA HOYOS DO Ot K82.8 OTHER SPECIFIED DISEASES OF [place] 11/05/2015 MADISON SVETLANA AGUILERA Ot Z01.812 ENCOUNTER FOR PREPROCEDURAL LABORATORY E 11/05/2015 MADISON AGUILERASVETLANA Ot Z11.2 ENCOUNTER FOR SCREENING FOR OTHER BACTER 11/05/[address] Ot E78.5 HYPERLIPIDEMIA, UNSPECIFIED 11/05/[address] L [address] Ot I25.10 ATHSCL HEART DISEASE OF [place] CORONARY 11/05/2015 JESSY PEPPER FAC, ALI FACP CCDS Ot E78.4 OTHER HYPERLIPIDEMIA 11/05/2015 JESSY PEPPER FACC, ALI FACP CCDS Ot I10 ESSENTIAL (PRIMARY) HYPERTENSION 11/05/2015 JESSY RAINEY, ALI FACP CCDS Ot I25.10 ATHSCL HEART DISEASE OF [place] CORONARY 11/05/2015 JESSY PEPPER FACC, ALI FACP CCDS Ot I65.23 OCCLUSION AND STENOSIS OF BILATERAL [place] 11/05/2015 JESSY RAINEY, ALI FACP CCDS Ot R07.89 OTHER CHEST PAIN 11/05/2015 JESSY RAINEY, ALI FACP CCDS Ot Z72.0 TOBACCO USE 11/05/2015 ИВАН RAYMUNDO DO Ot E66.9 OBESITY, UNSPECIFIED 11/05/2015 ИВАН RAYMUNDO DO Ot I25.10 ATHSCL HEART DISEASE OF [place] CORONARY 11/05/2015 ИВАН RAYMUNDO DO Ot R06.83 SNORING 11/05/2015 ИВАН RAYMUNDO DO Ot Z72.0 TOBACCO USE 11/06/2015 Ot 482.9 BACTERIAL PNEUMONIA NOS 11/06/2015 Ot 491.9 CHRONIC BRONCHITIS NOS 11/06/2015 Ot 272.4 HYPERLIPIDEMIA NEC/NOS 11/06/2015 Ot 414.00 CORON ATHEROSCLER NOS TYPE VESSEL, NATIV 11/06/2015 Ot 784.7 EPISTAXIS 11/06/2015 Ot V58.69 OTH MED,LT, CURRENT USE 11/06/[address] L [address] Ot 272.4 HYPERLIPIDEMIA NEC/NOS 11/06/[address] L [address] Ot V58.69 OTH MED,LT,CURRENT USE 11/06/2015 BAIMA, LAMAR L LAB[address] Ot 272.4 HYPERLIPIDEMIA NEC/NOS 11/06/[address] L [address] Ot V58.69 OTH MED,LT,CURRENT USE 11/06/2015 BAIMA, LAMAR L LAB[address] Ot 272.4 HYPERLIPIDEMIA NEC/NOS 11/06/2015 BAIMA, LAMAR L LAB[address] RO[address] Ot 305.1 TOBACCO USE DISORDER 11/06/2015 BAIMELISSA, LAMAR L LABOR[address] RO[address] Ot 401.9 HYPERTENSION NOS 11/06/2015 BAIMELISSA, LAMAR L LABOR[address] RO[address] Ot 414.00 CORON ATHEROSCLER NOS TYPE VESSEL, NATIV 11/06/2015 BAIMA, LAMAR L LAB[address] Ot 427.89 CARDIAC DYSRHYTHMIAS NEC 11/06/2015 BAIMA, LAMAR L LABOR[address] RO[address] Ot 272.4 HYPERLIPIDEMIA NEC/NOS 11/06/2015 BAIMA, LAMAR L LAB[address] RO[address] Ot 414.00 CORON ATHEROSCLER NOS TYPE VESSEL, NATIV 11/06/2015 BAIMA, LAMAR L LAB[address] Ot 272.4 HYPERLIPIDEMIA NEC/NOS 11/06/2015 BAIMA, LAMAR L LAB[address] Ot 414.00 CORON ATHEROSCLER NOS TYPE VESSEL, NATIV 11/06/[address] Ot 789.01 ABDOMINAL PAIN, RIGHT UPPER QUADRANT 11/06/2015 Ot 272.4 HYPERLIPIDEMIA NEC/NOS 11/06/2015 Ot 414.00 CORON ATHEROSCLER NOS TYPE VESSEL, NATIV 11/06/2015 JESSY PEPPER FACC, JOSEPH FACP CCDS Ot 272.4 HYPERLIPIDEMIA NEC/NOS 11/06/2015 JESSY PEPPER FACC, JOSEPH FACP CCDS Ot 305.1 TOBACCO USE DISORDER 11/06/2015 JESSY PEPPER FACC, JOSEPH FACP CCDS Ot 401.9 HYPERTENSION NOS 11/06/2015 JESSY PEPPER FACC, ALI FACP CCDS Ot 414.00 CORON ATHEROSCLER NOS TYPE VESSEL, NATIV 11/06/2015 JESSY PEPPER FACC, JOSEPH FACP CCDS Ot 719.40 JOINT PAIN-UNSPEC 11/06/2015 JESSY PEPPER FACC, JOSEPH FACP CCDS Ot 724.5 BACKACHE NOS 11/06/2015 JESSY PEPPER FACC, ALI FACP CCDS Ot 786.59 CHEST PAIN NEC 11/06/2015 JESSY PEPPER FACC, JOSEPH FACP CCDS Ot V58.63 LONG-TERM(CURRENT)USE OF ANTIPLATELET/AN 11/06/2015 JESSY PEPPER FACC, ALI FACP CCDS Ot V58.69 OTH MED,LT,CURRENT USE 11/06/[address] Ot R10.11 RIGHT UPPER QUADRANT PAIN 11/06/[address] Ot R11.0 NAUSEA 11/06/[address] Ot E78.5 HYPERLIPIDEMIA, UNSPECIFIED 11/06/[address] L [address] Ot I10 ESSENTIAL (PRIMARY) HYPERTENSION 11/06/[address] Ot I25.10 ATHSCL HEART DISEASE OF [place] CORONARY 11/06/[address] Ot I65.29 OCCLUSION AND STENOSIS OF UNSPECIFIED CA 11/06/[address] Ot Z72.0 TOBACCO USE 11/06/2015 SVETLANA WALLACE DO Ot K82.8 OTHER SPECIFIED DISEASES OF [place]ALL[place] 11/06/2015 SVETLANA WALLACE DO Ot Z01.812 ENCOUNTER FOR PREPROCEDURAL LABORATORY E 11/06/2015 SVETLANA WALLACE DO Ot Z11.2 ENCOUNTER FOR SCREENING FOR OTHER BACTER 11/06/[address] Ot E78.5 HYPERLIPIDEMIA, UNSPECIFIED 11/06/[address] Ot I25.10 ATHSCL HEART DISEASE OF [place] CORONARY 11/06/2015 JESSY PEPPER FACC, JOSEPH FACP CCDS Ot E78.4 OTHER HYPERLIPIDEMIA 11/06/2015 JESSY PEPPER FACC, ALI FACP CCDS Ot I10 ESSENTIAL (PRIMARY) HYPERTENSION 11/06/2015 JESSY PEPPER FACC, JOSEPH FACP CCDS Ot I25.10 ATHSCL HEART DISEASE OF [place] CORONARY 11/06/2015 JESSY PEPPER FACC, ALI FACP CCDS Ot I65.23 OCCLUSION AND STENOSIS OF BILATERAL [place] 11/06/2015 JESSY PEPPER FACC, JOSEPH FACP CCDS Ot R07.89 OTHER CHEST PAIN 11/06/2015 JESSY PEPPER FACC, ALI FACP CCDS Ot Z72.0 TOBACCO USE 11/06/2015 ИВАН RAYMUNDO DO Ot E66.9 OBESITY, UNSPECIFIED 11/06/2015 ИВАН RAYMUNDO DO Ot I25.10 ATHSCL HEART DISEASE OF [place] CORONARY 11/06/2015 ИВАН RAYMUNDO DO Ot R06.83 SNORING 11/06/2015 ZACKARY ИВАН AGUILERA M Ot Z72.0 TOBACCO USE 11/06/2015 FILOMENA ACOSTA MD Ot E78.0 PURE HYPERCHOLESTEROLEMIA 11/06/2015 DAVE PEPPER, FILOMENA Robb Ot F17.210 NICOTINE DEPENDENCE, CIGARETTES, UNCOMPL 11/06/2015 FILOMENA ACOSTA MD Ot I10 ESSENTIAL (PRIMARY) HYPERTENSION 11/06/2015 FILOMENA ACOSTA MD Ot I25.10 ATHSCL HEART DISEASE OF [place] CORONARY 11/06/2015 FILOMENA ACOSTA MD Ot K20.9 ESOPHAGITIS, UNSPECIFIED 11/06/2015 FILOMENA ACOSTA MD Ot K29.70 GASTRITIS, UNSPECIFIED, WITHOUT BLEEDING 11/06/2015 FILOMENA ACOSTA MD Ot K44.9 DIAPHRAGMATIC HERNIA WITHOUT OBSTRUCTION 11/06/2015 FILOMENA ACOSTA MD Ot R06.02 SHORTNESS OF BREATH 11/06/2015 FILOMENA ACOSTA MD Ot R07.9 CHEST PAIN, UNSPECIFIED 11/06/2015 FILOMENA ACOSTA MD Ot Z79.82 PAEDIATRICIAN (CURRENT) USE OF ASPIRIN 11/06/2015 FILOMENA ACOSTA MD Ot Z79.899 OTHER [facility] (CURRENT) DRUG THERAPY 11/06/2015 FILOMENA ACOSTA MD Ot E78.0 PURE HYPERCHOLESTEROLEMIA 11/06/2015 FILOMENA ACOSTA MD Ot F17.210 NICOTINE DEPENDENCE, CIGARETTES, UNCOMPL 11/06/2015 FILOMENA ACOSTA MD Ot I10 ESSENTIAL (PRIMARY) HYPERTENSION 11/06/2015 FILOMENA ACOSTA MD Ot I25.10 ATHSCL HEART DISEASE OF [place] CORONARY 11/06/2015 FILOMENA ACOSTA MD Ot K20.9 ESOPHAGITIS, UNSPECIFIED 11/06/2015 FILOMENA ACOSTA MD Ot K29.70 GASTRITIS, UNSPECIFIED, WITHOUT BLEEDING 11/06/2015 FILOMENA ACOSTA MD Ot K44.9 DIAPHRAGMATIC HERNIA WITHOUT OBSTRUCTION 11/06/2015 FILOMENA ACOSTA MD Ot R06.02 SHORTNESS OF BREATH 11/06/2015 FILOMENA ACOSTA MD Ot R07.9 CHEST PAIN, UNSPECIFIED 11/06/2015 FILOMENA ACOSTA MD Ot Z79.82 FCI (CURRENT) USE OF ASPIRIN 11/06/2015 FILOMENA ACOSTA MD Ot Z79.899 OTHER PAEDIATRICIAN (CURRENT) DRUG THERAPY 11/09/2015 FILOMENA ACOSTA MD Ot E78.0 PURE HYPERCHOLESTEROLEMIA 11/09/2015 FILOMENA ACOSTA MD Ot F17.210 NICOTINE DEPENDENCE, CIGARETTES, UNCOMPL 11/09/2015 FILOMENA ACOSTA MD Ot I10 ESSENTIAL (PRIMARY) HYPERTENSION 11/09/2015 FILOMENA ACOSTA MD Ot I25.10 ATHSCL HEART DISEASE OF [place] CORONARY 11/09/2015 FILOMENA ACOSTA MD Ot K20.9 ESOPHAGITIS, UNSPECIFIED 11/09/2015 FILOMENA ACOSTA MD Ot K29.70 GASTRITIS, UNSPECIFIED, WITHOUT BLEEDING 11/09/2015 FILOMENA ACOSTA MD Ot K44.9 DIAPHRAGMATIC HERNIA WITHOUT OBSTRUCTION 11/09/2015 FILOMENA ACOSTA MD Ot R06.02 SHORTNESS OF BREATH 11/09/2015 FILOMENA ACOSTA MD Ot R07.9 CHEST PAIN, UNSPECIFIED 11/09/2015 DAVE PEPPER, FILOMENA Robb Ot Z79.82 PAEDIATRICIAN (CURRENT) USE OF ASPIRIN 11/09/2015 FILOMENA ACOSTA MD Ot Z79.899 OTHER [facility] (CURRENT) DRUG THERAPY 01/01/2016 ИВАН RAYMUNDO DO Ot E66.9 OBESITY, UNSPECIFIED 01/01/2016 ИВАН RAYMUNDO DO Ot I25.10 ATHSCL HEART DISEASE OF [place] CORONARY 01/01/2016 ИВАН RAYMUNDO DO Ot R06.83 SNORING 01/01/2016 ИВАН RAYMUNDO DO Ot Z72.0 TOBACCO USE 01/01/2016 FILOMENA ACOSTA MD Ot E78.0 PURE HYPERCHOLESTEROLEMIA 01/01/2016 FILOMENA ACOSTA MD Ot F17.210 NICOTINE DEPENDENCE, CIGARETTES, UNCOMPL 01/01/2016 FILOMENA ACOSTA MD Ot I10 ESSENTIAL (PRIMARY) HYPERTENSION 01/01/2016 FILOMENA ACOSTA MD Ot I25.10 ATHSCL HEART DISEASE OF [place] CORONARY 01/01/2016 FILOMENA ACOSTA MD Ot K20.9 ESOPHAGITIS, UNSPECIFIED 01/01/2016 FILOMENA ACOSTA MD Ot K29.70 GASTRITIS, UNSPECIFIED, WITHOUT BLEEDING 01/01/2016 FILOMENA ACOSTA MD Ot K44.9 DIAPHRAGMATIC HERNIA WITHOUT OBSTRUCTION 01/01/2016 DAVE PEPPER, FILOMENA Robb Ot R06.02 SHORTNESS OF BREATH 01/01/2016 DAVE PEPPER, FILOMENA Robb Ot R07.9 CHEST PAIN, UNSPECIFIED 01/01/2016 DAVE PEPPER, FILOMENA Robb Ot Z79.82 PAEDIATRICIAN (CURRENT) USE OF ASPIRIN 01/01/2016 DAVE PEPPER, FILOMENA Robb Ot Z79.899 OTHER [facility] (CURRENT) DRUG THERAPY 02/12/2016 Ot 482.9 BACTERIAL PNEUMONIA NOS 02/12/2016 Ot 491.9 CHRONIC BRONCHITIS NOS 02/12/2016 Ot 272.4 HYPERLIPIDEMIA NEC/NOS 02/12/2016 Ot 414.00 CORON ATHEROSCLER NOS TYPE VESSEL, NATIV 02/12/2016 Ot 784.7 EPISTAXIS 02/12/2016 Ot V58.69 OTH MED,LT, CURRENT USE 02/12/2016 BAIMA, LAMAR L LAB[address] RO[address] Ot 272.4 HYPERLIPIDEMIA NEC/NOS 02/12/2016 BAIMA, LAMAR L LAB[address] RO[address] Ot V58.69 OTH MED,LT,CURRENT USE 02/12/2016 BAIMA, LAMAR L LAB[address] Ot 272.4 HYPERLIPIDEMIA NEC/NOS 02/12/2016 BAIMA, LAMAR L LAB[address] Ot V58.69 OTH MED,LT,CURRENT USE 02/12/2016 BAIMA, LAMAR L LAB[address] Ot 272.4 HYPERLIPIDEMIA NEC/NOS 02/12/2016 BAIMA, LAMAR L LAB[address] RO[address] Ot 305.1 TOBACCO USE DISORDER 02/12/2016 BAIMA, LAMAR L LAB[address] RO[address] Ot 401.9 HYPERTENSION NOS 02/12/2016 BAIMA, LAMAR L LAB[address] RO[address] Ot 414.00 CORON ATHEROSCLER NOS TYPE VESSEL, NATIV 02/12/2016 BAIMA, LAMAR L LAB[address] RO[address] Ot 427.89 CARDIAC DYSRHYTHMIAS NEC 02/12/2016 BAIMA, LAMAR L LAB[address] RO[address] Ot 272.4 HYPERLIPIDEMIA NEC/NOS 02/12/2016 BAIMA, LAMAR L LAB[address] RO[address] Ot 414.00 CORON ATHEROSCLER NOS TYPE VESSEL, NATIV 02/12/2016 BAIMA, LAMAR L LAB[address] Ot 272.4 HYPERLIPIDEMIA NEC/NOS 02/12/2016 BAIMA, LAMAR L LAB[address] RO[address] Ot 414.00 CORON ATHEROSCLER NOS TYPE VESSEL, NATIV 02/12/[address] Ot 789.01 ABDOMINAL PAIN, RIGHT UPPER QUADRANT 02/12/2016 Ot 272.4 HYPERLIPIDEMIA NEC/NOS 02/12/2016 Ot 414.00 CORON ATHEROSCLER NOS TYPE VESSEL, NATIV 02/12/2016 JESSY PEPPER [facility], ALI FACP CCDS Ot 272.4 HYPERLIPIDEMIA NEC/NOS 02/12/2016 JESSY PEPPER [facility], ALI FACP CCDS Ot 305.1 TOBACCO USE DISORDER 02/12/2016 JESSY PEPPER [facility], ALI FACP CCDS Ot 401.9 HYPERTENSION NOS 02/12/2016 JESSY PEPPER [facility], ALI FACP CCDS Ot 414.00 CORON ATHEROSCLER NOS TYPE VESSEL, NATIV 02/12/2016 JESSY PEPPER FAC, ALI FACP CCDS Ot 719.40 JOINT PAIN-UNSPEC 02/12/2016 JESSY PEPPER [facility], ALI FACP CCDS Ot 724.5 BACKACHE NOS 02/12/2016 JESSY PEPPER [facility], ALI FACP CCDS Ot 786.59 CHEST PAIN NEC 02/12/2016 JESSY PEPPER [facility], ALI FACP CCDS Ot V58.63 LONG-TERM(CURRENT)USE OF ANTIPLATELET/AN 02/12/2016 JESSY RAINEY, ALI FACP CCDS Ot V58.69 OTH MED,LT,CURRENT USE 02/12/[address] Ot R10.11 RIGHT UPPER QUADRANT PAIN 02/12/[address] Ot R11.0 NAUSEA 02/12/[address] Ot E78.5 HYPERLIPIDEMIA, UNSPECIFIED 02/12/[address] Ot I10 ESSENTIAL (PRIMARY) HYPERTENSION 02/12/[address] Ot I25.10 ATHSCL HEART DISEASE OF [place] CORONARY 02/12/[address] Ot I65.29 OCCLUSION AND STENOSIS OF UNSPECIFIED CA 02/12/[address] Ot Z72.0 TOBACCO USE 02/12/2016 SVETLANA WALLACE DO Ot K82.8 OTHER SPECIFIED DISEASES OF [place] 02/12/2016 SVETLANA WALLACE DO Ot Z01.812 ENCOUNTER FOR PREPROCEDURAL LABORATORY E 02/12/2016 SVETLANA WALLACE DO Ot Z11.2 ENCOUNTER FOR SCREENING FOR OTHER BACTER 02/12/2016 BAIMA, LAMAR L LAB[address] RO[address] Ot E78.5 HYPERLIPIDEMIA, UNSPECIFIED 02/12/[address] Ot I25.10 ATHSCL HEART DISEASE OF [place] CORONARY 02/12/2016 JESSY PEPPER [facility], ALI FACP CCDS Ot E78.4 OTHER HYPERLIPIDEMIA 02/12/2016 JESSY PEPPER FACC, ALI FACP CCDS Ot I10 ESSENTIAL (PRIMARY) HYPERTENSION 02/12/2016 JESSY PEPPER [facility], ALI FACP CCDS Ot I25.10 ATHSCL HEART DISEASE OF [place] CORONARY 02/12/2016 JESSY PEPPER [facility], ALI FACP CCDS Ot I65.23 OCCLUSION AND STENOSIS OF BILATERAL [place] 02/12/2016 JESSY PEPPER [facility], ALI FACP CCDS Ot R07.89 OTHER CHEST PAIN 02/12/2016 JESSY PEPPER [facility], ALI FACP CCDS Ot Z72.0 TOBACCO USE 02/12/2016 ИВАН RAYMUNDO DO Ot E66.9 OBESITY, UNSPECIFIED 02/12/2016 ИВАН RAYMUNDO DO Ot I25.10 ATHSCL HEART DISEASE OF [place] CORONARY 02/12/2016 ИВАН RAYMUNDO DO Ot R06.83 SNORING 02/12/2016 ИВАН RAYMUNDO DO Ot Z72.0 TOBACCO USE 02/12/2016 FILOMENA ACOSTA MD Ot E78.0 PURE HYPERCHOLESTEROLEMIA 02/12/2016 FILOMENA ACOSTA MD Ot F17.210 NICOTINE DEPENDENCE, CIGARETTES, UNCOMPL 02/12/2016 FILOMENA ACOSTA MD Ot I10 ESSENTIAL (PRIMARY) HYPERTENSION 02/12/2016 FILOMENA ACOSTA MD Ot I25.10 ATHSCL HEART DISEASE OF [place] CORONARY 02/12/2016 FILOMENA ACOSTA MD Ot K20.9 ESOPHAGITIS, UNSPECIFIED 02/12/2016 FILOMENA ACOSTA MD Ot K29.70 GASTRITIS, UNSPECIFIED, WITHOUT BLEEDING 02/12/2016 FILOMENA ACOSTA MD Ot K44.9 DIAPHRAGMATIC HERNIA WITHOUT OBSTRUCTION 02/12/2016 FILOMENA ACOSTA MD Ot R06.02 SHORTNESS OF BREATH 02/12/2016 FILOMENA ACOSTA MD Ot R07.9 CHEST PAIN, UNSPECIFIED 02/12/2016 FILOMENA ACOSTA MD Ot Z79.82 PAEDIATRICIAN (CURRENT) USE OF ASPIRIN 02/12/2016 FILOMENA ACOSTA MD Ot Z79.899 OTHER [facility] (CURRENT) DRUG THERAPY 02/12/2016 MIHAI SANCHEZ MD Ot I10 ESSENTIAL (PRIMARY) HYPERTENSION 02/12/2016 MIHAI SANCHEZ MD, Ot I25.10 ATHSCL HEART DISEASE OF [place] CORONARY 02/12/2016 MIHAI SANCHEZ MD Ot K62.5 HEMORRHAGE OF ANUS AND RECTUM 02/12/2016 MIHAI SANCHEZ MD Ot R07.9 CHEST PAIN, UNSPECIFIED 02/12/2016 MIHAI SANCHEZ MD Ot R10.13 EPIGASTRIC PAIN 02/12/2016 MIHAI SANCEHZ MD Ot R19.7 DIARRHEA, UNSPECIFIED 02/12/2016 MIHAI SANCHEZ MD Ot R74.8 ABNORMAL LEVELS OF OTHER SERUM ENZYMES 02/12/2016 MIHAI SANCHEZ MD Ot Z79.82 FCI (CURRENT) USE OF ASPIRIN 02/12/2016 MIHAI SANCHEZ MD Ot Z79.899 OTHER [facility] (CURRENT) DRUG THERAPY 02/12/2016 MIHAI SANCHEZ MD Ot Z95.5 PRESENCE OF CORONARY ANGIOPLASTY IMPLANT 02/14/2016 MIHAI ASNCHEZ MD Ot I10 ESSENTIAL (PRIMARY) HYPERTENSION 02/14/2016 MIHAI SANCHEZ MD Ot I25.10 ATHSCL HEART DISEASE OF [place] CORONARY 02/14/2016 MIHAI SANCHEZ MD Ot K62.5 HEMORRHAGE OF ANUS AND RECTUM 02/14/2016 MIHAI SANCHEZ MD Ot R07.9 CHEST PAIN, UNSPECIFIED 02/14/2016 MIHAI SANCHEZ MD Ot R10.13 EPIGASTRIC PAIN 02/14/2016 MIHAI SANCHEZ MD Ot R19.7 DIARRHEA, UNSPECIFIED 02/14/2016 MIHAI SANCHEZ MD Ot R74.8 ABNORMAL LEVELS OF OTHER SERUM ENZYMES 02/14/2016 MIHAI SANCHEZ MD Ot Z79.82 PAEDIATRICIAN (CURRENT) USE OF ASPIRIN 02/14/2016 MIHAI SANCHEZ MD Ot Z79.899 OTHER [facility] (CURRENT) DRUG THERAPY 02/14/2016 MIHAI SANCHEZ MD Ot Z95.5 PRESENCE OF CORONARY ANGIOPLASTY IMPLANT 02/16/2016 MIHAI SANCHEZ MD Ot I10 ESSENTIAL (PRIMARY) HYPERTENSION 02/16/2016 MIHAI SANCHEZ MD Ot I25.10 ATHSCL HEART DISEASE OF [place] CORONARY 02/16/2016 MIHAI SANCHEZ MD Ot K62.5 HEMORRHAGE OF ANUS AND RECTUM 02/16/2016 MIHAI SANCHEZ MD Ot R07.9 CHEST PAIN, UNSPECIFIED 02/16/2016 MIHAI SANCHEZ MD Ot R10.13 EPIGASTRIC PAIN 02/16/2016 MIHAI SANCHEZ MD Ot R19.7 DIARRHEA, UNSPECIFIED 02/16/2016 MIHAI SANCHEZ MD Ot R74.8 ABNORMAL LEVELS OF OTHER SERUM ENZYMES 02/16/2016 MIHAI SANCHEZ MD Ot Z79.82 FCI (CURRENT) USE OF ASPIRIN 02/16/2016 MIHAI SANCHEZ MD Ot Z79.899 OTHER PAEDIATRICIAN (CURRENT) DRUG THERAPY 02/16/2016 MIHAI SANCHEZ MD Ot Z95.5 PRESENCE OF CORONARY ANGIOPLASTY IMPLANT 03/11/2016 Ot 482.9 BACTERIAL PNEUMONIA NOS 03/11/2016 Ot 491.9 CHRONIC BRONCHITIS NOS 03/11/2016 Ot 272.4 HYPERLIPIDEMIA NEC/NOS 03/11/2016 Ot 414.00 CORON ATHEROSCLER NOS TYPE VESSEL, NATIV 03/11/2016 Ot 784.7 EPISTAXIS 03/11/2016 Ot V58.69 OTH MED,LT, CURRENT USE 03/11/2016 BAIMA, LAMAR L LAB[address] Ot 272.4 HYPERLIPIDEMIA NEC/NOS 03/11/2016 BAIMA, LAMAR L LAB[address] RO[address] Ot V58.69 OTH MED,LT,CURRENT USE 03/11/2016 BAIMA, LAMAR L LAB[address] Ot 272.4 HYPERLIPIDEMIA NEC/NOS 03/11/2016 BAIMA, LAMAR L LAB[address] RO[address] Ot V58.69 OTH MED,LT,CURRENT USE 03/11/2016 BAIMA, LAMAR L LAB[address] Ot 272.4 HYPERLIPIDEMIA NEC/NOS 03/11/2016 BAIMA, LAMAR L LAB[address] RO[address] Ot 305.1 TOBACCO USE DISORDER 03/11/2016 BAIMA, LAMAR L LAB[address] RO[address] Ot 401.9 HYPERTENSION NOS 03/11/2016 BAIMA, LAMAR L LAB[address] RO[address] Ot 414.00 CORON ATHEROSCLER NOS TYPE VESSEL, NATIV 03/11/2016 BAIMA, LAMAR L LAB[address] RO[address] Ot 427.89 CARDIAC DYSRHYTHMIAS NEC 03/11/[address]SA LAMAR L LAB[address] Ot 272.4 HYPERLIPIDEMIA NEC/NOS 03/11/2016 BAIMELISSA, LAMAR L LABOR[address] RO[address] Ot 414.00 CORON ATHEROSCLER NOS TYPE VESSEL, NATIV 03/11/[address] L[address] M[address] L [address] Ot 272.4 HYPERLIPIDEMIA NEC/NOS 03/11/[address] L [address] Ot 414.00 CORON ATHEROSCLER NOS TYPE VESSEL, NATIV 03/11/[address] Ot 789.01 ABDOMINAL PAIN, RIGHT UPPER QUADRANT 03/11/2016 Ot 272.4 HYPERLIPIDEMIA NEC/NOS 03/11/2016 Ot 414.00 CORON ATHEROSCLER NOS TYPE VESSEL, NATIV 03/11/2016 JESSY PEPPER FACC, ALI FACP CCDS Ot 272.4 HYPERLIPIDEMIA NEC/NOS 03/11/2016 JESSY PEPPER FACC, ALI FACP CCDS Ot 305.1 TOBACCO USE DISORDER 03/11/2016 JESSY PEPPER FACC, ALI FACP CCDS Ot 401.9 HYPERTENSION NOS 03/11/2016 JESSY RAINEYC, ALI FACP CCDS Ot 414.00 CORON ATHEROSCLER NOS TYPE VESSEL, NATIV 03/11/2016 JESSY PEPPER FACC, ALI FACP CCDS Ot 719.40 JOINT PAIN-UNSPEC 03/11/2016 JESSY PEPPER FACC, ALI FACP CCDS Ot 724.5 BACKACHE NOS 03/11/2016 JESSY PEPPER FACC, ALI FACP CCDS Ot 786.59 CHEST PAIN NEC 03/11/2016 JESSY PEPPER FACC, ALI FACP CCDS Ot V58.63 LONG-TERM(CURRENT)USE OF ANTIPLATELET/AN 03/11/2016 JESSY PEPPER FACC, ALI FACP CCDS Ot V58.69 OTH MED,LT,CURRENT USE 03/11/[address] Ot R10.11 RIGHT UPPER QUADRANT PAIN 03/11/[address] Ot R11.0 NAUSEA 03/11/[address] Ot E78.5 HYPERLIPIDEMIA, UNSPECIFIED 03/11/[address] Ot I10 ESSENTIAL (PRIMARY) HYPERTENSION 03/11/[address] Ot I25.10 ATHSCL HEART DISEASE OF [place] CORONARY 03/11/[address] Ot I65.29 OCCLUSION AND STENOSIS OF UNSPECIFIED CA 03/11/[address] Ot Z72.0 TOBACCO USE 03/11/2016 SVETLANA WALLACE DO Ot K82.8 OTHER SPECIFIED DISEASES OF [place] 03/11/2016 SVETLANA WALLACE DO Ot Z01.812 ENCOUNTER FOR PREPROCEDURAL LABORATORY E 03/11/2016 SVETLANA WALLACE DO Ot Z11.2 ENCOUNTER FOR SCREENING FOR OTHER BACTER 03/11/[address] Ot E78.5 HYPERLIPIDEMIA, UNSPECIFIED 03/11/[address] Ot I25.10 ATHSCL HEART DISEASE OF [place] CORONARY 03/11/2016 JESSY PEPPER FACC, ALI FACP CCDS Ot E78.4 OTHER HYPERLIPIDEMIA 03/11/2016 JESSY PEPPER FACC, ALI FACP CCDS Ot I10 ESSENTIAL (PRIMARY) HYPERTENSION 03/11/2016 JESSY PEPPER FACC, ALI FACP CCDS Ot I25.10 ATHSCL HEART DISEASE OF [place] CORONARY 03/11/2016 JESSY PEPPER FACC, ALI FACP CCDS Ot I65.23 OCCLUSION AND STENOSIS OF BILATERAL [place] 03/11/2016 JESSY PEPPER FACC, ALI FACP CCDS Ot R07.89 OTHER CHEST PAIN 03/11/2016 JESSY PEPPER FAC, ALI FACP CCDS Ot Z72.0 TOBACCO USE 03/11/2016 ИВАН RAYMUNDO DO Ot E66.9 OBESITY, UNSPECIFIED 03/11/2016 ИВАН RAYMUNDO DO Ot I25.10 ATHSCL HEART DISEASE OF [place] CORONARY 03/11/2016 ИВАН RAYMUNDO DO Ot R06.83 SNORING 03/11/2016 ИВАН RAYMUNDO DO Ot Z72.0 TOBACCO USE 03/11/2016 DAVE PEPPER, FILOMENA Robb Ot E78.0 PURE HYPERCHOLESTEROLEMIA 03/11/2016 DAVE PEPPER, FILOMENA Robb Ot F17.210 NICOTINE DEPENDENCE, CIGARETTES, UNCOMPL 03/11/2016 DAVE PEPPER, FILOMENA Robb Ot I10 ESSENTIAL (PRIMARY) HYPERTENSION 03/11/2016 DAVE PEPPER, FILOMENA Robb Ot I25.10 ATHSCL HEART DISEASE OF [place] CORONARY 03/11/2016 DAVE PEPPER, FILOMENA Robb Ot K20.9 ESOPHAGITIS, UNSPECIFIED 03/11/2016 DAVE PEPPER, FILOMENA Robb Ot K29.70 GASTRITIS, UNSPECIFIED, WITHOUT BLEEDING 03/11/2016 DAVE PEPPER, FILOMENA Robb Ot K44.9 DIAPHRAGMATIC HERNIA WITHOUT OBSTRUCTION 03/11/2016 DAVE PEPPRE, FILOMENA Robb Ot R06.02 SHORTNESS OF BREATH 03/11/2016 DAVE PEPPER, FILOMENA Robb Ot R07.9 CHEST PAIN, UNSPECIFIED 03/11/2016 DAVE PEPPER, FILOMENA Robb Ot Z79.82 PAEDIATRICIAN (CURRENT) USE OF ASPIRIN 03/11/2016 FILOMENA ACOSTA MD Ot Z79.899 OTHER PAEDIATRICIAN (CURRENT) DRUG THERAPY 03/11/2016 MIHAI SANCHEZ MD Ot I10 ESSENTIAL (PRIMARY) HYPERTENSION 03/11/2016 MIHAI SANCHEZ MD Ot I25.10 ATHSCL HEART DISEASE OF [place] CORONARY 03/11/2016 MIHAI SANCHEZ MD Ot K62.5 HEMORRHAGE OF ANUS AND RECTUM 03/11/2016 MIHAI SANCHEZ MD Ot R07.9 CHEST PAIN, UNSPECIFIED 03/11/2016 MIHAI SANCHEZ MD Ot R10.13 EPIGASTRIC PAIN 03/11/2016 MIHAI SANCHEZ MD Ot R19.7 DIARRHEA, UNSPECIFIED 03/11/2016 MIHAI SANCHEZ MD Ot R74.8 ABNORMAL LEVELS OF OTHER SERUM ENZYMES 03/11/2016 MIHAI SANCHEZ MD Ot Z79.82 [facility]CI (CURRENT) USE OF ASPIRIN 03/11/2016 MIHAI SANCHEZ MD Ot Z79.899 OTHER PAEDIATRICIAN (CURRENT) DRUG THERAPY 03/11/2016 MIHAI SANCHEZ MD Ot Z95.5 PRESENCE OF CORONARY ANGIOPLASTY IMPLANT 03/11/2016 Ot 482.9 BACTERIAL PNEUMONIA NOS 03/11/2016 Ot 491.9 CHRONIC BRONCHITIS NOS 03/11/2016 Ot 272.4 HYPERLIPIDEMIA NEC/NOS 03/11/2016 Ot 414.00 CORON ATHEROSCLER NOS TYPE VESSEL, NATIV 03/11/2016 Ot 784.7 EPISTAXIS 03/11/2016 Ot V58.69 OTH MED,LT, CURRENT USE 03/11/2016 BAIMA, LAMAR L LABOR[address] Ot 272.4 HYPERLIPIDEMIA NEC/NOS 03/11/2016 BAIMA, LAMAR L LABOR[address] RO[address] Ot V58.69 OTH MED,LT,CURRENT USE 03/11/2016 BAIMA, LAMAR L LAB[address] Ot 272.4 HYPERLIPIDEMIA NEC/NOS 03/11/2016 BAIMA, LAMAR L LAB[address] RO[address] Ot V58.69 OTH MED,LT,CURRENT USE 03/11/2016 BAIMA, LAMAR L LAB[address] Ot 272.4 HYPERLIPIDEMIA NEC/NOS 03/11/2016 BAIMA, LAMAR L LABOR[address] RO[address] Ot 305.1 TOBACCO USE DISORDER 03/11/2016 BAIMA, LAMAR L LABOR[address] RO[address] Ot 401.9 HYPERTENSION NOS 03/11/2016 BAIMA, LAMAR L LABOR[address] RO[address] Ot 414.00 CORON ATHEROSCLER NOS TYPE VESSEL, NATIV 03/11/2016 BAIMA, LAMAR L LABOR[address] RO[address] Ot 427.89 CARDIAC DYSRHYTHMIAS NEC 03/11/2016 BAIMA, LAMAR L LABOR[address] RO[address] Ot 272.4 HYPERLIPIDEMIA NEC/NOS 03/11/2016 BAIMA, LAMAR L LABOR[address] RO[address] Ot 414.00 CORON ATHEROSCLER NOS TYPE VESSEL, NATIV 03/11/2016 BAIMA, LAMAR L LABOR[address] RO[address] Ot 272.4 HYPERLIPIDEMIA NEC/NOS 03/11/2016 BAIMA, LAMAR L LAB[address] Ot 414.00 CORON ATHEROSCLER NOS TYPE VESSEL, NATIV 03/11/[address] Ot 789.01 ABDOMINAL PAIN, RIGHT UPPER QUADRANT 03/11/2016 Ot 272.4 HYPERLIPIDEMIA NEC/NOS 03/11/2016 Ot 414.00 CORON ATHEROSCLER NOS TYPE VESSEL, NATIV 03/11/2016 JESSY PEPPER FACC, JOSEPH FACP CCDS Ot 272.4 HYPERLIPIDEMIA NEC/NOS 03/11/2016 JESSY PEPPER FACC, ALI FACP CCDS Ot 305.1 TOBACCO USE DISORDER 03/11/2016 JESSY PEPPER FACC, ALI FACP CCDS Ot 401.9 HYPERTENSION NOS 03/11/2016 JESSY PEPPER FACC, ALI FACP CCDS Ot 414.00 CORON ATHEROSCLER NOS TYPE VESSEL, NATIV 03/11/2016 JESSY PEPPER FACC, ALI FACP CCDS Ot 719.40 JOINT PAIN-UNSPEC 03/11/2016 JESSY PEPPER FACC, ALI FACP CCDS Ot 724.5 BACKACHE NOS 03/11/2016 JESSY PEPPER FACC, ALI FACP CCDS Ot 786.59 CHEST PAIN NEC 03/11/2016 JESSY PEPPER FACC, ALI FACP CCDS Ot V58.63 LONG-TERM(CURRENT)USE OF ANTIPLATELET/AN 03/11/2016 JESSY PEPPER FACC, ALI FACP CCDS Ot V58.69 OTH MED,LT,CURRENT USE 03/11/2016 SHON YASHIRA Giancarlo [address] Ot R10.11 RIGHT UPPER QUADRANT PAIN 03/11/[address] Ot R11.0 NAUSEA 03/11/[address] Ot E78.5 HYPERLIPIDEMIA, UNSPECIFIED 03/11/[address] Ot I10 ESSENTIAL (PRIMARY) HYPERTENSION 03/11/[address] L [address] Ot I25.10 ATHSCL HEART DISEASE OF [place] CORONARY 03/11/[address] LAM[address] Ot I65.29 OCCLUSION AND STENOSIS OF UNSPECIFIED CA 03/11/[address] Ot Z72.0 TOBACCO USE 03/11/2016 SVETLANA WALLACE DO Ot K82.8 OTHER SPECIFIED DISEASES OF [place] 03/11/2016 SVETLANA WALLACE DO Ot Z01.812 ENCOUNTER FOR PREPROCEDURAL LABORATORY E 03/11/2016 SVETLANA WALLACE DO Ot Z11.2 ENCOUNTER FOR SCREENING FOR OTHER BACTER 03/11/[address] Ot E78.5 HYPERLIPIDEMIA, UNSPECIFIED 03/11/2016 MON[address]AMAR Hans [address] Ot I25.10 ATHSCL HEART DISEASE OF [place] CORONARY 03/11/2016 JESSY PEPPER FACC, JOSEPH FACP CCDS Ot E78.4 OTHER HYPERLIPIDEMIA 03/11/2016 JESSY PEPPER FACC, JOSEPH FACP CCDS Ot I10 ESSENTIAL (PRIMARY) HYPERTENSION 03/11/2016 JESSY PEPPER FACC, ALI FACP CCDS Ot I25.10 ATHSCL HEART DISEASE OF [place] CORONARY 03/11/2016 JESSY PEPPER FACC, ALI FACP CCDS Ot I65.23 OCCLUSION AND STENOSIS OF BILATERAL [place] 03/11/2016 JESSY PEPPER FACC, ALI FACP CCDS Ot R07.89 OTHER CHEST PAIN 03/11/2016 JESSY PEPPER FACC, JOSEPH FACP CCDS Ot Z72.0 TOBACCO USE 03/11/2016 ИВАН RAYMUNDO DO Ot E66.9 OBESITY, UNSPECIFIED 03/11/2016 ИВАН RAYMUNDO DO Ot I25.10 ATHSCL HEART DISEASE OF [place] CORONARY 03/11/2016 ИВАН RAYMUNDO DO Ot R06.83 SNORING 03/11/2016 ИВАН RAYMUNDO DO Ot Z72.0 TOBACCO USE 03/11/2016 DAVE PEPPER, FILOMENA Robb Ot E78.0 PURE HYPERCHOLESTEROLEMIA 03/11/2016 DAVE PEPPER, FILOMENA Robb Ot F17.210 NICOTINE DEPENDENCE, CIGARETTES, UNCOMPL 03/11/2016 DAVE PEPPER, FILOMENA Robb Ot I10 ESSENTIAL (PRIMARY) HYPERTENSION 03/11/2016 DAVE PEPPER, FILOMENA Robb Ot I25.10 ATHSCL HEART DISEASE OF [place] CORONARY 03/11/2016 DAVE PEPPER, FILOMENA Robb Ot K20.9 ESOPHAGITIS, UNSPECIFIED 03/11/2016 DAVE PEPPER, FILOMENA Robb Ot K29.70 GASTRITIS, UNSPECIFIED, WITHOUT BLEEDING 03/11/2016 FILOMENA ACOSTA MD Ot K44.9 DIAPHRAGMATIC HERNIA WITHOUT OBSTRUCTION 03/11/2016 FILOMENA ACOSTA MD Ot R06.02 SHORTNESS OF BREATH 03/11/2016 FILOMENA ACOSTA MD Ot R07.9 CHEST PAIN, UNSPECIFIED 03/11/2016 FILOMENA ACOSTA MD Ot Z79.82 PAEDIATRICIAN (CURRENT) USE OF ASPIRIN 03/11/2016 FILOMENA ACOSTA MD Ot Z79.899 OTHER PAEDIATRICIAN (CURRENT) DRUG THERAPY 03/11/2016 MIHAI SANCHEZ MD Ot I10 ESSENTIAL (PRIMARY) HYPERTENSION 03/11/2016 MIHAI SANCHEZ MD Ot I25.10 ATHSCL HEART DISEASE OF [place] CORONARY 03/11/2016 MIHAI SANCHEZ MD Ot K62.5 HEMORRHAGE OF ANUS AND RECTUM 03/11/2016 MIHAI SANCHEZ MD Ot R07.9 CHEST PAIN, UNSPECIFIED 03/11/2016 MIHAI SANCHEZ MD Ot R10.13 EPIGASTRIC PAIN 03/11/2016 MIHAI SANCHEZ MD Ot R19.7 DIARRHEA, UNSPECIFIED 03/11/2016 MIHAI SANCHEZ MD Ot R74.8 ABNORMAL LEVELS OF OTHER SERUM ENZYMES 03/11/2016 MIHAI SANCHEZ MD Ot Z79.82 PAEDIATRICIAN (CURRENT) USE OF ASPIRIN 03/11/2016 MIHAI SANCHEZ MD Ot Z79.899 OTHER [facility] (CURRENT) DRUG THERAPY 03/11/2016 MIHAI SANCHEZ MD Ot Z95.5 PRESENCE OF CORONARY ANGIOPLASTY IMPLANT 03/20/2016 MIHAI SANCHEZ MD Ot I10 ESSENTIAL (PRIMARY) HYPERTENSION 03/20/2016 MIHAI SANCHEZ MD Ot I25.10 ATHSCL HEART DISEASE OF [place] CORONARY 03/20/2016 MIHAI SANCHEZ MD Ot K62.5 HEMORRHAGE OF ANUS AND RECTUM 03/20/2016 MIHAI SANCHEZ MD Ot R07.9 CHEST PAIN, UNSPECIFIED 03/20/2016 MIHAI SANCHEZ MD Ot R10.13 EPIGASTRIC PAIN 03/20/2016 MIHAI SANCHEZ MD, Ot R19.7 DIARRHEA, UNSPECIFIED 03/20/2016 MIHAI SANCHEZ MD Ot R74.8 ABNORMAL LEVELS OF OTHER SERUM ENZYMES 03/20/2016 MIHAI SANCHEZ MD Ot Z79.82 PAEDIATRICIAN (CURRENT) USE OF ASPIRIN 03/20/2016 MIHAI SANCHEZ MD Ot Z79.899 OTHER [facility] (CURRENT) DRUG THERAPY 03/20/2016 MIHAI SANCHEZ MD Ot Z95.5 PRESENCE OF CORONARY ANGIOPLASTY IMPLANT 03/20/2016 MARIA D PITTS APRN Ot J44.9 CHRONIC OBSTRUCTIVE PULMONARY DISEASE, U 03/20/2016 MARIA D PITTS APRN Ot J45.909 UNSPECIFIED ASTHMA, UNCOMPLICATED 03/20/2016 MARIA D PITTS APRN Ot J98.4 OTHER DISORDERS OF LUNG 03/20/2016 MARIA D PITTS APRN Ot R06.00 DYSPNEA, UNSPECIFIED 03/20/2016 MARIA D PITTS APRN Ot Z72.0 TOBACCO USE 04/08/2016 Ot 482.9 BACTERIAL PNEUMONIA NOS 04/08/2016 Ot 491.9 CHRONIC BRONCHITIS NOS 04/08/2016 Ot 272.4 HYPERLIPIDEMIA NEC/NOS 04/08/2016 Ot 414.00 CORON ATHEROSCLER NOS TYPE VESSEL, NATIV 04/08/2016 Ot 784.7 EPISTAXIS 04/08/2016 Ot V58.69 OTH MED,LT, CURRENT USE 04/08/[address] Ot 272.4 HYPERLIPIDEMIA NEC/NOS 04/08/2016 BAIMA, LAMAR L LAB[address] RO[address] Ot V58.69 OTH MED,LT,CURRENT USE 04/08/2016 BAIMA, LAMAR L LAB[address] Ot 272.4 HYPERLIPIDEMIA NEC/NOS 04/08/2016 BAIMA, LAMAR L LAB[address] RO[address] Ot V58.69 OTH MED,LT,CURRENT USE 04/08/2016 BAIMA, LAMAR L LAB[address] Ot 272.4 HYPERLIPIDEMIA NEC/NOS 04/08/2016 BAIMA, LAMAR L LAB[address] RO[address] Ot 305.1 TOBACCO USE DISORDER 04/08/2016 BAIMA, LAMAR L LAB[address] RO[address] Ot 401.9 HYPERTENSION NOS 04/08/2016 BAIMA, LAMAR L LAB[address] Ot 414.00 CORON ATHEROSCLER NOS TYPE VESSEL, NATIV 04/08/2016 BAIMA, LAMAR L LAB[address] RO[address] Ot 427.89 CARDIAC DYSRHYTHMIAS NEC 04/08/2016 BAIMA, LAMAR L LAB[address] RO[address] Ot 272.4 HYPERLIPIDEMIA NEC/NOS 04/08/2016 BAIMA, LAMAR L LAB[address] Ot 414.00 CORON ATHEROSCLER NOS TYPE VESSEL, NATIV 04/08/2016 BAIMA, LAMAR L LAB[address] Ot 272.4 HYPERLIPIDEMIA NEC/NOS 04/08/2016 BAIMA, LAMAR L LAB[address] Ot 414.00 CORON ATHEROSCLER NOS TYPE VESSEL, NATIV 04/08/[address] Ot 789.01 ABDOMINAL PAIN, RIGHT UPPER QUADRANT 04/08/2016 Ot 272.4 HYPERLIPIDEMIA NEC/NOS 04/08/2016 Ot 414.00 CORON ATHEROSCLER NOS TYPE VESSEL, NATIV 04/08/2016 JESSY PEPPER FACC, JOSEPH FACP CCDS Ot 272.4 HYPERLIPIDEMIA NEC/NOS 04/08/2016 JESSY PEPPER FACC, ALI FACP CCDS Ot 305.1 TOBACCO USE DISORDER 04/08/2016 JESSY PEPPER FACC, ALI FACP CCDS Ot 401.9 HYPERTENSION NOS 04/08/2016 JESSY PEPPER FACC, ALI FACP CCDS Ot 414.00 CORON ATHEROSCLER NOS TYPE VESSEL, NATIV 04/08/2016 JESSY PEPPER FACC, ALI FACP CCDS Ot 719.40 JOINT PAIN-UNSPEC 04/08/2016 JESSY PEPPER FACC, ALI FACP CCDS Ot 724.5 BACKACHE NOS 04/08/2016 JESSY PEPPER FACC, ALI FACP CCDS Ot 786.59 CHEST PAIN NEC 04/08/2016 JESSY PEPPER FACC, ALI FACP CCDS Ot V58.63 LONG-TERM(CURRENT)USE OF ANTIPLATELET/AN 04/08/2016 JESSY PEPPER FACC, ALI FACP CCDS Ot V58.69 OTH MED,LT,CURRENT USE 04/08/[address] Ot R10.11 RIGHT UPPER QUADRANT PAIN 04/08/[address] Ot R11.0 NAUSEA 04/08/[address] Ot E78.5 HYPERLIPIDEMIA, UNSPECIFIED 04/08/[address] Ot I10 ESSENTIAL (PRIMARY) HYPERTENSION 04/08/[address] LAM[address] L LAB[address] Ot I25.10 ATHSCL HEART DISEASE OF [place] CORONARY 04/08/[address] Ot I65.29 OCCLUSION AND STENOSIS OF UNSPECIFIED CA 04/08/[address] Ot Z72.0 TOBACCO USE 04/08/2016 SVETLANA AWLLACE DO Ot K82.8 OTHER SPECIFIED DISEASES OF [place] 04/08/2016 SVETLANA WALLACE DO Ot Z01.812 ENCOUNTER FOR PREPROCEDURAL LABORATORY E 04/08/2016 SVETLANA WALLACE DO Ot Z11.2 ENCOUNTER FOR SCREENING FOR OTHER BACTER 04/08/[address] Ot E78.5 HYPERLIPIDEMIA, UNSPECIFIED 04/08/2016 AMMONMELISSA LAMAR Hans LAB[address] RO[address] Ot I25.10 ATHSCL HEART DISEASE OF [place] CORONARY 04/08/2016 JESSY PEPPER FACC, JOSEPH RAINEYP CCDS Ot E78.4 OTHER HYPERLIPIDEMIA 04/08/2016 JESSY PEPPER FACC, JOSEPH FACP CCDS Ot I10 ESSENTIAL (PRIMARY) HYPERTENSION 04/08/2016 JESSY PEPPER FACC, ALI FACP CCDS Ot I25.10 ATHSCL HEART DISEASE OF [place] CORONARY 04/08/2016 JESSY PEPPER FACC, ALI FACP CCDS Ot I65.23 OCCLUSION AND STENOSIS OF BILATERAL [place] 04/08/2016 JESSY PEPPER FACC, ALI FACP CCDS Ot R07.89 OTHER CHEST PAIN 04/08/2016 JESSY PEPPER FACC, JOSEPH FACP CCDS Ot Z72.0 TOBACCO USE 04/08/2016 ИВАН RAYMUNDO DO Ot E66.9 OBESITY, UNSPECIFIED 04/08/2016 ИВАН RAYMUNDO DO Ot I25.10 ATHSCL HEART DISEASE OF [place] CORONARY 04/08/2016 ИВАН RAYMUNDO DO Ot R06.83 SNORING 04/08/2016 ИВАН RAYMUNDO DO Ot Z72.0 TOBACCO USE 04/08/2016 DAVE PEPPER, FILOMENA Robb Ot E78.0 PURE HYPERCHOLESTEROLEMIA 04/08/2016 DAVE PEPPER, FILOMENA Robb Ot F17.210 NICOTINE DEPENDENCE, CIGARETTES, UNCOMPL 04/08/2016 DAVE PEPPER, FILOMENA Robb Ot I10 ESSENTIAL (PRIMARY) HYPERTENSION 04/08/2016 DAVE PEPPER, FILOMENA Robb Ot I25.10 ATHSCL HEART DISEASE OF [place] CORONARY 04/08/2016 DAVE PEPPER, FILOMENA Robb Ot K20.9 ESOPHAGITIS, UNSPECIFIED 04/08/2016 DAVE PEPPER, FILOMENA Robb Ot K29.70 GASTRITIS, UNSPECIFIED, WITHOUT BLEEDING 04/08/2016 DAVE PEPPER, FILOMENA Robb Ot K44.9 DIAPHRAGMATIC HERNIA WITHOUT OBSTRUCTION 04/08/2016 DAVE PEPPER, FILOMENA Robb Ot R06.02 SHORTNESS OF BREATH 04/08/2016 DAVE PEPPER, FILOMENA Robb Ot R07.9 CHEST PAIN, UNSPECIFIED 04/08/2016 DAVE PEPPER, FILOMENA Robb Ot Z79.82 PAEDIATRICIAN (CURRENT) USE OF ASPIRIN 04/08/2016 DAVE EPPPER, FILOMENA Robb Ot Z79.899 OTHER PAEDIATRICIAN (CURRENT) DRUG THERAPY 04/08/2016 Ot 482.9 BACTERIAL PNEUMONIA NOS 04/08/2016 Ot 491.9 CHRONIC BRONCHITIS NOS 04/08/2016 Ot 272.4 HYPERLIPIDEMIA NEC/NOS 04/08/2016 Ot 414.00 CORON ATHEROSCLER NOS TYPE VESSEL, NATIV 04/08/2016 Ot 784.7 EPISTAXIS 04/08/2016 Ot V58.69 OTH MED,LT, CURRENT USE 04/08/2016 BAIMA, LAMAR L LAB[address] Ot 272.4 HYPERLIPIDEMIA NEC/NOS 04/08/2016 BAIMA, LAMAR L LAB[address] RO[address] Ot V58.69 OTH MED,LT,CURRENT USE 04/08/2016 BAIMA, LAMAR L LAB[address] Ot 272.4 HYPERLIPIDEMIA NEC/NOS 04/08/2016 BAIMA, LAMAR L LAB[address] RO[address] Ot V58.69 OTH MED,LT,CURRENT USE 04/08/2016 BAIMA, LAMAR L LAB[address] Ot 272.4 HYPERLIPIDEMIA NEC/NOS 04/08/2016 BAIMA, LAMAR L LAB[address] RO[address] Ot 305.1 TOBACCO USE DISORDER 04/08/2016 BAIMA, LAMAR L LAB[address] RO[address] Ot 401.9 HYPERTENSION NOS 04/08/2016 BAIMA, LAMAR L LAB[address] RO[address] Ot 414.00 CORON ATHEROSCLER NOS TYPE VESSEL, NATIV 04/08/2016 BAIMA, LAMAR L LAB[address] Ot 427.89 CARDIAC DYSRHYTHMIAS NEC 04/08/2016 BAIMA, LAMAR L LAB[address] RO[address] Ot 272.4 HYPERLIPIDEMIA NEC/NOS 04/08/2016 BAIMA, LAMAR L LAB[address] RO[address] Ot 414.00 CORON ATHEROSCLER NOS TYPE VESSEL, NATIV 04/08/2016 BAIMA, LAMAR L LAB[address] RO[address] Ot 272.4 HYPERLIPIDEMIA NEC/NOS 04/08/2016 BAIMA, LAMAR L LABOR[address] RO[address] Ot 414.00 CORON ATHEROSCLER NOS TYPE VESSEL, NATIV 04/08/[address] Ot 789.01 ABDOMINAL PAIN, RIGHT UPPER QUADRANT 04/08/2016 Ot 272.4 HYPERLIPIDEMIA NEC/NOS 04/08/2016 Ot 414.00 CORON ATHEROSCLER NOS TYPE VESSEL, NATIV 04/08/2016 JESSY PEPPER FACC, ALI FACP CCDS Ot 272.4 HYPERLIPIDEMIA NEC/NOS 04/08/2016 JESSY PEPPER FACC, ALI FACP CCDS Ot 305.1 TOBACCO USE DISORDER 04/08/2016 JESSY PEPPER FACC, ALI FACP CCDS Ot 401.9 HYPERTENSION NOS 04/08/2016 JESSY PEPPER FACC, ALI FACP CCDS Ot 414.00 CORON ATHEROSCLER NOS TYPE VESSEL, NATIV 04/08/2016 JESSY PEPPER FACC, ALI FACP CCDS Ot 719.40 JOINT PAIN-UNSPEC 04/08/2016 JESSY PEPPER FACC, ALI FACP CCDS Ot 724.5 BACKACHE NOS 04/08/2016 JESSY PEPPER FACC, ALI FACP CCDS Ot 786.59 CHEST PAIN NEC 04/08/2016 JSESY PEPPER FACC, ALI FACP CCDS Ot V58.63 LONG-TERM(CURRENT)USE OF ANTIPLATELET/AN 04/08/2016 JESSY PEPPER FACC, ALI FACP CCDS Ot V58.69 OT MED,LT,CURRENT USE 04/08/[address] Ot R10.11 RIGHT UPPER QUADRANT PAIN 04/08/[address] Ot R11.0 NAUSEA 04/08/[address] Ot E78.5 HYPERLIPIDEMIA, UNSPECIFIED 04/08/[address] Ot I10 ESSENTIAL (PRIMARY) HYPERTENSION 04/08/[address] Ot I25.10 ATHSCL HEART DISEASE OF [place] CORONARY 04/08/[address] Ot I65.29 OCCLUSION AND STENOSIS OF UNSPECIFIED CA 04/08/[address] Ot Z72.0 TOBACCO USE 04/08/2016 SVETLANA WALLACE DO Ot K82.8 OTHER SPECIFIED DISEASES OF [place] 04/08/2016 SVETLANA WALLACE DO Ot Z01.812 ENCOUNTER FOR PREPROCEDURAL LABORATORY E 04/08/2016 SVETLANA WALLACE DO Ot Z11.2 ENCOUNTER FOR SCREENING FOR OTHER BACTER 04/08/[address] Ot E78.5 HYPERLIPIDEMIA, UNSPECIFIED 04/08/[address] Ot I25.10 ATHSCL HEART DISEASE OF [place] CORONARY 04/08/2016 JESSY PEPPER FACC, ALI FACP CCDS Ot E78.4 OTHER HYPERLIPIDEMIA 04/08/2016 JESSY PEPPER FACC, ALI FACP CCDS Ot I10 ESSENTIAL (PRIMARY) HYPERTENSION 04/08/2016 JESSY PEPPER FACC, ALI FACP CCDS Ot I25.10 ATHSCL HEART DISEASE OF [place] CORONARY 04/08/2016 JESSY PEPPER FACC, ALI FACP CCDS Ot I65.23 OCCLUSION AND STENOSIS OF [place]ILATERAL [place] 04/08/2016 JESSY PEPPER FACC, ALI FACP CCDS Ot R07.89 OTHER CHEST PAIN 04/08/2016 JESSY PEPPER FACC, ALI FACP CCDS Ot Z72.0 TOBACCO USE 04/08/2016 ИВАН RAYMUNDO DO Ot E66.9 OBESITY, UNSPECIFIED 04/08/2016 ИВАН RAYMUNDO DO Ot I25.10 ATHSCL HEART DISEASE OF [place] CORONARY 04/08/2016 ИВАН RAYMUNDO DO Ot R06.83 SNORING 04/08/2016 ИВАН RAYMUNDO DO Ot Z72.0 TOBACCO USE 04/08/2016 DAVE PEPPER, FILOMENA Robb Ot E78.0 PURE HYPERCHOLESTEROLEMIA 04/08/2016 DAVE PEPPER, FILOMENA Robb Ot F17.210 NICOTINE DEPENDENCE, CIGARETTES, UNCOMPL 04/08/2016 DAVE PEPPER, FILOMENA Robb Ot I10 ESSENTIAL (PRIMARY) HYPERTENSION 04/08/2016 DAVE PEPPER, FILOMENA Robb Ot I25.10 ATHSCL HEART DISEASE OF [place] CORONARY 04/08/2016 DAVE PEPPER, FILOMENA Robb Ot K20.9 ESOPHAGITIS, UNSPECIFIED 04/08/2016 DAVE PEPPER, FILOMENA Robb Ot K29.70 GASTRITIS, UNSPECIFIED, WITHOUT BLEEDING 04/08/2016 DAVE PEPPER, FILOMENA Robb Ot K44.9 DIAPHRAGMATIC HERNIA WITHOUT OBSTRUCTION 04/08/2016 DAVE PEPPER, FILOMENA Robb Ot R06.02 SHORTNESS OF BREATH 04/08/2016 DAVE PEPPER, FILOMENA Robb Ot R07.9 CHEST PAIN, UNSPECIFIED 04/08/2016 DAVE PEPPER, FILOMENA Robb Ot Z79.82 FCI (CURRENT) USE OF ASPIRIN 04/08/2016 DAVE PEPPER, FILOMENA Robb Ot Z79.899 OTHER [facility]CI (CURRENT) DRUG THERAPY 04/08/2016 Ot 482.9 BACTERIAL PNEUMONIA NOS 04/08/2016 Ot 491.9 CHRONIC BRONCHITIS NOS 04/08/2016 Ot 272.4 HYPERLIPIDEMIA NEC/NOS 04/08/2016 Ot 414.00 CORON ATHEROSCLER NOS TYPE VESSEL, NATIV 04/08/2016 Ot 784.7 EPISTAXIS 04/08/2016 Ot V58.69 OTH MED,LT, CURRENT USE 04/08/2016 BAIMA, LAMAR L LAB[address] RO[address] Ot 272.4 HYPERLIPIDEMIA NEC/NOS 04/08/2016 BAIMA, LAMAR L LAB[address] RO[address] Ot V58.69 OTH MED,LT,CURRENT USE 04/08/2016 BAIMA, LAMAR L LAB[address] Ot 272.4 HYPERLIPIDEMIA NEC/NOS 04/08/2016 BAIMA, LAMAR L LAB[address] RO[address] Ot V58.69 OTH MED,LT,CURRENT USE 04/08/2016 BAIMA, LAMAR L LAB[address] RO[address] Ot 272.4 HYPERLIPIDEMIA NEC/NOS 04/08/2016 BAIMA, LAMAR L LAB[address] RO[address] Ot 305.1 TOBACCO USE DISORDER 04/08/2016 BAIMA, LAMAR L LAB[address] RO[address] Ot 401.9 HYPERTENSION NOS 04/08/2016 BAIMA, LAMAR L LAB[address] RO[address] Ot 414.00 CORON ATHEROSCLER NOS TYPE VESSEL, NATIV 04/08/2016 BAIMA, LAMAR L LAB[address] RO[address] Ot 427.89 CARDIAC DYSRHYTHMIAS NEC 04/08/[address] Ot 272.4 HYPERLIPIDEMIA NEC/NOS 04/08/[address] Ot 414.00 CORON ATHEROSCLER NOS TYPE VESSEL, NATIV 04/08/[address] L LAB[address] Ot 272.4 HYPERLIPIDEMIA NEC/NOS 04/08/[address] Ot 414.00 CORON ATHEROSCLER NOS TYPE VESSEL, NATIV 04/08/[address] Ot 789.01 ABDOMINAL PAIN, RIGHT UPPER QUADRANT 04/08/2016 Ot 272.4 HYPERLIPIDEMIA NEC/NOS 04/08/2016 Ot 414.00 CORON ATHEROSCLER NOS TYPE VESSEL, NATIV 04/08/2016 JESSY RAINEYC, ALI FACP CCDS Ot 272.4 HYPERLIPIDEMIA NEC/NOS 04/08/2016 JESSY PEPPER FACC, ALI FACP CCDS Ot 305.1 TOBACCO USE DISORDER 04/08/2016 JESSY RAINEYC, ALI FACP CCDS Ot 401.9 HYPERTENSION NOS 04/08/2016 JESSY PEPPER FACC, ALI FACP CCDS Ot 414.00 CORON ATHEROSCLER NOS TYPE VESSEL, NATIV 04/08/2016 JESSY PEPPER FACC, ALI FACP CCDS Ot 719.40 JOINT PAIN-UNSPEC 04/08/2016 JESSY PEPPER FACC, ALI FACP CCDS Ot 724.5 BACKACHE NOS 04/08/2016 JESSY PEPPER FACC, ALI FACP CCDS Ot 786.59 CHEST PAIN NEC 04/08/2016 JESSY RAINEYC, ALI FACP CCDS Ot V58.63 LONG-TERM(CURRENT)USE OF ANTIPLATELET/AN 04/08/2016 JESSY PEPPER FACC, ALI FACP CCDS Ot V58.69 OT MED,LT,CURRENT USE 04/08/[address] Ot R10.11 RIGHT UPPER QUADRANT PAIN 04/08/[address] Ot R11.0 NAUSEA 04/08/[address] Ot E78.5 HYPERLIPIDEMIA, UNSPECIFIED 04/08/2016 [address]MONM[address]ISSA LAMAR Hans LAB[address] RO[address] Ot I10 ESSENTIAL (PRIMARY) HYPERTENSION 04/08/[address] Ot I25.10 ATHSCL HEART DISEASE OF [place] CORONARY 04/08/[address] Ot I65.29 OCCLUSION AND STENOSIS OF UNSPECIFIED CA 04/08/[address] Hans LAB[address] RO[address] Ot Z72.0 TOBACCO USE 04/08/2016 SVETLANA WALLACE DO Johan Ot K82.8 OTHER SPECIFIED DISEASES OF [place] 04/08/2016 SVETLANA WALLACE DO Johan Ot Z01.812 ENCOUNTER FOR PREPROCEDURAL LABORATORY E 04/08/2016 SVETLANA WALLACE DO Johan Ot Z11.2 ENCOUNTER FOR SCREENING FOR OTHER BACTER 04/08/[address] L LAB[address] Ot E78.5 HYPERLIPIDEMIA, UNSPECIFIED 04/08/[address] Ot I25.10 ATHSCL HEART DISEASE OF [place] CORONARY 04/08/2016 JESSY PEPPER FACC, ALI FACP CCDS Ot E78.4 OTHER HYPERLIPIDEMIA 04/08/2016 JESSY PEPPER FACC, ALI FACP CCDS Ot I10 ESSENTIAL (PRIMARY) HYPERTENSION 04/08/2016 JESSY PEPPER FACC, ALI FACP CCDS Ot I25.10 ATHSCL HEART DISEASE OF [place] CORONARY 04/08/2016 JESSY PEPPER FACC, ALI FACP CCDS Ot I65.23 OCCLUSION AND STENOSIS OF [place]ILATERAL [place] 04/08/2016 JESSY PEPPER FACC, ALI FACP CCDS Ot R07.89 OTHER CHEST PAIN 04/08/2016 JESSY PEPPER FACC, ALI FACP CCDS Ot Z72.0 TOBACCO USE 04/08/2016 ИВАН RAYMUNDO DO Ot E66.9 OBESITY, UNSPECIFIED 04/08/2016 ИВАН RAYMUNDO DO Ot I25.10 ATHSCL HEART DISEASE OF [place] CORONARY 04/08/2016 ИВАН RAYMUNDO DO Ot R06.83 SNORING 04/08/2016 ИВАН RAYMUNDO DO Ot Z72.0 TOBACCO USE 04/08/2016 DAVE PEPPER, FILOMENA Robb Ot E78.0 PURE HYPERCHOLESTEROLEMIA 04/08/2016 DAVE PEPPER, FILOMENA Robb Ot F17.210 NICOTINE DEPENDENCE, CIGARETTES, UNCOMPL 04/08/2016 DAVE PEPPER, FILOMENA Robb Ot I10 ESSENTIAL (PRIMARY) HYPERTENSION 04/08/2016 FILOMENA ACOSTA MD Ot I25.10 ATHSCL HEART DISEASE OF [place] CORONARY 04/08/2016 FILOMENA ACOSTA MD Ot K20.9 ESOPHAGITIS, UNSPECIFIED 04/08/2016 DAVE PEPPER, FILOMENA Robb Ot K29.70 GASTRITIS, UNSPECIFIED, WITHOUT BLEEDING 04/08/2016 DAVE PEPPER, FILOMENA Robb Ot K44.9 DIAPHRAGMATIC HERNIA WITHOUT OBSTRUCTION 04/08/2016 DAVE PEPPER, FLIOMENA Robb Ot R06.02 SHORTNESS OF BREATH 04/08/2016 DAVE PEPPER, FILOMENA Robb Ot R07.9 CHEST PAIN, UNSPECIFIED 04/08/2016 DAVE PEPPER, FILOMENA Robb Ot Z79.82 PAEDIATRICIAN (CURRENT) USE OF ASPIRIN 04/08/2016 DAVE PEPPER, FILOMENA Robb Ot Z79.899 OTHER PAEDIATRICIAN (CURRENT) DRUG THERAPY 04/09/2016 Ot 482.9 BACTERIAL PNEUMONIA NOS 04/09/2016 Ot 491.9 CHRONIC BRONCHITIS NOS 04/09/2016 Ot 272.4 HYPERLIPIDEMIA NEC/NOS 04/09/2016 Ot 414.00 CORON ATHEROSCLER NOS TYPE VESSEL, NATIV 04/09/2016 Ot 784.7 EPISTAXIS 04/09/2016 Ot V58.69 OTH MED,LT, CURRENT USE 04/09/2016 BAIMA, LAMAR L LAB[address] RO[address] Ot 272.4 HYPERLIPIDEMIA NEC/NOS 04/09/2016 BAIMA, LAMAR L LAB[address] RO[address] Ot V58.69 OTH MED,LT,CURRENT USE 04/09/2016 BAIMA, LAMAR L LAB[address] Ot 272.4 HYPERLIPIDEMIA NEC/NOS 04/09/2016 BAIMA, LAMAR L LAB[address] RO[address] Ot V58.69 OTH MED,LT,CURRENT USE 04/09/2016 BAIMA, LAMAR L LAB[address] RO[address] Ot 272.4 HYPERLIPIDEMIA NEC/NOS 04/09/2016 BAIMA, LAMAR L LAB[address] RO[address] Ot 305.1 TOBACCO USE DISORDER 04/09/2016 BAIMA, LAMAR L LAB[address] RO[address] Ot 401.9 HYPERTENSION NOS 04/09/2016 BAIMA, LAMAR L LAB[address] RO[address] Ot 414.00 CORON ATHEROSCLER NOS TYPE VESSEL, NATIV 04/09/2016 BAIMA, LAMAR L LAB[address] RO[address] Ot 427.89 CARDIAC DYSRHYTHMIAS NEC 04/09/2016 BAIMA, LAMAR L LABOR[address] RO[address] Ot 272.4 HYPERLIPIDEMIA NEC/NOS 04/09/2016 BAIMA, LAMAR L LAB[address] RO[address] Ot 414.00 CORON ATHEROSCLER NOS TYPE VESSEL, NATIV 04/09/2016 BAIMA, LAMAR L LAB[address] RO[address] Ot 272.4 HYPERLIPIDEMIA NEC/NOS 04/09/2016 BAIMA, LAMAR L LAB[address] RO[address] Ot 414.00 CORON ATHEROSCLER NOS TYPE VESSEL, NATIV 04/09/[address] Ot 789.01 ABDOMINAL PAIN, RIGHT UPPER QUADRANT 04/09/2016 Ot 272.4 HYPERLIPIDEMIA NEC/NOS 04/09/2016 Ot 414.00 CORON ATHEROSCLER NOS TYPE VESSEL, NATIV 04/09/2016 JESSY PEPPER FACC, ALI FACP CCDS Ot 272.4 HYPERLIPIDEMIA NEC/NOS 04/09/2016 JESSY PEPPER FACC, ALI FACP CCDS Ot 305.1 TOBACCO USE DISORDER 04/09/2016 JESSY PEPPER FACC, ALI FACP CCDS Ot 401.9 HYPERTENSION NOS 04/09/2016 JESSY PEPPER FACC, ALI FACP CCDS Ot 414.00 CORON ATHEROSCLER NOS TYPE VESSEL, NATIV 04/09/2016 JESSY PEPPER FACC, ALI FACP CCDS Ot 719.40 JOINT PAIN-UNSPEC 04/09/2016 JESSY PEPPER FACC, ALI FACP CCDS Ot 724.5 BACKACHE NOS 04/09/2016 JESSY PEPPER FACC, ALI FACP CCDS Ot 786.59 CHEST PAIN NEC 04/09/2016 JESSY PEPPER FACC, ALI FACP CCDS Ot V58.63 LONG-TERM(CURRENT)USE OF ANTIPLATELET/AN 04/09/2016 JESSY PEPPER FACC, ALI FACP CCDS Ot V58.69 OTH MED,LT,CURRENT USE 04/09/[address] Ot R10.11 RIGHT UPPER QUADRANT PAIN 04/09/[address] Ot R11.0 NAUSEA 04/09/[address] Ot E78.5 HYPERLIPIDEMIA, UNSPECIFIED 04/09/[address] Ot I10 ESSENTIAL (PRIMARY) HYPERTENSION 04/09/[address] Ot I25.10 ATHSCL HEART DISEASE OF [place] CORONARY 04/09/[address] Ot I65.29 OCCLUSION AND STENOSIS OF UNSPECIFIED CA 04/09/[address] Ot Z72.0 TOBACCO USE 04/09/2016 SVETLANA WALLACE DO Ot K82.8 OTHER SPECIFIED DISEASES OF [place] 04/09/2016 SVETLANA WALLACE DO Ot Z01.812 ENCOUNTER FOR PREPROCEDURAL LABORATORY E 04/09/2016 SVETLANA WALLACE DO Ot Z11.2 ENCOUNTER FOR SCREENING FOR OTHER BACTER 04/09/[address] Ot E78.5 HYPERLIPIDEMIA, UNSPECIFIED 04/09/[address] Ot I25.10 ATHSCL HEART DISEASE OF [place] CORONARY 04/09/2016 JESSY PEPPER [facility], ALI FACP CCDS Ot E78.4 OTHER HYPERLIPIDEMIA 04/09/2016 JESSY PEPPER [facility], ALI FACP CCDS Ot I10 ESSENTIAL (PRIMARY) HYPERTENSION 04/09/2016 JESSY PEPPER [facility], ALI FACP CCDS Ot I25.10 ATHSCL HEART DISEASE OF [place] CORONARY 04/09/2016 JESSY PEPPER [facility], ALI FACP CCDS Ot I65.23 OCCLUSION AND STENOSIS OF BILATERAL [place] 04/09/2016 JESSY PEPPER [facility], ALI FACP CCDS Ot R07.89 OTHER CHEST PAIN 04/09/2016 JESSY PEPPER [facility], ALI FACP CCDS Ot Z72.0 TOBACCO USE 04/09/2016 ИВАН RAYMUNDO DO Ot E66.9 OBESITY, UNSPECIFIED 04/09/2016 ИВАН RAYMUNDO DO Ot I25.10 ATHSCL HEART DISEASE OF [place] CORONARY 04/09/2016 ИВАН RAYMUNDO DO Ot R06.83 SNORING 04/09/2016 ИВАН RAYMUNDO DO Ot Z72.0 TOBACCO USE 04/09/2016 DAVE PEPPER, FILOMENA Robb Ot E78.0 PURE HYPERCHOLESTEROLEMIA 04/09/2016 DAVE PEPPER, FILOMENA Robb Ot F17.210 NICOTINE DEPENDENCE, CIGARETTES, UNCOMPL 04/09/2016 DAVE PEPPER, FILOMENA Robb Ot I10 ESSENTIAL (PRIMARY) HYPERTENSION 04/09/2016 DAVE PEPPER, FILOMENA Robb Ot I25.10 ATHSCL HEART DISEASE OF [place] CORONARY 04/09/2016 DAVE PEPPER, FILOMENA Robb Ot K20.9 ESOPHAGITIS, UNSPECIFIED 04/09/2016 DAVE PEPPER, FILOMENA Robb Ot K29.70 GASTRITIS, UNSPECIFIED, WITHOUT BLEEDING 04/09/2016 DAVE PEPPER, FILOMENA Robb Ot K44.9 DIAPHRAGMATIC HERNIA WITHOUT OBSTRUCTION 04/09/2016 DAVE PEPPER, FILOMENA Robb Ot R06.02 SHORTNESS OF BREATH 04/09/2016 FILOMENA ACOSTA MD Ot R07.9 CHEST PAIN, UNSPECIFIED 04/09/2016 FILOMENA ACOSTA MD Ot Z79.82 PAEDIATRICIAN (CURRENT) USE OF ASPIRIN 04/09/2016 FILOMENA ACOSTA MD Ot Z79.899 OTHER PAEDIATRICIAN (CURRENT) DRUG THERAPY 04/09/2016 TRESSA OLIVER MD Ot F17.210 NICOTINE DEPENDENCE, CIGARETTES, UNCOMPL 04/09/2016 TRESSA OLIVER MD Ot I25.119 ATHSCL HEART DISEASE OF [place] COR ART W 04/09/2016 TRESSA OLIVER MD Ot I25.2 OLD MYOCARDIAL INFARCTION 04/09/2016 TRESSA OLIVER MD Ot I48.0 PAROXYSMAL ATRIAL FIBRILLATION 04/09/2016 TRESSA OLIVER MD Ot I48.92 UNSPECIFIED ATRIAL FLUTTER 04/09/2016 TRESSA OLIVER MD Ot Z79.02 [facility]CI (CURRENT) USE OF ANTITHROMBOTI 04/09/2016 TRESSA OLIVER MD Ot Z79.82 PAEDIATRICIAN (CURRENT) USE OF ASPIRIN 04/09/2016 TRESSA OLIVER MD Ot Z79.899 OTHER [facility]CI (CURRENT) DRUG THERAPY 04/09/2016 TRESSA OLIVER MD Ot Z95.5 PRESENCE OF CORONARY ANGIOPLASTY IMPLANT 04/17/2016 ROBBIE MUHAMMAD MD Ot F17.210 NICOTINE DEPENDENCE, CIGARETTES, UNCOMPL 04/17/2016 ROBBIE MUHAMMAD MD Ot I10 ESSENTIAL (PRIMARY) HYPERTENSION 04/17/2016 ROBBIE MUHAMMAD MD Ot I25.10 ATHSCL HEART DISEASE OF [place] CORONARY 04/17/2016 ROBBIE MUHAMMAD MD Ot I48.0 PAROXYSMAL ATRIAL FIBRILLATION 04/17/2016 ROBBIE MUHAMMAD MD Ot R07.9 CHEST PAIN, UNSPECIFIED 04/17/2016 ROBBIE MUHAMMAD MD Ot Z79.01 FCI (CURRENT) USE OF ANTICOAGULANT 04/17/2016 ROBBIE MUHAMMAD MD Ot Z79.899 OTHER FCI (CURRENT) DRUG THERAPY 04/17/2016 ROBBIE MUHAMMAD MD Ot Z95.5 PRESENCE OF CORONARY ANGIOPLASTY IMPLANT 04/17/2016 Ot 482.9 BACTERIAL PNEUMONIA NOS 04/17/2016 Ot 491.9 CHRONIC BRONCHITIS NOS 04/17/2016 Ot 272.4 HYPERLIPIDEMIA NEC/NOS 04/17/2016 Ot 414.00 CORON ATHEROSCLER NOS TYPE VESSEL, NATIV 04/17/2016 Ot 784.7 EPISTAXIS 04/17/2016 Ot V58.69 OTH MED,LT, CURRENT USE 04/17/2016 BAIMA, LAMAR L LABOR[address] RO[address] Ot 272.4 HYPERLIPIDEMIA NEC/NOS 04/17/2016 BAIMA, LAMAR L LAB[address] RO[address] Ot V58.69 OTH MED,LT,CURRENT USE 04/17/2016 BAIMA, LAMAR L LAB[address] RO[address] Ot 272.4 HYPERLIPIDEMIA NEC/NOS 04/17/2016 BAIMA, LAMAR L LAB[address] RO[address] Ot V58.69 OTH MED,LT,CURRENT USE 04/17/2016 BAIMA, LAMAR L LAB[address] Ot 272.4 HYPERLIPIDEMIA NEC/NOS 04/17/2016 BAIMA, LAMAR L LAB[address] RO[address] Ot 305.1 TOBACCO USE DISORDER 04/17/2016 BAIMA, LAMAR L LAB[address] RO[address] Ot 401.9 HYPERTENSION NOS 04/17/2016 BAIMA, LAMAR L LAB[address] RO[address] Ot 414.00 CORON ATHEROSCLER NOS TYPE VESSEL, NATIV 04/17/2016 BAIMA, LAMAR L LAB[address] RO[address] Ot 427.89 CARDIAC DYSRHYTHMIAS NEC 04/17/2016 BAIMA, LAMAR L LAB[address] RO[address] Ot 272.4 HYPERLIPIDEMIA NEC/NOS 04/17/2016 BAIMA, LAMAR L LAB[address] RO[address] Ot 414.00 CORON ATHEROSCLER NOS TYPE VESSEL, NATIV 04/17/2016 BAIMA, LAMAR L LAB[address] RO[address] Ot 272.4 HYPERLIPIDEMIA NEC/NOS 04/17/2016 BAIMA, LAMAR L LAB[address] RO[address] Ot 414.00 CORON ATHEROSCLER NOS TYPE VESSEL, NATIV 04/17/[address] Ot 789.01 ABDOMINAL PAIN, RIGHT UPPER QUADRANT 04/17/2016 Ot 272.4 HYPERLIPIDEMIA NEC/NOS 04/17/2016 Ot 414.00 CORON ATHEROSCLER NOS TYPE VESSEL, NATIV 04/17/2016 JESSY PEPPER FACC, JOSEPH FACP CCDS Ot 272.4 HYPERLIPIDEMIA NEC/NOS 04/17/2016 JESSY PEPPER FACC, ALI FACP CCDS Ot 305.1 TOBACCO USE DISORDER 04/17/2016 JESSY PEPPER FACC, ALI FACP CCDS Ot 401.9 HYPERTENSION NOS 04/17/2016 JESSY PEPPER FACC, ALI FACP CCDS Ot 414.00 CORON ATHEROSCLER NOS TYPE VESSEL, NATIV 04/17/2016 JESSY PEPPER FACC, JOSEPH RAINEYP CCDS Ot 719.40 JOINT PAIN-UNSPEC 04/17/2016 JESSY PEPPER FACC, JOSEPH RAINEYP CCDS Ot 724.5 BACKACHE NOS 04/17/2016 JESSY PEPPER FACC, JOSEPH RAINEYP CCDS Ot 786.59 CHEST PAIN NEC 04/17/2016 JESSY PEPPER FACC, JOSEPH RAINEYP CCDS Ot V58.63 LONG-TERM(CURRENT)USE OF ANTIPLATELET/AN 04/17/2016 JESSY PEPPER FACC, JOSEPH RAINEYP CCDS Ot V58.69 OTH MED,LT,CURRENT USE 04/17/[address] Ot R10.11 RIGHT UPPER QUADRANT PAIN 04/17/[address] Ot R11.0 NAUSEA 04/17/[address] Ot E78.5 HYPERLIPIDEMIA, UNSPECIFIED 04/17/[address] Ot I10 ESSENTIAL (PRIMARY) HYPERTENSION 04/17/[address] Ot I25.10 ATHSCL HEART DISEASE OF [place] CORONARY 04/17/[address] Ot I65.29 OCCLUSION AND STENOSIS OF UNSPECIFIED CA 04/17/[address] Ot Z72.0 TOBACCO USE 04/17/2016 SVETLANA WALLACE DO Ot K82.8 OTHER SPECIFIED DISEASES OF [place] 04/17/2016 SVETLANA WALLACE DO Ot Z01.812 ENCOUNTER FOR PREPROCEDURAL LABORATORY E 04/17/2016 SVETLANA WALLACE DO Ot Z11.2 ENCOUNTER FOR SCREENING FOR OTHER BACTER 04/17/[address] Ot E78.5 HYPERLIPIDEMIA, UNSPECIFIED 04/17/[address] Ot I25.10 ATHSCL HEART DISEASE OF [place] CORONARY 04/17/2016 JESSY PEPPER FACC, JOSEPH PERSAUD CCDS Ot E78.4 OTHER HYPERLIPIDEMIA 04/17/2016 JESSY PEPPER FACC, JOSEPH PERSAUD CCDS Ot I10 ESSENTIAL (PRIMARY) HYPERTENSION 04/17/2016 JESSY PEPPER FACC, JOSEPH RAINEYP CCDS Ot I25.10 ATHSCL HEART DISEASE OF [place] CORONARY 04/17/2016 JESSY PEPPER FACC, JOSEPH RAINEYP CCDS Ot I65.23 OCCLUSION AND STENOSIS OF [place]IL[place]AL [place] 04/17/2016 JESSY PEPPER FAC, ALI FACP CCDS Ot R07.89 OTHER CHEST PAIN 04/17/2016 JESSY PEPPER FAC, ALI FACP CCDS Ot Z72.0 TOBACCO USE 04/17/2016 ИВАН RAYMUNDO DO Ot E66.9 OBESITY, UNSPECIFIED 04/17/2016 ИВАН RAYMUNDO DO Ot I25.10 ATHSCL HEART DISEASE OF [place] CORONARY 04/17/2016 ИВАН RAYMUNDO DO Ot R06.83 SNORING 04/17/2016 ИВАН RAYMUNDO DO Ot Z72.0 TOBACCO USE 04/17/2016 DAVE PEPPER, FILOMENA Robb Ot E78.0 PURE HYPERCHOLESTEROLEMIA 04/17/2016 DAVE PEPPER, FILOMENA Robb Ot F17.210 NICOTINE DEPENDENCE, CIGARETTES, UNCOMPL 04/17/2016 FILOMENA ACOSTA MD Ot I10 ESSENTIAL (PRIMARY) HYPERTENSION 04/17/2016 DAVE PEPPER, FILOMENA Robb Ot I25.10 ATHSCL HEART DISEASE OF [place] CORONARY 04/17/2016 DAVE PEPPER, FILOMENA Robb Ot K20.9 ESOPHAGITIS, UNSPECIFIED 04/17/2016 DAVE PEPPER, FILOMENA Robb Ot K29.70 GASTRITIS, UNSPECIFIED, WITHOUT BLEEDING 04/17/2016 FILOMENA ACOSTA MD Ot K44.9 DIAPHRAGMATIC HERNIA WITHOUT OBSTRUCTION 04/17/2016 DAVE PEPPER, FILOMENA Robb Ot R06.02 SHORTNESS OF BREATH 04/17/2016 FILOMENA ACOSTA MD Ot R07.9 CHEST PAIN, UNSPECIFIED 04/17/2016 DAVE PEPPER, FILOMENA Robb Ot Z79.82 [facility] (CURRENT) USE OF ASPIRIN 04/17/2016 DAVE PEPPER, FILOMENA Robb Ot Z79.899 OTHER [facility] (CURRENT) DRUG THERAPY 04/18/2016 JB PEPPER, ROBBIE Mondragon Ot F17.210 NICOTINE DEPENDENCE, CIGARETTES, UNCOMPL 04/18/2016 ROBBIE MUHAMMAD MD T Ot I10 ESSENTIAL (PRIMARY) HYPERTENSION 04/18/2016 ROBBIE MUHAMMAD MD Ot I25.10 ATHSCL HEART DISEASE OF [place] CORONARY 04/18/2016 ROBBIE MUHAMMAD MD Ot I48.0 PAROXYSMAL ATRIAL FIBRILLATION 04/18/2016 BRUEGGEMANN MD, ROBBIE T Ot R07.9 CHEST PAIN, UNSPECIFIED 04/18/2016 ROBBIE MUHAMMAD MD Ot Z79.01 PAEDIATRICIAN (CURRENT) USE OF ANTICOAGULANT 04/18/2016 ROBBIE MUHAMMAD MD Ot Z79.899 OTHER [facility] (CURRENT) DRUG THERAPY 04/18/2016 ROBBIE MUHAMMAD MD Ot Z95.5 PRESENCE OF CORONARY ANGIOPLASTY IMPLANT 04/25/2016 HECTOR DEAL Ot F17.210 NICOTINE DEPENDENCE, CIGARETTES, UNCOMPL 04/25/2016 HECTOR DEAL Ot G44.209 TENSION-TYPE HEADACHE, UNSPECIFIED, NOT 04/25/2016 HECTOR DEAL Ot I10 ESSENTIAL (PRIMARY) HYPERTENSION 04/25/2016 HECTOR DEAL Ot J44.9 CHRONIC OBSTRUCTIVE PULMONARY DISEASE, U 04/25/2016 HECTOR DEAL Ot M43.6 TORTICOLLIS 04/25/2016 HECTOR DEAL Ot R51 HEADACHE 04/25/2016 HECTOR DEAL Ot Z79.82 PAEDIATRICIAN (CURRENT) USE OF ASPIRIN 04/25/2016 HECTOR DEAL Ot Z79.899 OTHER [facility] (CURRENT) DRUG THERAPY 04/25/2016 MARIA D PITTS APRN Ot J44.9 CHRONIC OBSTRUCTIVE PULMONARY DISEASE, U 04/25/2016 MARIA D PITTS CUTTING INSPECTOR Ot J45.909 UNSPECIFIED ASTHMA, UNCOMPLICATED 04/25/2016 MARIA D PITTS CUTTING INSPECTOR Ot J98.4 OTHER DISORDERS OF LUNG 04/25/2016 MARIA D PITTS CUTTING INSPECTOR Ot R06.00 DYSPNEA, UNSPECIFIED 04/25/2016 MARIA D PITTS CUTTING INSPECTOR Ot Z72.0 TOBACCO USE 04/25/2016 HECTOR DEAL Ot F17.210 NICOTINE DEPENDENCE, CIGARETTES, UNCOMPL 04/25/2016 HECTOR DEAL Ot G44.209 TENSION-TYPE HEADACHE, UNSPECIFIED, NOT 04/25/2016 HECTOR DEAL Ot I10 ESSENTIAL (PRIMARY) HYPERTENSION 04/25/2016 HECTOR DEAL Ot J44.9 CHRONIC OBSTRUCTIVE PULMONARY DISEASE, U 04/25/2016 HECTOR DEAL Ot M43.6 TORTICOLLIS 04/25/2016 HECTOR DEAL Ot R51 HEADACHE 04/25/2016 HECTOR DEAL Ot Z79.82 [facility] (CURRENT) USE OF ASPIRIN 04/25/2016 HECTOR DEAL Ot Z79.899 OTHER PAEDIATRICIAN (CURRENT) DRUG THERAPY 12/30/2016 MARIA D PITTS APRN Ot J44.9 CHRONIC OBSTRUCTIVE PULMONARY DISEASE, U 12/30/2016 MARIA D PITTS CUTTING INSPECTOR Ot J45.909 UNSPECIFIED ASTHMA, UNCOMPLICATED 12/30/2016 MARIA D PITTS CUTTING INSPECTOR Ot J98.4 OTHER DISORDERS OF LUNG 12/30/2016 MARIA D PITTS CUTTING INSPECTOR Ot R06.00 DYSPNEA, UNSPECIFIED 12/30/2016 MARIA D PITTS CUTTING INSPECTOR Ot Z72.0 TOBACCO USE 12/30/[address] Ot E78.4 OTHER HYPERLIPIDEMIA 12/30/[address] L [address] Ot I25.10 ATHSCL HEART DISEASE OF [place] CORONARY 12/30/2016 MARIA D PITTS CUTTING INSPECTOR Ot J44.9 CHRONIC OBSTRUCTIVE PULMONARY DISEASE, U 12/30/2016 MARIA D PITTS CUTTING INSPECTOR Ot J45.909 UNSPECIFIED ASTHMA, UNCOMPLICATED 12/30/2016 MARIA D PITTS CUTTING INSPECTOR Ot J98.4 OTHER DISORDERS OF LUNG 12/30/2016 MARIA D PITTS CUTTING INSPECTOR Ot R06.00 DYSPNEA, UNSPECIFIED 12/30/2016 MARIA D PITTS CUTTING INSPECTOR Ot Z72.0 TOBACCO USE 12/30/[address] Ot E78.4 OTHER HYPERLIPIDEMIA 12/30/[address] Ot I25.10 ATHSCL HEART DISEASE OF [place] CORONARY 01/05/2017 HECTOR DEAL Ot B02.9 ZOSTER WITHOUT COMPLICATIONS 01/05/2017 HECTOR DEAL Ot E78.00 PURE HYPERCHOLESTEROLEMIA, UNSPECIFIED 01/05/2017 HECTOR DEAL Ot F17.210 NICOTINE DEPENDENCE, CIGARETTES, UNCOMPL 01/05/2017 HECTOR DEAL Ot I10 ESSENTIAL (PRIMARY) HYPERTENSION 01/05/2017 HECTOR DEAL Ot I25.10 ATHSCL HEART DISEASE OF [place] CORONARY 01/05/2017 HECTOR DEAL Ot I48.91 UNSPECIFIED ATRIAL FIBRILLATION 01/05/2017 HECTOR DEAL Ot J40 BRONCHITIS, NOT SPECIFIED ACUTE OR CH 01/05/2017 HECTOR DEAL Ot J43.9 EMPHYSEMA, UNSPECIFIED 01/05/2017 HECTOR DEAL Ot M47.9 SPONDYLOSIS, UNSPECIFIED 01/05/2017 HECTOR DEAL Ot M54.5 LOW BACK PAIN 01/05/2017 HECTOR DEAL Ot Z79.82 [facility] (CURRENT) USE OF ASPIRIN 01/05/2017 HECTOR DEAL Ot Z82.49 FAMILY HX OF ISCHEM HEART DIS AND OTH DI 01/05/2017 HECTOR DEAL Ot Z87.828 PERSONAL HISTORY OF OTH (HEALED) PHYSICA 01/05/2017 HECTOR DEAL Ot Z95.5 PRESENCE OF CORONARY ANGIOPLASTY IMPLANT 05/21/[address] Ot E78.5 HYPERLIPIDEMIA, UNSPECIFIED 05/21/[address] L [address] Ot I25.10 ATHSCL HEART DISEASE OF [place] CORONARY 05/21/[address] L [address] Ot I48.0 PAROXYSMAL ATRIAL FIBRILLATION 05/21/[address] L [address] Ot I65.29 OCCLUSION AND STENOSIS OF UNSPECIFIED CA 05/21/[address] L [address] Ot R07.89 OTHER CHEST PAIN 01/14/2018 L[address] M[address] L [address] Ot E78.5 HYPERLIPIDEMIA, UNSPECIFIED 01/14/[address]AM[address] L LAB[address] Ot I10 ESSENTIAL (PRIMARY) HYPERTENSION 01/14/[address] L [address] Ot I25.10 ATHSCL HEART DISEASE OF [place] CORONARY 01/14/[address] L [address] Ot I34.0 NONRHEUMATIC MITRAL (VALVE) INSUFFICIENC 01/14/[address] LAM[address] L LAB[address] Ot I48.0 PAROXYSMAL ATRIAL FIBRILLATION 01/14/[address] L [address] Ot I77.9 DISORDER OF ARTERIES AND ARTERIOLES, UNS 01/14/[address] L [address] Ot Z72.0 TOBACCO USE 01/20/[address] L[address] M[address] L [address] Ot E78.5 HYPERLIPIDEMIA, UNSPECIFIED 01/20/2018 BAIMA, LAMAR L LABOR[address] RO[address] Ot I10 ESSENTIAL (PRIMARY) HYPERTENSION 01/20/2018 BAIMA, LAMAR L LABOR[address] RO[address] Ot I25.10 ATHSCL HEART DISEASE OF [place] CORONARY 01/20/2018 BAIMA, LAMAR L LABOR[address] RO[address] Ot I34.0 NONRHEUMATIC MITRAL (VALVE) INSUFFICIENC 01/20/2018 BAIMA, LAMAR L LABOR[address] RO[address] Ot I48.0 PAROXYSMAL ATRIAL FIBRILLATION 01/20/2018 BAIMA, LAMAR L LABOR[address] RO[address] Ot I65.23 OCCLUSION AND STENOSIS OF BILATERAL [place] 01/20/2018 BAIMA, LAMAR L LABOR[address] RO[address] Ot Z72.0 TOBACCO USE 01/28/2018 BAIMA, LAMAR L LAB[address] RO[address] Ot 272.4 HYPERLIPIDEMIA NEC/NOS 01/28/2018 BAIMA, LAMAR L LABOR[address] RO[address] Ot V58.69 OTH MED,LT,CURRENT USE 01/28/2018 BAIMA, LAMAR L LABOR[address] RO[address] Ot 272.4 HYPERLIPIDEMIA NEC/NOS 01/28/2018 BAIMA, LAMAR L LAB[address] RO[address] Ot V58.69 OTH MED,LT,CURRENT USE 01/28/2018 BAIMA, LAMAR L LAB[address] Ot 272.4 HYPERLIPIDEMIA NEC/NOS 01/28/2018 BAIMA, LAMAR L LAB[address] RO[address] Ot 305.1 TOBACCO USE DISORDER 01/28/2018 BAIMA, LAMAR L LAB[address] RO[address] Ot 401.9 HYPERTENSION NOS 01/28/2018 BAIMA, LAMAR L LABOR[address] RO[address] Ot 414.00 CORON ATHEROSCLER NOS TYPE VESSEL, NATIV 01/28/2018 BAIMA, LAMAR L LABOR[address] RO[address] Ot 427.89 CARDIAC DYSRHYTHMIAS NEC 01/28/2018 BAIMA, LAMAR L LAB[address] Ot 272.4 HYPERLIPIDEMIA NEC/NOS 01/28/2018 BAIMA, LAMAR L LAB[address] RO[address] Ot 414.00 CORON ATHEROSCLER NOS TYPE VESSEL, NATIV 01/28/2018 BAIMA, LAMAR L LAB[address] RO[address] Ot 272.4 HYPERLIPIDEMIA NEC/NOS 01/28/2018 BAIMA, LAMAR L LABOR[address] RO[address] Ot 414.00 CORON ATHEROSCLER NOS TYPE VESSEL, NATIV 01/28/[address] Ot 789.01 ABDOMINAL PAIN, RIGHT UPPER QUADRANT 01/28/2018 Ot 272.4 HYPERLIPIDEMIA NEC/NOS 01/28/2018 Ot 414.00 CORON ATHEROSCLER NOS TYPE VESSEL, NATIV 01/28/2018 JESSY PEPPER FACC, ALI FACP CCDS Ot 272.4 HYPERLIPIDEMIA NEC/NOS 01/28/2018 JESSY PEPPER FACC, ALI FACP CCDS Ot 305.1 TOBACCO USE DISORDER 01/28/2018 JESSY PEPPER FACC, ALI FACP CCDS Ot 401.9 HYPERTENSION NOS 01/28/2018 JESSY PEPPER FACC, ALI FACP CCDS Ot 414.00 CORON ATHEROSCLER NOS TYPE VESSEL, NATIV 01/28/2018 JESSY PEPPER FACC, ALI FACP CCDS Ot 719.40 JOINT PAIN-UNSPEC 01/28/2018 JESSY PEPPER FACC, ALI FACP CCDS Ot 724.5 BACKACHE NOS 01/28/2018 JESSY PEPPER FACC, ALI FACP CCDS Ot 786.59 CHEST PAIN NEC 01/28/2018 JESSY PEPPER FACC, ALI FACP CCDS Ot V58.63 LONG-TERM(CURRENT)USE OF ANTIPLATELET/AN 01/28/2018 JESSY PEPPER FACC, ALI FACP CCDS Ot V58.69 OTH MED,LT,CURRENT USE 01/28/[address] Ot R10.11 RIGHT UPPER QUADRANT PAIN 01/28/[address] Ot R11.0 NAUSEA 01/28/[address] Ot E78.5 HYPERLIPIDEMIA, UNSPECIFIED 01/28/[address] Ot I10 ESSENTIAL (PRIMARY) HYPERTENSION 01/28/[address] Ot I25.10 ATHSCL HEART DISEASE OF [place] CORONARY 01/28/[address] Ot I65.29 OCCLUSION AND STENOSIS OF UNSPECIFIED CA 01/28/[address] Ot Z72.0 TOBACCO USE 01/28/2018 SVETLANA WALLACE DO Ot K82.8 OTHER SPECIFIED DISEASES OF [place] 01/28/2018 SVETLANA WALLACE DO Ot Z01.812 ENCOUNTER FOR PREPROCEDURAL LABORATORY E 01/28/2018 SVETLANA WALLACE DO Ot Z11.2 ENCOUNTER FOR SCREENING FOR OTHER BACTER 01/28/[address] Ot E78.5 HYPERLIPIDEMIA, UNSPECIFIED 01/28/[address] L[address] MARC L LAB[address] Ot I25.10 ATHSCL HEART DISEASE OF [place] CORONARY 01/28/2018 JESSY PEPPER FACC, ALI FACP CCDS Ot E78.4 OTHER HYPERLIPIDEMIA 01/28/2018 JESSY PEPPER [facility], ALI FACP CCDS Ot I10 ESSENTIAL (PRIMARY) HYPERTENSION 01/28/2018 JESSY RAINEY, ALI FACP CCDS Ot I25.10 ATHSCL HEART DISEASE OF [place] CORONARY 01/28/2018 JESSY RAINEY, ALI FACP CCDS Ot I65.23 OCCLUSION AND STENOSIS OF [place]AL [place] 01/28/2018 JESSY PEPPER [facility], ALI FACP CCDS Ot R07.89 OTHER CHEST PAIN 01/28/2018 JESSY PEPPER [facility], ALI FACP CCDS Ot Z72.0 TOBACCO USE 01/28/2018 CITLALI RAYMUNDO DOSON M Ot E66.9 OBESITY, UNSPECIFIED 01/28/2018 ИВАН RAYMUNDO DO M Ot I25.10 ATHSCL HEART DISEASE OF [place] CORONARY 01/28/2018 ИВАН RAYMUNDO DO Ot R06.83 SNORING 01/28/2018 ИВАН RAYMUNDO DO M Ot Z72.0 TOBACCO USE 01/28/2018 DAVE PEPPER, FILOMENA Robb Ot E78.0 PURE HYPERCHOLESTEROLEMIA 01/28/2018 DAVE PEPPER, FILOMENA Robb Ot F17.210 NICOTINE DEPENDENCE, CIGARETTES, UNCOMPL 01/28/2018 DAVE PEPPER, FILOMENA Robb Ot I10 ESSENTIAL (PRIMARY) HYPERTENSION 01/28/2018 DAVE PEPPER, FILOMENA Robb Ot I25.10 ATHSCL HEART DISEASE OF [place] CORONARY 01/28/2018 FILOMENA ACOSTA MD Ot K20.9 ESOPHAGITIS, UNSPECIFIED 01/28/2018 DAVE PEPPER, FILOMENA Robb Ot K29.70 GASTRITIS, UNSPECIFIED, WITHOUT BLEEDING 01/28/2018 DAVE PEPPER, FILOMENA Robb Ot K44.9 DIAPHRAGMATIC HERNIA WITHOUT OBSTRUCTION 01/28/2018 DAVE PEPPER, FILOMENA Robb Ot R06.02 SHORTNESS OF BREATH 01/28/2018 FILOMENA ACOSTA MD Ot R07.9 CHEST PAIN, UNSPECIFIED 01/28/2018 DAVE PEPPER, FILOMENA Robb Ot Z79.82 PAEDIATRICIAN (CURRENT) USE OF ASPIRIN 01/28/2018 FILOMENA ACOSTA MD Ot Z79.899 OTHER PAEDIATRICIAN (CURRENT) DRUG THERAPY 01/28/[address] Ot E78.5 HYPERLIPIDEMIA, UNSPECIFIED 01/28/2018 BAIMA, LAMAR L LABOR[address] RO[address] Ot I10 ESSENTIAL (PRIMARY) HYPERTENSION 01/28/2018 BAIMA, LAMAR L LABOR[address] RO[address] Ot I25.10 ATHSCL HEART DISEASE OF [place] CORONARY 01/28/2018 BAIMA, LAMAR L LABOR[address] RO[address] Ot I34.0 NONRHEUMATIC MITRAL (VALVE) INSUFFICIENC 01/28/2018 BAIMA, LAMAR L LABOR[address] RO[address] Ot I48.0 PAROXYSMAL ATRIAL FIBRILLATION 01/28/2018 BAIMA, LAMAR L LABOR[address] RO[address] Ot I65.23 OCCLUSION AND STENOSIS OF [place]ILATERAL [place] 01/28/2018 BAIMA, LAMAR L LABOR[address] RO[address] Ot Z72.0 TOBACCO USE 01/29/2018 BAIMA, LAMAR L LABOR[address] RO[address] Ot E78.5 HYPERLIPIDEMIA, UNSPECIFIED 01/29/2018 BAIMA, LAMAR L LABORER ROAD Ot I10 ESSENTIAL (PRIMARY) HYPERTENSION 01/29/2018 BAIMA, LAMAR L LABORER ROAD Ot I25.10 ATHSCL HEART DISEASE OF [place] CORONARY 01/29/2018 BAIMA, LAMAR L LABORER ROAD Ot I34.0 NONRHEUMATIC MITRAL (VALVE) INSUFFICIENC 01/29/2018 BAIMA, LAMAR L LABOR[address] RO[address] Ot I48.0 PAROXYSMAL ATRIAL FIBRILLATION 01/29/2018 BAIMA, LAMAR L LABOR[address] RO[address] Ot I65.23 OCCLUSION AND STENOSIS OF [place]ILATERAL [place] 01/29/2018 BAIMA, LAMAR L LABOR[address] RO[address] Ot Z72.0 TOBACCO USE 04/20/2018 BAIMA, LAMAR L LAB[address] RO[address] Ot 272.4 HYPERLIPIDEMIA NEC/NOS 04/20/2018 BAIMA, LAMAR L LABOR[address] RO[address] Ot V58.69 OT MED,LT,CURRENT USE 04/20/2018 BAIMA, LAMAR L LABOR[address] RO[address] Ot 272.4 HYPERLIPIDEMIA NEC/NOS 04/20/2018 BAIMA, LAMAR L LABOR[address] RO[address] Ot 305.1 TOBACCO USE DISORDER 04/20/2018 BAIMA, LAMAR L LABOR[address] RO[address] Ot 401.9 HYPERTENSION NOS 04/20/2018 BAIMA, LAMAR L LABOR[address] RO[address] Ot 414.00 CORON ATHEROSCLER NOS TYPE VESSEL, NATIV 04/20/2018 BAIMA, LAMAR L LABOR[address] RO[address] Ot 427.89 CARDIAC DYSRHYTHMIAS NEC 04/20/2018 BAIMA, LAMAR L LABOR[address] RO[address] Ot 272.4 HYPERLIPIDEMIA NEC/NOS 04/20/2018 BAIMA, LAMAR L LABOR[address] RO[address] Ot 414.00 CORON ATHEROSCLER NOS TYPE VESSEL, NATIV 04/20/[address] Ot 272.4 HYPERLIPIDEMIA NEC/NOS 04/20/[address] Ot 414.00 CORON ATHEROSCLER NOS TYPE VESSEL, NATIV 04/20/[address] Ot 789.01 ABDOMINAL PAIN, RIGHT UPPER QUADRANT 04/20/2018 Ot 272.4 HYPERLIPIDEMIA NEC/NOS 04/20/2018 Ot 414.00 CORON ATHEROSCLER NOS TYPE VESSEL, NATIV 04/20/2018 JESSY PEPPER FACC, ALI FACP CCDS Ot 272.4 HYPERLIPIDEMIA NEC/NOS 04/20/2018 JESSY PEPPER FACC, ALI FACP CCDS Ot 305.1 TOBACCO USE DISORDER 04/20/2018 JESSY PEPPER FACC, ALI FACP CCDS Ot 401.9 HYPERTENSION NOS 04/20/2018 JESSY PEPPER FACC, ALI FACP CCDS Ot 414.00 CORON ATHEROSCLER NOS TYPE VESSEL, NATIV 04/20/2018 JESSY PEPPER FACC, ALI FACP CCDS Ot 719.40 JOINT PAIN-UNSPEC 04/20/2018 JESSY PEPPER FACC, ALI FACP CCDS Ot 724.5 BACKACHE NOS 04/20/2018 JESSY PEPPER FACC, ALI FACP CCDS Ot 786.59 CHEST PAIN NEC 04/20/2018 JESSY PEPPER FACC, ALI FACP CCDS Ot V58.63 LONG-TERM(CURRENT)USE OF ANTIPLATELET/AN 04/20/2018 JESSY RAINEY, ALI FACP CCDS Ot V58.69 OTH MED,LT,CURRENT USE 04/20/[address] Ot R10.11 RIGHT UPPER QUADRANT PAIN 04/20/[address] Ot R11.0 NAUSEA 04/20/[address] Ot E78.5 HYPERLIPIDEMIA, UNSPECIFIED 04/20/[address] Ot I10 ESSENTIAL (PRIMARY) HYPERTENSION 04/20/[address] Ot I25.10 ATHSCL HEART DISEASE OF [place] CORONARY 04/20/[address] Ot I65.29 OCCLUSION AND STENOSIS OF UNSPECIFIED CA 04/20/[address] Ot Z72.0 TOBACCO USE 04/20/2018 SVETLANA WALLACE DO Ot K82.8 OTHER SPECIFIED DISEASES OF [place] 04/20/2018 SVETLANA WALLACE DO Ot Z01.812 ENCOUNTER FOR PREPROCEDURAL LABORATORY E 04/20/2018 SVETLANA WALLACE DO Ot Z11.2 ENCOUNTER FOR SCREENING FOR OTHER BACTER 04/20/[address] Ot E78.5 HYPERLIPIDEMIA, UNSPECIFIED 04/20/[address] Ot I25.10 ATHSCL HEART DISEASE OF [place] CORONARY 04/20/2018 JESSY PEPPER [facility], ALI FACP CCDS Ot E78.4 OTHER HYPERLIPIDEMIA 04/20/2018 JESSY PEPPER [facility], ALI FACP CCDS Ot I10 ESSENTIAL (PRIMARY) HYPERTENSION 04/20/2018 JESSY PEPPER [facility], ALI FACP CCDS Ot I25.10 ATHSCL HEART DISEASE OF [place] CORONARY 04/20/2018 JESSY PEPPER [facility], ALI FACP CCDS Ot I65.23 OCCLUSION AND STENOSIS OF BILATERAL [place] 04/20/2018 JESSY PEPPER [facility], ALI FACP CCDS Ot R07.89 OTHER CHEST PAIN 04/20/2018 JESSY PEPPER [facility], ALI FACP CCDS Ot Z72.0 TOBACCO USE 04/20/2018 ИВАН RAYMUNDO DO Ot E66.9 OBESITY, UNSPECIFIED 04/20/2018 ИВАН RAYMUNDO DO Ot I25.10 ATHSCL HEART DISEASE OF [place] CORONARY 04/20/2018 ИВАН RAYMUNDO DO Ot R06.83 SNORING 04/20/2018 ИВАН RAYMUNDO DO Ot Z72.0 TOBACCO USE 04/20/2018 FILOMENA ACOSTA MD Ot E78.0 PURE HYPERCHOLESTEROLEMIA 04/20/2018 DAVE PEPPER, FILOMENA Robb Ot F17.210 NICOTINE DEPENDENCE, CIGARETTES, UNCOMPL 04/20/2018 DAVE PEPPER, FILOMENA Robb Ot I10 ESSENTIAL (PRIMARY) HYPERTENSION 04/20/2018 DAVE PEPPER, FILOMENA Robb Ot I25.10 ATHSCL HEART DISEASE OF [place] CORONARY 04/20/2018 DAVE PEPPER, FILOMENA Robb Ot K20.9 ESOPHAGITIS, UNSPECIFIED 04/20/2018 FILOMENA ACOSTA MD Ot K29.70 GASTRITIS, UNSPECIFIED, WITHOUT BLEEDING 04/20/2018 FILOMENA ACOSTA MD Ot K44.9 DIAPHRAGMATIC HERNIA WITHOUT OBSTRUCTION 04/20/2018 DAVE PEPPER, FILOMENA Robb Ot R06.02 SHORTNESS OF BREATH 04/20/2018 DAVE PEPPER, FILOMENA Robb Ot R07.9 CHEST PAIN, UNSPECIFIED 04/20/2018 DAVE PEPPER, FILOMENA Robb Ot Z79.82 PAEDIATRICIAN (CURRENT) USE OF ASPIRIN 04/20/2018 DAVE PEPPER, FILOMENA Robb Ot Z79.899 OTHER [facility] (CURRENT) DRUG THERAPY Procedures Code Description [place] [address] XRAY CHEST 2 VIEW 01/29/2012 65776 PULMONARY FUNCTION TEST (IN- HOUSE) 03/04/2012 48593 SPIROMETRY 03/19/2012 54698 BRONCHODILATION PRE/POST 03/19/2012 69505 RESPIRATORY FLOW VOLUME LOOP 03/19/2012 45735 ROUTINE VENIPUNCTURE 06/05/2012 82864 BMP 06/05/2012 2918701 GFR CALC (RESULT ONLY) 06/05/2012 50015 MYOGLOBIN 06/08/2012 37.22 LEFT HEART CARDIAC CATH 07/01/2012 88.56 CORONAR ARTERIOGR-2 CATH 07/01/2012 OTOLARLakhwinder Spann 07/30/2012 23183 UA W/ CULTURE IF INDICATED 05/17/2013 09367 ROUTINE VENIPUNCTURE 05/17/2013 16515 CBC 05/17/2013 76389 CMP 05/17/2013 [id number] GFR CALC (RESULT ONLY) 05/17/2013 Cardiolog Joseph Morris 10/08/2013 32327 US GALLBLADDER ULTRASOUND 12/24/2013 99730 CMP 12/24/2013 31446 AMYLASE 12/24/2013 64881 LIPASE 12/24/2013 29999 CBC 12/24/2013 [id number] PHENERGAN INJECTION UP TO 50 MG 01/31/2014 17442 THERAPUTIC INJ SQ/IM 01/31/2014 84898 ROUTINE VENIPUNCTURE 05/19/2014 52952 CMP 05/19/2014 [id number] GFR CALC (RESULT ONLY) 05/19/2014 20651 CBC 05/19/2014 [id number] INSPECTION OF GREAT VESSEL , PERCUTANEOUS 07/25/2015 [id number] INTRODUCE OTH THERAP SUBST IN CORONARY A 07/25/2015 [id number] MEASURE OF CARDIAC SAMPL PRESSURE, L H 07/25/2015 [id number] FLUOROSCOPY OF MULT COR ART USING L OSM 07/25/2015 [id number] FLUOROSCOPY OF LEFT HEART USING LOW OSMO 07/25/2015 Results Test Result Range Complete blood count (CBC) with automated white blood cell (WBC) differential - 09/25/15 16:55 Blood leukocytes automated count (number/volume) 8.2 10*3/uL 4.3-11.0 Blood erythrocytes automated count (number/volume) 5.07 10*6/uL 4.35-5.85 Venous blood hemoglobin measurement (mass/volume) 15.7 g/dL 13.3-17.7 Blood hematocrit (volume fraction) 46 % 40-54 Automated erythrocyte mean corpuscular volume 92 [foz_us] 80-99 Automated erythrocyte mean corpuscular hemoglobin (mass per erythrocyte) 31 pg 25-34 Automated erythrocyte mean corpuscular hemoglobin concentration measurement ( mass/volume) 34 g/dL 32-36 Automated erythrocyte distribution width ratio 13.4 % 10.0-14.5 Automated blood platelet count (count/volume) 226 10*3/uL 130-400 Automated blood platelet mean volume measurement 9.4 [foz_us] 7.4-10.4 Automated blood neutrophils/100 leukocytes 60 % 42-75 Automated blood lymphocytes/100 leukocytes 30 % 12-44 Blood monocytes/100 leukocytes 7 % 0-12 Automated blood eosinophils/100 leukocytes 3 % 0-10 Automated blood basophils/100 leukocytes 1 % 0-10 Blood neutrophils automated count (number/volume) 4.9 10*3 1.8-7.8 Blood lymphocytes automated count (number/volume) 2.4 10*3 1.0-4.0 Blood monocytes automated count (number/volume) 0.6 10*3 0.0-1.0 Automated eosinophil count 0.2 10*3/uL 0.0-0.3 Automated blood basophil count (count/volume) 0.0 10*3/uL 0.0-0.1 PT panel in platelet poor plasma by coagulation assay - 09/25/15 16:55 Prothrombin time (PT) in platelet poor plasma by coagulation assay 12.4 s 12.2-14.7 INR in platelet poor plasma or blood by coagulation assay 1.0 0.8-1.4 Activated partial thromboplastin time (aPTT) in platelet poor plasma bycoagulation assay - 09/25/15 16:55 Activated partial thromboplastin time (aPTT) in platelet poor plasma bycoagulation assay 28 s 24-35 Comprehensive metabolic panel - 09/25/15 16:55 Serum or plasma sodium measurement (moles/volume) 140 mmol/L 135-145 Serum or plasma potassium measurement (moles/volume) 4.3 mmol/L 3.6-5.0 Serum or plasma chloride measurement (moles/volume) 106 mmol/L 98-107 Carbon dioxide 24 mmol/L 21-32 Serum or plasma anion gap determination (moles/volume) 10 mmol/L 5-14 Serum or plasma urea nitrogen measurement (mass/volume) 14 mg/dL 7-18 Serum or plasma creatinine measurement (mass/volume) 0.96 mg/dL 0.60-1.30 Serum or plasma urea nitrogen/creatinine mass ratio 15 NRG Serum or plasma creatinine measurement with calculation of estimated glomerular filtration rate > NRG Serum or plasma glucose measurement (mass/volume) 99 mg/dL 70-105 Serum or plasma calcium measurement (mass/volume) 9.6 mg/dL 8.5-10.1 Serum or plasma total bilirubin measurement (mass/volume) 0.6 mg/dL 0.1-1.0 Serum or plasma alkaline phosphatase measurement (enzymatic activity/volume) 96 U/L 40-136 Serum or plasma aspartate aminotransferase measurement (enzymatic activity/ volume) 22 U/L 5-34 Serum or plasma alanine aminotransferase measurement (enzymatic activity/volume ) 40 U/L 0-55 Serum or plasma protein measurement (mass/volume) 7.7 g/dL 6.4-8.2 Serum or plasma albumin measurement (mass/volume) 4.6 g/dL 3.2-4.5 Magnesium - 09/25/15 16:55 Magnesium 2.4 mg/dL 1.8-2.4 Serum or plasma troponin i.cardiac measurement (mass/volume) - 09/25/15 16:55 Serum or plasma troponin i.cardiac measurement (mass/volume) < ng/ mL <0.30 Myoglobin, serum - 09/25/15 16:55 Myoglobin, serum 57.7 ng/mL 10.0-92.0 Automated blood complete blood count (hemogram) panel - 09/26/15 03:45 Blood leukocytes automated count (number/volume) 5.9 10*3/uL 4.3-11.0 Blood erythrocytes automated count (number/volume) 4.61 10*6/uL 4.35-5.85 Venous blood hemoglobin measurement (mass/volume) 14.1 g/dL 13.3-17.7 Blood hematocrit (volume fraction) 42 % 40-54 Automated erythrocyte mean corpuscular volume 92 [foz_us] 80-99 Automated erythrocyte mean corpuscular hemoglobin (mass per erythrocyte) 31 pg 25-34 Automated erythrocyte mean corpuscular hemoglobin concentration measurement ( mass/volume) 33 g/dL 32-36 Automated erythrocyte distribution width ratio 13.3 % 10.0-14.5 Automated blood platelet count (count/volume) 200 10*3/uL 130-400 Automated blood platelet mean volume measurement 9.9 [foz_us] 7.4-10.4 Whole blood basic metabolic panel - 09/26/15 03:45 Serum or plasma sodium measurement (moles/volume) 138 mmol/L 135-145 Serum or plasma potassium measurement (moles/volume) 4.2 mmol/L 3.6-5.0 Serum or plasma chloride measurement (moles/volume) 108 mmol/L 98-107 Carbon dioxide 20 mmol/L 21-32 Serum or plasma anion gap determination (moles/volume) 10 mmol/L 5-14 Serum or plasma urea nitrogen measurement (mass/volume) 14 mg/dL 7-18 Serum or plasma creatinine measurement (mass/volume) 0.80 mg/dL 0.60-1.30 Serum or plasma urea nitrogen/creatinine mass ratio 18 NRG Serum or plasma creatinine measurement with calculation of estimated glomerular filtration rate > NRG Serum or plasma glucose measurement (mass/volume) 91 mg/dL 70-105 Serum or plasma calcium measurement (mass/volume) 8.7 mg/dL 8.5-10.1 Lipid 1996 panel - 09/26/15 03:45 Serum or plasma triglyceride measurement (mass/volume) 172 mg/dL <150 Serum or plasma cholesterol measurement (mass/volume) 144 mg/dL < 200 Serum or plasma cholesterol in HDL measurement (mass/volume) 32 mg/ dL 40-60 Cholesterol in LDL [mass/volume] in serum or plasma by direct assay 87 mg/dL 1-129 Serum or plasma cholesterol in VLDL measurement (mass/volume) 34 mg/ dL 5-40 Complete blood count (CBC) with automated white blood cell (WBC) differential - 11/04/15 09:46 Blood leukocytes automated count (number/volume) 6.7 10*3/uL 4.3-11.0 Blood erythrocytes automated count (number/volume) 5.25 10*6/uL 4.35-5.85 Venous blood hemoglobin measurement (mass/volume) 16.1 g/dL 13.3-17.7 Blood hematocrit (volume fraction) 48 % 40-54 Automated erythrocyte mean corpuscular volume 91 [foz_us] 80-99 Automated erythrocyte mean corpuscular hemoglobin (mass per erythrocyte) 31 pg 25-34 Automated erythrocyte mean corpuscular hemoglobin concentration measurement ( mass/volume) 34 g/dL 32-36 Automated erythrocyte distribution width ratio 13.8 % 10.0-14.5 Automated blood platelet count (count/volume) 221 10*3/uL 130-400 Automated blood platelet mean volume measurement 9.7 [foz_us] 7.4-10.4 Automated blood neutrophils/100 leukocytes 45 % 42-75 Automated blood lymphocytes/100 leukocytes 45 % 12-44 Blood monocytes/100 leukocytes 7 % 0-12 Automated blood eosinophils/100 leukocytes 3 % 0-10 Automated blood basophils/100 leukocytes 1 % 0-10 Blood neutrophils automated count (number/volume) 3.0 10*3 1.8-7.8 Blood lymphocytes automated count (number/volume) 3.0 10*3 1.0-4.0 Blood monocytes automated count (number/volume) 0.5 10*3 0.0-1.0 Automated eosinophil count 0.2 10*3/uL 0.0-0.3 Automated blood basophil count (count/volume) 0.1 10*3/uL 0.0-0.1 Comprehensive metabolic panel - 11/04/15 09:46 Serum or plasma sodium measurement (moles/volume) 139 mmol/L 135-145 Serum or plasma potassium measurement (moles/volume) 4.3 mmol/L 3.6-5.0 Serum or plasma chloride measurement (moles/volume) 107 mmol/L 98-107 Carbon dioxide 21 mmol/L 21-32 Serum or plasma anion gap determination (moles/volume) 11 mmol/L 5-14 Serum or plasma urea nitrogen measurement (mass/volume) 13 mg/dL 7-18 Serum or plasma creatinine measurement (mass/volume) 0.93 mg/dL 0.60-1.30 Serum or plasma urea nitrogen/creatinine mass ratio 14 NRG Serum or plasma creatinine measurement with calculation of estimated glomerular filtration rate > NRG Serum or plasma glucose measurement (mass/volume) 93 mg/dL 70-105 Serum or plasma calcium measurement (mass/volume) 9.4 mg/dL 8.5-10.1 Serum or plasma total bilirubin measurement (mass/volume) 0.6 mg/dL 0.1-1.0 Serum or plasma alkaline phosphatase measurement (enzymatic activity/volume) 76 U/L 40-136 Serum or plasma aspartate aminotransferase measurement (enzymatic activity/ volume) 31 U/L 5-34 Serum or plasma alanine aminotransferase measurement (enzymatic activity/volume ) 45 U/L 0-55 Serum or plasma protein measurement (mass/volume) 6.9 g/dL 6.4-8.2 Serum or plasma albumin measurement (mass/volume) 4.4 g/dL 3.2-4.5 Magnesium - 11/04/15 09:46 Magnesium 2.4 mg/dL 1.8-2.4 Serum or plasma troponin i.cardiac measurement (mass/volume) - 11/04/15 09:46 Serum or plasma troponin i.cardiac measurement (mass/volume) < ng/ mL <0.30 Myoglobin, serum - 11/04/15 09:46 Myoglobin, serum 81.0 ng/mL 10.0-92.0 Lipase - 11/04/15 09:46 Lipase 34 U/L 8-78 PT panel in platelet poor plasma by coagulation assay - 11/04/15 09:46 Prothrombin time (PT) in platelet poor plasma by coagulation assay 12.3 s 12.2-14.7 INR in platelet poor plasma or blood by coagulation assay 0.9 0.8-1.4 Activated partial thromboplastin time (aPTT) in platelet poor plasma bycoagulation assay - 11/04/15 09:46 Activated partial thromboplastin time (aPTT) in platelet poor plasma bycoagulation assay 27 s 24-35 Fibrin D-dimer FEU measurement in platelet poor plasma (mass/volume) - 09:56 Fibrin D-dimer FEU measurement in platelet poor plasma (mass/volume) 0.36 ug/mL 0.00-0.49 Serum or plasma troponin i.cardiac measurement (mass/volume) - 11/04/15 13:49 Serum or plasma troponin i.cardiac measurement (mass/volume) < ng/ mL <0.30 Hepatic Function Panel (7) - 01/02/17 16:08 Protein, Total, Serum TNP g/dL Albumin, Serum TNP Bilirubin, Total TNP Alkaline Phosphatase, S TNP AST (SGOT) TNP ALT (SGPT) TNP Bilirubin, Direct TNP Written Authorization - 02/12/16 16:08 Written Authorization Comment Request Problem - 02/12/16 16:08 Request Problem TNP CBC With Differential/Platelet - 02/12/16 16:08 WBC 4.9 x10E3/uL 3.4-10.8 RBC 5.12 x10E6/uL 4.14-5.80 Hemoglobin 15.4 g/dL 12.6-17.7 Hematocrit 46.5 % 37.5-51.0 MCV 91 fL 79-97 MCH 30.1 pg 26.6-33.0 MCHC 33.1 g/dL 31.5-35.7 RDW 13.6 % 12.3-15.4 Platelets 225 x10E3/uL 150-379 Neutrophils 57 % Lymphs 31 % Monocytes 8 % Eos 3 % Basos 1 % Neutrophils (Absolute) 2.8 x10E3/uL 1.4-7.0 Lymphs (Absolute) 1.5 x10E3/uL 0.7-3.1 Monocytes(Absolute) 0.4 x10E3/uL 0.1-0.9 Eos (Absolute) 0.2 x10E3/uL 0.0-0.4 Baso (Absolute) 0.0 x10E3/uL 0.0-0.2 Immature Granulocytes 0 % Immature Grans (Abs) 0.0 x10E3/uL 0.0-0.1 Comp. Metabolic Panel (14) - 02/12/16 16:08 Glucose, Serum 77 mg/dL 65-99 BUN 15 mg/dL 6-24 Creatinine, Serum 1.00 mg/dL 0.76-1.27 eGFR If NonAfricn Am 90 mL/min/1.73 >59 eGFR If Africn Am 104 mL/min/1.73 >59 BUN/Creatinine Ratio 15 9-20 Sodium, Serum 140 mmol/L 134-144 Potassium, Serum 4.2 mmol/L 3.5-5.2 Chloride, Serum 101 mmol/L 96-106 Carbon Dioxide, Total 24 mmol/L 18-29 Calcium, Serum 9.0 mg/dL 8.7-10.2 Protein, Total, Serum 6.6 g/dL 6.0-8.5 Albumin, Serum 4.3 g/dL 3.5-5.5 Globulin, Total 2.3 g/dL 1.5-4.5 A/G Ratio 1.9 1.1-2.5 Bilirubin, Total 0.3 mg/dL 0.0-1.2 Alkaline Phosphatase, S 135 IU/L 39-117 AST (SGOT) 288 IU/L 0-40 ALT (SGPT) 320 IU/L 0-44 Complete blood count (CBC) with automated white blood cell (WBC) differential - 02/12/16 16:39 Blood leukocytes automated count (number/volume) 5.2 10*3/uL 4.3-11.0 Blood erythrocytes automated count (number/volume) 5.20 10*6/uL 4.35-5.85 Venous blood hemoglobin measurement (mass/volume) 15.9 g/dL 13.3-17.7 Blood hematocrit (volume fraction) 47 % 40-54 Automated erythrocyte mean corpuscular volume 91 [foz_us] 80-99 Automated erythrocyte mean corpuscular hemoglobin (mass per erythrocyte) 31 pg 25-34 Automated erythrocyte mean corpuscular hemoglobin concentration measurement ( mass/volume) 34 g/dL 32-36 Automated erythrocyte distribution width ratio 13.2 % 10.0-14.5 Automated blood platelet count (count/volume) 223 10*3/uL 130-400 Automated blood platelet mean volume measurement 9.3 [foz_us] 7.4-10.4 Automated blood neutrophils/100 leukocytes 54 % 42-75 Automated blood lymphocytes/100 leukocytes 32 % 12-44 Blood monocytes/100 leukocytes 10 % 0-12 Automated blood eosinophils/100 leukocytes 3 % 0-10 Automated blood basophils/100 leukocytes 1 % 0-10 Blood neutrophils automated count (number/volume) 2.8 10*3 1.8-7.8 Blood lymphocytes automated count (number/volume) 1.7 10*3 1.0-4.0 Blood monocytes automated count (number/volume) 0.5 10*3 0.0-1.0 Automated eosinophil count 0.2 10*3/uL 0.0-0.3 Automated blood basophil count (count/volume) 0.0 10*3/uL 0.0-0.1 PT panel in platelet poor plasma by coagulation assay - 02/12/16 16:39 Prothrombin time (PT) in platelet poor plasma by coagulation assay 12.4 s 12.2-14.7 INR in platelet poor plasma or blood by coagulation assay 1.0 0.8-1.4 Activated partial thromboplastin time (aPTT) in platelet poor plasma bycoagulation assay - 02/12/16 16:39 Activated partial thromboplastin time (aPTT) in platelet poor plasma bycoagulation assay 26 s 24-35 Comprehensive metabolic panel - 02/12/16 16:39 Serum or plasma sodium measurement (moles/volume) 140 mmol/L 135-145 Serum or plasma potassium measurement (moles/volume) 4.2 mmol/L 3.6-5.0 Serum or plasma chloride measurement (moles/volume) 105 mmol/L 98-107 Carbon dioxide 27 mmol/L 21-32 Serum or plasma anion gap determination (moles/volume) 8 mmol/L 5-14 Serum or plasma urea nitrogen measurement (mass/volume) 16 mg/dL 7-18 Serum or plasma creatinine measurement (mass/volume) 1.10 mg/dL 0.60-1.30 Serum or plasma urea nitrogen/creatinine mass ratio 15 NRG Serum or plasma creatinine measurement with calculation of estimated glomerular filtration rate > NRG Serum or plasma glucose measurement (mass/volume) 103 mg/dL 70-105 Serum or plasma calcium measurement (mass/volume) 9.2 mg/dL 8.5-10.1 Serum or plasma total bilirubin measurement (mass/volume) 0.5 mg/dL 0.1-1.0 Serum or plasma alkaline phosphatase measurement (enzymatic activity/volume) 142 U/L 40-136 Serum or plasma aspartate aminotransferase measurement (enzymatic activity/ volume) 297 U/L 5-34 Serum or plasma alanine aminotransferase measurement (enzymatic activity/volume ) 350 U/L 0-55 Serum or plasma protein measurement (mass/volume) 7.2 g/dL 6.4-8.2 Serum or plasma albumin measurement (mass/volume) 4.4 g/dL 3.2-4.5 Magnesium - 02/12/16 16:39 Magnesium 2.2 mg/dL 1.8-2.4 Serum or plasma troponin i.cardiac measurement (mass/volume) - 02/12/16 16:39 Serum or plasma troponin i.cardiac measurement (mass/volume) < ng/ mL <0.30 Myoglobin, serum - 02/12/16 16:39 Myoglobin, serum 89.7 ng/mL 10.0-92.0 Hepatitis Panel (4) - 02/19/16 09:30 HBsAg Screen Negative Negative Hep A Ab, IgM Negative Negative Hep B Core Ab, IgM Negative Negative Hep C Virus Ab <0.1 s/co ratio 0.0-0.9 Stool Culture - 02/20/16 16:55 Stool Culture Note Comp. Metabolic Panel (14) - 03/18/16 11:10 Glucose, Serum 91 mg/dL 65-99 BUN 16 mg/dL 6-24 Creatinine, Serum 1.07 mg/dL 0.76-1.27 eGFR If NonAfricn Am 83 mL/min/1.73 >59 eGFR If Africn Am 96 mL/min/1.73 >59 BUN/Creatinine Ratio 15 9-20 Sodium, Serum 143 mmol/L 134-144 Potassium, Serum 4.8 mmol/L 3.5-5.2 Chloride, Serum 102 mmol/L 96-106 Carbon Dioxide, Total 24 mmol/L 18-29 Calcium, Serum 9.2 mg/dL 8.7-10.2 Protein, Total, Serum 6.7 g/dL 6.0-8.5 Albumin, Serum 4.3 g/dL 3.5-5.5 Globulin, Total 2.4 g/dL 1.5-4.5 A/G Ratio 1.8 1.1-2.5 Bilirubin, Total 0.3 mg/dL 0.0-1.2 Alkaline Phosphatase, S 73 IU/L 39-117 AST (SGOT) 19 IU/L 0-40 ALT (SGPT) 27 IU/L 0-44 Lipid Panel - 03/18/16 11:10 Cholesterol, Total 273 mg/dL 100-199 Triglycerides 306 mg/dL 0-149 HDL Cholesterol 29 mg/dL >39 VLDL Cholesterol José 61 mg/dL 5-40 LDL Cholesterol Calc 183 mg/dL 0-99 Complete blood count (CBC) with automated white blood cell (WBC) differential - 04/08/16 09:15 Blood leukocytes automated count (number/volume) 6.6 10*3/uL 4.3-11.0 Blood erythrocytes automated count (number/volume) 5.34 10*6/uL 4.35-5.85 Venous blood hemoglobin measurement (mass/volume) 16.4 g/dL 13.3-17.7 Blood hematocrit (volume fraction) 49 % 40-54 Automated erythrocyte mean corpuscular volume 91 [foz_us] 80-99 Automated erythrocyte mean corpuscular hemoglobin (mass per erythrocyte) 31 pg 25-34 Automated erythrocyte mean corpuscular hemoglobin concentration measurement ( mass/volume) 34 g/dL 32-36 Automated erythrocyte distribution width ratio 13.9 % 10.0-14.5 Automated blood platelet count (count/volume) 203 10*3/uL 130-400 Automated blood platelet mean volume measurement 9.7 [foz_us] 7.4-10.4 Automated blood neutrophils/100 leukocytes 58 % 42-75 Automated blood lymphocytes/100 leukocytes 29 % 12-44 Blood monocytes/100 leukocytes 9 % 0-12 Automated blood eosinophils/100 leukocytes 3 % 0-10 Automated blood basophils/100 leukocytes 1 % 0-10 Blood neutrophils automated count (number/volume) 3.8 10*3 1.8-7.8 Blood lymphocytes automated count (number/volume) 1.9 10*3 1.0-4.0 Blood monocytes automated count (number/volume) 0.6 10*3 0.0-1.0 Automated eosinophil count 0.2 10*3/uL 0.0-0.3 Automated blood basophil count (count/volume) 0.1 10*3/uL 0.0-0.1 PT panel in platelet poor plasma by coagulation assay - 04/08/16 09:15 Prothrombin time (PT) in platelet poor plasma by coagulation assay 12.6 s 12.2-14.7 INR in platelet poor plasma or blood by coagulation assay 1.0 0.8-1.4 Activated partial thromboplastin time (aPTT) in platelet poor plasma bycoagulation assay - 04/08/16 09:15 Activated partial thromboplastin time (aPTT) in platelet poor plasma bycoagulation assay 29 s 24-35 Comprehensive metabolic panel - 04/08/16 09:15 Serum or plasma sodium measurement (moles/volume) 139 mmol/L 135-145 Serum or plasma potassium measurement (moles/volume) 4.6 mmol/L 3.6-5.0 Serum or plasma chloride measurement (moles/volume) 106 mmol/L 98-107 Carbon dioxide 24 mmol/L 21-32 Serum or plasma anion gap determination (moles/volume) 9 mmol/L 5-14 Serum or plasma urea nitrogen measurement (mass/volume) 16 mg/dL 7-18 Serum or plasma creatinine measurement (mass/volume) 0.98 mg/dL 0.60-1.30 Serum or plasma urea nitrogen/creatinine mass ratio 16 NRG Serum or plasma creatinine measurement with calculation of estimated glomerular filtration rate > NRG Serum or plasma glucose measurement (mass/volume) 91 mg/dL 70-105 Serum or plasma calcium measurement (mass/volume) 8.8 mg/dL 8.5-10.1 Serum or plasma total bilirubin measurement (mass/volume) 0.4 mg/dL 0.1-1.0 Serum or plasma alkaline phosphatase measurement (enzymatic activity/volume) 77 U/L 40-136 Serum or plasma aspartate aminotransferase measurement (enzymatic activity/ volume) 23 U/L 5-34 Serum or plasma alanine aminotransferase measurement (enzymatic activity/volume ) 27 U/L 0-55 Serum or plasma protein measurement (mass/volume) 6.6 g/dL 6.4-8.2 Serum or plasma albumin measurement (mass/volume) 4.0 g/dL 3.2-4.5 Magnesium - 04/08/16 09:15 Magnesium 2.1 mg/dL 1.8-2.4 Serum or plasma troponin i.cardiac measurement (mass/volume) - 04/08/16 09:15 Serum or plasma troponin i.cardiac measurement (mass/volume) < ng/ mL <0.30 Myoglobin, serum - 04/08/16 09:15 Myoglobin, serum 85.7 ng/mL 10.0-92.0 Fibrin D-dimer FEU measurement in platelet poor plasma (mass/volume) - 09:15 Fibrin D-dimer FEU measurement in platelet poor plasma (mass/volume) 0.50 ug/mL 0.00-0.49 Serum or plasma thyrotropin measurement by detection limit <=0.05 miu/l (units/ volume) - 04/08/16 09:15 Serum or plasma thyrotropin measurement by detection limit <=0.05 miu/l (units/ volume) 0.90 u[iU]/mL 0.35-4.94 Lipid 1996 panel - 04/09/16 03:49 Serum or plasma triglyceride measurement (mass/volume) 236 mg/dL <150 Serum or plasma cholesterol measurement (mass/volume) 216 mg/dL < 200 Serum or plasma cholesterol in HDL measurement (mass/volume) 24 mg/ dL 40-60 Cholesterol in LDL [mass/volume] in serum or plasma by direct assay 152 mg/dL 1-129 Serum or plasma cholesterol in VLDL measurement (mass/volume) 47 mg/ dL 5-40 Complete blood count (CBC) with automated white blood cell (WBC) differential - 04/17/16 20:34 Blood leukocytes automated count (number/volume) 11.1 10*3/uL 4.3-11.0 Blood erythrocytes automated count (number/volume) 5.36 10*6/uL 4.35-5.85 Venous blood hemoglobin measurement (mass/volume) 16.7 g/dL 13.3-17.7 Blood hematocrit (volume fraction) 49 % 40-54 Automated erythrocyte mean corpuscular volume 91 [foz_us] 80-99 Automated erythrocyte mean corpuscular hemoglobin (mass per erythrocyte) 31 pg 25-34 Automated erythrocyte mean corpuscular hemoglobin concentration measurement ( mass/volume) 34 g/dL 32-36 Automated erythrocyte distribution width ratio 13.8 % 10.0-14.5 Automated blood platelet count (count/volume) 292 10*3/uL 130-400 Automated blood platelet mean volume measurement 9.5 [foz_us] 7.4-10.4 Automated blood neutrophils/100 leukocytes 52 % 42-75 Automated blood lymphocytes/100 leukocytes 40 % 12-44 Blood monocytes/100 leukocytes 6 % 0-12 Automated blood eosinophils/100 leukocytes 2 % 0-10 Automated blood basophils/100 leukocytes 1 % 0-10 Blood neutrophils automated count (number/volume) 5.7 10*3 1.8-7.8 Blood lymphocytes automated count (number/volume) 4.4 10*3 1.0-4.0 Blood monocytes automated count (number/volume) 0.7 10*3 0.0-1.0 Automated eosinophil count 0.2 10*3/uL 0.0-0.3 Automated blood basophil count (count/volume) 0.1 10*3/uL 0.0-0.1 PT panel in platelet poor plasma by coagulation assay - 03/08/17 20:34 Prothrombin time (PT) in platelet poor plasma by coagulation assay 12.7 s 12.2-14.7 INR in platelet poor plasma or blood by coagulation assay 1.0 0.8-1.4 Activated partial thromboplastin time (aPTT) in platelet poor plasma bycoagulation assay - 04/17/16 20:34 Activated partial thromboplastin time (aPTT) in platelet poor plasma bycoagulation assay 28 s 24-35 Comprehensive metabolic panel - 04/17/16 20:34 Serum or plasma sodium measurement (moles/volume) 139 mmol/L 135-145 Serum or plasma potassium measurement (moles/volume) 4.5 mmol/L 3.6-5.0 Serum or plasma chloride measurement (moles/volume) 106 mmol/L 98-107 Carbon dioxide 20 mmol/L 21-32 Serum or plasma anion gap determination (moles/volume) 13 mmol/L 5-14 Serum or plasma urea nitrogen measurement (mass/volume) 18 mg/dL 7-18 Serum or plasma creatinine measurement (mass/volume) 1.22 mg/dL 0.60-1.30 Serum or plasma urea nitrogen/creatinine mass ratio 15 NRG Serum or plasma creatinine measurement with calculation of estimated glomerular filtration rate > NRG Serum or plasma glucose measurement (mass/volume) 117 mg/dL 70-105 Serum or plasma calcium measurement (mass/volume) 9.3 mg/dL 8.5-10.1 Serum or plasma total bilirubin measurement (mass/volume) 0.4 mg/dL 0.1-1.0 Serum or plasma alkaline phosphatase measurement (enzymatic activity/volume) 76 U/L 40-136 Serum or plasma aspartate aminotransferase measurement (enzymatic activity/ volume) 27 U/L 5-34 Serum or plasma alanine aminotransferase measurement (enzymatic activity/volume ) 33 U/L 0-55 Serum or plasma protein measurement (mass/volume) 7.7 g/dL 6.4-8.2 Serum or plasma albumin measurement (mass/volume) 4.2 g/dL 3.2-4.5 Magnesium - 04/17/16 20:34 Magnesium 2.7 mg/dL 1.8-2.4 Serum or plasma troponin i.cardiac measurement (mass/volume) - 04/17/16 20:34 Serum or plasma troponin i.cardiac measurement (mass/volume) < ng/ mL <0.30 Myoglobin, serum - 04/17/16 20:34 Myoglobin, serum 70.8 ng/mL 10.0-92.0 Serum or plasma troponin i.cardiac measurement (mass/volume) - 04/17/16 22:57 Serum or plasma troponin i.cardiac measurement (mass/volume) < ng/ mL <0.30 Complete urinalysis with reflex to culture - 12/30/16 16:21 Urine color determination YELLOW NRG Urine clarity determination CLEAR NRG Urine pH measurement by test strip 7 5-9 Specific gravity of urine by test strip 1.015 1.016- 1.022 Urine protein assay by test strip, semi-quantitative NEGATIVE NEGATIVE Urine glucose detection by automated test strip NEGATIVE NEGATIVE Erythrocytes detection in urine sediment by light microscopy NEGATIVE NEGATIVE Urine ketones detection by automated test strip NEGATIVE NEGATIVE Urine nitrite detection by test strip NEGATIVE NEGATIVE Urine total bilirubin detection by test strip NEGATIVE NEGATIVE Urine urobilinogen measurement by automated test strip (mass/volume) NORMAL NORMAL Urine leukocyte esterase detection by dipstick 1+ NEGATIVE Automated urine sediment erythrocyte count by microscopy (number/high power field) NONE NRG Automated urine sediment leukocyte count by microscopy (number/high power field ) [HPF] NRG Bacteria detection in urine sediment by light microscopy NONE NRG Squamous epithelial cells detection in urine sediment by light microscopy 2-5 NRG Crystals detection in urine sediment by light microscopy PRESENT NRG Casts detection in urine sediment by light microscopy NONE NRG Mucus detection in urine sediment by light microscopy NEGATIVE NRG Complete urinalysis with reflex to culture NO NRG Amorphous sediment detection in urine sediment by light microscopy FEW ANDRÉS URATES NRG Complete blood count (CBC) with automated white blood cell (WBC) differential - 12/30/16 17:07 Blood leukocytes automated count (number/volume) 8.2 10*3/uL 4.3-11.0 Blood erythrocytes automated count (number/volume) 4.93 10*6/uL 4.35-5.85 Venous blood hemoglobin measurement (mass/volume) 15.4 g/dL 13.3-17.7 Blood hematocrit (volume fraction) 46 % 40-54 Automated erythrocyte mean corpuscular volume 93 [foz_us] 80-99 Automated erythrocyte mean corpuscular hemoglobin (mass per erythrocyte) 31 pg 25-34 Automated erythrocyte mean corpuscular hemoglobin concentration measurement ( mass/volume) 34 g/dL 32-36 Automated erythrocyte distribution width ratio 13.6 % 10.0-14.5 Automated blood platelet count (count/volume) 230 10*3/uL 130-400 Automated blood platelet mean volume measurement 9.5 [foz_us] 7.4-10.4 Automated blood neutrophils/100 leukocytes 52 % 42-75 Automated blood lymphocytes/100 leukocytes 38 % 12-44 Blood monocytes/100 leukocytes 6 % 0-12 Automated blood eosinophils/100 leukocytes 3 % 0-10 Automated blood basophils/100 leukocytes 1 % 0-10 Blood neutrophils automated count (number/volume) 4.3 10*3 1.8-7.8 Blood lymphocytes automated count (number/volume) 3.1 10*3 1.0-4.0 Blood monocytes automated count (number/volume) 0.5 10*3 0.0-1.0 Automated eosinophil count 0.2 10*3/uL 0.0-0.3 Automated blood basophil count (count/volume) 0.1 10*3/uL 0.0-0.1 Comprehensive metabolic panel - 12/30/16 17:07 Serum or plasma sodium measurement (moles/volume) 140 mmol/L 135-145 Serum or plasma potassium measurement (moles/volume) 4.6 mmol/L 3.6-5.0 Serum or plasma chloride measurement (moles/volume) 106 mmol/L 98-107 Carbon dioxide 26 mmol/L 21-32 Serum or plasma anion gap determination (moles/volume) 8 mmol/L 5-14 Serum or plasma urea nitrogen measurement (mass/volume) 15 mg/dL 7-18 Serum or plasma creatinine measurement (mass/volume) 1.18 mg/dL 0.60-1.30 Serum or plasma urea nitrogen/creatinine mass ratio 13 NRG Serum or plasma creatinine measurement with calculation of estimated glomerular filtration rate > NRG Serum or plasma glucose measurement (mass/volume) 88 mg/dL 70-105 Serum or plasma calcium measurement (mass/volume) 9.3 mg/dL 8.5-10.1 Serum or plasma total bilirubin measurement (mass/volume) 0.3 mg/dL 0.1-1.0 Serum or plasma alkaline phosphatase measurement (enzymatic activity/volume) 61 U/L 40-136 Serum or plasma aspartate aminotransferase measurement (enzymatic activity/ volume) 22 U/L 5-34 Serum or plasma alanine aminotransferase measurement (enzymatic activity/volume ) 28 U/L 0-55 Serum or plasma protein measurement (mass/volume) 7.5 g/dL 6.4-8.2 Serum or plasma albumin measurement (mass/volume) 4.3 g/dL 3.2-4.5 CBC - 02/14/17 14:25 WHITE BLOOD CELL COUNT 6.8 Thousand/uL 3.8-10.8 RED BLOOD CELL COUNT 5.02 Million/uL 4.20-5.80 HEMOGLOBIN 15.2 g/dL 13.2-17.1 HEMATOCRIT 46.4 % 38.5-50.0 MCV 92.4 fL 80.0-100.0 MCH 30.3 pg 27.0-33.0 MCHC 32.8 g/dL 32.0-36.0 RDW 13.2 % 11.0-15.0 PLATELET COUNT 231 Thousand/uL 140-400 MPV 10.1 fL 7.5-12.5 ABSOLUTE NEUTROPHILS 3556 cells/uL [id number] ABSOLUTE LYMPHOCYTES 2530 cells/uL [id number] ABSOLUTE MONOCYTES 449 cells/uL 200-950 ABSOLUTE EOSINOPHILS 218 cells/uL 15-500 ABSOLUTE BASOPHILS 48 cells/uL 0-200 NEUTROPHILS 52.3 % NRG LYMPHOCYTES 37.2 % NRG MONOCYTES 6.6 % NRG EOSINOPHILS 3.2 % NRG BASOPHILS 0.7 % NRG Comprehensive metabolic panel - 01/12/18 10:30 Serum or plasma sodium measurement (moles/volume) 139 mmol/L 135-145 Serum or plasma potassium measurement (moles/volume) 4.9 mmol/L 3.6-5.0 Serum or plasma chloride measurement (moles/volume) 107 mmol/L 98-107 Carbon dioxide 25 mmol/L 21-32 Serum or plasma anion gap determination (moles/volume) 7 mmol/L 5-14 Serum or plasma urea nitrogen measurement (mass/volume) 17 mg/dL 7-18 Serum or plasma creatinine measurement (mass/volume) 0.99 mg/dL 0.60-1.30 Serum or plasma urea nitrogen/creatinine mass ratio 17 NRG Serum or plasma creatinine measurement with calculation of estimated glomerular filtration rate > NRG Serum or plasma glucose measurement (mass/volume) 93 mg/dL 70-105 Serum or plasma calcium measurement (mass/volume) 9.5 mg/dL 8.5-10.1 Serum or plasma total bilirubin measurement (mass/volume) 0.5 mg/dL 0.1-1.0 Serum or plasma alkaline phosphatase measurement (enzymatic activity/volume) 78 U/L 40-136 Serum or plasma aspartate aminotransferase measurement (enzymatic activity/ volume) 19 U/L 5-34 Serum or plasma alanine aminotransferase measurement (enzymatic activity/volume ) 27 U/L 0-55 Serum or plasma protein measurement (mass/volume) 7.3 g/dL 6.4-8.2 Serum or plasma albumin measurement (mass/volume) 4.4 g/dL 3.2-4.5 CALCIUM CORRECTED 9.2 mg/dL 8.5-10.1 Lipid 1996 panel - 01/12/18 10:30 Serum or plasma triglyceride measurement (mass/volume) 360 mg/dL <150 Serum or plasma cholesterol measurement (mass/volume) 283 mg/dL < 200 Serum or plasma cholesterol in HDL measurement (mass/volume) 35 mg/ dL 40-60 Cholesterol in LDL [mass/volume] in serum or plasma by direct assay 170 mg/dL 1-129 Serum or plasma cholesterol in VLDL measurement (mass/volume) 72 mg/ dL 5-40 Complete blood count (CBC) with automated white blood cell (WBC) differential - 04/20/18 09:23 Blood leukocytes automated count (number/volume) 5.3 10*3/uL 4.3-11.0 Blood erythrocytes automated count (number/volume) 4.95 10*6/uL 4.35-5.85 Venous blood hemoglobin measurement (mass/volume) 15.3 g/dL 13.3-17.7 Blood hematocrit (volume fraction) 46 % 40-54 Automated erythrocyte mean corpuscular volume 92 [foz_us] 80-99 Automated erythrocyte mean corpuscular hemoglobin (mass per erythrocyte) 31 pg 25-34 Automated erythrocyte mean corpuscular hemoglobin concentration measurement ( mass/volume) 34 g/dL 32-36 Automated erythrocyte distribution width ratio 13.6 % 10.0-14.5 Automated blood platelet count (count/volume) 274 10*3/uL 130-400 Automated blood platelet mean volume measurement 8.9 [foz_us] 7.4-10.4 Automated blood neutrophils/100 leukocytes 48 % 42-75 Automated blood lymphocytes/100 leukocytes 40 % 12-44 Blood monocytes/100 leukocytes 7 % 0-12 Automated blood eosinophils/100 leukocytes 4 % 0-10 Automated blood basophils/100 leukocytes 1 % 0-10 Blood neutrophils automated count (number/volume) 2.5 10*3 1.8-7.8 Blood lymphocytes automated count (number/volume) 2.1 10*3 1.0-4.0 Blood monocytes automated count (number/volume) 0.3 10*3 0.0-1.0 Automated eosinophil count 0.2 10*3/uL 0.0-0.3 Automated blood basophil count (count/volume) 0.1 10*3/uL 0.0-0.1 Comprehensive metabolic panel - 04/20/18 09:23 Serum or plasma sodium measurement (moles/volume) 143 mmol/L 135-145 Serum or plasma potassium measurement (moles/volume) 4.6 mmol/L 3.6-5.0 Serum or plasma chloride measurement (moles/volume) 106 mmol/L 98-107 Carbon dioxide 26 mmol/L 21-32 Serum or plasma anion gap determination (moles/volume) 11 mmol/L 5-14 Serum or plasma urea nitrogen measurement (mass/volume) 16 mg/dL 7-18 Serum or plasma creatinine measurement (mass/volume) 0.96 mg/dL 0.60-1.30 Serum or plasma urea nitrogen/creatinine mass ratio 17 NRG Serum or plasma creatinine measurement with calculation of estimated glomerular filtration rate > NRG Serum or plasma glucose measurement (mass/volume) 96 mg/dL 70-105 Serum or plasma calcium measurement (mass/volume) 9.4 mg/dL 8.5-10.1 Serum or plasma total bilirubin measurement (mass/volume) 0.4 mg/dL 0.1-1.0 Serum or plasma alkaline phosphatase measurement (enzymatic activity/volume) 66 U/L 40-136 Serum or plasma aspartate aminotransferase measurement (enzymatic activity/ volume) 26 U/L 5-34 Serum or plasma alanine aminotransferase measurement (enzymatic activity/volume ) 33 U/L 0-55 Serum or plasma protein measurement (mass/volume) 7.2 g/dL 6.4-8.2 Serum or plasma albumin measurement (mass/volume) 4.4 g/dL 3.2-4.5 CALCIUM CORRECTED 9.1 mg/dL 8.5-10.1 Magnesium - 04/20/18 09:23 Magnesium 2.2 mg/dL 1.8-2.4 Lipid 1996 panel - 04/20/18 09:23 Serum or plasma triglyceride measurement (mass/volume) 318 mg/dL <150 Serum or plasma cholesterol measurement (mass/volume) 273 mg/dL < 200 Serum or plasma cholesterol in HDL measurement (mass/volume) 37 mg/ dL 40-60 Cholesterol in LDL [mass/volume] in serum or plasma by direct assay 186 mg/dL 1-129 Serum or plasma cholesterol in VLDL measurement (mass/volume) 64 mg/ dL 5-40 THYROID STIMULATING HORMONE - 04/20/18 09:23 THYROID STIMULATING HORMONE 0.64 u[iU]/mL 0.35-4.94 Encounters ACCT No. Visit Date/Time Discharge Status Pt. Type Provider Facility Loc./Unit Complaint [id number] 05/19/2014 10:53:00 05/19/2014 23:59:59 CLS Outpatient ROSITA BOYD APRN [id number] 01/31/2014 08:29:00 01/31/2014 23:59:59 CLS Outpatient ASHLEY BANERJEE APRN [id number] 12/24/2013 14:45:00 12/24/2013 23:59:59 CLS Outpatient YASHIRA MENENDEZ APRN [id number] 11/24/2013 15:33:00 11/24/2013 23:59:59 CLS Outpatient JUANJO PETERS DO [id number] 11/09/2013 15:36:00 11/09/2013 23:59:59 CLS Outpatient ASHLEY BANERJEE APRN [id number] 10/08/2013 15:14:00 10/08/2013 23:59:59 CLS Outpatient YASHIRA MENENDEZ APRN [id number] 06/28/2013 12:14:00 06/28/2013 23:59:59 CLS Outpatient YASHIRA MENENDEZ APRN [id number] 05/17/2013 08:50:00 05/17/2013 23:59:59 CLS Outpatient ROSITA BOYD APRN [id number] 03/19/2012 16:19:00 03/19/2012 23:59:59 CLS Outpatient JUANJO PETERS DO [id number] 03/04/2012 16:11:00 03/04/2012 23:59:59 CLS Outpatient [id number] 01/24/2012 16:01:00 01/24/2012 23:59:59 CLS Outpatient YASHIRA MENENDEZ APRN [id number] 12/27/2011 16:55:00 12/27/2011 23:59:59 CLS Outpatient [id number] 10/20/2012 14:38:00 Document Registration [id number] 07/28/2012 09:47:00 Document Registration [id number] 07/02/2012 10:52:00 Document Registration [id number] 06/05/2012 10:17:00 Document Registration [id number] 02/26/2016 08:35:00 Document Registration [id number] 02/13/2016 18:05:00 Document Registration [id number] 02/20/2016 13:06:00 Document Registration [id number] 01/12/2018 10:19:00 01/12/2018 23:59:59 CLS Outpatient LAMAR MARC [address] [facility] CARD CAD,CAROTID ARTERY STENOSIS [id number] 05/20/2017 07:13:00 05/20/2017 23:59:59 CLS Outpatient LAMAR MARC [address] [facility] CARD I25.10 CAD [id number] 12/30/2016 15:35:00 12/30/2016 19:30:00 DIS Outpatient HECTOR DEAL [facility] ER R SIDE ABD/LOWER BACK PAIN [id number] 11/09/2016 09:28:00 11/09/2016 23:59:59 CLS Outpatient LAMAR MARCP [facility] LAB CAD, HYPERLIPIDEMIA [id number] 04/24/2016 20:49:00 04/25/2016 00:09:00 DIS Emergency HECTOR DEAL [facility] ER HEAD PAIN [id number] 04/17/2016 20:31:00 04/17/2016 23:51:00 DIS Emergency JB PEPPER, ROBBIE Mondragon [facility] ER CP [id number] 04/08/2016 11:41:00 04/09/2016 12:00:00 DIS Inpatient MELODY PEPPER, TRESSA Le [facility] ICU A-FLUTTTY W/RVR [id number] 03/11/2016 13:35:00 03/11/2016 23:59:59 CLS Outpatient MARIA D PITTS APRN [facility] RAD ASTHMA,COPD,DYSPNEA ,RESTRICTIVE LUNG DISEASE [id number] 02/12/2016 16:30:00 02/12/2016 19:19:00 DIS Emergency MIHAI SANCHEZ MD [facility] ER CP [id number] 11/04/2015 12:11:00 11/04/2015 23:59:59 CLS Outpatient FILOMENA ACOSTA MD [facility] EGD [id number] 10/30/2015 16:29:00 10/30/2015 23:59:59 CLS Outpatient ИВАН RAYMUNDO DO [facility] RT SNORING,TOBACCO USER, OBESITY,CAD [id number] 10/25/2015 15:15:00 10/25/2015 15:45:00 DIS Outpatient ИВАН RAYMUNDO DO [facility] SLEEP OBSERVED APNEA,SNORING, NATALIE [id number] 09/25/2015 17:26:00 09/26/2015 13:00:00 DIS Outpatient JOSEPH MORRIS MD, FACC, FACP CCDS [facility] CATH HEART CATH W / CORONARY ANGIOGRAPHY [id number] 09/25/2015 09:38:00 09/25/2015 23:59:59 CLS Outpatient JOSEPH MORRIS MD, FACC, FACP CCDS [facility] LAB CAD,CAN,HTN, HLD [id number] 07/24/2015 11:15:00 07/27/2015 10:15:00 DIS Inpatient JOSEPH MORRIS MD, FACC, FACP CCDS [facility] CSD NON-STEMI [id number] 07/24/2015 09:39:00 07/24/2015 23:59:59 CLS Outpatient LAMAR MARC [facility] LAB CAD, HYPERLIPIDEMIA, CAN [id number] 05/30/2015 08:38:00 05/30/2015 11:45:00 DIS Outpatient SVETLANA WALLACE DO [facility] ANAL FISSURE [id number] 05/26/2015 05:52:00 05/26/2015 10:12:00 DIS Outpatient SVETLANA WALLACE DO [facility] PREOP ANAL FISSURE [id number] 01/20/2015 06:00:00 01/20/2015 12:55:00 DIS Outpatient SVETLANA WALLACE DO [facility] SD LAP NATALIE [id number] 01/18/2015 07:46:00 01/18/2015 23:59:59 CLS Outpatient SVETLANA WALLACE DO [facility] PREOP LAP.NATALIE [id number] 01/03/2015 08:59:00 01/03/2015 23:59:59 CLS Outpatient BAILAMAR TORRES [address] [facility] LAB CAD,HTN,HLP, [id number] 11/28/2014 09:21:00 11/28/2014 23:59:59 CLS Outpatient YASHIRA MENENDEZ [facility] CARD ADB PAIN RUQ [id number] 08/16/2014 11:53:00 08/16/2014 23:59:59 CLS Outpatient JOSEPH MORRIS MD, FACC, FACP CCDS [facility] CARD CAD,CHEST DISCOMFORT [id number] 12/24/2013 15:55:00 12/24/2013 23:59:59 CLS Outpatient YASHIRA MENENDEZ [facility] RAD ABD PAIN [id number] 10/18/2013 09:46:00 10/18/2013 23:59:59 CLS Outpatient BAILEESA TORRESHER L [address] [facility] LAB CAD,HYPERLIPADEMIA [id number] 06/24/2013 19:34:00 06/25/2013 20:35:00 DIS Inpatient JOSEPH MORRIS MD, FACC, FACP CCDS [facility] ICU CHEST PAIN [id number] 06/21/2013 12:06:00 06/21/2013 23:59:59 CLS Outpatient BAIMA LAMAR L [address] [facility] LAB CAD,HYPERLIPIDEMIA [id number] 03/22/2013 10:01:00 03/22/2013 23:59:59 CLS Outpatient BAIMELISSA LAMAR L [address] [facility] LAB CAD,HYPERLIPADEMA [id number] 11/30/2012 09:09:00 11/30/2012 23:59:59 CLS Outpatient BAILAMAR TORRESP [facility] LAB PVOD,STATIN [place] [id number] 10/13/2012 08:58:00 10/13/2012 23:59:59 CLS Outpatient LAMAR MARC [address] [facility] LAB STATIN [place],HLP [id number] 08/07/2012 11:30:00 10/12/2012 00:01:00 DIS Outpatient LAMAR MARC [address] [facility] CARD NEAR SYNCOPE,CAD, HYPERLIPIDEMIA,STATIN [place] [id number] 06/29/2012 07:57:00 07/01/2012 19:00:00 DIS Inpatient SHANTEL PEPPER, SUSAN Jhaveri [facility] CSD CHEST PAIN [id number] 04/20/2018 09:16:00 ACT Outpatient LAMAR MARCP [facility] LAB HYPERLIPIDEMIA [id number] 04/11/2014 10:53:00 Document Registration [id number] 05/13/2012 11:15:00 Document Registration [id number] 03/07/2012 10:40:00 Document Registration [id number] 03/08/2011 10:05:00 Document Registration [id number] 02/01/2011 21:35:00 Document Registration [id number] 12/08/2017 16:20:00 12/08/2017 23:59:59 CLS Outpatient YASHIRA MENENDEZ APRN [facility] [id number] 02/14/2017 13:40:00 Document Registration [id number] 03/19/2016 08:38:00 Document Registration [id number] 02/24/2016 13:05:00 Document Registration
[2018-04-21] MEDS ORDERED: FLUT1BLS IH ×2 (13:12)
[2018-04-21] MEDS ORDERED: DILT180C54 PO ×2 (13:14)
--- NOTE | 2018-04-21 13:15 | NUR ---
SPOKE WITH THE PATIENT ABOUT HIS MEDICATIONS. HE HAD A LIST WITH HIM AND I COMPARED WITH HAT [facility] HAS FILLED AND THE LIST FROM THE OFFICE ON THE CHART. [facility] FILLED: 04-13-18 FENOFIBRIC ACID 135MG DAILY #30 3-03-31 CARTIA XT 180MG 2 DAILY #60 04-02-18 GABAPENTIN 600MG TID #90 04-01-18 METOPROLOL ER 50MG DAILY #90 HE ALSO REPORTS TAKING ELIQUIS 5MG BID. THIS WAS NOT ON THE FAX FROM [facility], PATIENT MAY RECEIVE IT THROUGH PATIENT ASSISTANCE OR PALS. PATIENT WAS PRESCRIBED PRALUENT SUBQ SOLUTION HOWEVER HAS NOT FILLED IT YET, HE STATES HE HAS NOT STARTED AND DOES NOT KNOW IF HE WILL TAKE IT. HE DOES NOT LIKE NEEDLES OR INJECTABLES AND IS GOING TO DISCUSS WITH DR. I DID NOT ADD IT TO THE MED REC AT THIS TIME. HE STATES HE HAS SAMPLES OF INHALERS, HE ONLY USES THEM NEEDED. I CALLED DR. RAYMUNDO'S OFFICE AND THEY REPORT BREO 200 DAILY HOWEVER THEY HAVE NOT SEEN HIM SINCE 2017. PATIENT STATES HE HAS BREO AND ADVAIR ON HAND BUT DOES NOT USE THEM REGULARLY. I JUST ADDED THE BREO NEEDED. HE TAKES ASPIRIN 81MG DAILY AND ZYRTEC PRN OTC.
[2018-04-21] MEDS ORDERED: FLU QUADRIvalent (5+ YOA) 2018-2019 (AFLURIA) 0.5 ML IM ONE (13:30)
[2018-04-21] MEDS ORDERED: MIDAZOLAM 5 MG/5 ML (VERSED) VIAL ONE (16:10)
[2018-04-21] MEDS ORDERED: fentaNYL INJECTION 100 MCG/2 ML AMP ONE (16:11)
--- NOTE | 2018-04-21 16:31 | Cardiac Procedure Note-CS/ASA ---
Pre-Procedure Note Pre-Op Procedure Note H&P Reviewed The H&P was reviewed, patient examined and no changes noted. Date H&P Reviewed: Apr 21, 2018 Time H&P Reviewed: 16:31 Conscious Sedation Pre-Proced Time 16:31 ASA Score 3 For ASA 3 and 4: Consider anesthesia and medical clearance. Also, for patients with a history of failed moderate sedation consider anesthesia. Airway Lungs Heart ASA score ASA 1: a normal healthy patient ASA 2: a patient with a mild systemic disease (mid diabetes, controlled hypertension, obesity ASA 3: a patient with a severe systemic disease that limits activity (angina , COPD, prior Myocardial infarction) ASA 4: a patient with an incapacitating disease that is a constant threat to life (CHF, renal failure) ASA 5: a moribund patient not expected to survive 24 hrs. (ruptured aneurysm) ASA 6: a declared brain- patient whose organs are being harvested. For emergent operations, add the letter E after the classification Mallampati Classification Grade 2 Sedation Plan Analgesia, Amnesia, Plan communicated to team members, Discussed options with patient/fam, Discussed risks with patient/fam The patient is an appropriate candidate to undergo the planned procedure, sedation, and anesthesia. The patient immediately re-assessed prior to indication. DARÍO JIMÉNEZ MD FACP FAC CCDS Apr 21, 2018 16:31
--- NOTE | 2018-04-22 01:23 | CARDIAC CATHETERIZATION ---
DATE OF SERVICE: The patient is a 47-year-old man, who is known to have coronary artery disease. He is known to have occlusion of a second obtuse marginal stent in 2016. Attempts at intervention to this vessel were unsuccessful. Subsequent angiography indicated stable coronary status. He has now had more chest discomfort than usual and some symptoms are suggestive of increasing angina. Cardiac catheterization was recommended for further evaluation. Informed consent was obtained. PROCEDURE: He was brought to the cardiac catheterization laboratory in a fasting state. Right groin was prepared and draped in usual sterile fashion. 1% lidocaine was used for local anesthesia. Modified Seldinger technique was used to advance a 5-Bahamian sheath in right femoral artery. A 5-Bahamian JL4 catheter was used for left coronary angiography. 5-Bahamian JR4 catheter was used for right coronary angiography. A 5-Bahamian pigtail catheter was used for left heart catheterization and left ventricular angiography. At the end of the procedure, Mynx was used to achieve hemostasis. He tolerated the procedure well. HEMODYNAMICS: Left ventricular end-diastolic pressure following coronary angiography was 8 mmHg. There is no significant pressure gradient on pullback across the aortic valve. Ascending aortic pressure was 108/77 with a mean of 90 mmHg. CORONARY ANGIOGRAPHY: Left main coronary artery is free of significant disease. Left anterior descending artery is free of significant disease. Left circumflex artery exhibits a second obtuse marginal branch that is chronically occluded and fills via bridging collaterals. This is a chronic occlusion. Right coronary artery is a dominant and does not exhibit significant disease. Faint right to left collaterals are seen. CONCLUSIONS: 1. Coronary artery disease consisting of chronic ostial and proximal occlusion of the second obtuse marginal branch, which fills via bridging collaterals and right to left collaterals. The rest of the coronary system does not exhibit significant obstructive disease. 2. Normal global left ventricular systolic function with ejection fraction approximately 60%. 3. Normal left ventricular end diastolic pressure. DISCUSSION AND RECOMMENDATIONS: Based on results of the study, it appears appropriate to continue a conservative approach. Risk factor modification has been reviewed. Outpatient followup is advised. Continue with the same. We have again advised him to quit tobacco use immediately and completely. Job ID: [id number] DocumentID: [id number] Dictated Date: 04/21/2018 17:12:51 Applications Programmer Date: 04/22/2018 01:22:48 Dictated By: DARÍO JIMÉNEZ MD, MA, FACP, FACC,
== END 2018-04-21 21:30 | disposition home or self-care (01) ==
LOC: CATH 12:05 → ICU 17:22 → CATH 21:30
PROVIDERS: ATTEND Internal Medicine Cardiovascular Disease
DX: I25.119 Atherosclerotic heart disease of native coronary artery with unspecified angina pectoris (principal); I25.82 Chronic total occlusion of coronary artery; F17.210 Nicotine dependence, cigarettes, uncomplicated; I10 Essential (primary) hypertension; E78.5 Hyperlipidemia, unspecified; I48.0 Paroxysmal atrial fibrillation; I47.1 Supraventricular tachycardia; I65.23 Occlusion and stenosis of bilateral carotid arteries; J44.9 Chronic obstructive pulmonary disease, unspecified; R53.1 Weakness; R53.81 Other malaise; I25.2 Old myocardial infarction; Z79.01 Long term (current) use of anticoagulants; Z79.82 Long term (current) use of aspirin; Z79.899 Other long term (current) drug therapy; Z95.5 Presence of coronary angioplasty implant and graft
CPT/HCPCS: 36415; 85610; 85730; 87081

== ENCOUNTER 2018-05-24 10:07 | Emergency (ER) | payer SELFPAY ==
[~2018-05-24] VITALS: Ht 190.5 cm; Wt 117.9 kg
[~2018-05-24 10:07] MED LIST changes: +ASPI-983 PO; +CETI10TA20 PO; +DILT180C54 PO; +DILT180C67 PO; +FENO135C PO; +FLUT1BLS IH; +GBPN600T PO
[2018-05-24] MEDS ORDERED: fentaNYL INJECTION 100 MCG/2 ML AMP IVP ONE (10:30)
--- NOTE | 2018-05-24 10:33 | ED Lower Extremity ---
General Chief Complaint: Back Problems Stated Complaint: RIGHT SIDE NUMBNESS Nursing Triage Note: PT AMBULATED TO ROOM 10 PT CO OF NUMBNESS TO R LEG AND BACK PAIN STARTED YESTERDAY Nursing Sepsis Screen: No Definite Risk Source: patient, family History of Present Illness Date Seen by Provider: May 24, 2018 Time Seen by Provider: 10:29 Initial Comments This 39-year-old white male presents complaining of pain and numbness in his right hip and leg that began suddenly yesterday. Patient has a history of ankylosing spondylitis of his lumbar spine as well as previous crush injury to the lumbar spine. The patient states that the right hip and leg pain and numbness is different than what he has experienced before. He denies any recent trauma to the right hip or low back. He's had no associated fever or chills. Recent past medical history significant includes cardiac catheter 2 weeks ago with the right groin for the catheterization. The patient describes the pain as severe, sharp in nature, and originating from the right hip area. Pain is made worse with motion of the right hip. Allergies and Home Medications Allergies Coded Allergies: Jthwwje-Qqc-Pdp Reductase Inhibitor (Verified Allergy, Unknown, 04/21/18) Home Medications Apixaban 5 Mg Tablet, 5 MG PO BID, (Reported) Aspirin 81 Mg Tablet.dr, 81 MG PO DAILY, (Reported) Cetirizine HCl 10 Mg Tablet, 10 MG PO DAILY PRN for ALLERGIES, (Reported) Diltiazem HCl 180 Mg Cap.er.24h, 360 MG PO DAILY, (Reported) Fenofibric Acid (Choline) 135 Mg Capsule.dr, 135 MG PO DAILY, (Reported) Fluticasone/Vilanterol 1 Each Blst.w.dev, 1 PUFF IH DAILY PRN for SHORTNESS OF BREATH, (Reported) Gabapentin 600 Mg Tablet, 600 MG PO TID, (Reported) Metoprolol Succinate 50 Mg Tab.er.24h, 50 MG PO DAILY, (Reported) Patient Home Medication List Home Medication List Reviewed: Yes Review of Systems Constitutional: No chills, No fever EENTM: No ear pain, No vision loss Respiratory: No cough Cardiovascular: No chest pain Gastrointestinal: No abdominal pain, No nausea, No vomiting Genitourinary: No dysuria, No frequency Musculoskeletal: see HPI, back pain, joint pain Skin: No change in color (and right hip), No rash Psychiatric/Neurological: No Symptoms Reported Past Fxiezhb-Lwwawt-Viegry Hx Past Med/Social Hx: Reviewed Nursing Past Med/Soc Hx Patient Social History Alcohol Use: Denies Use Recreational Drug Use: No (SMOKES 1 PPD) Smoking Status: Current Everyday Smoker Type Used: Cigarettes Recent Foreign Travel: No Contact w/Someone Who Travel: No Recent Infectious Disease Expo: No Recent Hopitalizations: Yes (RECENT DX OF AFIB) Immunizations Up To Date Tetanus Booster (TDap): Unknown Date of Pneumonia Vaccine: Nov 22, 2014 Date of Influenza Vaccine: Nov 24, 2015 Seasonal Allergies Seasonal Allergies: No Past Medical History Surgeries: Yes (LEFT KNEE SX, COLONSCOPY) Coronary Stent, Gallbladder Respiratory: No COPD, Emphysema Currently Using CPAP: No Currently Using BIPAP: No Cardiac: Yes Atrial Fibrillation, Coronary Artery Disease, High Cholesterol, Hypertension Neurological: No Reproductive Disorders: No Sexually Transmitted Disease: No HIV/AIDS: No Genitourinary: No Gastrointestinal: Yes Gall Bladder Disease Musculoskeletal: Yes Degenerate Disk Disease, Arthritis, Back Injury Endocrine: No Cancer: No Psychosocial: No Integumentary: No Blood Disorders: No Family Medical History Congestive heart failure 19 FATHER Family history: Hypertension 19 FATHER 19 MOTHER No Family History of: Cancer Dementia Family history: Alzheimer's disease Family history: Diabetes mellitus Stroke Heart Disease, Hypertension Physical Exam Vital Signs Vital Signs - First Documented 05/24/18 10:10 Temp 97.2 Pulse 70 Resp 18 B/P (MAP) 144/97 (113) Pulse Ox 98 Capillary Refill : Less Than 3 Seconds Height, Weight, BMI Height: 6'3.00" Weight: 260lbs. 0.0oz. 117.663199ei; 32.5 BMI Method:Stated General Appearance: WD/WN, moderate distress HEENT: normal ENT inspection Neck: normal inspection Cardiovascular: regular rate, rhythm Respiratory: lungs clear Gastrointestinal: normal bowel sounds, non tender, soft Back: normal inspection Hips: bilateral hip pain, bilateral hip soft tissue tenderness Neurologic/Tendon: normal sensation, normal motor functions Neurologic/Psychiatric: no motor/sensory deficits, alert, normal mood/affect, oriented x 3 Skin: normal color, warm/dry Progress/Results/Core Measures Results/Orders My Orders Orders - DEWEY CANCHOLA MD Ct Lumbar Spine Wo (05/24/18 10:26) Fentanyl Injection (Sublimaze Injection (05/24/18 10:30) Ct Extremity Lower Right Wo (05/24/18 10:26) Medications Given in ED Current Medications Medications Dose Ordered Sig/Stan Route Start Time Stop Time Status Last Admin Dose Admin Fentanyl Citrate 50 mcg ONCE ONCE IVP 05/24/18 10:30 05/24/18 10:31 DC 05/24/18 10:45 50 MCG Vital Signs/I&O 05/24/18 10:10 Temp 97.2 Pulse 70 Resp 18 B/P (MAP) 144/97 (113) Pulse Ox 98 Blood Pressure Mean: 113 Progress Progress Note : Time: 12:31 Progress Note The patient's right hip pain wasn't significantly improved with [address] of the right hip and lumbosacral spine demonstrated marked stenosis of the canal with associated degenerative changes. The right hip demonstrated minimal degenerative changes. I discussed the findings with the patient and his . I recommended that he follow-up with his caregiver critical access hospital tomorrow. I sent the patient with 20 Percocet tablets for his back and hip pain. I can return if any problems or questions. Departure Impression Primary Impression: Spinal stenosis of lumbar region at multiple levels Disposition: 01 HOME, SELF-CARE Condition: Improved Departure-Patient Inst. Decision time for Depature: 12:33 Referrals: [facility] (PCP) Primary Care Physician YASHIRA MENENDEZ (Family) Primary Care Physician Patient Instructions: Spinal Stenosis Add. Discharge Instructions: Percocet for pain as prescribed. Follow-up with your caregiver critical access hospital tomorrow. Return if any problems. All discharge instructions reviewed with patient and/or family. Voiced understanding. Scripts Oxycodone HCl/Acetaminophen (Percocet 5-325 mg Tablet) 1 Each Tablet 1 TAB PO Q4H for PAIN-MODERATE MDD 6 TABS, #20 TAB Prov: DEWEY CANCHOLA MD 05/24/18 DEWEY CANCHOLA MD May 24, 2018 10:33
--- NOTE | 2018-05-24 11:15 | Diagnostic Imaging Report ---
PROCEDURE: CT right lower extremity without contrast. TECHNIQUE: Axially acquired CT was obtained through the right lower extremity without intravenous contrast. Coronal and sagittal reformations were also performed. Auto Exposure Controls were utilized during the CT exam to meet ALARA standards for radiation dose reduction. Indication: New onset low back pain and right hip pain starting yesterday, no known injury. Comparison: None. Discussion: Mild degenerative disease is noted. No fracture or dislocation. Benign bone islands are present. Alignment is anatomic. Soft tissues are unremarkable. Impression: 1. Mild degenerative disease noted within the right hip. No acute abnormality identified. Dictated by: Dictated on workstation # [id number]
--- NOTE | 2018-05-24 11:18 | Diagnostic Imaging Report ---
PROCEDURE: CT lumbar spine without contrast. TECHNIQUE: Multiple contiguous axial images were obtained through the lumbar spine without the use of intravenous contrast. Sagittal and coronal reformations were then performed. Auto Exposure Controls were utilized during the CT exam to meet ALARA standards for radiation dose reduction. Indication: Low back pain radiating to the right hip starting yesterday. No known injury. Comparison: None. Discussion: No acute fracture or subluxation. Mild to moderate degenerative disc disease is noted diffusely. Moderately advanced facet arthropathy is present diffusely and bilaterally. Diffuse disc bulge is present at L4-L5. There is likely severe central canal stenosis at L3-L4 and L4-L5. There is moderate multilevel neural foraminal narrowing. There is likely severe neural foraminal narrowing on the left at L4-L5. Paraspinal soft tissues are unremarkable. Advanced degenerative disease is present within the bilateral sacroiliac joints. Impression: 1. Advanced degenerative changes within the lumbar spine with severe central canal stenosis and neural foraminal narrowing as described. No acute abnormality. Dictated by: Dictated on workstation # [id number]
[2018-05-24] MEDS ORDERED: OXYC1TAB87 PO (12:34)
[2018-05-24 12:40] VITALS: BP 144/97
== END 2018-05-24 12:40 | disposition home or self-care (01) ==
LOC: EDUNIT# 10:07 → ER 10:09
DX: M48.061 Spinal stenosis, lumbar region without neurogenic claudication (principal); J43.9 Emphysema, unspecified; I48.91 Unspecified atrial fibrillation; I25.10 Atherosclerotic heart disease of native coronary artery without angina pectoris; E78.00 Pure hypercholesterolemia, unspecified; I10 Essential (primary) hypertension; F17.210 Nicotine dependence, cigarettes, uncomplicated; Z82.49 Family history of ischemic heart disease and other diseases of the circulatory system; Z95.5 Presence of coronary angioplasty implant and graft; Z79.01 Long term (current) use of anticoagulants; Z87.19 Personal history of other diseases of the digestive system; Z79.82 Long term (current) use of aspirin; Z79.51 Long term (current) use of inhaled steroids
CPT/HCPCS: 72131; 73700

== ENCOUNTER → 2018-06-19 | Outpatient (CLI) | payer OTHER ==
[~2018-06-19] MED LIST changes: +OXYC1TAB87 PO
--- NOTE | 2018-06-19 13:49 | Diagnostic Imaging Report ---
PROCEDURE: MRI lumbar spine. TECHNIQUE: Multiplanar, multisequence MRI of the lumbar spine was performed without contrast. INDICATION: Low back pain and right leg pain. COMPARISON: No prior studies are available for comparison. FINDINGS: Curvature and alignment of the lumbar spine is normal. Vertebral body heights are maintained. Marrow signal intensity is unremarkable apart from occasional benign hemangiolipomas. No acute compression fracture or geographic marrow lesion is seen. There is some disc desiccation as well as disc space narrowing at L4-5 and L5-S1 levels compatible with degenerative disc disease. Conus is unremarkable at the L1 level. T12-L1: Central canal is patent. Neural foramina are patent. L1-2: Central canal is widely patent. Neural foramina are widely patent. L2-3: There are some degenerative facet changes. Central canal is patent. Neural foramina are patent. L3-4: Ligamentous thickening and broad-based disc/osteophyte complex is noted. This does produce moderate narrowing of the central canal. There is narrowing of the bilateral lateral recesses and mild bilateral neural foraminal narrowing. L4-5: Ligamentous thickening and broad-based disc/osteophyte complex is noted. There is asymmetric midline/left paramidline broad-based bulging noted indenting the ventral thecal sac and producing moderate central canal stenosis and left lateral recess stenosis. There is also mild bilateral neural foraminal stenosis. L5-S1: Central canal and neural foramina are patent. Paraspinous tissues are unremarkable. IMPRESSION: Multilevel lumbar spondylosis with multilevel central canal, lateral recess and neural foraminal stenosis described level by level above. No acute compression fracture is detected. Dictated by: Dictated on workstation # [id number]
== END ==
LOC: RAD 12:41
PROVIDERS: ATTEND Nurse Practitioner Community Health
DX: M47.816 Spondylosis without myelopathy or radiculopathy, lumbar region (principal); M48.061 Spinal stenosis, lumbar region without neurogenic claudication; M51.17 Intervertebral disc disorders with radiculopathy, lumbosacral region
CPT/HCPCS: 72148

== ENCOUNTER → 2018-11-10 | Outpatient (CLI) | payer SELFPAY ==
[~2018-11-10] MED LIST changes: -OMEP20CA12 PO; +OMEP20CA13 PO
--- NOTE | 2018-11-10 15:56 | Diagnostic Imaging Report ---
PROCEDURE: MRI lumbar spine. TECHNIQUE: Multiplanar, multisequence MRI of the lumbar spine was performed without contrast. DATE: November 10, 2018. COMPARISON: MRI lumbar spine June 19, 2018. INDICATION: 48-year-old male, low back pain. FINDINGS: Malalignment of the lumbar spine is unremarkable. There is no evidence of diffuse marrow infiltrating or replacing process. There is patchy heterogeneous marrow signal which potentially could be seen with bone demineralization. There is no concerning focal bone lesion. There is no compression deformity or other fracture. The visualized cord and conus medullaris is unremarkable and terminates at the L1-L2 level. There is moderate disc height loss at L4-L5. There is mild disc height loss at L5-S1. There is multilevel prominence of the posterior epidural fat. L1-L2: There is no disc bulge. The facet joints and ligamentum flavum are unremarkable. There is no foraminal narrowing. There is no spinal canal stenosis. L2-L3: There is no disc bulge. There are mild right facet degenerative changes without ligamentum flavum hypertrophy. There is no foraminal narrowing. There is no spinal canal stenosis. L3-L4: There is mild diffuse disc bulge. There are mild bilateral facet degenerative changes without ligamentum flavum hypertrophy. There is mild bilateral foraminal narrowing. There is prominence of the posterior lateral epidural fat including at this level. There is moderate spinal canal stenosis. L4-L5: There is diffuse disc bulge with a superimposed left paracentral disc protrusion. There is disc material contacting the descending left L5 nerve root. There is moderate to severe narrowing of the left lateral recess. There are very mild bilateral facet degenerative changes without prominent ligamentum flavum flavum hypertrophy. There is mild to moderate bilateral foraminal narrowing. There is moderate spinal canal stenosis. L5-S1: There is mild diffuse disc bulge. The facet joints and ligamentum flavum are unremarkable. There is no foraminal narrowing. There is no spinal canal stenosis. IMPRESSION: 1. Multilevel disc and facet degenerative changes of the lumbar spine with prominence of the posterior epidural fat. Foraminal and spinal stenosis is most notable at L3-L4 and L4-L5 as described in detail above. 2. Patchy marrow signal which potentially can be seen with bone demineralization. 3. Imaging appearance is fairly similar to June 19, 2018 MRI. Dictated by: Dictated on workstation # [id number]
== END ==
LOC: RAD 13:08
PROVIDERS: ATTEND Nurse Practitioner Community Health
DX: M51.17 Intervertebral disc disorders with radiculopathy, lumbosacral region (principal); M47.816 Spondylosis without myelopathy or radiculopathy, lumbar region; M48.07 Spinal stenosis, lumbosacral region
CPT/HCPCS: 72148

== ENCOUNTER → 2019-10-11 | Outpatient (CLI) | payer SELFPAY ==
[~2019-10-11] MED LIST changes: -CETI10TA20 PO; +CETI10TA21 PO; -MINO100C2 PO; +MINO100C5 PO; -OMEP20CA13 PO; +OMEP20CA18 PO
[2019-10-11 09:27] LABS: ALBUMIN 4.3 GM/DL (3.2-4.5); CHLORIDE 107 MMOL/L (98-107); POTASSIUM 4.4 MMOL/L (3.6-5.0); SODIUM 140 MMOL/L (135-145)
[2019-10-11 09:28] LABS: CALCIUM 8.9 MG/DL (8.5-10.1)
[2019-10-11 09:29] LABS: TOTAL PROTEIN 7.1 GM/DL (6.4-8.2); TRIGLYCERIDES 266 MG/DL (<150); VLDL CHOLESTEROL 53 MG/DL (5-40)
[2019-10-11 09:30] LABS: CARBON DIOXIDE 24 MMOL/L (21-32); GLUCOSE 94 MG/DL (70-105)
[2019-10-11 09:31] LABS: BILIRUBIN,TOTAL 0.4 MG/DL (0.1-1.0)
[2019-10-11 09:33] LABS: ALKALINE PHOSPHATASE 48 U/L (40-136); CREATININE SERUM 1.04 MG/DL (0.60-1.30); GFR ESTIMATED > 60
[2019-10-11 09:34] LABS: BUN/CREATININE RATIO 18; CHOLESTEROL 273 MG/DL (< 200)
[2019-10-11 09:35] LABS: HDL CHOLESTEROL 35 MG/DL (40-60)
[2019-10-11 09:36] LABS: ALANINE AMINOTRANSFERASE 29 U/L (0-55)
== END ==
LOC: LAB 09:06
PROVIDERS: ATTEND Nurse Practitioner Family
DX: I25.10 Atherosclerotic heart disease of native coronary artery without angina pectoris (principal)
CPT/HCPCS: 36415; 80053; 80061

== ENCOUNTER → 2020-08-08 | Outpatient (CLI) | payer SELFPAY ==
[~2020-08-08] VITALS: Ht 190 cm; Wt 116.0 kg
[~2020-08-08] MED LIST changes: +ACYC-108 PO; -ACYC200C PO; +ASPI-1238 PO; -ASPI-983 PO; -CETI10TA21 PO; +CETI10TA49 PO; -ISOS30TA3 PO; +ISOS30TA82 PO; -PANT40TA3 PO; +PANT40TA52 PO; +REGADENOSON 0.4 MG/5 ML SYR (LEXISCAN) IV ONE
[2020-08-08] MEDS: CATHETER FLUSH 10 ML SYR IV PRN ×2 (12:06→13:39)
[2020-08-08 13:37] VITALS: BP 140/92
--- NOTE | 2020-08-08 23:40 | STRESS TEST ---
DATE OF SERVICE: 08/08/2020 RESTING AND POST REGADENOSON TECHNETIUM-99M TETROFOSMIN SPECT CT IMAGING ORDERING PHYSICIAN: Herminia Lovelace APRN PRIMARY PHYSICIAN: [facility]. CLINICAL DIAGNOSIS: Coronary artery disease. Baseline images were carried out after injection of 10.5 mCi of technetium-99m Tetrofosmin. This was followed by 0.4 mg regadenoson and 30.7 mCi of technetium-99m Tetrofosmin for stress imaging. The electrocardiogram showed sinus rhythm at baseline. It did not change significantly with the regadenoson infusion. Review of images at rest and following stress does not indicate any significant perfusion defects consistent with myocardial ischemia or infarction. Gated images show normal global left ventricular systolic function with normal regional wall motion. Left ventricular ejection fraction is calculated to be 65%. Left ventricular end-diastolic is 68 mL. TID is absent (1.05). CONCLUSIONS: 1. No evidence of any significant myocardial ischemia or infarction on this study. 2. Normal regional wall motion. 3. Normal global left ventricular systolic function with a calculated ejection fraction of 65%. Job ID: [id number] DocumentID: [id number] Dictated Date: 08/08/2020 20:41:16 Asian Studies Professor Date: 08/08/2020 23:40:15 Dictated By: DARÍO JIMÉNEZ MD, MA, FACP, FACC,
== END ==
LOC: CARD 12:00
PROVIDERS: ATTEND Nurse Practitioner Family
DX: I25.10 Atherosclerotic heart disease of native coronary artery without angina pectoris (principal)
CPT/HCPCS: 78452; 93017; 93306; A9502

== ENCOUNTER 2020-09-22 11:56 | Outpatient (CLI) | payer SELFPAY ==
[~2020-09-22] VITALS: Ht 190.5 cm; Wt 113.6 kg
[2020-09-22 11:53] VITALS: BP 138/85
[~2020-09-22 11:56] MED LIST changes: -REGADENOSON 0.4 MG/5 ML SYR (LEXISCAN) IV ONE
[2020-09-22] MEDS ORDERED: EPINEPHrine INJECTION 1 MG/ML AMP IM PRN (12:00)
[2020-09-22] MEDS ORDERED: ACETAMINOPHEN 500 MG TAB (TYLENOL) PO PRN (12:00)
[2020-09-22] MEDS ORDERED: diphenhydrAMINE 50 MG/ML INJ (BENADRYL) IV PRN (12:00)
[2020-09-22] MEDS ORDERED: CASIRIVIMAB/IMDEVIMAB 1,200 MG in NS (IVPB) 250 ML IV ONE (12:00)
[2020-09-22] MEDS ORDERED: ONDANSETRON 4 MG/2 ML (SDV) Z0FRAN IV PRN (12:00)
[2020-09-22 13:13] VITALS: BP 138/74
== END 2020-09-22 13:44 | disposition home or self-care (01) ==
LOC: INFUSION 11:56
PROVIDERS: ATTEND Physician Assistant
DX: Z23 Encounter for immunization (principal); U07.1 COVID-19

== ENCOUNTER 2022-05-13 15:35 | Emergency (ER) | payer OTHER ==
[~2022-05-13] VITALS: Ht 190 cm; Wt 120.0 kg
[~2022-05-13 15:35] MED LIST changes: +CYCL10TA25 PO; +OMEP20TA56 PO; -OMEP20TA7 PO
--- NOTE | 2022-05-13 16:11 | ED Abdominal Pain ---
General Chief Complaint: Abdominal/GI Problems Stated Complaint: TOUBLE BREATHING AND STUMIC PAIN Source of Information: Patient, Family () Exam Limitations: No Limitations History of Present Illness Date Seen by Provider: May 13, 2022 Time Seen by Provider: 15:59 Initial Comments 51-year-old male presents to the emergency department today for right-sided abdominal pain, bloody stools. He states symptoms started a week ago. He states he is passing large blood clots through his stool. He has increased right-sided abdominal pain during bowel movements. Does have right-sided abdomi nal pain constantly for the past week or so. No fevers or chills. No nausea or vomiting. No chest pain. His abdominal pain is causing him to be slightly short of breath. He does take Eliquis for history of cardiac stents. He is also on baby aspirin. He believes he may have had a colonoscopy but this would have been at least 10 years ago. He has never had similar symptoms in the past. No changes in urine. He saw his primary doctor today who thought he may have had some increased fullness in the right side of his abdomen versus left side and was recommended to come to the emergency department for All other systems reviewed and negative except documented per HPI. Voice recognition software was used to help create this chart Allergies and Home Medications Allergies Coded Allergies: Nmttrlp-Oup-Qfj Reductase Inhibitor (Verified Allergy, Unknown, 04/21/18) Patient Home Medication List Home Medication List Reviewed: Yes Apixaban (Eliquis) 5 Mg Tablet, 5 MG PO BID, (Reported) Entered as Reported by: SHAKEEL DA SILVA on 04/21/18 1258 Aspirin (Aspirin EC) 81 Mg Tablet.dr, 81 MG PO DAILY, (Reported) Entered as Reported by: SHAKEEL DA SILVA on 04/21/18 1258 Cetirizine HCl (Zyrtec) 10 Mg Tablet, 10 MG PO DAILY PRN for ALLERGIES, (Reported) Entered as Reported by: SHAKEEL DA SILVA on 04/21/18 1258 Diltiazem HCl (Cartia Xt) 180 Mg Cap.er.24h, 360 MG PO DAILY, (Reported) Entered as Reported by: SHAKEEL DA SILVA on 04/21/18 1314 Fenofibric Acid (Choline) (Trilipix) 135 Mg Capsule.dr, 135 MG PO DAILY, (Reported) Entered as Reported by: SHAKEEL DA SILVA on 04/21/18 1258 Fluticasone/Vilanterol (Breo Ellipta 200-25 Mcg INH) 1 Each Blst.w.dev, 1 PUFF IH DAILY PRN for SHORTNESS OF BREATH, (Reported) Entered as Reported by: SHAKEEL DA SILVA on 04/21/18 1312 Gabapentin (Gabapentin) 600 Mg Tablet, 600 MG PO TID, (Reported) Entered as Reported by: SHAKEEL DA SILVA on 04/21/18 1258 Metoprolol Succinate (Toprol Xl) 50 Mg Tab.er.24h, 50 MG PO DAILY, (Reported) Entered as Reported by: SHAKEEL DA SILVA on 07/24/15 1348 Oxycodone HCl/Acetaminophen (Percocet 5-325 mg Tablet) 1 Each Tablet, 1 TAB PO Q4H Prescribed by: DEWEY CANCHOLA MD on 05/24/18 1234 Review of Systems Review of Systems Constitutional: see HPI Past Zvzgiag-Usiehh-Pummns Hx Immunizations Up To Date Tetanus Booster (TDap): Unknown Seasonal Allergies Seasonal Allergies: No Past Medical History Surgeries: Yes (LEFT KNEE SX, COLONSCOPY) Coronary Stent, Gallbladder Respiratory: No COPD, Emphysema Currently Using CPAP: No Currently Using BIPAP: No Cardiac: Yes Atrial Fibrillation, Coronary Artery Disease, High Cholesterol, Hypertension Neurological: No Reproductive Disorders: No Sexually Transmitted Disease: No HIV/AIDS: No Genitourinary: No Gastrointestinal: Yes Gall Bladder Disease Musculoskeletal: Yes Degenerate Disk Disease, Arthritis, Back Injury Endocrine: No Cancer: No Psychosocial: No Integumentary: No Blood Disorders: No Family Medical History Reviewed Nursing Family Hx Congestive heart failure 19 FATHER Family history: Hypertension 19 FATHER 19 MOTHER No Family History of: Cancer Dementia Family history: Alzheimer's disease Family history: Diabetes mellitus Stroke Heart Disease, Hypertension Physical Exam Vital Signs Vital Signs - First Documented 05/13/22 16:18 Temp 36.5 Pulse 73 Resp 16 B/P (MAP) 154/107 (123) Pulse Ox 96 Capillary Refill : Height/Weight/BMI Height: 6'3.00" Weight: 260lbs. 0.0oz. 117.027652tn; 32.13 BMI Method:Stated General Appearance: WD/WN, no apparent distress HEENT: normal ENT inspection, pharynx normal Neck: non-tender, full range of motion, supple, normal inspection Respiratory: chest non-tender, lungs clear, normal breath sounds, no respirato ry distress, no accessory muscle use Cardiovascular: regular rate, rhythm, no murmur Gastrointestinal: normal bowel sounds, soft, no organomegaly, tenderness (Right-sided abdomen is tender to palpation with voluntary guarding. No rebound tenderness. No mass organomegaly. No skin changes.) Extremities: normal range of motion, non-tender, normal inspection, no pedal edema, no calf tenderness Neurologic/Psychiatric: alert, normal mood/affect, oriented x 3 Skin: normal color, warm/dry Progress/Results/Core Measures Results/Orders Lab Results Laboratory Tests Test 05/13/22 16:09 05/13/22 16:45 Range/Units White Blood Count 6.3 4.3-11.0 10^3/uL Red Blood Count 5.08 4.30-5.52 10^6/uL Hemoglobin 15.6 13.3-17.7 g/dL Hematocrit 46 40-54 % Mean Corpuscular Volume 91 80-99 fL Mean Corpuscular Hemoglobin 31 25-34 pg Mean Corpuscular Hemoglobin Concent 34 32-36 g/dL Red Cell Distribution Width 13.3 10.0-14.5 % Platelet Count 268 130-400 10^3/uL Mean Platelet Volume 9.5 9.0-12.2 fL Immature Granulocyte % (Auto) 0 % Neutrophils (%) (Auto) 49 42-75 % Lymphocytes (%) (Auto) 39 12-44 % Monocytes (%) (Auto) 6 0-12 % Eosinophils (%) (Auto) 4 0-10 % Basophils (%) (Auto) 1 0-10 % Neutrophils # (Auto) 3.1 1.8-7.8 10^3/uL Lymphocytes # (Auto) 2.5 1.0-4.0 10^3/uL Monocytes # (Auto) 0.4 0.0-1.0 10^3/uL Eosinophils # (Auto) 0.3 0.0-0.3 10^3/uL Basophils # (Auto) 0.1 0.0-0.1 10^3/uL Immature Granulocyte # (Auto) 0.0 0.0-0.1 10^3/uL Sodium Level 142 135-145 MMOL/L Potassium Level 4.1 3.6-5.0 MMOL/L Chloride Level 108 H 98-107 MMOL/L Carbon Dioxide Level 23 21-32 MMOL/L Anion Gap 11 5-14 MMOL/L Blood Urea Nitrogen 21 H 7-18 MG/DL Creatinine 1.13 0.60-1.30 MG/DL Estimat Glomerular Filtration Rate 78 BUN/Creatinine Ratio 19 Glucose Level 127 H 70-105 MG/DL Calcium Level 9.3 8.5-10.1 MG/DL Corrected Calcium 9.1 8.5-10.1 MG/DL Total Bilirubin 0.3 0.1-1.0 MG/DL Aspartate Amino Transf (AST/SGOT) 26 5-34 U/L Alanine Aminotransferase (ALT/SGPT) 43 0-55 U/L Alkaline Phosphatase 48 40-136 U/L Troponin I < 0.028 <0.028 NG/ML Total Protein 7.3 6.4-8.2 GM/DL Albumin 4.2 3.2-4.5 GM/DL Lipase 69 8-78 U/L Urine Color YELLOW Urine Clarity CLEAR Urine pH 6.0 5-9 Urine Specific [place] 1.025 H 1.016-1.022 Urine Protein NEGATIVE NEGATIVE Urine Glucose (UA) NEGATIVE NEGATIVE Urine Ketones NEGATIVE NEGATIVE Urine Nitrite NEGATIVE NEGATIVE Urine Bilirubin NEGATIVE NEGATIVE Urine Urobilinogen 0.2 < = 1.0 MG/DL Urine Leukocyte Esterase NEGATIVE NEGATIVE Urine RBC (Auto) NEGATIVE NEGATIVE Urine RBC NONE /HPF Urine WBC NONE /HPF Urine Squamous Epithelial Cells 2-5 /HPF Urine Crystals NONE /LPF Urine Bacteria TRACE /HPF Urine Casts NONE /LPF Urine Mucus NEGATIVE /LPF Urine Culture Indicated NO My Orders Orders - JEREMIAH REICH DO Ekg Tracing (05/13/22 16:00) Comprehensive Metabolic Panel (05/13/22 16:08) Lipase (05/13/22 16:08) Ua Culture If Indicated (05/13/22 16:08) Type And Screen (05/13/22 16:08) Cbc With Automated Diff (05/13/22 16:08) Fentanyl Inj (Sublimaze Injection) (05/13/22 16:15) Troponin I [place] (05/13/22 16:18) Ct Abdomen/Pelvis W (05/13/22 16:37) Iohexol Injection (Omnipaque 350 Mg/Ml 1 (05/13/22 17:00) Ns (Ivpb) (Sodium Chloride 0.9% Ivpb Bag (05/13/22 17:00) Medications Given in ED Current Medications Medications Dose Ordered Sig/Stan Route Start Time Stop Time Status Last Admin Dose Admin Fentanyl Citrate 50 mcg ONCE ONCE IVP 05/13/22 16:15 05/13/22 16:16 DC 05/13/22 16:38 50 MCG Iohexol 100 ml ONCE ONCE IV 05/13/22 17:00 05/13/22 17:01 DC 05/13/22 17:05 100 ML Sodium Chloride 100 ml ONCE ONCE IV 05/13/22 17:00 05/13/22 17:01 DC 05/13/22 17:05 80 ML Vital Signs/I&O 05/13/22 16:18 Temp 36.5 Pulse 73 Resp 16 B/P (MAP) 154/107 (123) Pulse Ox 96 Comment My independent review of the EKG shows sinus rhythm at 70 bpm. Normal intervals. Normal axis. No ST or T wave abnormalities and no ectopy. Departure Communication (PCP) Patient is hemodynamically stable. Some tenderness in the right mid to lower abdomen but I do not feel any obvious significant fullness in that abdomen. To the other. CT scan is negative. Bleeding is likely from an upper abdominal source. The melanotic characteristic. He is hemodynamically stable and he states he has had symptoms for a week. His hemoglobin is 15 so I think he is stable for discharge and outpatient follow-up. He is given strict return precautions for dizziness, lightheadedness or shortness of breath. He states understanding. Dr. Mcdermott's name to follow-up with for colonoscopy and possible EGD. He states understanding. He is discharged in stable condition with supportive care. Recommended he have his hemoglobin checked in 2 to 3 days with his primary doctor. Impression Primary Impression: Melena Additional Impression: Abdominal pain Qualified Codes: R10.31 - Right lower quadrant pain Disposition: 01 HOME, SELF-CARE Condition: Stable Departure-Patient Inst. Referrals: [facility] (PCP) Primary Care Physician YASHIRA MENENDEZ (Family) Primary Care Physician Patient Instructions: Bloody Stools, Abdominal Pain, Adult ED Add. Discharge Instructions: No emergent medical conditions are identified for your symptoms. I recommend you take Protonix [id number] daily in case this is from ulcers. I have given you the number for Dr. Mcdermott. I recommend he call his clinic tomorrow to schedule a follow-up appointment for possible endoscopy. Return to the emergency department immediately for any dizziness, lightheadedness or shortness of breath. Have your hemoglobin rechecked with your primary doctor in 2 to 3 days. Follow-up with primary doctor for any nonemergent needs. All discharge instructions reviewed with patient and/or family. Voiced understanding. JEREMIAH REICH DO May 13, 2022 16:11
[2022-05-13] MEDS ORDERED: fentaNYL INJ 100 MCG/2 ML AMP IVP ONE (16:15)
[2022-05-13 16:25] LABS: BASOPHILS # (AUTO) 0.1 10^3/uL (0.0-0.1); BASOPHILS % (AUTO) 1 % (0-10); EOSINOPHILS # (AUTO) 0.3 10^3/uL (0.0-0.3); EOSINOPHILS % (AUTO) 4 % (0-10); HEMATOCRIT 46 % (40-54); HEMOGLOBIN 15.6 g/dL (13.3-17.7); LYMPHOCYTES # (AUTO) 2.5 10^3/uL (1.0-4.0); LYMPHOCYTES % (AUTO) 39 % (12-44); MEAN CORPUSCULAR HEMOGLOBIN 31 pg (25-34); MEAN CORPUSCULAR HGB CONC 34 g/dL (32-36); MEAN CORPUSCULAR VOLUME 91 fL (80-99); MEAN PLATELET VOLUME 9.5 fL (9.0-12.2); MONOCYTES # (AUTO) 0.4 10^3/uL (0.0-1.0); MONOCYTES % (AUTO) 6 % (0-12); NEUTROPHILS # (AUTO) 3.1 10^3/uL (1.8-7.8); NEUTROPHILS % (AUTO) 49 % (42-75); PLATELET COUNT 268 10^3/uL (130-400); WHITE BLOOD COUNT 6.3 10^3/uL (4.3-11.0)
[2022-05-13 16:43] LABS: ALBUMIN 4.2 GM/DL (3.2-4.5); POTASSIUM 4.1 MMOL/L (3.6-5.0)
[2022-05-13 16:44] LABS: CALCIUM 9.3 MG/DL (8.5-10.1)
[2022-05-13 16:46] LABS: TOTAL PROTEIN 7.3 GM/DL (6.4-8.2)
[2022-05-13 16:47] LABS: BILIRUBIN,TOTAL 0.3 MG/DL (0.1-1.0)
[2022-05-13 16:49] LABS: CREATININE SERUM 1.13 MG/DL (0.60-1.30)
[2022-05-13 16:54] LABS: BILIRUBIN,URINE NEGATIVE (NEGATIVE); CLARITY,URINE CLEAR; COLOR,URINE YELLOW; GLUCOSE, URINE (UA) NEGATIVE (NEGATIVE); KETONES,URINE NEGATIVE (NEGATIVE); LEUKOCYTE ESTERASE ,URINE NEGATIVE (NEGATIVE); NITRITE,URINE NEGATIVE (NEGATIVE); PROTEIN,URINE NEGATIVE (NEGATIVE)
[2022-05-13] MEDS ORDERED: IOHEXOL 350 MG/ML 100 ML (OMNIPAQUE 350) VIAL IV ONE (17:00)
[2022-05-13] MEDS ORDERED: NS 100 ML (IVPB) BAG IV ONE (17:00)
[2022-05-13 17:03] LABS: BACTERIA,URINE TRACE /HPF
--- NOTE | 2022-05-13 17:20 | Diagnostic Imaging Report ---
EXAMINATION: CT abdomen and pelvis with intravenous contrast. TECHNIQUE: Multiple contiguous axial images were obtained through the abdomen and pelvis after the uneventful administration of intravenous contrast. All CT scans use one or more of the following dose optimizing techniques: automated exposure control, MA and/or KvP adjustment based on patient size and exam type or iterative reconstruction. HISTORY: Abdominal pain and melena. COMPARISON: 12/30/2016 FINDINGS: Limited views of the lower thorax show an unchanged 3 mm left lower lobe nodule. No followup needed. Liver surface is mildly dysmorphic. There is mild hepatic steatosis. There is no biliary ductal dilation. Gallbladder is absent. Pancreas is normal. Spleen is normal. Adrenal glands are normal. The kidneys are normal. There is no hydronephrosis. Urinary bladder is normal. Bowel is normal in caliber without obstruction or inflammation. The appendix is normal. No free fluid or air. No abdominal or pelvic lymphadenopathy. Aorta is normal in caliber without aneurysm. There are no suspicious osseus lesions. IMPRESSION: 1. Mildly dysmorphic liver surface and hepatic steatosis concerning for developing cirrhosis. Otherwise no acute abnormality. Dictated by: Dictated on workstation # [id number]
[2022-05-13 17:41] VITALS: BP 129/87
== END 2022-05-13 17:40 | disposition home or self-care (01) ==
LOC: EDUNIT# 15:35 → ER 15:39
DX: R10.31 Right lower quadrant pain (principal); K92.1 Melena; Z79.82 Long term (current) use of aspirin; Z79.02 Long term (current) use of antithrombotics/antiplatelets; Z95.5 Presence of coronary angioplasty implant and graft; Z28.310 Unvaccinated for COVID-19
CPT/HCPCS: 36415; 74177; 80053; 81000; 83690; 84484; 85025; 86850; 86900; 86901; 93005

== ENCOUNTER 2022-05-16 06:39 | Outpatient (CLI) | payer SELFPAY ==
[~2022-05-16] VITALS: Ht 190.5 cm; Wt 122.9 kg
== END 2022-05-16 12:38 ==
LOC: PREOP 06:39
PROVIDERS: ATTEND Surgery
DX: Z01.818 Encounter for other preprocedural examination (principal); K62.5 Hemorrhage of anus and rectum; R10.9 Unspecified abdominal pain

== ENCOUNTER 2022-05-20 10:28 | Day surgery (SDC) | payer OTHER ==
[~2022-05-20] VITALS: Ht 190.5 cm; Wt 122.9 kg
[2022-05-20] MEDS ORDERED: LACTATED RINGERS 1,000 ML IV STA (10:41)
[2022-05-20] MEDS ORDERED: HURRICAINE EXT TUBE (BENZOCAINE) XX PRN (10:45)
[2022-05-20 11:50] VITALS: BP 127/89
[2022-05-20] MEDS ORDERED: APIX5TAB PO (11:57)
[2022-05-20] MEDS ORDERED: NAPR220C11 PO (11:57)
[2022-05-20] MEDS ORDERED: FENO145T26 PO (11:57)
[2022-05-20] MEDS ORDERED: TURM500T PO (11:57)
--- NOTE | 2022-05-20 12:44 | Progress Note-Pre Operative ---
Pre-Operative Progress Note Date H&P Reviewed: May 20, 2022 Time H&P Reviewed: 12:43 History & Physical: H&P Reviewed, Patient Examed, No changes noted Pre-Operative Diagnosis: Abdominal pain, rectal bleeding SVETLANA WALLACE DO May 20, 2022 12:44
[2022-05-20] MEDS ORDERED: MIDAZOLAM 2 MG/2 ML (VERSED) VIAL ONE (12:48)
[2022-05-20] MEDS ORDERED: PROPOFOL INJECTION 50 ML IV ONE ×2 (12:48→13:09)
[2022-05-20 13:15] VITALS: BP 126/70
--- NOTE | 2022-05-20 13:19 | Anesthesia-General Post-Op ---
MAC Patient Condition Mental Status/LOC: Same as Preop Cardiovascular: Satisfactory Nausea/Vomiting: Absent Respiratory: Satisfactory Pain: Controlled Complications: Absent Post Op Complications Complications None Follow Up Care/Instructions Patient Instructions None needed. Anesthesiology Discharge Order Discharge Order Patient is doing well, no complaints, stable vital signs, no apparent adverse anesthesia problems. No complications reported per nursing. LEN HUTCHINSON CRNA May 20, 2022 13:19
[2022-05-20 13:20] VITALS: BP 125/71
[2022-05-20] MEDS ORDERED: PANT40TA2 PO (13:43)
--- NOTE | 2022-05-20 13:44 | Discharge Inst-Simple/Standard ---
Discharge Inst-Standard Discharge Medications New, Converted or Re-Newed RX: Transmitted to Pharmacy Patient Instructions/Follow Up Plan of Care/Instructions/FU: 2 weeks vanessa Activity as Tolerated: Yes Discharge Diet: Regular Diet (gerd diet) SVETLANA WALLACE DO May 20, 2022 13:44
--- NOTE | 2022-05-20 13:47 | Progress Note-Post Operative ---
Post-Operative Progess Note Surgeon (s)/Metal Welder (s) Surgeon SVETLANA WALLACE DO Metal Welder: na Pre-Operative Diagnosis Abdominal pain, rectal bleeding Post-Operative Diagnosis gastritis, duodenitis, small hiatal hernia, hemorrhoids Procedure & Operative Findings Date of Procedure 05/20/22 Procedure Performed/Findings egd c biopsies, colonoscopy Anesthesia Type per junior business analyst Estimated Blood Loss Estimated blood loss (mL): none Specimens/Packing Specimens Removed antrum, ge SVETLANA WALLACE DO May 20, 2022 13:47
[2022-05-20 14:06] VITALS: BP 125/71
[2022-05-20 14:12] VITALS: BP 125/71
--- NOTE | 2022-05-20 23:05 | OPERATIVE REPORT ---
DATE OF SERVICE: 05/20/2022 PREOPERATIVE DIAGNOSES: Abdominal pain and rectal bleeding. POSTOPERATIVE DIAGNOSES: Gastritis, duodenitis, small hiatal hernia and hemorrhoids. PROCEDURES: EGD with biopsies and colonoscopy. SURGEON: Svetlana Garcia DO ANESTHESIA: Per DIGITAL MEDIA STRATEGIST. ESTIMATED BLOOD LOSS: None. COMPLICATIONS: None. INDICATIONS: The patient is a 51-year-old male with abdominal pain and also been having rectal bleeding. He understands risks and benefits of procedures and wishes to proceed. Consent was signed and on the chart. DESCRIPTION OF PROCEDURE: The patient was taken to the endoscopy suite, placed in left lateral recumbent position. Timeout was performed. Scope was inserted in the mouth, down the esophagus, stomach, into the duodenum without difficulty. Second portion of duodenum had no polyps, masses or ulcerations. First portion had some erythematous changes consistent with slight duodenitis. Scope was slowly retracted back into the stomach where in the antrum significant erythema was present consistent with gastritis as well. Biopsy of the antrum was obtained. Scope was retroflexed noting a small hiatal hernia, no other pathology. Scope was returned to its normal position, slowly withdrawn until distal esophagus. No polyps, masses or ulcerations. Biopsy of the GE junction was obtained. Scope was then slowly retracted back until completely removed. Digital rectal exam was performed noting some small internal hemorrhoids. Scope was then inserted in the rectum and advanced all the way to the cecum with minimal difficulty. Prep was adequate. Scope was then slowly retracted back. No polyps, masses or ulcerations within the cecum, ascending, transverse, descending and sigmoid colon. Once in the rectum, scope was retroflexed noting no other pathology. Scope was returned to its normal position, slowly withdrawn until completely removed. The patient tolerated the procedure well, no complications, taken to recovery room in stable condition. RECOMMENDATIONS: The patient will be started on Protonix 40 mg daily. We will await biopsy results as well. He will need repeat colonoscopy in 10 years unless family history of colon cancer, which will then be 5 years. Any issues before that, be seen at that time. If has any rebleeding, I would consider repeating colonoscopy. Job ID: [id number] DocumentID: [id number] Dictated Date: 05/20/2022 18:09:28 Probation Agent Date: 05/20/2022 23:04:00 Dictated By: SVETLANA GARCIA DO
== END 2022-05-20 14:12 | disposition home or self-care (01) ==
LOC: ENDO 10:28
PROVIDERS: ATTEND Surgery
DX: K29.70 Gastritis, unspecified, without bleeding (principal); K29.80 Duodenitis without bleeding; K44.9 Diaphragmatic hernia without obstruction or gangrene; K64.8 Other hemorrhoids; K31.89 Other diseases of stomach and duodenum; K20.90 Esophagitis, unspecified without bleeding; E66.9 Obesity, unspecified; F17.210 Nicotine dependence, cigarettes, uncomplicated; Z28.310 Unvaccinated for COVID-19; Z95.5 Presence of coronary angioplasty implant and graft; Z68.33 Body mass index [BMI] 33.0-33.9, adult

== ENCOUNTER 2022-12-24 05:28 | Outpatient (CLI) | payer OTHER ==
[~2022-12-24] VITALS: Ht 190.5 cm; Wt 112.5 kg
[~2022-12-24 05:28] MED LIST changes: +FENO145T26 PO; +NAPR220C11 PO; +TURM500T PO
== END 2022-12-24 11:34 | disposition home or self-care (01) ==
LOC: PREOP 05:28
PROVIDERS: ATTEND Specialist
DX: Z01.818 Encounter for other preprocedural examination (principal)

== ENCOUNTER 2022-12-31 06:18 | Day surgery (SDC) | payer OTHER ==
[~2022-12-31] VITALS: Ht 190 cm; Wt 112.5 kg
[2022-12-31] VITALS (10 sets, daily range): BP systolic 93–143; BP diastolic 66–86
[2022-12-31] MEDS ORDERED: GEMCITABINE 1 GM/NS 50 ML X 2 SYRINGES IR ONE ×2 (06:45)
[2022-12-31] MEDS: LACTATED RINGERS 1,000 ML 1,000 ML IV PRN ×2 (06:55→09:30)
[2022-12-31] MEDS ORDERED: MIDAZOLAM INJ 2 MG/2 ML VIAL ONE (07:03)
[2022-12-31] MEDS ORDERED: ONDANSETRON INJECTION 4 MG/2 ML (SDV) ONE (07:03)
[2022-12-31] MEDS ORDERED: proPOfol INJECTION 200 MG/20 ML VIAL IV ONE (07:03)
[2022-12-31] MEDS ORDERED: fentaNYL INJECTION 100 MCG/2 ML VIAL ONE (07:03)
[2022-12-31] MEDS ORDERED: dexAMETHasone INJ 10 MG/ML 1 ML VIAL ONE (07:03)
[2022-12-31] MEDS ORDERED: LIDOCAINE PF 2% 5 ML VIAL ONE (07:03)
--- NOTE | 2022-12-31 08:31 | Progress Note-Pre Operative ---
Pre-Operative Progress Note Date of Available H&P: Dec 19, 2022 Date H&P Reviewed: Dec 31, 2022 Time H&P Reviewed: 08:15 History & Physical: H&P Reviewed, No changes noted Pre-Operative Diagnosis: Gross hematuria, possible bladder tumor Shakila BUNCH MD Dec 31, 2022 08:31
[2022-12-31] MEDS ORDERED: SEVOFLURANE (ULTANE) 15 ML INHAL SOLN ONE (08:52)
--- NOTE | 2022-12-31 08:55 | Progress Note-Post Operative ---
Post-Operative Progess Note Surgeon (s)/Package Drier (s) Surgeon Shakila BUNCH MD Package Drier: none Pre-Operative Diagnosis Gross hematuria, possible bladder tumor Post-Operative Diagnosis Gross hematuria, normal cystoscopy Procedure & Operative Findings Date of Procedure 12/31/22 Procedure Performed/Findings Cystoscopy, enlarged prostate otherwise normal cystoscopy. No tumor seen. [place] urine obtained for cytology. Anesthesia Type General, LMA Estimated Blood Loss Estimated blood loss (mL): None Specimens/Packing Specimens Removed [place] urine for cytology Shakila BUNCH MD Dec 31, 2022 08:55
--- NOTE | 2022-12-31 09:08 | Discharge Inst-Urology ---
Discharge Inst-Urology Patient Instructions/Follow Up Plan/Assessment/Instructions Please make appointment to been seen in office in 2 weeks with KUB. Increase oral fluids for 48 hours and then as needed. Diet and Activity as tolerated. If questions or concerns contact your physician Or seek help at emergency department. Shakila BUNCH MD Dec 31, 2022 09:08
[2022-12-31] MEDS ORDERED: PROMETHAZINE INJ 25 MG/ML VIAL IVP ONE (09:15)
[2022-12-31] MEDS ORDERED: morphine INJ 10 MG/ML 1ML (SYR OR VIAL) IVP ONE (09:15)
[2022-12-31] MEDS ORDERED: ONDANSETRON INJECTION 4 MG/2 ML (SDV) IVP PRN (09:15)
--- NOTE | 2022-12-31 09:52 | Anesthesia-General Post-Op ---
General Patient Condition Mental Status/LOC: Same as Preop Cardiovascular: Satisfactory Nausea/Vomiting: Absent Respiratory: Satisfactory Pain: Controlled Complications: Absent Post Op Complications Complications None Follow Up Care/Instructions Patient Instructions None needed. Anesthesia/Patient Condition Patient Condition Patient is doing well, no complaints, stable vital signs, no apparent adverse anesthesia problems. No complications reported per nursing. LIZET MUÑIZ CRNA Dec 31, 2022 09:51
--- NOTE | 2022-12-31 15:47 | OPERATIVE REPORT ---
DATE OF SERVICE: 12/31/2022 PREOPERATIVE DIAGNOSIS: Gross hematuria. PROCEDURE PERFORMED: Cystoscopy. DESCRIPTION OF PROCEDURE: After informed consent was obtained, general anesthetic was administered. The patient was prepped and draped in dorsal lithotomy position, received IV Levaquin. Cystoscopy was then performed with a 21 [place] cystoscope sheath and 30 and 70 degree lens. Urethra was without strictures. Prostatic urethra showed moderate trilobar hypertrophy. Panendoscopy of bladder with 30 and 70 degree lens revealed normal ureteral orifices. No bladder tumors or stones. Barbotage urine was sent for cytology. Bladder drained. The patient was taken to recovery room. Plan will be to see him back in the office in 2 weeks to go over the cytology and also obtain a KUB. He will resume his home meds. Job ID: [id number] DocumentID: [id number] Dictated Date: 12/31/2022 09:22:36 Proposal Development Manager Date: 12/31/2022 15:46:00 Dictated By: Kirsten BUNCH MD
== END 2022-12-31 11:30 | disposition home or self-care (01) ==
LOC: SDC 06:18
PROVIDERS: ATTEND Specialist
DX: R31.0 Gross hematuria (principal); N40.0 Benign prostatic hyperplasia without lower urinary tract symptoms; E66.9 Obesity, unspecified; F17.210 Nicotine dependence, cigarettes, uncomplicated; Z68.31 Body mass index [BMI] 31.0-31.9, adult
CPT/HCPCS: 87081; 88112

== ENCOUNTER → 2023-01-20 | Outpatient (CLI) | payer OTHER ==
[2023-01-20 09:32] LABS: ALBUMIN 4.2 GM/DL (3.2-4.5); BILIRUBIN,TOTAL 0.4 MG/DL (0.1-1.0); CREATININE SERUM 0.91 MG/DL (0.60-1.30); POTASSIUM 4.2 MMOL/L (3.6-5.0); TOTAL PROTEIN 6.9 GM/DL (6.4-8.2)
== END ==
LOC: LAB 08:45
PROVIDERS: ATTEND Nurse Practitioner Family
DX: E78.2 Mixed hyperlipidemia (principal); I10 Essential (primary) hypertension; I25.10 Atherosclerotic heart disease of native coronary artery without angina pectoris; I48.0 Paroxysmal atrial fibrillation; G47.33 Obstructive sleep apnea (adult) (pediatric); I73.89 Other specified peripheral vascular diseases; I65.23 Occlusion and stenosis of bilateral carotid arteries; J44.9 Chronic obstructive pulmonary disease, unspecified; Z72.0 Tobacco use; Z79.01 Long term (current) use of anticoagulants
CPT/HCPCS: 36415; 80053; 80061